=== PATIENT | female | born 1980 | race Caucasian/White ===

== ENCOUNTER → 2019-12-14 | Outpatient (CLI) | payer MEDICAID ==
--- NOTE | 2019-12-14 17:05 | Diagnostic Imaging Report ---
CLINICAL HISTORY: Pain in the posterior aspect of the head. Head injury 5 years ago. COMPARISON: None. TECHNIQUE: Three views of the skull. FINDINGS: There is no acute fracture of the skull. No focal osseous lesions are identified. The paranasal sinuses and mastoid air cells are well pneumatized. There is relative hypoplasia of the right frontal sinus. The nasal septum is slightly deviated to the left without evidence of acute fracture. No acute facial fractures are identified. The sella has an unremarkable appearance and is not expanded. IMPRESSION: No acute fracture in the skull. No evidence of acute facial fractures. Dictated by: Dictated on workstation # [id number]
== END ==
LOC: RAD FS 16:35
PROVIDERS: ATTEND Nurse Practitioner Family
DX: M95.2 Other acquired deformity of head (principal)
CPT/HCPCS: 70250

== ENCOUNTER → 2020-01-31 | Outpatient (CLI) | payer MEDICAID ==
--- NOTE | 2020-01-31 13:22 | Diagnostic Imaging Report ---
CLINICAL INDICATION: Patient with pain in the cervical spine. No known injury. EXAM: X-ray of the cervical spine, four views. COMPARISON: None. FINDINGS: Of note, part of the C7 vertebra is obscured on lateral view due to overlapping anatomical structures. Odontoid views are unremarkable. There is no acute cervical spine fracture or dislocation. There is mildly hypertrophic anterior spurs at C6-C7 level. There is no prevertebral soft tissue swelling. There is minimal anterior spurring at the C3-C4 and C4-C5 level. IMPRESSION: There is mild cervical spine degenerative disease with no acute fracture or dislocation. Dictated by: Dictated on workstation # [id number]
== END ==
LOC: RAD FS 12:43
PROVIDERS: ATTEND Nurse Practitioner Family
DX: M47.812 Spondylosis without myelopathy or radiculopathy, cervical region (principal)
CPT/HCPCS: 72040

== ENCOUNTER 2020-03-15 21:41 | Emergency (ER) | payer MEDICAID ==
[~2020-03-15] VITALS: Ht 165.1 cm; Wt 131.8 kg
[2020-03-15] MEDS ORDERED: ONDANSETRON 4 MG/2 ML (SDV) Z0FRAN ONE (22:42)
[2020-03-15] MEDS ORDERED: ONDANSETRON 4 MG/2 ML (SDV) Z0FRAN IVP ONE (22:45)
[2020-03-15] MEDS ORDERED: NS IV 1000 ML 1,000 ML IV SCH (22:57)
[2020-03-15] MEDS ORDERED: FAMOTIDINE 20MG/2ML IV (PEPCID) IV STA (22:57)
[2020-03-16] MEDS ORDERED: NS 100 ML (IVPB) BAG IV ONE
[2020-03-16] MEDS ORDERED: IOHEXOL 350 MG/ML 100 ML (OMNIPAQUE 350) VIAL IV ONE
[2020-03-16] MEDS ORDERED: CATHETER FLUSH 10 ML SYR IV PRN
[2020-03-16] MEDS ORDERED: HOLD METFORMIN - RECEIVED CONTRAST 20 ML VIAL IV SCH
[2020-03-16] MEDS ORDERED: METOCLOPRAMIDE INJ 10 MG/2 ML (REGLAN) IVP ONE (00:45)
[2020-03-16 01:13] LABS: BASOPHILS % (AUTO) 0 % (0-10); EOSINOPHILS % (AUTO) 0 % (0-10); HEMATOCRIT 43 % (35-52); HEMOGLOBIN 13.4 G/DL (11.5-16.0); LYMPHOCYTES % (AUTO) 6 % (12-44); MEAN CORPUSCULAR HEMOGLOBIN 29 PG (25-34); MEAN CORPUSCULAR HGB CONC 31 G/DL (32-36); MEAN CORPUSCULAR VOLUME 93 FL (80-99); MEAN PLATELET VOLUME 9.4 FL (7.4-10.4); MONOCYTES % (AUTO) 4 % (0-12); NEUTROPHILS # (AUTO) 11.2 X 10^3 (1.8-7.8); NEUTROPHILS % (AUTO) 90 % (42-75); PLATELET COUNT 184 10^3/uL (130-400); RED CELL DISTRIBUTION WIDTH 13.5 % (10.0-14.5); WHITE BLOOD COUNT 12.5 10^3/uL (4.3-11.0)
[2020-03-16 01:14] LABS: LYMPHOCYTES # (AUTO) 0.7 X 10^3 (1.0-4.0); MONOCYTES # (AUTO) 0.5 X 10^3 (0.0-1.0)
[2020-03-16 01:32] LABS: SODIUM 134 MMOL/L (135-145)
[2020-03-16 01:33] LABS: ALANINE AMINOTRANSFERASE 13 U/L (0-55); ALBUMIN 3.8 GM/DL (3.2-4.5); ALKALINE PHOSPHATASE 54 U/L (40-136); BILIRUBIN,TOTAL 0.5 MG/DL (0.1-1.0); BUN/CREATININE RATIO 14; CALCIUM 8.4 MG/DL (8.5-10.1); CARBON DIOXIDE 18 MMOL/L (21-32); CHLORIDE 101 MMOL/L (98-107); CREATININE SERUM 0.96 MG/DL (0.60-1.30); GFR ESTIMATED > 60; GLUCOSE 131 MG/DL (70-105); LIPASE 18 U/L (8-78); POTASSIUM 4.3 MMOL/L (3.6-5.0); TOTAL PROTEIN 6.6 GM/DL (6.4-8.2)
--- NOTE | 2020-03-16 01:33 | ED GI ---
General Chief Complaint: Abdominal/GI Problems Stated Complaint: VOMITING Nursing Triage Note: Pt arrived by private vehicle with chief complaint of vomiting this evening starting around 1800. Pt is also feeling dizzy, faint feeling and weakness. Pt is alert, oriented at arrival. Sepsis Screen: No Definite Risk History of Present Illness Date Seen by Provider: Mar 15, 2020 Time Seen by Provider: 21:45 Initial Comments The patient is a 39-year-old female with a medical history including hypertension, uih-ceoixdl-ihspppygm diabetes, history of factor V Leiden with DVT and PE history on anticoagulation with warfarin per 2019 notes (patient states "please just check my chart" when asked for details of her medical history), history of fibromyalgia. She has an abdominal surgical history of cholecystectomy. Deysi presents with concern for about 6 hours of copious nonbloody vomiting (about 10 episodes) and copious watery diarrhea (about 5 episodes). Associated mild epigastric discomfort only before she vomits and not otherwise. Associated malaise and lightheadedness. She denies associated fevers, hematemesis, hematochezia, melena, upper respiratory congestion/rhinorrhea, cough, shortness of breath or chest pain of any kind, specifically right-sided or lower abdominal pain, flank pain, midline back pain, dysuria or hematuria, changes in bowel habits. She denies recent unusual travel, unusual foods, sick contacts with similar symptoms, recent antibiotic use. Patient is alert and appropriately interactive and vital signs are generally appropriate here. Patient appears fatigued but is in no acute distress upon initial assessment in the emergency department. Allergies and Home Medications Allergies Coded Allergies: aspirin (Verified Allergy, Unknown, 03/15/20) Patient Home Medication List Home Medication List Reviewed: Yes Review of Systems Review of Systems Constitutional: see HPI All Other Systems Reviewed Negative Unless Noted: Yes (Negative excepted noted.) Past Qsssrzr-Jkdoat-Gtrioc Hx Past Med/Social Hx: Reviewed Nursing Past Med/Soc Hx Patient Social History Recent Foreign Travel: No Contact w/Someone Who Travel: No Recent Infectious Disease Expo: No Recent Hopitalizations: No Physical Abuse: No Sexual Abuse: No Mistreated: No Fear: No Seasonal Allergies Seasonal Allergies: No Past Medical History Surgeries: Yes (d&c, lap cholecystectomy, knee left, mult tooth extractions) Hysterectomy Respiratory: Yes Pulmonary Embolism Cardiac: No Neurological: No Genitourinary: No Gastroesophageal Reflux Musculoskeletal: Yes (sciatica associated with disorder of lumbar spine) Fibromyalgia Endocrine: Yes Diabetes, Non-Insulin dep HEENT: No Cancer: No Psychosocial: Yes Depression Integumentary: No Blood Disorders: Yes (Factor V deficiency) Family Medical History Reviewed Nursing Family Hx Physical Exam Vital Signs Vital Signs - First Documented 03/15/20 22:10 Temp 36.4 Pulse 92 Resp 14 B/P (MAP) 143/99 (114) Pulse Ox 97 O2 Delivery Room Air Capillary Refill : Less Than 3 Seconds Height/Weight/BMI Height: '" Weight: lbs. oz. kg; 48.00 BMI Method: General Appearance: no apparent distress Exam Comments This is a middle-aged female appearing nontoxic and in no acute distress, although fatigue. Head is normocephalic and atraumatic. Neck is supple and nontender. Oropharynx is mildly tacky. Lungs are clear to auscultation at all stations. There is a normal S1 and S2 without rubs or gallops and capillary refill is appropriate, less than 2 seconds globally. Abdomen is soft, nontender and nondistended. Skin is warm and dry without cyanosis, clubbing or edema. Psychiatrically, the patient demonstrates appropriate mood and affect and is al ert. Progress/Results/Core Measures Results/Orders Lab Results Laboratory Tests Test 03/15/20 01:06 03/16/20 01:06 Range/Units White Blood Count 12.5 H 4.3-11.0 10^3/uL Red Blood Count 4.66 4.35-5.85 10^6/uL Hemoglobin 13.4 11.5-16.0 G/DL Hematocrit 43 35-52 % Mean Corpuscular Volume 93 80-99 FL Mean Corpuscular Hemoglobin 29 25-34 PG Mean Corpuscular Hemoglobin Concent 31 L 32-36 G/DL Red Cell Distribution Width 13.5 10.0-14.5 % Platelet Count 184 130-400 10^3/uL Mean Platelet Volume 9.4 7.4-10.4 FL Neutrophils (%) (Auto) 90 H 42-75 % Lymphocytes (%) (Auto) 6 L 12-44 % Monocytes (%) (Auto) 4 0-12 % Eosinophils (%) (Auto) 0 0-10 % Basophils (%) (Auto) 0 0-10 % Neutrophils # (Auto) 11.2 H 1.8-7.8 X 10^3 Lymphocytes # (Auto) 0.7 L 1.0-4.0 X 10^3 Monocytes # (Auto) 0.5 0.0-1.0 X 10^3 Eosinophils # (Auto) 0.0 0.0-0.3 10^3/uL Basophils # (Auto) 0.0 0.0-0.1 10^3/uL Neutrophils % (Manual) 95 % Lymphocytes % (Manual) 3 % Monocytes % (Manual) 2 % Toxic Granulation 3+ Sodium Level 134 L 135-145 MMOL/L Potassium Level 4.3 3.6-5.0 MMOL/L Chloride Level 101 98-107 MMOL/L Carbon Dioxide Level 18 L 21-32 MMOL/L Anion Gap 15 H 5-14 MMOL/L Blood Urea Nitrogen 13 7-18 MG/DL Creatinine 0.96 0.60-1.30 MG/DL Estimat Glomerular Filtration Rate > 60 BUN/Creatinine Ratio 14 Glucose Level 131 H 70-105 MG/DL Calcium Level 8.4 L 8.5-10.1 MG/DL Corrected Calcium 8.6 8.5-10.1 MG/DL Total Bilirubin 0.5 0.1-1.0 MG/DL Aspartate Amino Transf (AST/SGOT) 15 5-34 U/L Alanine Aminotransferase (ALT/SGPT) 13 0-55 U/L Alkaline Phosphatase 54 40-136 U/L Troponin I < 0.30 <0.30 NG/ML Total Protein 6.6 6.4-8.2 GM/DL Albumin 3.8 3.2-4.5 GM/DL Lipase 18 8-78 U/L My Orders Orders - KRISTA LEARY MD Ondansetron Injection (Zofran Injectio (03/15/20 22:45) Ondansetron Injection (Zofran Injectio (03/15/20 22:42) Cbc With Automated Diff (03/15/20 22:57) Comprehensive Metabolic Panel (03/15/20 22:57) Lipase (03/15/20 22:57) Troponin I Fs (03/15/20 22:57) Ekg Tracing (03/15/20 22:57) Ua Culture If Indicated (03/15/20 22:57) Ed Iv/Invasive Line Start (03/15/20 22:57) Ns Iv 1000 Ml (Sodium Chloride 0.9%) (03/15/20 22:57) Famotidine Injection (Pepcid Injection) (03/15/20 22:57) Ct Abdomen/Pelvis W (03/15/20 22:57) Iohexol Injection (Omnipaque 350 Mg/Ml 1 (03/16/20 00:00) Received Contrast (Hold Metformin- Contr (03/16/20 00:00) Sodium Chloride Flush (Catheter Flush Sy (03/16/20 00:00) Ns (Ivpb) (Sodium Chloride 0.9% Ivpb Bag (03/16/20 00:00) Ct Abdomen/Pelvis Wo (03/16/20 00:07) Protime With Inr (03/16/20 00:11) Partial Thromboplastin Time (03/16/20 00:11) Metoclopramide Injection (Reglan Injecti (03/16/20 00:45) Manual Differential (03/15/20 01:06) Medications Given in ED Current Medications Medications Dose Ordered Sig/Ambar Route Start Time Stop Time Status Last Admin Dose Admin Metoclopramide HCl 10 mg ONCE ONCE IVP 03/16/20 00:45 03/16/20 00:46 DC 03/16/20 00:37 10 MG Ondansetron HCl 8 mg ONCE ONCE IVP 03/15/20 22:45 03/15/20 22:46 DC 03/15/20 22:51 8 MG Vital Signs/I&O 03/15/20 22:10 Temp 36.4 Pulse 92 Resp 14 B/P (MAP) 143/99 (114) Pulse Ox 97 O2 Delivery Room Air Blood Pressure Mean: 114 Progress Progress Note : Time: 01:33 Progress Note 39-year-old female with appropriate vital signs who presents for evaluation of copious nonbloody vomiting and diarrhea with onset several hours prior to presentation. Not tachycardic or febrile here. His well-appearing and does not appear toxic. Clinical examination reassuring without any focal abdominal tenderness on exam. We will place IV and give IV fluids and medication for nausea and discomfort and will check labs and EKG and urine and we'll then reevaluate. We'll obtain a CT scan of the abdomen and pelvis as well; patient discloses what sounds like a relatively severe iodinated contrast allergy with difficulty breathing and hives in the past. As such, feel the risk of contrasting her outweighs the benefits so we will obtain her abdominopelvic CT scan noncontrast. 0200: Patient is resting comfortably upon reassessment and states her symptoms are much, much improved after IV fluids and antiemetics here in the emergency department. Labs are largely unremarkable aside from a very mild leukocytosis. Patient has not been able to provide a urine sample but low suspicion for urinary tract primary process based on presenting symptoms of sudden-onset vomiting and diarrhea. Patient continues to report no focal abdominal pain. CT scan without clear evidence of acute process aside from fluid-filled loops of bowel which would certainly be consistent with enteritis. No clear red flags for bacterial diarrhea/colitis. No evidence of an emergency condition is identified. Given symptomatic improvement and reassuring labs and imaging here in the emergency department. Patient is felt safe for discharge home with antiemetics and instructions to follow-up very closely immediately after the holiday weekend in 2 days with her primary care physician. She understands that in the meantime if she feels worse is that of better or develops other new symptoms of concern that she will need to return to the emergency department right away for reevaluation. All questions are answered. Initial ECG Impression Date: Mar 15, 2020 Comment Sinus rhythm, rate 84, no acute ST elevation or depression, baseline artifact limits interpretation to a degree, NJ 135, QRS 123, QTC 458, EP interpretation. Diagnostic Imaging Comments CT abdomen and pelvis: Impression per [facility]: Overall findings are nonspecific. There are fluid-filled prominent loops of small bowel and proximal large bowel as well as prominent subcentimeter retroperitoneal lymph nodes. Correlate with gastroenteritis/diarrheal disease with possible reactive lymph nodes. The descending colon is mildly thickened, likely due to under distention although colitis is not excluded. Departure Impression Primary Impression: Nausea and vomiting Qualified Codes: R11.2 - Nausea with vomiting, unspecified Additional Impression: Diarrhea Qualified Codes: R19.7 - Diarrhea, unspecified Disposition: 01 HOME, SELF-CARE Condition: Improved Departure-Patient Inst. Referrals: [facility] (PCP) Primary Care Physician MAAME WHYTE APRN (Family) Primary Care Physician Patient Instructions: Nausea and Vomiting With Cancer Treatment, Diarrhea and Travelers' Diarrhea, Adult (DC) Add. Discharge Instructions: Follow-up very closely with your primary care physician in 2 days, immediately after the holiday weekend, for reevaluation of your symptoms any discussion of next steps in care. You may take a Zofran tablet as needed under the tongue every 8 hours for nausea. You may take a Phenergan pill every 6 hours as needed for vomiting which is not well controlled with Zofran alone. Drink plenty of fluids and get plenty of rest. Return to the emergency department right away with worsening symptoms of any kind or with any other new symptoms of concern. Scripts Promethazine HCl (Promethazine Tablet) 25 Mg Tablet 25 MG PO Q6H PRN for NAUSEA/VOMITING, #10 TAB Prov: KRISTA LEARY MD 03/16/20 Ondansetron (Ondansetron Odt) 4 Mg Tab.rapdis 4 MG PO Q8H for Nausea, #10 TAB Prov: KRISTA LEARY MD 03/16/20 KRISTA LEARY MD Mar 16, 2020 01:33
[2020-03-16 01:40] LABS: LYMPHOCYTES % (MANUAL) 3 %; MONOCYTES % (MANUAL) 2 %; NEUTROPHILS % (MANUAL) 95 %; TOXIC GRANULATION/VACUOLAZATIO 3+
[2020-03-16] MEDS ORDERED: PROM25TA14 PO (02:13)
[2020-03-16] MEDS ORDERED: ONDA4TAB11 PO (02:13)
[2020-03-16 02:23] VITALS: BP 115/62
--- NOTE | 2020-03-16 06:39 | Diagnostic Imaging Report ---
PROCEDURE: CT abdomen and pelvis without contrast. TECHNIQUE: Multiple contiguous axial images were obtained through the abdomen and pelvis without the use of intravenous contrast. Auto Exposure Controls were utilized during the CT exam to meet ALARA standards for radiation dose reduction. INDICATION: Emesis with weakness. Images through the lung bases reveal minimal, punctate nodules in the right posterior costophrenic sulcus. Unenhanced images of the liver and spleen reveal no focal abnormalities. Gallbladder is surgically absent. There is no evidence pancreatic, adrenal gland or renal abnormality. The appendix has a normal appearance. There is no free fluid within the abdomen or pelvis. Bladder is unopacified but otherwise unremarkable. There is mild fluid distention of distal small bowel loops. Occasional mildly prominent lymph nodes are seen throughout the central retroperitoneum, mesentery and iliac regions. IMPRESSION: Nonspecific fluid distention of distal small bowel without evidence of obstruction. Enteritis is not excluded. Prominence of lymph nodes throughout the retroperitoneum, mesentery and iliac region are nonspecific as well. This could represent a nonspecific adenitis and clinical correlation is recommended. Minimal punctate nodules in the right lung base are likely incidental. If there are risk factors for pulmonary pathology, consideration could be given to CT imaging of the chest. Dictated by: Dictated on workstation # [id number]
[2020-03-21] MEDS ORDERED: ONDA8TAB13 PO (11:11)
[2020-03-21] MEDS ORDERED: LACT1CAP7 PO (11:11)
[2020-03-21] MEDS ORDERED: LISI-552 PO (11:11)
[2020-03-21] MEDS ORDERED: Trimethoprim/Sulfamethoxazole PO (11:11)
== END 2020-03-16 02:22 | disposition home or self-care (01) ==
LOC: EDUNIT# 21:41 → ER FS 21:42
DX: R11.2 Nausea with vomiting, unspecified (principal); R19.7 Diarrhea, unspecified; I10 Essential (primary) hypertension; E11.9 Type 2 diabetes mellitus without complications; D68.51 Activated protein C resistance; Z86.718 Personal history of other venous thrombosis and embolism; Z86.711 Personal history of pulmonary embolism; K21.9 Gastro-esophageal reflux disease without esophagitis; M79.10 Myalgia, unspecified site; F32.9 Major depressive disorder, single episode, unspecified; M51.17 Intervertebral disc disorders with radiculopathy, lumbosacral region; Z88.6 Allergy status to analgesic agent
CPT/HCPCS: 36415; 74176; 80053; 83690; 84484; 85007; 85027; 93005; 96361; 96374; 96375

== ENCOUNTER 2020-03-17 17:03 | Emergency (ER) | payer MEDICAID ==
[~2020-03-17] VITALS: Ht 152 cm; Wt 127.0 kg
[~2020-03-17 17:03] MED LIST: ONDA4TAB11 PO; PROM25TA14 PO
--- NOTE | 2020-03-17 17:29 | ED GI ---
General Chief Complaint: Abdominal/GI Problems Stated Complaint: VOMITING/DIARRHEA Nursing Triage Note: PT TO ROOM 07 VIA W/C WITH C/O VOMITING/DIARRHEA X4 DAYS. Sepsis Screen: No Definite Risk Source of Information: Patient Exam Limitations: No Limitations History of Present Illness Date Seen by Provider: Mar 17, 2020 Time Seen by Provider: 17:27 Initial Comments To ER with nausea vomiting and abdominal cramping as well as diarrhea that is watery and without blood. This is been ongoing since of last week. One day into the illness she went to [place] emergency room which was on Wednesday, suspected viral illness, given Zofran. Zofran has not helped she states. She denies any fevers or chills. She has been unable to take her warfarin (for factor V Leiden) since due to the nausea and vomiting. Timing/Duration: 1-2 Days Severity/Quality: Moderate Location: Generalized Abdomen Radiation: No Radiation Associated Symptoms: Nausea/Vomiting Allergies and Home Medications Allergies Coded Allergies: aspirin (Verified Allergy, Unknown, 03/15/20) Home Medications Ondansetron 4 Mg Tab.rapdis, 4 MG PO Q8H Prescribed by: KRISTA LEARY on 03/16/20 021 Promethazine HCl 25 Mg Tablet, 25 MG PO Q6H PRN for NAUSEA/VOMITING Prescribed by: KRISTA LEARY on 03/16/20 0213 Patient Home Medication List Home Medication List Reviewed: Yes Review of Systems Review of Systems Constitutional: see HPI EENTM: No Symptoms Reported Respiratory: No Symptoms Reported Cardiovascular: No Symptoms Reported Gastrointestinal: See HPI, Abdominal Pain, Nausea Genitourinary: No Symptoms Reported Musculoskeletal: no symptoms reported Skin: no symptoms reported Psychiatric/Neurological: No Symptoms Reported Endocrine: No Symptoms Reported Past Emamtmu-Zgtuty-Rphjbs Hx Patient Social History Alcohol Use: Denies Use Recreational Drug Use: No Smoking Status: Never a Smoker 2nd Hand Smoke Exposure: Yes Recent Foreign Travel: No Contact w/Someone Who Travel: No Recent Infectious Disease Expo: No Recent Hopitalizations: No Physical Abuse: No Sexual Abuse: No Mistreated: No Fear: No Seasonal Allergies Seasonal Allergies: No Past Medical History Surgeries: Yes (d&c, lap cholecystectomy, knee left, mult tooth extractions) Hysterectomy Respiratory: Yes Pulmonary Embolism Cardiac: No Neurological: No Genitourinary: No Gastroesophageal Reflux Musculoskeletal: Yes (sciatica associated with disorder of lumbar spine) Fibromyalgia Endocrine: Yes Diabetes, Non-Insulin dep HEENT: No Cancer: No Psychosocial: Yes Depression Integumentary: No Blood Disorders: Yes (Factor V deficiency) Physical Exam Vital Signs Vital Signs - First Documented 03/17/20 17:08 Temp 37.0 Pulse 112 Resp 17 B/P (MAP) 133/82 (99) O2 Delivery Room Air Capillary Refill : Less Than 3 Seconds Height/Weight/BMI Height: '" Weight: lbs. oz. kg; 54.00 BMI Method: General Appearance: WD/WN, no apparent distress Respiratory: lungs clear, normal breath sounds, no respiratory distress, no accessory muscle use Cardiovascular: regular rate, rhythm, no murmur Gastrointestinal: normal bowel sounds, non tender, soft Extremities: normal range of motion, non-tender Neurologic/Psychiatric: alert, normal mood/affect, oriented x 3 Skin: normal color, warm/dry Progress/Results/Core Measures Results/Orders Lab Results Laboratory Tests Test 03/17/20 17:16 Range/Units White Blood Count 4.3 4.3-11.0 10^3/uL Red Blood Count 5.03 4.35-5.85 10^6/uL Hemoglobin 14.3 11.5-16.0 G/DL Hematocrit 42 35-52 % Mean Corpuscular Volume 84 80-99 FL Mean Corpuscular Hemoglobin 28 25-34 PG Mean Corpuscular Hemoglobin Concent 34 32-36 G/DL Red Cell Distribution Width 13.7 10.0-14.5 % Platelet Count 198 130-400 10^3/uL Mean Platelet Volume 9.7 7.4-10.4 FL Neutrophils (%) (Auto) 84 H 42-75 % Lymphocytes (%) (Auto) 9 L 12-44 % Monocytes (%) (Auto) 7 0-12 % Eosinophils (%) (Auto) 0 0-10 % Basophils (%) (Auto) 0 0-10 % Neutrophils # (Auto) 3.6 1.8-7.8 X 10^3 Lymphocytes # (Auto) 0.4 L 1.0-4.0 X 10^3 Monocytes # (Auto) 0.3 0.0-1.0 X 10^3 Eosinophils # (Auto) 0.0 0.0-0.3 10^3/uL Basophils # (Auto) 0.0 0.0-0.1 10^3/uL Prothrombin Time 22.3 H 12.2-14.7 SEC INR Comment 1.9 H 0.8-1.4 Sodium Level 133 L 135-145 MMOL/L Potassium Level 3.1 L 3.6-5.0 MMOL/L Chloride Level 98 98-107 MMOL/L Carbon Dioxide Level 20 L 21-32 MMOL/L Anion Gap 15 H 5-14 MMOL/L Blood Urea Nitrogen 11 7-18 MG/DL Creatinine 1.14 0.60-1.30 MG/DL Estimat Glomerular Filtration Rate 53 BUN/Creatinine Ratio 10 Glucose Level 125 H 70-105 MG/DL Calcium Level 9.1 8.5-10.1 MG/DL Corrected Calcium 8.9 8.5-10.1 MG/DL Total Bilirubin 1.9 H 0.1-1.0 MG/DL Aspartate Amino Transf (AST/SGOT) 18 5-34 U/L Alanine Aminotransferase (ALT/SGPT) 16 0-55 U/L Alkaline Phosphatase 61 40-136 U/L Total Protein 7.6 6.4-8.2 GM/DL Albumin 4.2 3.2-4.5 GM/DL Serum Test, Qualitative NEGATIVE NEGATIVE My Orders Orders - MELISA ANNE APRN Cbc With Automated Diff (03/17/20 17:24) Comprehensive Metabolic Panel (03/17/20 17:24) Ed Iv/Invasive Line Start (03/17/20 17:24) Hcg,Qualitative Serum (03/17/20 17:24) Ns Iv 1000 Ml (Sodium Chloride 0.9%) (03/17/20 17:30) Promethazine Injection (Phenergan Injec (03/17/20 17:30) Protime With Inr (03/17/20 17:24) Loperamide Tablet (Imodium Tablet) (03/17/20 17:30) Enoxaparin Injection (Lovenox Injection) (03/17/20 17:30) Potassium Chloride (Tablet) (Klor Con Ta (03/17/20 18:30) Medications Given in ED Current Medications Medications Dose Ordered Sig/Ambar Route Start Time Stop Time Status Last Admin Dose Admin Enoxaparin Sodium 120 mg ONCE ONCE SC 03/17/20 17:30 03/17/20 17:31 DC 03/17/20 17:46 120 MG Loperamide HCl 4 mg ONCE ONCE PO 03/17/20 17:30 03/17/20 17:31 DC 03/17/20 17:46 4 MG Potassium Chloride 40 meq ONCE ONCE PO 03/17/20 18:30 03/17/20 18:31 DC 03/17/20 18:23 40 MEQ Promethazine HCl 25 mg ONCE ONCE IVP 03/17/20 17:30 03/17/20 17:31 DC 03/17/20 17:30 25 MG Vital Signs/I&O 03/17/20 17:08 Temp 37.0 Pulse 112 Resp 17 B/P (MAP) 133/82 (99) O2 Delivery Room Air Blood Pressure Mean: 99 Departure Communication (Admissions) 1834-and was able to drink 2 glasses of water here, able to take for potassium pills and has had no vomiting. Impression Primary Impression: Diarrhea Qualified Codes: R19.7 - Diarrhea, unspecified Additional Impression: Nausea and vomiting Qualified Codes: R11.2 - Nausea with vomiting, unspecified Disposition: 01 HOME, SELF-CARE Condition: Stable Departure-Patient Inst. Decision time for Depature: 17:29 Referrals: [facility] (PCP) Primary Care Physician MAAME WHYTE APRN (Family) Primary Care Physician Patient Instructions: Nausea and Vomiting, Adult Add. Discharge Instructions: 1. Drink plenty of fluids. You can use [id number] Imodium. Nausea medication as directed. All discharge instructions reviewed with patient and/or family. Voiced understanding. Work/School Note: Work Release Form Date Seen in the Emergency Department: Mar 17, 2020 Return to Work: Mar 19, 2020 MELISA ANNE APRN Mar 17, 2020 17:29
[2020-03-17] MEDS ORDERED: NS IV 1000 ML 1,000 ML IV SCH (17:30)
[2020-03-17] MEDS ORDERED: PROMETHAZINE INJ 25 MG/ML (PHENERGAN) AMP IVP ONE (17:30)
[2020-03-17] MEDS ORDERED: ENOXAPARIN 60 MG/0.6 ML (LOVENOX) SYR SC ONE (17:30)
[2020-03-17] MEDS ORDERED: LOPERAMIDE 2 MG (IMODIUM) TABLET PO ONE (17:30)
[2020-03-17 17:40] LABS: BASOPHILS % (AUTO) 0 % (0-10); EOSINOPHILS % (AUTO) 0 % (0-10); HEMATOCRIT 42 % (35-52); HEMOGLOBIN 14.3 G/DL (11.5-16.0); LYMPHOCYTES # (AUTO) 0.4 X 10^3 (1.0-4.0); LYMPHOCYTES % (AUTO) 9 % (12-44); MEAN CORPUSCULAR HEMOGLOBIN 28 PG (25-34); MEAN CORPUSCULAR HGB CONC 34 G/DL (32-36); MEAN CORPUSCULAR VOLUME 84 FL (80-99); MEAN PLATELET VOLUME 9.7 FL (7.4-10.4); MONOCYTES # (AUTO) 0.3 X 10^3 (0.0-1.0); MONOCYTES % (AUTO) 7 % (0-12); NEUTROPHILS # (AUTO) 3.6 X 10^3 (1.8-7.8); NEUTROPHILS % (AUTO) 84 % (42-75); PLATELET COUNT 198 10^3/uL (130-400); RED CELL DISTRIBUTION WIDTH 13.7 % (10.0-14.5); WHITE BLOOD COUNT 4.3 10^3/uL (4.3-11.0)
[2020-03-17 17:55] LABS: INR 1.9 (0.8-1.4); PROTHROMBIN TIME PATIENT 22.3 SEC (12.2-14.7)
[2020-03-17 18:06] LABS: ALBUMIN 4.2 GM/DL (3.2-4.5); BILIRUBIN,TOTAL 1.9 MG/DL (0.1-1.0); CALCIUM 9.1 MG/DL (8.5-10.1); CREATININE SERUM 1.14 MG/DL (0.60-1.30); POTASSIUM 3.1 MMOL/L (3.6-5.0); TOTAL PROTEIN 7.6 GM/DL (6.4-8.2)
[2020-03-17] MEDS ORDERED: KCL 10 MEQ TAB (MICRO K) PO ONE (18:30)
[2020-03-17 18:59] VITALS: BP 127/77
[2020-03-21] MEDS ORDERED: LACT1CAP7 PO (11:11)
[2020-03-21] MEDS ORDERED: ONDA8TAB13 PO (11:11)
[2020-03-21] MEDS ORDERED: Trimethoprim/Sulfamethoxazole PO (11:11)
[2020-03-21] MEDS ORDERED: LISI-552 PO (11:11)
== END 2020-03-17 18:59 | disposition home or self-care (01) ==
LOC: EDUNIT# 17:03 → ER 17:03
DX: R11.2 Nausea with vomiting, unspecified (principal); R19.7 Diarrhea, unspecified; D68.51 Activated protein C resistance; Z79.01 Long term (current) use of anticoagulants; Z86.711 Personal history of pulmonary embolism; K21.9 Gastro-esophageal reflux disease without esophagitis; M51.17 Intervertebral disc disorders with radiculopathy, lumbosacral region; M79.10 Myalgia, unspecified site; E11.9 Type 2 diabetes mellitus without complications; F32.9 Major depressive disorder, single episode, unspecified
CPT/HCPCS: 36415; 80053; 84703; 85025; 85610

== ENCOUNTER 2020-03-18 11:35 | Observation (INO) | payer MEDICAID ==
[~2020-03-18] VITALS: Ht 152 cm; Wt 126.4 kg
[2020-03-18] MEDS ORDERED: ONDANSETRON 4 MG/2 ML (SDV) Z0FRAN IVP ONE (11:45)
[2020-03-18] MEDS ORDERED: NS IV 1000 ML 1,000 ML IV SCH ×2 (11:45→15:30)
--- NOTE | 2020-03-18 11:45 | NUR ---
Brought to ED 5 via WC, pt parked at registration window by [facility] staff after a call report to Jena CRESPO. Pt is wearing an N95 mask. Pt has been in ER twice with N/V/D not resolving. Feeling weak again, [facility] referral for larger workup. Reports every voiding is also a liquid stool. Reports current nausea. RN met and greeted patient after donning appropriate PPE for patient care ?PUI.
--- NOTE | 2020-03-18 11:50 | NUR ---
Unable to collect a UA, pt had scant liquid green stool. States a liquid stool with every void.
--- NOTE | 2020-03-18 11:50 | NUR ---
Reported liquid stool to Dr Cuenca. Scant specimen collected sent to lab.
--- NOTE | 2020-03-18 12:06 | ED GI ---
General Chief Complaint: Abdominal/GI Problems Stated Complaint: N/V; DIARRHEA; FEVER Source of Information: Patient Exam Limitations: No Limitations History of Present Illness Date Seen by Provider: Mar 18, 2020 Time Seen by Provider: 11:50 Initial Comments The patient is a pleasant 39-year-old obese female who presents for evaluation of nausea, vomiting, diarrhea, and fever. She states that on she felt faint and had some generalized weakness. On Wednesday she started to have some nausea and vomiting and came into the emergency department for dehydration and was given IV fluids and labs were performed. She had a CT scan performed of her abdomen which showed possible enteritis but no other problems. She came back in to the ER over the weekend for continuing nausea and vomiting and dehydration and again received an IV with fluids. Today she went to the walk-in clinic and they noted that she appeared dehydrated and had a fever. Today is the first day that she is aware of having a fever. She denies cough or shortness of breath, chest pain, back or flank pain, urinary complaints, rectal bleeding, hematemesis, loss of smell or taste, sick contacts, sore throat, runny nose, abdominal pain, or syncope. She is alert and oriented 4, calm, and appears to be in no distress at this time. Timing/Duration: 4-5 Days Severity/Quality: Moderate Location: Epigastric (mild epigastric discomfort only when vomiting otherwise no abdominal discomfort) Radiation: No Radiation Associated Symptoms: Fever/Chills, Nausea/Vomiting, Weakness (and generalized) Allergies and Home Medications Allergies Coded Allergies: aspirin (Verified Allergy, Unknown, 03/15/20) Home Medications Ondansetron 4 Mg Tab.rapdis, 4 MG PO Q8H Prescribed by: KRISTA LEARY on 03/16/20212 Promethazine HCl 25 Mg Tablet, 25 MG PO Q6H PRN for NAUSEA/VOMITING Prescribed by: KRISTA LEARY on 03/16/20212 Patient Home Medication List Home Medication List Reviewed: Yes Review of Systems Review of Systems Constitutional: no symptoms reported EENTM: No Symptoms Reported Respiratory: No Symptoms Reported Cardiovascular: No Symptoms Reported Gastrointestinal: Abdominal Pain (mild, only when vomiting), Nausea, Poor Appetite, Vomiting Genitourinary: No Symptoms Reported Musculoskeletal: no symptoms reported Skin: no symptoms reported Psychiatric/Neurological: No Symptoms Reported Endocrine: No Symptoms Reported Hematologic/Lymphatic: No Symptoms Reported All Other Systems Reviewed Negative Unless Noted: Yes Past Funovou-Cnnhlo-Vxofue Hx Past Med/Social Hx: Reviewed Nursing Past Med/Soc Hx Patient Social History 2nd Hand Smoke Exposure: Yes Recent Foreign Travel: No Contact w/Someone Who Travel: No Recent Hopitalizations: No Seasonal Allergies Seasonal Allergies: No Past Medical History Surgeries: Yes (d&c, lap cholecystectomy, knee left, mult tooth extractions) Hysterectomy Respiratory: Yes Pulmonary Embolism Cardiac: No Neurological: No Genitourinary: No Gastroesophageal Reflux Musculoskeletal: Yes (sciatica associated with disorder of lumbar spine) Fibromyalgia Endocrine: Yes Diabetes, Non-Insulin dep HEENT: No Cancer: No Psychosocial: Yes Depression Integumentary: No Blood Disorders: Yes (Factor V deficiency) Physical Exam Vital Signs Vital Signs - First Documented 03/18/20 11:45 Temp 37.8 Pulse 117 Resp 18 B/P (MAP) 126/65 (85) Pulse Ox 97 O2 Delivery Room Air Capillary Refill : Height/Weight/BMI Height: '" Weight: lbs. oz. kg; 54.00 BMI Method: General Appearance: WD/WN, no apparent distress, obese HEENT: PERRL/EOMI, pharynx normal Neck: full range of motion, normal inspection Respiratory: lungs clear, normal breath sounds, no respiratory distress, no accessory muscle use Cardiovascular: regular rate, rhythm, no edema, no JVD Gastrointestinal: normal bowel sounds, non tender, soft, no organomegaly, no pulsatile mass Extremities: non-tender, normal inspection Back: normal inspection, no CVA tenderness Neurologic/Psychiatric: front office coordinator II-XII nml as tested, no motor/sensory deficits, alert, normal mood/affect, oriented x 3 Skin: normal color, warm/dry Progress/Results/Core Measures Results/Orders Lab Results Laboratory Tests Test 03/18/20 12:00 03/18/20 12:35 Range/Units White Blood Count 3.9 L 4.3-11.0 10^3/uL Red Blood Count 4.67 4.35-5.85 10^6/uL Hemoglobin 13.3 11.5-16.0 G/DL Hematocrit 39 35-52 % Mean Corpuscular Volume 84 80-99 FL Mean Corpuscular Hemoglobin 28 25-34 PG Mean Corpuscular Hemoglobin Concent 34 32-36 G/DL Red Cell Distribution Width 13.2 10.0-14.5 % Platelet Count 159 130-400 10^3/uL Mean Platelet Volume 9.7 7.4-10.4 FL Neutrophils (%) (Auto) 78 H 42-75 % Lymphocytes (%) (Auto) 10 L 12-44 % Monocytes (%) (Auto) 11 0-12 % Eosinophils (%) (Auto) 0 0-10 % Basophils (%) (Auto) 0 0-10 % Neutrophils # (Auto) 3.0 1.8-7.8 X 10^3 Lymphocytes # (Auto) 0.4 L 1.0-4.0 X 10^3 Monocytes # (Auto) 0.4 0.0-1.0 X 10^3 Eosinophils # (Auto) 0.0 0.0-0.3 10^3/uL Basophils # (Auto) 0.0 0.0-0.1 10^3/uL Neutrophils % (Manual) 48 % Lymphocytes % (Manual) 5 % Monocytes % (Manual) 11 % Eosinophils % (Manual) 1 % Basophils % (Manual) 1 % Metamyelocytes % 1 % Myelocytes % 1 % Band Neutrophils 32 % Sodium Level 130 L 135-145 MMOL/L Potassium Level 3.4 L 3.6-5.0 MMOL/L Chloride Level 99 98-107 MMOL/L Carbon Dioxide Level 20 L 21-32 MMOL/L Anion Gap 11 5-14 MMOL/L Blood Urea Nitrogen 11 7-18 MG/DL Creatinine 0.99 0.60-1.30 MG/DL Estimat Glomerular Filtration Rate > 60 BUN/Creatinine Ratio 11 Glucose Level 126 H 70-105 MG/DL Calcium Level 8.4 L 8.5-10.1 MG/DL Corrected Calcium 8.6 8.5-10.1 MG/DL Total Bilirubin 1.2 H 0.1-1.0 MG/DL Aspartate Amino Transf (AST/SGOT) 24 5-34 U/L Alanine Aminotransferase (ALT/SGPT) 20 0-55 U/L Alkaline Phosphatase 58 40-136 U/L Total Protein 6.8 6.4-8.2 GM/DL Albumin 3.8 3.2-4.5 GM/DL Amylase Level 8 L 25-125 U/L Lipase 16 8-78 U/L My Orders Orders - JOSE MCGILL DO Amylase (03/18/20 11:40) Cbc With Automated Diff (03/18/20 11:40) Comprehensive Metabolic Panel (03/18/20 11:40) Lipase (03/18/20 11:40) Ua Culture If Indicated (03/18/20 11:40) Urine Bedside (03/18/20 11:40) Ed Iv/Invasive Line Start (03/18/20 11:40) Ns Iv 1000 Ml (Sodium Chloride 0.9%) (03/18/20 11:45) Ondansetron Injection (Zofran Injectio (03/18/20 11:45) Coronavirus Sars-Cov-2 So 2018 (03/18/20 11:57) Stool Culture (03/18/20 11:57) Fecal Wbc (03/18/20 11:57) Parasite Scrn Stool Giard Cryp (03/18/20 11:57) Manual Differential (03/18/20 12:00) Ct Abdomen/Pelvis W (03/18/20 15:22) Ns Iv 1000 Ml (Sodium Chloride 0.9%) (03/18/20 15:30) Potassium Chloride (Tablet) (K Dur Table (03/18/20 15:30) Medications Given in ED Current Medications Medications Dose Ordered Sig/Ambar Route Start Time Stop Time Status Last Admin Dose Admin Ondansetron HCl 4 mg ONCE ONCE IVP 03/18/20 11:45 03/18/20 11:46 DC 03/18/20 12:14 4 MG Vital Signs/I&O 03/18/20 11:45 Temp 37.8 Pulse 117 Resp 18 B/P (MAP) 126/65 (85) Pulse Ox 97 O2 Delivery Room Air Progress Progress Note : Progress Note @1645 - patient updated on lab and imaging results which show evidence of dehyd ration, hyponatremia, and some enteritis. She is agreeable to admission at [facility]. Dr. Townsend accepts the observation admission at [facility] at this time. Departure Communication (Admissions) Time/Spoke to Admitting Phy: 16:50 Dr. Townsend accepts the observation admission at [facility] to a Med/Surg bed. Impression Primary Impression: Enteritis Additional Impressions: Nausea and vomiting Dehydration Hyponatremia Disposition: ADMITTED INPATIENT Condition: Stable Admissions Decision to Admit Reason: Admit from ER (General) Decision to Admit/Date: Mar 18, 2020 Time/Decision to Admit Time: 16:53 Departure-Patient Inst. Referrals: [facility] (PCP) Primary Care Physician MAAME WHYTE APRN (Family) Primary Care Physician JOSE MCGILL DO Mar 18, 2020 12:06
[2020-03-18 12:27] LABS: HEMATOCRIT 39 % (35-52); HEMOGLOBIN 13.3 G/DL (11.5-16.0); MEAN CORPUSCULAR HEMOGLOBIN 28 PG (25-34); MEAN CORPUSCULAR VOLUME 84 FL (80-99); WHITE BLOOD COUNT 3.9 10^3/uL (4.3-11.0)
[2020-03-18 12:28] LABS: BASOPHILS % (AUTO) 0 % (0-10); EOSINOPHILS % (AUTO) 0 % (0-10); LYMPHOCYTES # (AUTO) 0.4 X 10^3 (1.0-4.0); LYMPHOCYTES % (AUTO) 10 % (12-44); MEAN CORPUSCULAR HGB CONC 34 G/DL (32-36); MEAN PLATELET VOLUME 9.7 FL (7.4-10.4); MONOCYTES # (AUTO) 0.4 X 10^3 (0.0-1.0); MONOCYTES % (AUTO) 11 % (0-12); NEUTROPHILS % (AUTO) 78 % (42-75); PLATELET COUNT 159 10^3/uL (130-400); RED CELL DISTRIBUTION WIDTH 13.2 % (10.0-14.5)
--- OUTSIDE RECORDS SUMMARY | 2020-03-18 12:30 | XMS REPORT | Encounter Summary ---
Author Author [facility] Organization [facility] Address Unknown Phone Unavailable Care Team Providers Care French Professor Name Role Phone Tram Aldrich MD Unavailable Romina Martini MD Unavailable Emely Hamm MD Unavailable Annamaria Herndon PROFESSIONAL BONDSMAN-LANDMAN Unavailable [phone] Tram Colon RN Unavailable Unavailable Alfonso Weeks MD Unavailable Lisa Leon MD Unavailable Tram Wilson RN 2 Unavailable Marvin Kruse MD Unavailable Unavailable Ida Butler NP PCP Encounter Details Care Team Description Date Type Department 02/15/2020 Travel Social History Date Tobacco Use Types Packs/Day Years Used Never Smoker 0 0 Smokeless Tobacco: Never Used Comments: allergic to it. has put me in hosp before Drinks/Week oz/Week Comments Alcohol Use 0 Standard drinks or equivalent 0.0 No Sex Assigned at Date Recorded Not on file Industry Job Start Date Occupation Not on file Not on file Not on file Travel End Travel History Travel Start No recent travel history available. Date Recorded COVID-19 Exposure Response 02/15/2020 11:38 AM CDT In the last month, have you been in contact with No / Unsure someone who was confirmed or suspected to have Coronavirus / COVID-19? documented as of this encounter Functional Status Date of Assessment Functional Status Response 12/28/2018 Does the patient have a hearing impairment: No 12/28/2018 Does the patient have a visual impairment: Yes 12/28/2018 Does the patient have impaired ambulation: No 12/28/2018 Does the patient have an activity of daily living No (ADL) impairment: 12/28/2018 Does the patient have an instrumental activity of No daily living (IADL) impairment: Date of Assessment Cognitive Status Response 12/28/2018 Does the patient have a cognitive impairment: No documented as of this encounter Plan of Treatment Not on filedocumented as of this encounter Visit Diagnoses Not on filedocumented in this encounter
--- OUTSIDE RECORDS SUMMARY | 2020-03-18 12:30 | XMS REPORT | Clinical Summary ---
Author Author [facility] Organization [facility] Address Unknown Phone Unavailable Care Team Providers Care Labor Specialist Name Role Phone Tram Aldrich MD Unavailable Romina Martini MD Unavailable Emely Hamm MD Unavailable Annamaria Herndon STRATEGIC MARKETING MANAGER-MFT Unavailable [phone] Tram Colon RN Unavailable Unavailable Alfonso Weeks MD Unavailable Lisa Leon MD Unavailable Tram Wilson RN 2 Unavailable Marvin Kruse MD Unavailable Unavailable Ida Butler NP PCP Source Comments Some departments are not documenting in the electronic medical record. If you d o not see the information that you expected, contact Release of Information in [facility] Information Management department at [phone] for further assistan ce in locating additional records.[facility] Allergies Comments Active Allergy Reactions Severity Noted Date Aspirin HIVES, Medium 10/29/2015 STOMACH UPSET Medications End Date Status Medication Sig Dispensed Refills Start Date Active blood-glucose meter kit Use 1 Strip 1 Kit 0 as directed 7 as Needed. Test fasting morning blood sugars, test before and 2 hours after meals and before bed. Active lancets MISC Use 1 Each as 300 Each 11 directed as 7 Needed. Diag: diabetes Active blood sugar diagnostic Pt is to test 300 Strip 3 0 test stripIndications: blood sugar 7 Pre-existing type 2 up to eight diabetes mellitus during times daily , antepartum Active HYDROcodone/acetaminophen Take one 30 tablet 0 (NORCO) 5/325 mg tablet tablet to two 8 tablets by mouth every 4 hours as needed for Pain Active enoxaparin (LOVENOX) 120 120 mg every 0 06/24 mg/ 0.8 mL syringe 12 hours. 8 Active hydroxychloroquine Take 2 0 (PLAQUENIL) 200 mg tablet tablets (400 8 mg total) by mouth daily. Active traMADol (ULTRAM) 50 mg 50 mg every 8 0 tablet hours as 8 needed. Active warfarin (COUMADIN) 5 mg 0 tablet 8 Active lisinopril (PRINIVIL; Take 10 mg by 0 ZESTRIL) 10 mg tablet mouth daily. Active gabapentin (NEURONTIN) TAKE 1 270 capsule 3 300 mg capsule CAPSULE BY 9 MOUTH EVERY 8 HOURS Active tiZANidine (ZANAFLEX) 4 TAKE 1 TABLET 60 tablet 3 mg tablet BY MOUTH 9 EVERY 6 HOURS NEEDED Active nortriptyline (PAMELOR) 0 25 mg capsule 0 Active prothrombin time/INR test Use 1 each as 1 each 0 metr misc directed 0 every 7 days. Active Problems Problem Noted Date Pre-eclampsia in third trimester 04/21/2017 04/17/2017 Patient is Judaism 04/06/2017 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 Abdominal pain affecting , antepartum 03/25 contractions 03/12/2017 Pre-existing type 2 diabetes mellitus during pregnanc y in third trimester 12/31/2016 Sjogren's syndrome with keratoconjunctivitis sicca 0 12/28/2016 Morbid obesity 03/26/2016 Factor 5 Leiden mutation, heterozygous 03/26/2016 History of DVT (deep vein thrombosis) 03/26/2016 Diabetes mellitus without complication 03/26/2016 Sacroiliac joint dysfunction of both sides 6 Muscle pain, lumbar 12/31/2015 Intertrigo 10/29/2015 Overview: Nystatin powder Abnormal uterine bleeding (AUB) 10/14/2015 Overview: Referred by Dr. Sherri Almonte Contacted by Morena Santos - pt has h/o FVL H/o DVTs and PEs in 2014 currently on l ifelong coumadin Pt is also a Jehova's Witness Sep 2015 failed endometrial ablation at [facility] - D&c done - attempt to get path results TVUS uterus [id number], ovaries nl 09/01 15 Discussed management options - pt clear ly understands risks of surgery. However has not tried Mirena IUD - woul d recommend and if not appropriate improvement within 3-6 months will proc eed with RATLH (due to obesity) Would need to notify blood bank, have f orm on what she would accept, need PAT 02/18/2016 Colleague attempted IUD placement in cl inic but too painful Based on inablity to get D&C results pl an hysteroscopy with D&C with IUD placement Will pretreat with cytotec. 03/09/2016 D&C - disordered benign 03/26/2016 IUD removed due to pain. Discussed limited options due to multip le comoridities Discussed observation, Depo-provera, en dometrial ablation (consider Essure at same time for prevention), GEA with IUD placement or observation Does not want IUD or provera, Does not want to do nothing. Desires essure with HTA - understands off label and FD A concerns. CBC Understands that her case is complicate d but very frustrated with bleeding Will attempt Essure with HTA - understa nds that not within FDA guidelines due to the fact that an HSG is difficul t after endometrial ablation. Will discuss possibility of vasectomy for pa rtner at preop appt. 02/09/2017 Bleeding stopped with - wants plan Will have pt see blood bank for consult Will plan Mirena - would con scarfer hyst but must wait at least 3 months postop. Reports that her friend Anusha has DPOA and can change her mind about the patient receiving blood if necessary. 03/22/2018 Lupus, h/o DVT, Jehova's witness, DM, m orbid obesity TVUS pending CBC , TSH nl A1C 6.6 Will return to clinic after imaging to plan EMB and consider depo-provera. IUD in past caused pain. Resolved Problems Problem Noted Date Resolved Date Elevated liver enzymes 04/06/2017 04/20/2017 Encounters Care Team Description Date Type Specialty Ida Butler NP 02/15/2020 Hospital Radiology Encounter 02/15/2020 Travel Annamaria Herndon, STRATEGIC MARKETING MANAGER-MFT Cervicogenic headache (Primary Dx); Bilateral occipital neuralgia 02/13/2020 Procedure visit Anesthesia Pain 02/13/2020 Travel 02/08/2020 Documentation Radiology Robyn Alatorre RN Care Coordination 12/28/2019 Telephone Obstetrics & Gyneco logy Robyn Alatorre RN 12/28/2019 Documentation Obstetrics & Gyneco logy from Last 3 Months Immunizations Name Administration Dates Next Due Tdap Vaccine 02/18/2017 Family History Medical History Relation Name Comments Diabetes Father ff Heart Disease Father ff Hypertension Father ff Hypertension Maternal r Grandmother Arthritis Mother f Diabetes Mother f Hypertension Mother f Arthritis Sister f Hypertension Sister f Anesthetic Complication Neg Hx Bleeding Disorders Neg Hx Cancer Neg Hx Cancer-Breast Neg Hx Cancer-Colon Neg Hx Cancer-Ovarian Neg Hx Cancer-Uterine Neg Hx Relation Name Status Comments Father ff Maternal Grandmother r Mother f Sister f Social History Date Tobacco Use Types Packs/Day [...] Travel Start No recent travel history available. Last Filed Vital Signs Reading Time Taken Comments Vital Sign 143/89 10/31/2019 1:17 PM TAX COLLECTION COORDINATOR Blood Pressure 92 10/31/2019 1:17 PM TAX COLLECTION COORDINATOR Pulse 36.8 C (98.2 F) 07/06/2018 2:02 PM CDT Temperature 18 03/01/2017 2:30 PM CDT Respiratory Rate 99% 10/31/2019 1:17 PM TAX COLLECTION COORDINATOR Oxygen Saturation - - Inhaled Oxygen Concentration 132.5 kg (292 lb) 02/13/2020 1:39 PM CDT Weight 152.4 cm (5') 02/13/2020 1:39 PM CDT Height 57.03 02/13/2020 1:39 PM CDT Body Mass Index Plan of Treatment Health Maintenance Due Date Last Done Comments DILATED EYE EXAM 1998 FOOT EXAM 1998 PHYSICAL (COMPREHENSIVE) 1998 EXAM PNEUMONIA VACCINE (DM) 1998 CERVICAL CANCER SCREENING 2001 HBA1C 01/25/2019 07/28/2018, 03/22/2018 INFLUENZA VACCINE 06/13/2020 09/03/2010 DTAP/TDAP VACCINES (2 - 02/18/2027 02/18/2017 Td) HIV SCREENING Completed 01/07/2017 HEPATITIS C SCREENING Completed 04/06/2017 Implants Device Identifier Shelf Expiration Date Model / Serial / L ot Explanted Type Area Manufactur er 12/12/2017 / [id number] / [id number] Mirena N/A: Vagina Implanted: Qty: 1 on 03/06/2016 by Tram Aldrich MD at [id number][NOTE 3] Explanted: Qty: 1 on 03/08/2016 Description:Removed after 2 days, Procedures Comments Procedure Name Priority Date/Time Associated Diag nosis MRI C-SPINE WO CONTRAST Routine 02/15/2020 Cervic al pain 12:11 PM CDT WI INJECTION AA&/STRD Routine 02/13/2020 Bilatera l occipital GREATER OCCIPITAL NERVE 1:30 PM CDT neuralgia from Last 3 Months Results * MRI C-SPINE WO CONTRAST (02/15/2020 12:11 PM CDT) Specimen Impressions Performed At 1. Mild cervical disc degeneration. No significant spinal or foraminal stenosis. [facility] 2. No abnormal cord signal. Finalized by Manjit Macias M.D. on 02/15/2020 12:38 PM. Dictated by Manjit Macias M.D. on 02/15/2020 12:33 PM. Narrative Performed At MRI cervical spine [facility] HISTORY: Cervical pain TECHNIQUE: Multiplanar, multisequence MRI images w ere obtained through the cervical spine without contrast. FINDINGS: Comparison is made with CT of the cervi adwoa spine from December 2003. There is mild smooth reversal of the ce rvical lordosis which may be positional. The vertebral body heights are normal. The marrow signal is normal. There is no aggressive or destructive osseous lesio n. There is no paraspinous mass. The visualized portions of the posterio r fossa are unremarkable. The foramen magnum is widely patent. The cervical and upper thoracic cord si gnal is normal. There is very mild cervical disc degene ration with mild loss of signal within multiple cervical discs. The disc heigh ts are preserved. There are several minimal posterior protrusions or disc o steophyte complexes. There is slight effacement of the ventral thecal sac at C4-5 and C6-C7 without significant spinal or foraminal stenosis. Procedure Note Interface, Radiant Results - 02/15/2020 12:41 PM CDT MRI cervical spine HISTORY: Cervical pain TECHNIQUE: Multiplanar, multisequence MRI images were obtained through the cervical spine without contrast. FINDINGS: Comparison is made with CT of the cervical spine from December 2003. There is mild smooth reversal of the cervical lordosis which may be positional. The vertebral body heights are normal. The marrow signal is normal. There is no aggressive or destructive osseous lesion. There is no paraspinous mass. The visualized portions of the posterior fossa are unremarkable. The foramen magnum is widely patent. The cervical and upper thoracic cord signal is normal. There is very mild cervical disc degeneration with mild loss of signal within multiple cervical discs. The disc heights are preserved. There are several minimal posterior protrusions or disc osteophyte complexes. There is slight effacement of the ventral thecal sac at C4-5 and C6-C7 without significant spinal or foraminal stenosis. IMPRESSION 1. Mild cervical disc degeneration. No s ignificant spinal or foraminal stenosis. 2. No abnormal cord signal. Finalized by Manjit Macias M.D. on 02/15/2020 12:38 PM. Dictated by Manjit Macias M.D. on 02/15/2020 12:33 PM. Performing Organization Address City/State/Zipcode Ph one Number [facility] * [facility] (02/13/2020 1:30 PM CDT) Narrative Performed At Annamaria Herndon APRN-NP 02/19/2020 9:47 AM OTHER OUTSIDE LAB [facility] Nerve: occipital Laterality: bilateral Consent: Consent obtained: written Consent given by: patient Alternatives discussed: alternative ronn atment Discussed with patient the purpose of t he treatment/procedure, other ways of treating my condition, including no treatment/ procedure and the risks and benefits of the alternatives. Patie nt has decided to proceed with treatment/procedure. [place] Protocol: Relevant documents: relevant documents present and verified Site marked: the operative site was jennifer stringer Patient identity confirmed: Patient shu ntify confirmed verbally with patient. Time out: Immediately prior to procedur e a "time out" was called to verify the correct patient, procedure, equipme nt, operations support professionals and site/side marked as required Procedures Details: Indications: Pain Relief (occipital diamante ralgia) Prep: alcohol Patient position: sitting Needle size: 27 G Guidance: anatomical Medications administered: 6 mL bupivaca ine PF 0.25 %; 80 mg triamcinolone acetonide 40 mg/mL Outcome: Pain improved Patient tolerance: tolerated well, no i mmediate complications Performing Organization Address City/State/Zipcode Ph one Number OTHER OUTSIDE LAB from Last 3 Months Insurance Type Payer Benefit Subscriber ID Effective Phone Address Plan / Dates Group Medicaid UHC MEDICAID [place] UHC xxxxxxxxxxx [id number] [employer] [place] [phone] [id number] (Home) [place] [address] Advance Directives Patient Patient Care Representative Explanation Type Date Recorded ImageNow Scan Advance 03/06/2016 11:32 AM Directive/DPOA Advance 11/25/2016 12:00 AM Directive/DPOA Advance 11/25/2016 12:00 AM Directive/DPOA Date Inactivated Comments Code Status Date Activated 04/18/2017 3:25 PM Full Code 04/17/2017 4:34 PM Provider has discussed Code Status Yes w/Patient or Family? 04/07/2017 6:23 PM Full Code 04/07/2017 2:24 AM Provider has discussed Code Status Yes w/Patient or Family? 03/26/2017 8:15 PM Full Code 03/25/2017 3:42 PM Provider has discussed Code Status No, discussion no t w/Patient or Family? necessary based on Dx 03/13/2017 8:30 PM Full Code 03/12/2017 3:55 PM Provider has discussed Code Status Yes w/Patient or Family? 01/02/2017 9:02 PM Full Code 12/31/2016 5:41 PM Provider has discussed Code Status Yes w/Patient or Family?
--- OUTSIDE RECORDS SUMMARY | 2020-03-18 12:30 | XMS REPORT | Encounter Summary ---
Author Author [facility] Organization [facility] Address Unknown Phone Unavailable Care Team Providers Care Science Faculty Member Name Role Phone Trma Aldrich MD Unavailable Romina Martini MD Unavailable Emely Hamm MD Unavailable Annamaria Herndon ASSISTED LIVING MANAGER-TERMITE CONTROL REPRESENTATIVE Unavailable [phone] Tram Colon RN Unavailable Unavailable Alfonso Weeks MD Unavailable Lisa Leon MD Unavailable Tram Wilson RN 2 Unavailable Marvin Kruse MD Unavailable Unavailable Ida Butler NP PCP Encounter Details Care Team Description Date Type Department 02/13/2020 Travel Social History Date Tobacco Use Types [...] history available. Date Recorded COVID-19 Exposure Response 02/13/2020 1:26 PM CDT In the last month, have you [...]
--- OUTSIDE RECORDS SUMMARY | 2020-03-18 12:30 | XMS REPORT | Encounter Summary ---
Author Author [facility] Address Unknown Phone Unavailable Care Team Providers Care Mechanic Recovery Name Role Phone Tram Aldrich MD Unavailable Romina Martini MD Unavailable Emely Hamm MD Unavailable Annamaria HerndonBUNDLE TIER Unavailable [phone] Tram Colon RN Unavailable Unavailable Alfonso Weeks MD Unavailable Lisa Leon MD Unavailable Tram Wilson RN 2 Unavailable Marvin Kruse MD Unavailable Unavailable Ida Butler NP PCP Reason for Referral * Pain Authorization (Routine) Referred By Contact Referred To Contact Status Reason Specialty Diagnoses / Procedures Annamaria Herndon APRN-BUNDLE TIER [address] [facility] [place] [address] New Request Diagnoses Bilateral occipital neuralgia P rocedures [facility] Reason for Visit * Reason Comments Procedure Bilat Occipital NB Pain Pain Pain Pain * Pain Authorization (Routine) Referred By Contact Referred To Contact Status Reason Specialty Diagnoses / Procedures Annamaria Herndon APRN-BUNDLE TIER [address] [facility] [place] [address] [place] [address] [place] [address] Closed Anesthesia Pain Diagnoses Bilateral occipital neuralgia P rocedures [facility] Encounter Details Care Team Description Date Type Department Annamaria Herndon, OIL SPRAYING MACHINE OPERATOR-BUNDLE TIER [address] [facility] [place] [address] [phone] Cervicogenic headache (Primary Dx); Bilateral occipital neuralgia 02/13/2020 Procedure visit [facility] [address] [place], [place] [id number] Social History Date Tobacco Use Types Packs/Day [...] / COVID-19? documented as of this encounter Last Filed Vital Signs Reading Time Taken Comments Vital Sign - - Blood Pressure - - Pulse - - Temperature - - Respiratory Rate - - Oxygen Saturation - - Inhaled Oxygen Concentration 132.5 kg (292 lb) 02/13/2020 1:39 PM CDT Weight 152.4 cm (5') 02/13/2020 1:39 PM CDT Height 57.03 02/13/2020 1:39 PM CDT Body Mass Index documented in this encounter Functional Status Date of Assessment [...] impairment: No documented as of this encounter Progress Notes * Annamaria Herndon, OIL SPRAYING MACHINE OPERATOR-BUNDLE TIER - 02/13/2020 1:30 PM CDT [facility] NOTE SUBJECTIVE: chronic back pain, headaches Occipital head pain moderate recently Had OCNB in past with greater than 50% relief She comes in today to repeat Pain is constant, throbbing, shooting Back pain milder than head Was eval for this at last visit Was trying to get SCS Trial but no authed per insurance. Review of Systems Constitutional: Negative. HENT: Negative. Eyes: Negative. Respiratory: Negative. Cardiovascular: Negative. Gastrointestinal: Negative. Endocrine: Negative. Genitourinary: Negative. Musculoskeletal: Positive for arthralgias, back pain, joint swelling, myalgias, neck pain and neck stiffness. Skin: Negative. Allergic/Immunologic: Negative. Neurological: Positive for headaches. Hematological: Negative. Psychiatric/Behavioral: Negative. Current Outpatient Medications: blood sugar diagnostic test strip, Pt is to test blood sugar up to eight ti mes daily, Disp: 300 Strip, Rfl: 3 blood-glucose meter kit, Use 1 Strip as directed as Needed. Test fasting mo rning blood sugars, test before and 2 hours after meals and before bed., Disp: 1 Kit, Rfl: 0 enoxaparin (LOVENOX) 120 mg/ 0.8 mL syringe, 120 mg every 12 hours., Disp: , Rfl: gabapentin (NEURONTIN) 300 mg capsule, TAKE 1 CAPSULE BY MOUTH EVERY 8 HOUR S, Disp: 270 capsule, Rfl: 3 HYDROcodone/acetaminophen (NORCO) 5/325 mg tablet, Take one tablet to two t ablets by mouth every 4 hours as needed for Pain, Disp: 30 tablet, Rfl: 0 hydroxychloroquine (PLAQUENIL) 200 mg tablet, Take 2 tablets (400 mg total) by mouth daily., Disp: , Rfl: lancets MISC, Use 1 Each as directed as Needed. Diag: diabetes, Disp: 300 E ach, Rfl: 11 lisinopril (PRINIVIL; ZESTRIL) 10 mg tablet, Take 10 mg by mouth daily., Di sp: , Rfl: nortriptyline (PAMELOR) 25 mg capsule, , Disp: , Rfl: tiZANidine (ZANAFLEX) 4 mg tablet, TAKE 1 TABLET BY MOUTH EVERY 6 HOURS NEEDED, Disp: 60 tablet, Rfl: 3 traMADol (ULTRAM) 50 mg tablet, 50 mg every 8 hours as needed., Disp: , Rfl : warfarin (COUMADIN) 5 mg tablet, , Disp: , Rfl: Allergies Allergen Reactions Aspirin HIVES and STOMACH UPSET Physical Exam Vitals: 02/13/20 1339 Weight: 132.5 kg (292 lb) Height: 152.4 cm (60") PainSc: Eight Oswestry Total Score:: 72 Pain Score: Eight Body mass index is 57.03 kg/m. General: Alert, oriented, mild distress; obese HEENT: normocephalic NECK: TTP along jj occipital ridge. Limited ROM Resp: Non labored breathing, no distress Cardio: Pedal pulses palpable bilaterally, mild lower extremity edema MS: TTP in lumbar region of spine and paraspinal muscles. NEURO: Cranial nerves II-XII intact. Motor strength 5+ throughout, sensory exams normal. Gait coordinated. Behavior: Calm, cooperative, behavior and speech normal. IMPRESSION: 1. Cervicogenic headache 2. Bilateral occipital neuralgia PLAN: Repeat inj today Plan to re-eval ain 3-4 mo Back pain mild at this time and wants to defer trx documented in this encounter Procedure Notes * Annamaria Herndon APRN-NP - 02/13/2020 1:30 PM CDT Associated Order(s): [facility] Pre-Procedure Diagnose(s): Bilateral occipital neuralgia Post-Procedure Diagnose(s): Bilateral occipital neuralgia Attending Surgeon: JOHN Baker Anesthesia: Local Pre-Procedure Diagnosis: 1. Cervicogenic headache 2. Bilateral occipital neuralgia Post-Procedure Diagnosis: 1. Cervicogenic headache 2. Bilateral occipital neuralgia [facility] Nerve: occipital Laterality: bilateral Consent: Consent obtained: written Consent given by: patient Alternatives discussed: alternative treatment Discussed with patient the purpose of the treatment/procedure, other ways of ronn ating my condition, including no treatment/ procedure and the risks and benefits of the alternatives. Patient has decided to proceed with treatment/procedure. Henderson Protocol: Relevant documents: relevant documents present and verified Site marked: the operative site was marked Patient identity confirmed: Patient identify confirmed verbally with patient. Time out: Immediately prior to procedure a "time out" was called to verify the c orrect patient, procedure, equipment, production support engineer and site/side marked as requ ired Procedures Details: Indications: Pain Relief (occipital neuralgia) Prep: alcohol Patient position: sitting Needle size: 27 G Guidance: anatomical Medications administered: 6 mL bupivacaine PF 0.25 %; 80 mg triamcinolone aceton shu 40 mg/mL Outcome: Pain improved Patient tolerance: tolerated well, no immediate complications Estimated blood loss: none or minimal Specimens: none Patient tolerated the procedure well with no immediate complications. Pressure w as applied, and hemostasis was accomplished. documented in this encounter Plan of Treatment Order Schedule Name Type Priority Associated Diag noses Expected: 02/13/2020, Expires: 1 [facility] Procedures Routine Bila teral occipital neuralgia documented as of this encounter Procedures Comments Procedure Name Priority Date/Time Associated Diag nosis WA INJECTION AA&/STRD Routine 02/13/2020 Bilatera l occipital GREATER OCCIPITAL NERVE 1:30 PM CDT neuralgia documented in this encounter Results * [facility] (02/13/2020 1:30 PM CDT) Narrative Performed At Annamaria Herndon APRN-NP 02/19/2020 9:47 AM OTHER OUTSIDE LAB [facility] Nerve: occipital Laterality: bilateral Consent: Consent obtained: written Consent given by: patient Alternatives discussed: alternative ronn atment Discussed with patient the purpose of t he treatment/procedure, other ways of treating my condition, including no treatment/ procedure and the risks and benefits of the alternatives. Patie nt has decided to proceed with treatment/procedure. [place] Protocol: Relevant documents: relevant documents present and verified Site marked: the operative site was debo stringer Patient identity confirmed: Patient shu ntify confirmed verbally with patient. Time out: Immediately prior to procedur e a "time out" was called to verify the correct patient, procedure, equipme nt, production support engineer and site/side marked as required Procedures Details: Indications: Pain Relief (occipital diamante ralgia) Prep: alcohol Patient position: sitting Needle size: 27 G Guidance: anatomical Medications administered: 6 mL bupivaca ine PF 0.25 %; 80 mg triamcinolone acetonide 40 mg/mL Outcome: Pain improved Patient tolerance: tolerated well, no i mmediate complications Performing Organization Address City/State/Zipcode Ph one Number OTHER OUTSIDE LAB documented in this encounter Visit Diagnoses Diagnosis Bilateral occipital neuralgia Other syndromes affecting cervical karl on Cervicogenic headache Headache documented in this encounter Administered Medications Action Date Dose Rate Site Medication Order DBEO Action 02/13/2020 1:00 PM CDT 6 mL bupivacaine PF (MARCAINE) 0.25 % Given injection 6 mL 6 mL, Injection, ONCE PRN, 1 dose, Starting Wed02/19/20 at 0946, Until Wed02/13/20 at 1300 02/13/2020 1:00 PM CDT 80 mg triamcinolone acetonide (KENALOG-40) Given injection 80 mg 80 mg, Injection, ONCE PRN, 1 dose, Starting 02/19/20 at 0946, Until Wed02/13/20 at 1300 documented in this encounter
--- OUTSIDE RECORDS SUMMARY | 2020-03-18 12:30 | XMS REPORT | Encounter Summary ---
Author Author [facility] Organization [facility] Address Unknown Phone Unavailable Care Team Providers Care At Risk Paraprofessional Name Role Phone Tram Aldrich MD Unavailable Romina Martini MD Unavailable Emely Hamm MD Unavailable Annamaria Herndon APRN-METALLOGRAPHIC TECHNICIAN Unavailable [phone] Tram Colon RN Unavailable Unavailable Alfonso Weeks MD Unavailable Lisa Leon MD Unavailable Tram Wilson RN 2 Unavailable Marvin Kruse MD Unavailable Unavailable Ida Butler NP PCP Reason for Referral * Radiology Services (Routine) Referred By Contact Referred To Contact Status Reason Specialty Diagnoses / Procedures Ida Butler NP [address] [place] [address] [address] [place] [address] No Auth Needed Radiology Diagnoses Cervical pain P rocedures MRI C-SPINE WO CONTRAST Reason for Visit * Radiology Services (Routine) Referred By Contact Referred To Contact Status Reason Specialty Diagnoses / Procedures Ida Butler NP [address] [place] [address] [address] [address] [place] [address] No Auth Needed Radiology Diagnoses Cervical pain P rocedures MRI C-SPINE WO CONTRAST Encounter Details Care Team Description Date Type Department Ida Butler NP [address] [place], [place] [address] 02/15/2020 [facility] [address] [place], [place] [address] Social History Date Tobacco Use Types Packs/Day [...] impairment: No documented as of this encounter Medications at Time of Discharge Start Date End Date Medication Sig Dispensed Refills 01/07/2017 blood sugar diagnostic Pt is to test 300 Strip 3 test stripIndications: blood sugar Pre-existing type 2 up to eight diabetes mellitus during times daily , antepartum 01/02/2017 blood-glucose meter kit Use 1 Strip 1 Kit 0 as directed as Needed. Test fasting morning blood sugars, test before and 2 hours after meals and before bed. 06/24/2018 enoxaparin (LOVENOX) 120 120 mg every 0 mg/ 0.8 mL syringe 12 hours. 04/05/2019 gabapentin (NEURONTIN) TAKE 1 270 capsule 3 300 mg capsule CAPSULE BY MOUTH EVERY 8 HOURS 06/07/2018 HYDROcodone/acetaminophen Take one 30 tablet 0 (NORCO) 5/325 mg tablet tablet to two tablets by mouth every 4 hours as needed for Pain 12/17/2017 hydroxychloroquine Take 2 0 (PLAQUENIL) 200 mg tablet tablets (400 mg total) by mouth daily. 01/02/2017 lancets MISC Use 1 Each as 300 Each 11 directed as Needed. Diag: diabetes lisinopril (PRINIVIL; Take 10 mg by 0 ZESTRIL) 10 mg tablet mouth daily. 01/21/2020 nortriptyline (PAMELOR) 0 25 mg capsule 05/10/2019 tiZANidine (ZANAFLEX) 4 TAKE 1 TABLET 60 tablet 3 mg tablet BY MOUTH EVERY 6 HOURS NEEDED 04/18/2018 traMADol (ULTRAM) 50 mg 50 mg every 8 0 tablet hours as needed. 05/24/2018 warfarin (COUMADIN) 5 mg 0 tablet documented as of this encounter Plan of Treatment Not on filedocumented as of this encounter Procedures Comments Procedure Name Priority Date/Time Associated Diag nosis MRI C-SPINE WO CONTRAST Routine 02/15/2020 Cervic al pain 12:11 PM CDT documented in this encounter Results * MRI C-SPINE WO CONTRAST (02/15/2020 [...] City/State/Zipcode Ph one Number [facility] RESULTS documented in this encounter Visit Diagnoses Diagnosis Cervical pain Cervicalgia documented in this encounter
--- OUTSIDE RECORDS SUMMARY | 2020-03-18 12:31 | XMS REPORT | Encounter Summary ---
Author Author [facility] Organization [facility] Address Unknown Phone Unavailable Care Team Providers Care Clamshell Engineer Name Role Phone Tram Aldrich MD Unavailable Romina Martini MD Unavailable Emely Hamm MD Unavailable Annamaria Herndon APRN-ENGINEER GAS PUMPING STATION Unavailable [phone] Tram Colon RN Unavailable Unavailable Alfonso Weeks MD Unavailable Lisa Leon MD Unavailable Tram Wilson RN 2 Unavailable Marvin Kruse MD Unavailable Unavailable Ida Butler NP PCP Reason for Visit * Reason Comments Care Coordination Encounter Details Care Team Description Date Type Department Annamaria Herndon, COMMUNITY SERVICE REPRESENTATIVE-ENGINEER GAS PUMPING STATION [address] [place] [address] Care Coordination 11/09/2019 Telephone [facility] [address] [address] Social History Date Tobacco Use Types Packs/Day [...] Travel Start No recent travel history available. documented as of this encounter Functional Status [...] impairment: No documented as of this encounter Miscellaneous Notes * Telephone Encounter - Joyce Art BSN - 11/09/2019 1:47 PM SALES ANALYST LM for patient to contact clinic back S ANALYST * Telephone Encounter - Joyce Art BSN - 11/09/2019 1:46 PM SALES ANALYST ----- Message from JOHN Baker sent at 11/09/2019 11:45 AM SALES ANALYST ---- - Medicaid wont cover SCS ----- Message ----- From: Annamaria Herndon APRN-NP Sent: 10/31/2019 4:59 PM SALES ANALYST To: Emely Hamm MD [facility] S ANALYST documented in this encounter Plan of Treatment Not on filedocumented as of this encounter Visit Diagnoses Not on filedocumented in this encounter
--- OUTSIDE RECORDS SUMMARY | 2020-03-18 12:31 | XMS REPORT | Clinical Summary ---
Author Organization Unknown Address Unknown Phone Unavailable Care Team Providers Care Spinner Frame Name Role Phone PP Unavailable Allergies Not on File Medications Not on file Active Problems Not on file Social History Date Tobacco Use Types Packs/Day Years Used Never Smoker Smokeless Tobacco: Never Used Drinks/Week oz/Week Comments Alcohol Use No Sex Assigned at Date Recorded Not on file Industry Job Start Date Occupation Not on file Not on file Not on file Travel End Travel History Travel Start No recent travel history available. Plan of Treatment Not on file Results Not on filefrom Last 3 Months
--- OUTSIDE RECORDS SUMMARY | 2020-03-18 12:31 | XMS REPORT | Encounter Summary ---
Author Author [facility] Organization [facility] Address Unknown Phone Unavailable Care Team Providers Care Senior Accounts Payable Clerk Name Role Phone Tram Aldrich MD Unavailable Romina Martini MD Unavailable Emely Hamm MD Unavailable Annamaria Herndon TAPE TRANSFERRER-SANDWICH ARTIST Unavailable [phone] Tram Colon RN Unavailable Unavailable Alfonso Weeks MD Unavailable Lisa Leon MD Unavailable Tram Wilson RN 2 Unavailable Marvin Kruse MD Unavailable Unavailable Ida Butler NP PCP Reason for Referral * Pain Authorization (Routine) Referred By Contact Referred To Contact Status Reason Specialty Diagnoses / Procedures Annamaria Herndon, TAPE TRANSFERRER-SANDWICH ARTIST [address] [place] [address] Bhg Spn Anes Pain Cl [address] [address] Closed Anesthesia Pain Diagnoses Lumbar radiculopathy P rocedures KU AMB SPINE ELECT ANAL PRGM NEUROSTIM Reason for Visit * Reason Comments Follow Up Fuv to discuss injections Pain Headache Encounter Details Care Team Description Date Type Department Annamaria Herndon APRN-NP [address] [facility] [place] [address] [phone] Lumbar radiculopathy (Primary Dx); Bilateral occipital neuralgia; Myalgia of auxiliary muscles, head and neck; Cervicogenic headache 10/31/2019 Office Visit [facility] [address] [facility] [address] [place] [address] Social History Date Tobacco Use Types Packs/Day [...] history available. documented as of this encounter Last Filed Vital Signs Reading Time Taken Comments Vital Sign 143/89 10/31/2019 1:17 PM MANAGER SPECIALTY Blood Pressure 92 10/31/2019 1:17 PM MANAGER SPECIALTY Pulse - - Temperature - - Respiratory Rate 99% 10/31/2019 1:17 PM MANAGER SPECIALTY Oxygen Saturation - - Inhaled Oxygen Concentration 132.5 kg (292 lb) 10/31/2019 1:17 PM MANAGER SPECIALTY Weight 152.4 cm (5') 10/31/2019 1:17 PM MANAGER SPECIALTY Height 57.03 10/31/2019 1:17 PM MANAGER SPECIALTY Body Mass Index documented in this encounter [...] impairment: No documented as of this encounter Patient Instructions * Patient Instructions* Annamaria Herndon APRN-NP - 10/31/2019 1:15 PM MANAGER SPECIALTY Spinal Cord Stimulator General Instructions for Trial & Implant Scheduling ? The Spinal Cord Stimulator (SCS) coordinators will contact you for your appoin tments. ? You will need to have a psychological exam prior to the procedure. (They will assist you with scheduling this.) ? You will need to fill out a pre-surgical questionnaire. (This will be mailed t o you.) Appointment One (SCS Trial in Procedures) ? You will first be scheduled for a trial to see how the SCS will work for you. ? The temporary implant will be placed in procedures, externally. You will wear a "fannypack-like" device around your waist for up to 7 days. ? It is REQUIRED you have a route driver coin machines after procedure due to anesthesia sedation. ? Do not eat or drink after midnight before the procedure. ? You will not be able to shower or submerge in any water during your trial phas e. Sponge baths only. ? If you are on any blood thinners, or take medications for chronic issues, umair se ask the clinical nurse coordinator for instructions on these specific medicat ions. ? Please contact Clinical Nurse Coordinator for questions/concerns. ? Avoid bending, twisting, lifting arms over the head or heavy lifting during yo ur trial phase. ? You may, or may not, be instructed to withhold from driving during your trial phase. Please clarify this with your provider, since this is based on the type o f device you have implanted. ? Your Spinal Cord Stimulator Supplier Specialist will be in contact with you daily d uring your trial to guide you through adjusting settings if necessary. ? It is REQUIRED you shower thoroughly with chlorhexidine gluconate (CHG), or mo re commonly known as Hibiclens the day before and the morning of the procedure . (Hibiclens is available at local drug stores. It typically costs $6-10.) If you are allergic to this cleanse please notify the clinical nurse coordinator. ? Patient instructions for CHG soap use: ? Purchase the soap described above. ? Wash your hair as normal with your normal shampoo and rinse. ? Wash your face and genital area with regular soap and rinse. ? DO NOT use CHG soap on your face, near your eyes, or on your genital area. ? Apply the CHG soap to the rest of your body and your entire back. Scrub gently for 5 minutes trying to avoid rinsing before this time. You may need to turn the water off during this time to avoid rinsing. ? Rinse and do not apply any other soaps, oils/lotions/creams, powder, deodorant s, or perfumes on the areas you cleaned with CHG soap. ? Repeat one last time on the morning of your surgery. ? If you have any other questions about this do not hesitate to call. Appointment Two - SCS Trial (Clinic Follow-up) ? A week after the temporary implant (SCS trial), you will have an appointment, in clinic, to remove the temporary implant and to assess how well it worked for you. ? If the trial is successful, you will be scheduled for the permanent implant in the operating room on a separate day. ? At this appointment we will also take a nasal swab to rule out any patients wh o may be carrying a certain germ that can live on your skin without knowin g or showing any symptoms. Specifically, we are looking for Meticillin Resistant Staphylococcus Aureus (MRSA). We are committed to reducing post-operative infec tions and giving our patients quality care. ? No news is good news after this swab. The clinical nurse coordinator will only contact you if this result is positive. ? Clinical Nurse Coordinator will review pre-operative guidelines. Appointment Three - Permanent Implant (The Permanent Implant will be placed in t Operating Room) ? It is REQUIRED you shower thoroughly with chlorhexidine gluconate (CHG), or mo re commonly known as Hibiclens the day before and the morning of the procedure . (Hibiclens is available at local drug stores. It typically costs $6-10.) If you are allergic to this cleanse please notify the clinical nurse coordinator. ? Patient instructions for CHG soap use: ? Purchase the soap described above. ? Wash your hair as normal with your normal shampoo and rinse. ? Wash your face and genital area with regular soap and rinse. ? DO NOT use CHG soap on your face, near your eyes, or on your genital area. ? Apply the CHG soap to the rest of your body and your entire back. Scrub gently for 5 minutes trying to avoid rinsing before this time. You may need to turn the water off during this time to avoid rinsing. ? Rinse and do not apply any other soaps, oils/lotions/creams, powder, deodorant s, or perfumes on the areas you cleaned with CHG soap. ? Repeat one last time on the morning of your surgery. ? If you have any other questions about this do not hesitate to call. ? Do not eat or drink anything after midnight prior to your scheduled procedure. ? If you are on any blood thinners, or take medications for chronic issues, umair oconnor ask the clinical nurse coordinator for instructions on these specific medicat ions. ? You will receive anesthesia sedation so it is REQUIRED you have a route driver coin machines. ? Please contact Clinical Nurse Coordinator for questions/concerns. Instructions the Week the Permanent Stimulator is Implanted ? There will be two incisions covered with gauze and tape after implant. If you notice or start to experience any of the following: ? Swelling ? Persistent redness ? Black and blue bruising ? New bleeding or drainage from the insertion sites ? Severe headache ? Fever > 101F ? New onset of sharp, severe neck or back pain ? Please notify the clinical nurse coordinator immediately. (If this is after ho urs please call [phone] and have the Anesthesia Pain extension agent provider paged .) ? Do not shower. You will have to sponge bathe until directed by your provider. ? Avoid bending, twisting, lifting arms over head or heavy lifting for 6 weeks a fter insertion. This will keep the lead in the correct spot while your body heal s it into place. ? The Spinal Cord Stimulator will not be turned on for the first week after impl ant. At your follow up visit when the vasyl have been removed, the device rep is present, and orders have been given from provider the device will be turned o n. Appointment Four (Clinic Follow-up) ? You will need to be scheduled 10 days after the procedure for removal of the s taples. ? It is okay for you to drive yourself that day. ? The device career representative will attend that appointment to initiate and educate in regards to the programming. Bring all of the stimulator pieces you were given with you to this appointment. (Anticipate this appointment may take as much as an hour.) ? Once the vasyl are removed they will be replaced with steri-strips. (It is a dvised you wear loose fitting clothing to prevent irritation to the surgical sit es.) ? You may shower 3 days after the steri-strips have been placed. Allow the steri -strips to fall off on their own. ? Do not apply any soap, lotions/creams or oils directly to the incision site un less directed to do so by your doctor or nurse practitioner. ? If you notice or start to experience any of the following: ? Swelling ? Persistent redness ? Black and blue bruising ? New bleeding or drainage from the insertion sites ? Develop a severe headache ? Fever < 101F ? New onset of sharp, severe neck or back pain ? Please notify the clinical nurse coordinator immediately. (If this is after ho urs please call [phone] and have the Anesthesia Pain extension agent provider paged .) ? You will follow up in 2-4 weeks to check on incision and pain control. ? If you have any questions in regards to insurance or scheduling feel free to c all the following Spinal Cord Stimulator (SCS) coordinators. ? Estefany Sosa (if last name begins with A-J) at [phone] or ? Anay Jin (if last name begins with K-Z) at [phone]. GER SPECIALTY documented in this encounter Progress Notes * Annamaria Herndon APRN-NP - 10/31/2019 1:15 PM MANAGER SPECIALTY SPINE CENTER CLINIC NOTE SUBJECTIVE: Chronic back and headache pain Has been ongoing for years Last seen by me in March for OCNB jj Reports 80% relief lasting 6-8 mo Pain starting to come back over last few mon Comes in today to repeat inj Cont to have moderate low back pain Hx of fibro inj ADEBAYO have not helped, made pain worse She was eval by surgeon, Dr Pathak and not recommended to have surgery She was referred back for SCS eval Comes in today to discuss this Sees a new PCP Ida Butler MD Is on blood thinners with this provider Cont gabapentin 300mg duloxetine Tizanidine Tramadol PRN PT in past for this back pain with mild to minimal change in pain Tries to stay active at home Pain limits activity Review of Systems Constitutional: Negative. HENT: Negative. Eyes: Negative. Respiratory: Negative. Cardiovascular: Negative. Gastrointestinal: Negative. Endocrine: Negative. Genitourinary: Negative. Musculoskeletal: Negative. Skin: Negative. Allergic/Immunologic: Negative. Neurological: Positive for [...] by mouth daily., Di sp: , Rfl: tiZANidine (ZANAFLEX) 4 mg tablet, TAKE 1 TABLET BY MOUTH EVERY 6 HOURS NEEDED, Disp: 60 tablet, Rfl: 3 traMADol (ULTRAM) 50 mg tablet, 50 mg every 8 hours as needed., Disp: , Rfl : warfarin (COUMADIN) 5 mg tablet, , Disp: , Rfl: Allergies Allergen Reactions Aspirin HIVES and STOMACH UPSET Physical Exam Vitals: 10/31/19 1317 BP: 143/89 Pulse: 92 SpO2: 99% Weight: 132.5 kg (292 lb) Height: 152.4 cm (60") PainSc: Nine Pain Score: Nine Body mass index is 57.03 kg/m. General: Alert, oriented, mild distress; obese HEENT: normocephalic NECK: TTP along c spine and jj occipital ridges. Resp: Non labored breathing, no distress Cardio: Pedal pulses palpable bilaterally, mild lower extremity edema MS: TTP in lumbar region of spine and paraspinal muscles. NEURO: Cranial nerves II-XII intact. Motor strength 5+ throughout, sensory exams normal. Gait antalgic. Behavior: Calm, cooperative, behavior and speech normal. IMPRESSION: 1. Lumbar radiculopathy 2. Bilateral occipital neuralgia 3. Myalgia of auxiliary muscles, head and neck 4. Cervicogenic headache PLAN: Repeat OCNB jj today Discussed SCS therapy, will set up trial of Nevro High Frequency (HF-10) Has failed conservative treatments including medication, PT, injections, surgica l evaluation Reviewed stimulator model, provided patient with literature and SCS education bennie glynn Pt instructed our office will call to coordinate psychiatric evaluation for insu sachi authorization. Answered questions and patient agreeable to the plan MRSA nasal swab obtained and Hibiclens sponges provided with instructions for us e GER SPECIALTY documented in this encounter Procedure Notes * Annamaria Herndon APRN-NP - 10/31/2019 1:15 PM MANAGER SPECIALTY Associated Order(s): Nerve Block Post-Procedure Diagnose(s): Bilateral occipital neuralgia; Myalgia of auxiliary muscles, head and neck; Cervicogenic headache Attending Surgeon: JOHN Baker Anesthesia: Local Pre-Procedure Diagnosis: 1. Lumbar radiculopathy Post-Procedure Diagnosis: 1. Lumbar radiculopathy Nerve Block Nerve: occipital Laterality: bilateral Consent: Consent obtained: written Consent given by: patient Alternatives discussed: alternative treatment Discussed with patient the purpose of the treatment/procedure, other ways of ronn ating my condition, including no treatment/ procedure and the risks and benefits of the alternatives. Patient has decided to proceed with treatment/procedure. [place] Protocol: Relevant documents: relevant documents present and verified Site marked: the operative site was marked Patient identity confirmed: Patient identify confirmed verbally with patient. Time out: Immediately prior to procedure a "time out" was called to verify the c orrect patient, procedure, equipment, clinical support associate and site/side marked as requ ired Procedures Details: Indications: Pain Relief (occipital neuralgia) Prep: alcohol Patient position: sitting Needle size: 27 G Guidance: anatomical Medications administered: 6 mL bupivacaine PF 0.25 %; 80 mg methylprednisolone a cetate 80 mg/mL Outcome: Pain improved Patient tolerance: tolerated well, no immediate complications Estimated blood loss: none or minimal Specimens: none Patient tolerated the procedure well with no immediate complications. Pressure w as applied, and hemostasis was accomplished. GER SPECIALTY documented in this encounter Plan of Treatment Order Schedule Name Type Priority Associated Diag noses Expected: 10/31/2019, Expires: 0 KU AMB SPINE ELECT ANAL Procedures Routine Lumbar radiculopathy PRGM NEUROSTIM documented as of this encounter Procedures Comments Procedure Name Priority Date/Time Associated Diag nosis HC MRSA SCREEN 10/31/2019 4:01 PM MANAGER SPECIALTY MS INJECTION AA&/STRD Routine 10/31/2019 Bilatera l occipital GREATER OCCIPITAL NERVE 1:15 PM MANAGER SPECIALTY neuralgia Myalgia of auxiliary muscles, head and neck Cervicogenic headache documented in this encounter Results * MRSA SCREEN (10/31/2019 4:01 PM MANAGER SPECIALTY) Battery Name MRSA SCREEN [facility] MAIN LAB Specimen NASAL MAIN LAB Description Special NONE MAIN LAB Requests Culture NO MRSA ISOLATED [facility] MAIN [facility] Report Status FINAL MAIN LAB 11/02/2019 Specimen Nasal Performing Organization Address City/State/Zipcode Ph one Number MAIN LAB [address] [place] [address] * Nerve Block (10/31/2019 1:15 PM MANAGER SPECIALTY) Narrative Performed At Annamaria Herndon APRN-NP 10/31/2019 5:00 PM OTHER OUTSIDE LAB Nerve Block Nerve: occipital Laterality: bilateral Consent: Consent obtained: written Consent given by: patient Alternatives discussed: alternative ronn atment Discussed with patient the purpose of t he treatment/procedure, other ways of treating my condition, including no treatment/ procedure and the risks and benefits of the alternatives. Patty nt has decided to proceed with treatment/procedure. [place] Protocol: Relevant documents: relevant documents present and verified Site marked: the operative site was jennifer stringer Patient identity confirmed: Patient shu ntify confirmed verbally with patient. Time out: Immediately prior to procedur e a "time out" was called to verify the correct patient, procedure, equipme nt, clinical support associate and site/side marked as required Procedures Details: Indications: Pain Relief (occipital diamante ralgia) Prep: alcohol Patient position: sitting Needle size: 27 G Guidance: anatomical Medications administered: 6 mL bupivaca ine PF 0.25 %; 80 mg methylprednisolone acetate 80 mg/mL Outcome: Pain improved Patient tolerance: tolerated well, no i mmediate complications Performing Organization Address City/State/Zipcode Ph one Number OTHER OUTSIDE LAB documented in this encounter Visit Diagnoses Diagnosis Lumbar radiculopathy Thoracic or lumbosacral neuritis or rad iculitis, unspecified Bilateral occipital neuralgia Other syndromes affecting cervical karl on Myalgia of auxiliary muscles, head and neck Cervicogenic headache Headache documented in this encounter Administered Medications Action Date Dose Rate Site Medication Order MAR Action 10/31/2019 2:16 PM MANAGER SPECIALTY 6 mL bupivacaine PF (MARCAINE) 0.25 % Given injection 6 mL 6 mL, Injection, ONCE PRN, 1 dose, Starting 10/31/19 at 1416, Until 10/31/19 at 1416 10/31/2019 2:16 PM MANAGER SPECIALTY 80 mg methylprednisolone acetate (DEPO-Medrol) Given injection 80 mg 80 mg, Injection, ONCE PRN, 1 dose, Starting 10/31/19 at 1416, Until 10/31/19 at 1416 documented in this encounter
--- OUTSIDE RECORDS SUMMARY | 2020-03-18 12:31 | XMS REPORT | Encounter Summary ---
Author Author [facility] Organization [facility] Address Unknown Phone Unavailable Care Team Providers Care After School Teacher Name Role Phone Tram Aldrich MD Unavailable Romina Martini MD Unavailable Emely Hamm MD Unavailable Annamaria Herndon APRN-TELEPHONE QUOTATION CLERK Unavailable [phone] Tram Colon RN Unavailable Unavailable Alfonso Weeks MD Unavailable Lisa Leon MD Unavailable Tram Wilson RN 2 Unavailable Marvin Kruse MD Unavailable Unavailable Ida Butler NP PCP Encounter Details Care Team Description Date Type Department 02/08/2020 Documentation [facility] [address] [place] [address] Social History Date Tobacco Use Types Packs/Day [...]
--- OUTSIDE RECORDS SUMMARY | 2020-03-18 12:31 | XMS REPORT | Encounter Summary ---
Author Author [facility] Organization [facility] Address Unknown Phone Unavailable Care Team Providers Care Stonecutter Assistant Name Role Phone PCP Unavailable Encounter Details Care Team Description Date Type Department Baljinder Soria MD [address] [address] [phone] Mastodynia; Other pulmonary embolism and infarction; Acute thromboembolism of deep veins of lower extremity (HCC); Urinary tract infection 12/18/2014 Emergency [facility] [address] [address] Social History Date Tobacco Use Types Packs/Day Years Used Never Assessed Sex Assigned at Date Recorded Not on file Industry Job Start Date Occupation Not on file Not on file Not on file Travel End Travel History Travel Start No recent travel history available. documented as of this encounter Plan of Treatment Not on filedocumented as of this encounter Procedures Comments Procedure Name Priority Date/Time Associated Diag nosis URINE CULTURE STAT 12/18/2014 5:36 PM CDT XR CHEST 2 VW STAT 12/18/2014 4:53 PM CDT ECG 12-LEAD Routine 12/18/2014 12:30 PM CDT documented in this encounter Results * Urine culture (12/18/2014 5:36 PM CDT) SOURCE CLEAN CATCH URINE [facility] EPIC REQUISITION NONE [facility] EPIC NOTE CULTURE RESULTS 70,000 CFU/ML MIXED UROGENITAL [facility] EP IC POLLY CULTURE RESULTS FIVE COLONY TYPES [facility] EPIC CULTURE RESULTS NO FURTHER WORKUP [facility] EPIC REPORT STATUS 12/20/2014 FINAL [facility] EPIC (MICRO) Specimen Urine (substance) - Urine, Clean Catch Performing Organization Address City/State/Zipcode Ph one Number STF EPIC * XR CHEST 2 VW (12/18/2014 4:53 PM CDT) Specimen Impressions Performed At Normal two-view chest. [facility] Narrative Performed At FINDINGS: [facility] There is no prior study available for c omparison.PA and lateral views of the chest show normal heart size and config uration. The pulmonary vascularity is normal. There is no mediastinal or radha r adenopathy. The lungs are clear and there is no pleural effusion. The osseo us structures are normal. Procedure Note Interface, Radiology Results Conversion [facility] - 12/03/2018 11:02 PM CDT FINDINGS: There is no prior study available for comparison.PA and lateral views of the chest show normal heart size and configuration. The pulmonary vascularity is normal. There is no mediastinal or hilar adenopathy. The lungs are clear and there is no pleural effusion. The osseous structures are normal. IMPRESSION: Normal two-view chest. Performing Organization Address [facility] Ph [facility] Number [facility] * ECG 12 lead (12/18/2014 12:30 PM CDT) Specimen Narrative [place] [address] Test Date: 2014-12-18 Pat Name: ZOLTAN CISSE Department: Room: Gender: F Lab Nurse: JOHNY : 1980 Requested By: Order Number: Reading MD: Ely Eden M.D. Measurements Intervals [place] Rate: 71 P: -7 [place]: 156 QRS: 20 QRSD: 80 T: 26 QT: 376 QTc: 409 Interpretive Statements SINUS RHYTHM BASELINE WANDER IN LEAD(S) V2 INITIAL TIME OF INTERPRETATION:1227 Sinus rhythm, normal intervals, no ST c hanges Electronically Signed On 12-18-14 14:06 :11 CDT by Ely Eden M.D. Procedure Note Interface, Cardiology Conversion Results [facility] - 12/08/2018 1:14 [place] [address] Test Date: 2014-12-18 Pat Name: ZOLTAN OCHOAK Department: Room: Gender: F Lab Nurse: JOHNY : 1980 Requested By: Order Number: Reading MD: Ely Eden M.D. Measurements Intervals [place] Rate: 71 P: -7 [place]: 156 QRS: 20 QRSD: 80 T: 26 QT: 376 QTc: 409 Interpretive Statements SINUS RHYTHM BASELINE WANDER IN LEAD(S) V2 INITIAL TIME OF INTERPRETATION:1227 Sinus rhythm, normal intervals, no ST changes Electronically Signed On 12-18-14 14:06:11 CDT by Ely Eden M.D. Performing Organization Address City/State/Zipcode Ph one Number [facility] documented in this encounter Visit Diagnoses Diagnosis Mastodynia Other pulmonary embolism and infarction Acute thromboembolism of deep veins of lower extremity (HCC) Urinary tract infection documented in this encounter
--- OUTSIDE RECORDS SUMMARY | 2020-03-18 12:31 | XMS REPORT | Encounter Summary ---
Author Author [facility] Organization [facility] Address Unknown Phone Unavailable Care Team Providers Care Pump Technician Name Role Phone Tram Aldrich MD Unavailable Romina Martini MD Unavailable Emely Hamm MD Unavailable Annamaria Herndon MEDICAL BILLING AND CODING INSTRUCTOR-POLY AREA SUPERVISOR Unavailable [phone] Tram Colon RN Unavailable Unavailable Alfonso Weeks MD Unavailable Lisa Leon MD Unavailable Tram Wilson RN 2 Unavailable Marvin Kruse MD Unavailable Unavailable Ida Butler NP PCP Reason for Visit * Reason Comments Prior Authorization stim denied by MEDICAID Encounter Details Care Team Description Date Type Department Annamaria Herndon, MEDICAL BILLING AND CODING INSTRUCTOR-POLY AREA SUPERVISOR [address] [place] [address] Prior Authorization (stim denied by [employer]) 11/16/[address] [facility] [address] [address] Social History Date Tobacco Use [...] encounter Miscellaneous Notes * Telephone Encounter - Annamaria Herndon APRN-NP - 11/16/2019 5:06 PM INDUSTRIAL ENGINEERING MANAGER Patient is upset and has had multiple phone conversations with our staff rachidi ng her SCS trial orders. Unfortunatley this service is not covered by MEDICAID e nicole though she has called and her insurance is telling her that it is covered. I called to talk to the patient and apologized for all the confusion She verbalized understanding, but she did not have much to say and call was ende d shortly after. STRIAL ENGINEERING MANAGER documented in this encounter Plan of Treatment Not on filedocumented as of this encounter Visit Diagnoses Not on filedocumented in this encounter
--- OUTSIDE RECORDS SUMMARY | 2020-03-18 12:31 | XMS REPORT | Encounter Summary ---
Author Author [facility] Organization [facility] Address Unknown Phone Unavailable Care Team Providers Care Scaffolder Name Role Phone Tram Aldrich MD Unavailable Romina Martini MD Unavailable Emely Hamm MD Unavailable Annamaria Herndon APRN-NURSERY WORKER Unavailable [phone] Tram Colon RN Unavailable Unavailable Alfonso Weeks MD Unavailable Lisa Leon MD Unavailable Tram Wilson RN 2 Unavailable Marvin Kruse MD Unavailable Unavailable Ida Butler NP PCP Encounter Details Care Team Description Date Type Department Robyn Alatorre, ZAK 12/28/2019 Documentation [facility] [address] [place] [address] Social History Date Tobacco Use Types Packs/Day [...] as of this encounter Progress Notes * Robyn Alatorre RN - 12/28/2019 1:09 PM CDT Referral type: External Referring provider & clinic:Dr. Mina James- [facility] (H[facility]) Date of referral: 12/26/19 Reason for referral: Surgical consult for hysterectomy Important considerations: Confucianist Pertinent history: Menorrhagia, Factor V Leiden mutation, hx of multiple DVTs an d PE Last pap smear: 07/28/18- NILM, HPV- Has patient been seen in the OBGYN clinic before? Yes- surgical consult with Dr. Escalera 02/2019 Available Records: Appt notes Labs US CT MRI Op Note Biopsy (endometrial bx 09/2015) Records can be found in: [employer] CC file Are additional records needed? No [employer] Screen Watcher plan: -REFERRAL CLOSED documented in this encounter Plan of Treatment Not on filedocumented as of this encounter Visit Diagnoses Not on filedocumented in this encounter
--- OUTSIDE RECORDS SUMMARY | 2020-03-18 12:31 | XMS REPORT | Encounter Summary ---
Author Author [facility] Organization [facility] Address Unknown Phone Unavailable Care Team Providers Care Statistical Methods Teacher Name Role Phone Tram Aldrich MD Unavailable Romina Martini MD Unavailable Emely Hamm MD Unavailable Annamaria Herndon APRN-CHERRY SORTER Unavailable [phone] Tram Colon RN Unavailable Unavailable Alfonso Weeks MD Unavailable Lisa Leon MD Unavailable Tram Wilson RN 2 Unavailable Marvin Kruse MD Unavailable Unavailable Ida Butler NP PCP Reason for Visit * Reason Comments Care Coordination Encounter Details Care Team Description Date Type Department Robyn Alatorre, ZAK Care Coordination 12/28/2019 Telephone [facility] [address] [place] [address] Social History Date Tobacco Use [...] encounter Miscellaneous Notes * Telephone Encounter - Robyn Alatorre RN - 12/28/2019 1:27 PM CDT Calling to triage referral. Patient reports that referral was supposed to go [facility] [facility] else and she does not want to come back to . Patient reports that she h as seen several of our providers and no one will perform the surgery she wants s o she will go somewhere else. Robyn Alatorre RN documented in this encounter Plan of Treatment Not on filedocumented as of this encounter Visit Diagnoses Not on filedocumented in this encounter
--- OUTSIDE RECORDS SUMMARY | 2020-03-18 12:32 | XMS REPORT ---
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 ROMINA LEE on 2019-12-22 [employer] As long as she (no code) 12-22-2019 [facility] Authentication doesn't have 06:30-0400 [facility] CAD, peripheral Multispecialty Message Text vascular ([id number]) disease, hx of stroke, or~ischemic bowel disease she can use triptans. PE and DVT aren't contraindication s not yet categorized Ordered By: RAMYA TAO on 2019-12-22 [employer] [facility] (no code) 12-22-2019 [facility] NEUROLOGY - [phone]:[id number] [facility] TELENEUROLOGY Multispecialty Message Text VISIT~Patient ([id number]) Name: Deysi Cisse~: 1980~ ~PCP: Katey Quiles MD~Date of service: 12/22/2019~~Patie nt consent obtained for video visit/telemedici ne platform? Yes.~~For date of service 12/22/2019, Ms. Cisse was located at their home while I was~located at home location due to COVID seeing her via epic video visit.~~Chief Complaint~No chief complaint on file.~~History of Present Illness~Deysi Cisse is a 39 y.o. female presenting today for initial evaluation~for her headaches.~~She tells me she has had migraines since she was 9 or 10 years old. She says she~went to a doctor for her headaches as a kid, but can not remember anything more~than that.~She tells me they have not changed as she has aged. She tells me she has a spot~in the mid-posterior head that is tender to the touch.~She tells me she will have headaches at least 3 days per week. She tells me 2/3~of them are moderate lasting 5-6 hours in duration (with 2 doses of~tylenol1,000m g, which will decrease the severity slightly) Headaches will become~severe about one day were week and last 9-48 hours in duration. For severe~headaches , she takes Tylenol 1,000 mg, which doesn't do much for her. She says~she just lays in bed int he complete dark and it will eventually subside.~~She describes headaches as starting in the bilateral frontal region and become~holo-cran ial. She describes pain as a sharp constant pain that becomes more~intense and nauseating with movement.~With headaches she reports photophobia, phonophobia, fatigue, floaters, nausea~and occasional vomiting.~She denies paresthesias, weakness, and autonomic symptoms with headaches.~She says stress can intensify headaches. She tells me she has had brain imaging~in 2014 and denies any changes in headache characteristic since then.~~She reports taking Tylenol daily for the last 2 weeks and at least 2 times per~week before that. She tells me she takes tramadol 50 mg daily for her bulging~disk in her back, her lupus and her fibromyalgia. She says she rarely takes~hydrocodon e and has not taken it in > 3 months.~~She tells me she is unable to take NSAIDs due to factor V liden.~~She tells me she has had 3 round of occipital nerve blocks for bilateral~occipi wei neuralgia done by Dr. Yin at [facility]. She believes the first~two sets of injections were helpful and left her predominantly headache free for~about 4 months. Her last set of injections were done in September of 2019 and did~not have any relief. She says the last round "felt different" and just never~kicked in. She says she was referred to the pain clinic at by her PCP in [place], [place].~~Of note, he has had 2 DVT's in the past as well as a Pulmonary embolism in the~past. She had the PE and one of her DVT's on Xarelto, and was subsequently~sta rted on the Coumadin.~~Previ ous medications for headache prevention: nortriptyline (for~lupus/fibro myalgia)~Previou s medications for acute headache therapy: Tylenol~Previous neuroimaging: MRI of brain wo contrast 06/04/2015: unremarkable~~Re view of Systems~~Constit utional: Positive for fatigue. Negative for activity change, appetite~change, weight gain, weight loss, fever, chills and sweating.~Eyes: Positive for eye itching and photophobia. Negative for eye discharge, eye~pain, eye redness, double vision and change in vision.~HENT: Positive for headaches, ear pain, congestion, sinus pain, sinus pressure~and drooling. Negative for ear discharge, hearing loss, tinnitus, voice change,~mouth sores, dental problems, tongue pain, sore throat and trouble swallowing.~Card iovascular: Positive for leg swelling. Negative for chest pain, palpitations~and syncope.~Respira tory: Positive for snoring. Negative for chest tightness, cough, dyspnea~at rest, dyspnea with exertion, orthopnea dyspnea and wheezing.~Gastro intestinal: Positive for abdominal pain. Negative for heartburn, nausea,~vomiting , abdominal swelling, constipation and diarrhea.~Genito urinary: Negative for difficult urination, change in urinary frequency,~urina ry incontinence, nocturia, flank pain, genital sore(s), hematuria and~erectile dysfunction.~Mus culoskeletal: Positive for neck stiffness, neck pain, back pain, arthralgias,~abrahan nt swelling, myalgias and muscle cramps. Negative for falls.~Skin: Positive for dry skin. Negative for color change, birthmark, rash, lumps,~wound, nail changes and hair loss.~Neurologic al: Positive for dizziness, light-headedness , numbness, seizures,~weakne ss, difficulty with concentration and poor memory.Negative for facial~weakness, speech difficulty, tremors, difficulty walking, smell disturbance and~taste disturbance~Psyc hiatric/Behavior al: Positive for agitation, depressed mood, nervous/anxious~ and difficulty sleeping. Negative for aggression, delusions, hallucinations,~ hyperactive, self-injury and suicidal ideas.~Endocrine : Positive for excessive thirst. Negative for cold intolerance, heat~intolerance and excessive hunger.~Hematolo gic/Lymphatic: Positive for bruises/bleeds easily. Negative for~adenopathy.~ Allergic/Immunol ogic: Positive for environmental allergies and food allergies.~Negat ashkan for frequent infections.~~Pat ient Active Problem List~Diagnosis~* Fibromyalgia~* Sjogren's syndrome with keratoconjunctiv itis sicca (HCC)~* Diabetes mellitus without complication ([facility])~* Factor V Leiden mutation, heterozygous ([facility])~* History of DVT (deep vein thrombosis)~* Morbid obesity with BMI of 50.0-59.9, adult ([facility])~* Patient is Anabaptism~* Sacroiliac joint dysfunction of both sides~* SS-A antibody positive~* long-term current use of anticoagulant~* Lupus ([facility])~* Arthritis~* Vitamin D deficiency~~Hist ories~I have reviewed the patient's medical history in detail; there are no changes to~the history as noted in the electronic medical record.~~Current Medications~* blood-glucose meter (GLUCOCARD 01 METER) kit Inject 1 each under the skin 3~(three) times a day.~* cyanocobalamin, vitamin B-12, 1,000 mcg Subl Dissolve 1,000 mcg under the~tongue daily.~* DULoxetine (CYMBALTA) 40 mg capsule Take 1 capsule (40 mg total) by mouth~daily.~* ergocalciferol (VITAMIN D2) 1,250 mcg (50,000 unit) capsule Take 1 capsule~(50,000 Units total) by mouth weekly for 12 doses.~* ferrous sulfate 325 (65 FE) MG EC tablet Take 1 tablet (325 mg total) by mouth~daily.~* fluocinolone acetonide oil 0.01 % Drop~* fluticasone propionate (FLONASE) 50 mcg/actuation nasal spray as needed.~* gabapentin (NEURONTIN) 100 MG capsule Take 1 capsule (100 mg total) by mouth 3~(three) times a day. As directed~* gabapentin (NEURONTIN) 300 MG capsule Take 2 capsules (600 mg total) by mouth~nightly.~* HYDROcodone-acet aminophen (NORCO) 5-325 mg per tablet Take 1-2 tablets by~mouth as needed.~* hydroxychloroqui ne (PLAQUENIL) 200 mg tablet Take 2 tablets (400 mg total) by~mouth daily.~* lisinopril (PRINIVIL,ZESTRI L) 20 MG tablet Take 20 mg by mouth daily.~* metformin (GLUCOPHAGE-XR) 24 hr tablet 500 mg Take 1 tablet (500 mg total) by~mouth 2 (two) times a day before breakfast and dinner.~* montelukast (SINGULAIR) 10 mg tablet Take 10 mg by mouth daily.~* nortriptyline (PAMELOR) 25 MG capsule Take 25 mg by mouth daily.~* nystatin (MYCOSTATIN) powder Apply topically as needed.~* semaglutide 0.25 mg or 0.5 mg(2 mg/1.5 mL) PnIj Inject 0.5 mg under the skin~every 7 (seven) days.~* tiZANidine (ZANAFLEX) 4 MG tablet Take 4 mg by mouth every 6 (six) hours as~needed.~* traMADol (ULTRAM) 50 mg tablet TAKE 1 TO 2 TABLETS(50 TO 100 MG) BY MOUTH~THREE TIMES DAILY NEEDED FOR PAIN. MAX DAILY DOSE: 300 MG~* warfarin (COUMADIN) 5 MG tablet Take 5 mg by mouth 3 (three) times a week.~Wednesday, Wednesday, Wednesday as directed by INR~~No current facility-adminis tered medications for this visit.~~~Allergi es~Allergies~All ergen Reactions~* Aspirin Hives~ Other reaction(s): hives~~Physical Examination~Vide o visits do not have the supported technology for physician to document~heart and lungs exams, and may not have ability to fully document vital signs.~~General: alert, appears stated age and cooperative.~I was unable to do a full examination as this was a video visit, but the patient~does have tenderness in the bilateral occipital nerve distrubution when I ask~her to touch that areas.~~Neurolog ical Exam~~Cranial Nerves~CN I: Sense of smell is normal olfaction.~~~Bella ges/Studies/Labs Reviewed:~MRI of brain w/o contrast 06/04/2015~INDIC ATIONS: Persistent dizziness for 4 weeks~~COMPARISO N: CT head from 05/22/2015~~FINDIN GS: The ventricles and sulci are within normal limits for the patient's~age. There is no~significant abnormal increased or decreased signal abnormality seen within the~brain. No acute hemorrhage~ is identified. No focal brainstem or cerebellar abnormalities are identified in~adequate flow voids are~seen. No significant mastoid fluid is identified. Minimal mucosal thickening~noted in the anterior right~maxillary sinus. No gross mass lesions are seen on this noncontrast study. The~internal auditory canal~regions appear symmetric. No abnormal diffusion changes are seen.~~IMPRESSIO N~IMPRESSION: Unremarkable MRI of the brain. No focal abnormalities, hemorrhage,~infa rction or other acute~process can be seen.~~Impressio n and Plan~Diagnoses and all orders for this visit:~~Chronic migraine~- Amb Referral To Neurology~~This is a 39-year-old female with a rather complicated medical history as well~as a headache history consistent with migraine headache without aura as well as~bilateral occipital neuralgia.~~I had a long discussion with her regarding migraine headaches reviewing their~natural history, clinical manifestations, biochemical mechanisms, triggering~facto rs and treatment options.~~We discussed that as she has had success in the past from bilateral occipital~nerve blocks for her occipital neuralgia, I think it would be helpful for her to~try to see if she can get another round of injections to help with her~headaches. We discussed that she may not be able to get them done right now due~to the pandemic of COVID-19, but she should call and see when she would be able~to get in to get these done.~~In the meantime, for headache prevention we will increase her nortriptyline to~50 mg nightly. We discussed side effects such as dry mouth, constipation, and~fatigue.~~Fo r acute headache therapy, we discussed that although she does not have~coronary artery disease or a stroke in the past that she does have a rather~complicat ed medical history to include several blood clots. We also discussed~that she does have several risk factors for stroke as well. With that in mind,~we discussed that it was likely not safe for her to be on triptan medications.~I told her I would further discuss this with my staff, Dr. Lee when she~returns.~In the meantime, for acute headache therapy I will send a prescription for~Ubrelvy 50 mg tablets to be taken at the onset of acute headache. We discussed~that she can take 1 tablet at onset and repeat the dose in 2 hours if the first~dose does not result in a portion of headache. We discussed that she should not~take more than 2 doses of this medication in a 24-hour period. We also~discussed she should not take this medication more than 3 days/week to prevent~medicati on overuse headache. We discussed that this medication is~contraindicat ed with antifungal medications. She is on a topical antifungal. I~discussed this with my collaborator, Dr. Lee and she and I both agreed that~the Ubrelvy should not interact with her topical anit-fungal medication.~~We also discussed that she might have medication overuse headache as she takes~tramadol daily for her back pain. We discussed that if that is possible, she~should try to titrate down on the tramadol to not take it daily as this could be~making her headache syndrome worse.~~She currently has been having the same headache for the last 2 weeks. We~discussed that sometimes we will try a steroid taper to help with this, but due~to COVID-19, steroids are not recommended at this time. She was instead given~instructio ns for a headache cocktail consisting of promethazine 25 mg +~tizanidine 4 mg + Tylenol 1000 mg + Benadryl 25-50 mg. She was instructed to~take this cocktail every 8 hours for 3 days to see if this could break up her~current headache cycle. She was educated that this combination of medications~coul d make her very sleepy, so she should not drive or operate heavy machinery~while taking these medications.~~>5 0% of this 60-minute visit was spent in counseling and coordination of care.~~Follow-up : She will follow-up in the headache center in 8 weeks. She will~contact us in the meantime if she has any questions or concerns.~~Maribeth Tao NP [employer] (no code) 12-22-2019 [facility] - [id number] [facility] TELENEUROLOGY Multispecialty Message Text VISIT~Patient ([id number]) Name: Deysi Cisse~: 1980~ ~PCP: Katey Quiles MD~Date of service: 12/22/2019~~Patie nt consent obtained for video visit/telemedici ne platform? Yes.~~For date of service 12/22/2019, Ms. Cisse was located at their home while I was~located at home location due to COVID seeing her via [employer] video visit.~~Chief Complaint~No chief complaint on file.~~History of Present Illness~Deysi Cisse is a 39 y.o. female presenting today for initial evaluation~for her headaches.~~She tells me she has had migraines since she was 9 or 10 years old. She says she~went to a doctor for her headaches as a kid, but can not remember anything more~than that.~She tells me they have not changed as she has aged. She tells me she has a spot~in the mid-posterior head that is tender to the touch.~She tells me she will have headaches at least 3 days per week. She tells me 2/3~of them are moderate lasting 5-6 hours in duration (with 2 doses of~tylenol1,000m g, which will decrease the severity slightly) Headaches will become~severe about one day were week and last 9-48 hours in duration. For severe~headaches , she takes Tylenol 1,000 mg, which doesn't do much for her. She says~she just lays in bed int he complete dark and it will eventually subside.~~She describes headaches as starting in the bilateral frontal region and become~holo-cran ial. She describes pain as a sharp constant pain that becomes more~intense and nauseating with movement.~With headaches she reports photophobia, phonophobia, fatigue, floaters, nausea~and occasional vomiting.~She denies paresthesias, weakness, and autonomic symptoms with headaches.~She says stress can intensify headaches. She tells me she has had brain imaging~in 2014 and denies any changes in headache characteristic since then.~~She reports taking Tylenol daily for the last 2 weeks and at least 2 times per~week before that. She tells me she takes tramadol 50 mg daily for her bulging~disk in her back, her lupus and her fibromyalgia. She says she rarely takes~hydrocodon e and has not taken it in > 3 months.~~She tells me she is unable to take NSAIDs due to factor V liden.~~She tells me she has had 3 round of occipital nerve blocks for bilateral~occipi wei neuralgia done by Dr. Yin at [facility]. She believes the first~two sets of injections were helpful and left her predominantly headache free for~about 4 months. Her last set of injections were done in September of 2019 and did~not have any relief. She says the last round "felt different" and just never~kicked in. She says she was referred to the pain clinic at by her PCP in [place], [place].~~Of note, he has had 2 DVT's in the past as well as a Pulmonary embolism in the~past. She had the PE and one of her DVT's on Xarelto, and was subsequently~sta rted on the Coumadin.~~Previ ous medications for headache prevention: nortriptyline (for~lupus/fibro myalgia)~Previou s medications for acute headache therapy: Tylenol~Previous neuroimaging: MRI of brain wo contrast 06/04/2015: unremarkable~~Re view of Systems~~Constit utional: Positive for fatigue. Negative for activity change, appetite~change, weight gain, weight loss, fever, chills and sweating.~Eyes: Positive for eye itching and photophobia. Negative for eye discharge, eye~pain, eye redness, double vision and change in vision.~HENT: Positive for headaches, ear pain, congestion, sinus pain, sinus pressure~and drooling. Negative for ear discharge, hearing loss, tinnitus, voice change,~mouth sores, dental problems, tongue pain, sore throat and trouble swallowing.~Card iovascular: Positive for leg swelling. Negative for chest pain, palpitations~and syncope.~Respira tory: Positive for snoring. Negative for chest tightness, cough, dyspnea~at rest, dyspnea with exertion, orthopnea dyspnea and wheezing.~Gastro intestinal: Positive for abdominal pain. Negative for heartburn, nausea,~vomiting , abdominal swelling, constipation and diarrhea.~Genito urinary: Negative for difficult urination, change in urinary frequency,~urina ry incontinence, nocturia, flank pain, genital sore(s), hematuria and~erectile dysfunction.~Mus culoskeletal: Positive for neck stiffness, neck pain, back pain, arthralgias,~abrahan nt swelling, myalgias and muscle cramps. Negative for falls.~Skin: Positive for dry skin. Negative for color change, birthmark, rash, lumps,~wound, nail changes and hair loss.~Neurologic al: Positive for dizziness, light-headedness , numbness, seizures,~weakne ss, difficulty with concentration and poor memory.Negative for facial~weakness, speech difficulty, tremors, difficulty walking, smell disturbance and~taste disturbance~Psyc hiatric/Behavior al: Positive for agitation, depressed mood, nervous/anxious~ and difficulty sleeping. Negative for aggression, delusions, hallucinations,~ hyperactive, self-injury and suicidal ideas.~Endocrine : Positive for excessive thirst. Negative for cold intolerance, heat~intolerance and excessive hunger.~Hematolo gic/Lymphatic: Positive for bruises/bleeds easily. Negative for~adenopathy.~ Allergic/Immunol ogic: Positive for environmental allergies and food allergies.~Negat ashkan for frequent infections.~~Pat ient Active Problem List~Diagnosis~* Fibromyalgia~* Sjogren's syndrome with keratoconjunctiv itis sicca (HCC)~* Diabetes mellitus without complication ([facility])~* Factor V Leiden mutation, heterozygous ([facility])~* History of DVT (deep vein thrombosis)~* Morbid obesity with BMI of 50.0-59.9, adult ([facility])~* Patient is Anabaptism~* Sacroiliac joint dysfunction of both sides~* SS-A antibody positive~* long-term current use of anticoagulant~* Lupus (HCC)~* Arthritis~* Vitamin D deficiency~~Hist ories~I have reviewed the patient's medical history in detail; there are no changes to~the history as noted in the electronic medical record.~~Current Medications~* blood-glucose meter (GLUCOCARD 01 METER) kit Inject 1 each under the skin 3~(three) times a day.~* cyanocobalamin, vitamin B-12, 1,000 mcg Subl Dissolve 1,000 mcg under the~tongue daily.~* DULoxetine (CYMBALTA) 40 mg capsule Take 1 capsule (40 mg total) by mouth~daily.~* ergocalciferol (VITAMIN D2) 1,250 mcg (50,000 unit) capsule Take 1 capsule~(50,000 Units total) by mouth weekly for 12 doses.~* ferrous sulfate 325 (65 FE) MG EC tablet Take 1 tablet (325 mg total) by mouth~daily.~* fluocinolone acetonide oil 0.01 % Drop~* fluticasone propionate (FLONASE) 50 mcg/actuation nasal spray as needed.~* gabapentin (NEURONTIN) 100 MG capsule Take 1 capsule (100 mg total) by mouth 3~(three) times a day. As directed~* gabapentin (NEURONTIN) 300 MG capsule Take 2 capsules (600 mg total) by mouth~nightly.~* HYDROcodone-acet aminophen (NORCO) 5-325 mg per tablet Take 1-2 tablets by~mouth as needed.~* hydroxychloroqui ne (PLAQUENIL) 200 mg tablet Take 2 tablets (400 mg total) by~mouth daily.~* lisinopril (PRINIVIL,ZESTRI L) 20 MG tablet Take 20 mg by mouth daily.~* metformin (GLUCOPHAGE-XR) 24 hr tablet 500 mg Take 1 tablet (500 mg total) by~mouth 2 (two) times a day before breakfast and dinner.~* montelukast (SINGULAIR) 10 mg tablet Take 10 mg by mouth daily.~* nortriptyline (PAMELOR) 25 MG capsule Take 25 mg by mouth daily.~* nystatin (MYCOSTATIN) powder Apply topically as needed.~* semaglutide 0.25 mg or 0.5 mg(2 mg/1.5 mL) PnIj Inject 0.5 mg under the skin~every 7 (seven) days.~* tiZANidine (ZANAFLEX) 4 MG tablet Take 4 mg by mouth every 6 (six) hours as~needed.~* traMADol (ULTRAM) 50 mg tablet TAKE 1 TO 2 TABLETS(50 TO 100 MG) BY MOUTH~THREE TIMES DAILY NEEDED FOR PAIN. MAX DAILY DOSE: 300 MG~* warfarin (COUMADIN) 5 MG tablet Take 5 mg by mouth 3 (three) times a week.~Wednesday, Wednesday, Wednesday as directed by INR~~No current facility-adminis tered medications for this visit.~~~Allergi es~Allergies~All ergen Reactions~* Aspirin Hives~ Other reaction(s): hives~~Physical Examination~Vide o visits do not have the supported technology for physician to document~heart and lungs exams, and may not have ability to fully document vital signs.~~General: alert, appears stated age and cooperative.~I was unable to do a full examination as this was a video visit, but the patient~does have tenderness in the bilateral occipital nerve distrubution when I ask~her to touch that areas.~~Neurolog ical Exam~~Cranial Nerves~CN I: Sense of smell is normal olfaction.~~~Bella ges/Studies/Labs Reviewed:~MRI of brain w/o contrast 06/04/2015~INDIC ATIONS: Persistent dizziness for 4 weeks~~COMPARISO N: CT head from 05/22/2015~~FINDIN GS: The ventricles and sulci are within normal limits for the patient's~age. There is no~significant abnormal increased or decreased signal abnormality seen within the~brain. No acute hemorrhage~ is identified. No focal brainstem or cerebellar abnormalities are identified in~adequate flow voids are~seen. No significant mastoid fluid is identified. Minimal mucosal thickening~noted in the anterior right~maxillary sinus. No gross mass lesions are seen on this noncontrast study. The~internal auditory canal~regions appear symmetric. No abnormal diffusion changes are seen.~~IMPRESSIO N~IMPRESSION: Unremarkable MRI of the brain. No focal abnormalities, hemorrhage,~infa rction or other acute~process can be seen.~~Impressio n and Plan~Diagnoses and all orders for this visit:~~Chronic migraine~- Amb Referral To Neurology~~This is a 39-year-old female with a rather complicated medical history as well~as a headache history consistent with migraine headache without aura as well as~bilateral occipital neuralgia.~~I had a long discussion with her regarding migraine headaches reviewing their~natural history, clinical manifestations, biochemical mechanisms, triggering~facto rs and treatment options.~~We discussed that as she has had success in the past from bilateral occipital~nerve blocks for her occipital neuralgia, I think it would be helpful for her to~try to see if she can get another round of injections to help with her~headaches. We discussed that she may not be able to get them done right now due~to the pandemic of COVID-19, but she should call and see when she would be able~to get in to get these done.~~In the meantime, for headache prevention we will increase her nortriptyline to~50 mg nightly. We discussed side effects such as dry mouth, constipation, and~fatigue.~~Fo r acute headache therapy, we discussed that although she does not have~coronary artery disease or a stroke in the past that she does have a rather~complicat ed medical history to include several blood clots. We also discussed~that she does have several risk factors for stroke as well. With that in mind,~we discussed that it was likely not safe for her to be on triptan medications.~I told her I would further discuss this with my staff, Dr. Lee when she~returns.~We also discussed the possibility of starting the new acute headache medication,~Ubre lvy 50 mg tablets. Unfortunately, this medication is contraindicated with~antifungal medications. She is not using any oral antifungal therapy, but is~using topical antifungal and I am unsure it is safe for her to use both~together. We discussed that once I get a fresher answer from the pharmacist as~well as the Ubrelvy drug rep, I will let her know.~We also discussed that she might have medication overuse headache as she takes~tramadol daily for her back pain. We discussed that if that is possible, she~should try to titrate down on the tramadol to not take it daily as this could be~making her headache syndrome worse.~~She currently has been having the same headache for the last 2 weeks. We~discussed that sometimes we will try a steroid taper to help with this, but due~to COVID-19, steroids are not recommended at this time. She was instead given~instructio ns for a headache cocktail consisting of promethazine 25 mg +~tizanidine 4 mg + Tylenol 1000 mg + Benadryl 25-50 mg. She was instructed to~take this cocktail every 8 hours for 3 days to see if this could break up her~current headache cycle. She was educated that this combination of medications~coul d make her very sleepy, so she should not drive or operate heavy machinery~while taking these medications.~~>5 0% of this 60-minute visit was spent in counseling and coordination of care.~~Follow-up : She will follow-up in the headache center in 8 weeks. She will~contact us in the meantime if she has any questions or concerns.~~Maribeth Tao NP Waiter/Waitress Cabin Class Addended by: (no code) 12-22-2019 [facility] DINH, : South Interface VIVEK Schwartz on: Multispecialty Message Text 12/22/2019 01:38 ([id number]) PM~~ Modules accepted: Orders Waiter/Waitress Cabin Class [facility] (no code) 12-22-2019 [facility] NEUROLOGY - :[id number] South Interface TELENEUROLOGY Multispecialty Message Text VISIT~Patient ([id number]) Name: Deysi Cisse~: 1980~ ~PCP: Katey Quiles MD~Date of service: 12/22/2019~~Patty villalobos consent obtained for video visit/telemedici ne platform? Yes.~~For date of service 12/22/2019, Ms. Cisse was located at their home while I was~located at home location due to COVID seeing her via epic video visit.~~Chief Complaint~Migrai ne~~History of Present Illness~Deysi Cisse is a 39 y.o. female presenting today for initial evaluation~for her headaches.~~She tells me she has had migraines since she was 9 or 10 years old. She says she~went to a doctor for her headaches as a kid, but can not remember anything more~than that.~She tells me they have not changed as she has aged. She tells me she has a spot~in the mid-posterior head that is tender to the touch.~She tells me she will have headaches at least 3 days per week. She tells me 2/3~of them are moderate lasting 5-6 hours in duration (with 2 doses of~tylenol1,000m g, which will decrease the severity slightly) Headaches will become~severe about one day were week and last 9-48 hours in duration. For severe~headaches , she takes Tylenol 1,000 mg, which doesn't do much for her. She says~she just lays in bed int he complete dark and it will eventually subside.~~She describes headaches as starting in the bilateral frontal region and become~holo-cran ial. She describes pain as a sharp constant pain that becomes more~intense and nauseating with movement.~With headaches she reports photophobia, phonophobia, fatigue, floaters, nausea~and occasional vomiting.~She denies paresthesias, weakness, and autonomic symptoms with headaches.~She says stress can intensify headaches. She tells me she has had brain imaging~in 2014 and denies any changes in headache characteristic since then.~~She reports taking Tylenol daily for the last 2 weeks and at least 2 times per~week before that. She tells me she takes tramadol 50 mg daily for her bulging~disk in her back, her lupus and her fibromyalgia. She says she rarely takes~hydrocodon e and has not taken it in > 3 months.~~She tells me she is unable to take NSAIDs due to factor V liden.~~She tells me she has had 3 round of occipital nerve blocks for bilateral~occipi wei neuralgia done by Dr. Yin at [facility]. She believes the first~two sets of injections were helpful and left her predominantly headache free for~about 4 months. Her last set of injections were done in September of 2019 and did~not have any relief. She says the last round "felt different" and just never~kicked in. She says she was referred to the pain clinic at by her PCP in [facility], [place].~~Of note, he has had 2 DVT's in the past as well as a Pulmonary embolism in the~past. She had the PE and one of her DVT's on Xarelto, and was subsequently~sta rted on the Coumadin.~~Previ ous medications for headache prevention: nortriptyline (for~lupus/fibro myalgia)~Previou s medications for acute headache therapy: Tylenol~Previous neuroimaging: MRI of brain wo contrast 06/04/2015: unremarkable~~Re view of Systems~~Constit utional: Positive for fatigue. Negative for activity change, appetite~change, weight gain, weight loss, fever, chills and sweating.~Eyes: Positive for eye itching and photophobia. Negative for eye discharge, eye~pain, eye redness, double vision and change in vision.~HENT: Positive for headaches, ear pain, congestion, sinus pain, sinus pressure~and drooling. Negative for ear discharge, hearing loss, tinnitus, voice change,~mouth sores, dental problems, tongue pain, sore throat and trouble swallowing.~Card iovascular: Positive for leg swelling. Negative for chest pain, palpitations~and syncope.~Respira tory: Positive for snoring. Negative for chest tightness, cough, dyspnea~at rest, dyspnea with exertion, orthopnea dyspnea and wheezing.~Gastro intestinal: Positive for abdominal pain. Negative for heartburn, nausea,~vomiting , abdominal swelling, constipation and diarrhea.~Genito urinary: Negative for difficult urination, change in urinary frequency,~urina ry incontinence, nocturia, flank pain, genital sore(s), hematuria and~erectile dysfunction.~Mus culoskeletal: Positive for neck stiffness, neck pain, back pain, arthralgias,~abrahan nt swelling, myalgias and muscle cramps. Negative for falls.~Skin: Positive for dry skin. Negative for color change, birthmark, rash, lumps,~wound, nail changes and hair loss.~Neurologic al: Positive for dizziness, light-headedness , numbness, seizures,~weakne ss, difficulty with concentration and poor memory.Negative for facial~weakness, speech difficulty, tremors, difficulty walking, smell disturbance and~taste disturbance~Psyc hiatric/Behavior al: Positive for agitation, depressed mood, nervous/anxious~ and difficulty sleeping. Negative for aggression, delusions, hallucinations,~ hyperactive, self-injury and suicidal ideas.~Endocrine : Positive for excessive thirst. Negative for cold intolerance, heat~intolerance and excessive hunger.~Hematolo gic/Lymphatic: Positive for bruises/bleeds easily. Negative for~adenopathy.~ Allergic/Immunol ogic: Positive for environmental allergies and food allergies.~Negat ashkan for frequent infections.~~Pat ient Active Problem List~Diagnosis~* Fibromyalgia~* Sjogren's syndrome with keratoconjunctiv itis sicca (HCC)~* Diabetes mellitus without complication ([facility])~* Factor V Leiden mutation, heterozygous ([facility])~* History of DVT (deep vein thrombosis)~* Morbid obesity with BMI of 50.0-59.9, adult ([facility])~* Patient is Anabaptism~* Sacroiliac joint dysfunction of both sides~* SS-A antibody positive~* long-term current use of anticoagulant~* Lupus (HCC)~* Arthritis~* Vitamin D deficiency~~Hist ories~I have reviewed the patient's medical history in detail; there are no changes to~the history as noted in the electronic medical record.~~Current Medications~* blood-glucose meter (GLUCOCARD 01 METER) kit Inject 1 each under the skin 3~(three) times a day.~* cyanocobalamin, vitamin B-12, 1,000 mcg Subl Dissolve 1,000 mcg under the~tongue daily.~* DULoxetine (CYMBALTA) 40 mg capsule Take 1 capsule (40 mg total) by mouth~daily.~* ergocalciferol (VITAMIN D2) 1,250 mcg (50,000 unit) capsule Take 1 capsule~(50,000 Units total) by mouth weekly for 12 doses.~* ferrous sulfate 325 (65 FE) MG EC tablet Take 1 tablet (325 mg total) by mouth~daily.~* fluocinolone acetonide oil 0.01 % Drop~* fluticasone propionate (FLONASE) 50 mcg/actuation nasal spray as needed.~* gabapentin (NEURONTIN) 100 MG capsule Take 1 capsule (100 mg total) by mouth 3~(three) times a day. As directed~* gabapentin (NEURONTIN) 300 MG capsule Take 2 capsules (600 mg total) by mouth~nightly.~* HYDROcodone-acet aminophen (NORCO) 5-325 mg per tablet Take 1-2 tablets by~mouth as needed.~* hydroxychloroqui ne (PLAQUENIL) 200 mg tablet Take 2 tablets (400 mg total) by~mouth daily.~* lisinopril (PRINIVIL,ZESTRI L) 20 MG tablet Take 20 mg by mouth daily.~* metformin (GLUCOPHAGE-XR) 24 hr tablet 500 mg Take 1 tablet (500 mg total) by~mouth 2 (two) times a day before breakfast and dinner.~* montelukast (SINGULAIR) 10 mg tablet Take 10 mg by mouth daily.~* nortriptyline (PAMELOR) 25 MG capsule Take 2 capsules (50 mg total) by mouth~nightly.~* nystatin (MYCOSTATIN) powder Apply topically as needed.~* promethazine (PHENERGAN) 25 MG tablet Take 1 tablet (25 mg total) by mouth~every 6 (six) hours as needed for nausea.~* semaglutide 0.25 mg or 0.5 mg(2 mg/1.5 mL) PnIj Inject 0.5 mg under the skin~every 7 (seven) days.~* tiZANidine (ZANAFLEX) 4 MG tablet Take 4 mg by mouth every 6 (six) hours as~needed.~* traMADol (ULTRAM) 50 mg tablet TAKE 1 TO 2 TABLETS(50 TO 100 MG) BY MOUTH~THREE TIMES DAILY NEEDED FOR PAIN. MAX DAILY DOSE: 300 MG~* warfarin (COUMADIN) 5 MG tablet Take 5 mg by mouth 3 (three) times a week.~Wednesday, Wednesday, Wednesday as directed by INR~~No current facility-adminis tered medications for this visit.~~~Allergi es~Allergies~All ergen Reactions~* Aspirin Hives~ Other reaction(s): hives~~Physical Examination~Vide o visits do not have the supported technology for physician to document~heart and lungs exams, and may not have ability to fully document vital signs.~~General: alert, appears stated age and cooperative.~I was unable to do a full examination as this was a video visit, but the patient~does have tenderness in the bilateral occipital nerve distrubution when I ask~her to touch that areas.~~Neurolog ical Exam~~Cranial Nerves~CN I: Sense of smell is normal olfaction.~~~Bella ges/Studies/Labs Reviewed:~MRI of brain w/o contrast 06/04/2015~INDIC ATIONS: Persistent dizziness for 4 weeks~~COMPARISO N: CT head from 05/22/2015~~FINDIN GS: The ventricles and sulci are within normal limits for the patient's~a ge. There is no~significant abnormal increased or decreased signal abnormality seen within the~brain. No acute hemorrhage~ is identified. No focal brainstem or cerebellar abnormalities are identified in~adequate flow voids are~seen. No significant mastoid fluid is identified. Minimal mucosal thickening~noted in the anterior right~maxillary sinus. No gross mass lesions are seen on this noncontrast study. The~internal auditory canal~regions appear symmetric. No abnormal diffusion changes are seen.~~IMPRESSIO N~IMPRESSION: Unremarkable MRI of the brain. No focal abnormalities, hemorrhage,~infa rction or other acute~process can be seen.~~Impressio n and Plan~Deysi was seen today for migraine.~~Diagn oses and all orders for this visit:~~Intracta ble migraine without aura and without status migrainosus~- promethazine (PHENERGAN) 25 MG tablet; Take 1 tablet (25 mg total) by~mouth every 6 (six) hours as needed for nausea.~- Discontinue: ubrogepant (UBRELVY) 50 mg tablet; Take 1 tablet (50 mg~total) by mouth as needed for migraine.~~Chron ic migraine~- Amb Referral To Neurology~- nortriptyline (PAMELOR) 25 MG capsule; Take 2 capsules (50 mg total) by~mouth nightly.~~Reboun d headache~~Nausea ~~This is a 39-year-old female with a rather complicated medical history as well~as a headache history consistent with migraine headache without aura as well as~bilateral occipital neuralgia.~~I had a long discussion with her regarding migraine headaches reviewing their~natural history, clinical manifestations, biochemical mechanisms, triggering~facto rs and treatment options.~~We discussed that as she has had success in the past from bilateral occipital~nerve blocks for her occipital neuralgia, I think it would be helpful for her to~try to see if she can get another round of injections to help with her~headaches. We discussed that she may not be able to get them done right now due~to the pandemic of COVID-19, but she should call and see when she would be able~to get in to get these done.~~In the meantime, for headache prevention we will increase her nortriptyline to~50 mg nightly. We discussed side effects such as dry mouth, constipation, and~fatigue.~~Fo r acute headache therapy, we discussed that although she does not have~coronary artery disease or a stroke in the past that she does have a rather~complicat ed medical history to include several blood clots. We also discussed~that she does have several risk factors for stroke as well. With that in mind,~we discussed that it was likely not safe for her to be on triptan medications.~I told her I would further discuss this with my staff, Dr. Lee when she~returns.~We also discussed the possibility of starting the new acute headache medication,~Ubre lvy 50 mg tablets. Unfortunately, this medication is contraindicated with~antifungal medications. She is not using any oral antifungal therapy, but is~using topical antifungal and I am unsure it is safe for her to use both~together. We discussed that once I get a fresher answer from the pharmacist as~well as the Ubrelvy drug rep, I will let her know.~We also discussed that she might have medication overuse headache as she takes~tramadol daily for her back pain. We discussed that if that is possible, she~should try to titrate down on the tramadol to not take it daily as this could be~making her headache syndrome worse.~~She currently has been having the same headache for the last 2 weeks. We~discussed that sometimes we will try a steroid taper to help with this, but due~to COVID-19, steroids are not recommended at this time. She was instead given~instructio ns for a headache cocktail consisting of promethazine 25 mg +~tizanidine 4 mg + Tylenol 1000 mg + Benadryl 25-50 mg. She was instructed to~take this cocktail every 8 hours for 3 days to see if this could break up her~current headache cycle. She was educated that this combination of medications~coul d make her very sleepy, so she should not drive or operate heavy machinery~while taking these medications.~~>5 0% of this 60-minute visit was spent in counseling and coordination of care.~~Follow-up : She will follow-up in the headache center in 8 weeks. She will~contact us in the meantime if she has any questions or concerns.~~Maribeth Tao, JEANETTE Waiter/Waitress Cabin Class Addended by: (no code) 12-22-2019 [facility] Authentication DINH, 06:30-0400 South Interface VIVEK Schwartz on: Multispecialty Message Text 12/22/2019 03:59 ([id number]) PM~~ Modules accepted: Orders laboratory on 2019-12-14 Appearance (U) CLOU[facility] (A) [facility] ([id number]) Bacteria SEE NOTE (no code) [facility] Nom (U) [facility] ([id number]) Bacteria LM.HPF FEW (A) [facility] th (Urine sed) [facility] [#/Area] [facility] ([id number]) Bilirubin Ql (U) Negative (N) [facility] ([id number]) Color (U) YELLOW (N) [facility] ([id number]) Epithelial 6-10 (A) [facility] cells.squamous [facility] LM.HPF (Urine [facility] sed) [#/Area] ([id number]) Glucose Ql (U) Negative (N) [facility] ([id number]) Hemoglobin Ql Negative (N) [facility] (U) [facility] ([id number]) Hyaline casts 1-3 (A) [facility] (Urine sed) [facility] [#/Area] [facility] ([id number]) Ketones Ql (U) Negative (N) [facility] ([id number]) Leukocyte 2+ (A) [facility] esterase [facility] strip Ql (U) [facility] ([id number]) Nitrite Ql (U) Negative (N) [facility] ([id number]) pH (U) 6.0 [pH] (N) 4.6 - 8 [pH] [facility] ([id number]) Protein Ql (U) Negative (N) [facility] ([id number]) RBC LM.HPF 0-2 (N) [facility] (Urine sed) [facility] [#/Area] [facility] ([id number]) Service comment MODERATE MUCOUS (no code) [facility] ([facility] THREADS [facility] [Interp] [facility] ([id number]) Specific gravity 1.022 (N) [facility] (U) [Rel [facility] density] [facility] ([id number]) WBC LM.HPF 10-20 (A) [facility] (Urine sed) [facility] [#/Area] [facility] ([id number]) not yet categorized Ordered By: YOKASTA SAM on 2019-12-12 Waiter/Waitress Cabin Class 1. Continue (no code) 12-12-2019 [facility] regular exercise 09:30-0400 Endocrinolo gy - Interface - walk at least BlazeMeter Message Text once a day for ([id number]) 10-15 minutes, 2 x~per day~~2. Stay well hydrated with water~~3. Keep carbohydrates between 30-45 grams per meal, or less than < 100 grams~~4. We are going to treat insulin resistance and your diabetes:~ 1. Start Metformin 500 mg, twice daily with food. Start with~ One tablet one time per day x one week, then increase to~ Twice daily~~ 2. Start Ozempic 0.25 once a week x 2 weeks, then~ Increase to the 0.5 mg once a week, and continue.~~~Call me in 4 weeks to let me know how it's going. We will need to determine if~we are going to stay at the 0.5 mg weekly dose, or increase up to the 1 mg~weekly dose. At the 4-week rik, call me and we will decide on the dose. You can~then call and activate the coupon. Waiter/Waitress Cabin Class 1. Continue (no code) 12-12-2019 [facility] 09: Endocrinolo gy - Interface - walk at least BlazeMeter Message Text once a day for ([id number]) 10-15 minutes, 2 x~per day~~2. Stay well hydrated with water~~3. Keep carbohydrates between 30-45 grams per meal, or less than < 100 grams~~4. We are going to treat insulin resistance and your diabetes:~ 1. Start Metformin 500 mg, twice daily with food. Start with~ One tablet one time per day x one week, then increase to~ Twice daily~~ 2. Start Ozempic 0.25 once a week x 2 weeks, then~ Increase to the 0.5 mg once a week, and continue.~~~Call me in 4 weeks to let me know how it's going. We will need to determine if~we are going to stay at the 0.5 mg weekly dose, or increase up to the 1 mg~weekly dose. At the 4-week rik, call me and we will decide on the dose. You can~then call and activate the coupon.~~ ~~ Cut portion sizes in half~Work on mindfunless, portion control and hunger management Waiter/Waitress Cabin Class DIABETES (no code) 12-12-2019 [facility] FOLLOW-UP : Endocrinology - Interface NOTE~~Deysi Gilliam BlazeMeter Message Text Tanna is a 39 ([id number]) y.o. female presenting today for follow up of~Chief Complaint~Patien t presents with~* Initial Visit~~~~HPI~Thi s is a very pleasant 39-year-old female patient who comes to the clinic today~to establish care for type 2 diabetes. [place] of[place], near [place], [place]. Both her mother and father are .~She has a family history of diabetes and hypothyroidism in her mother, diabetes~and hypothyroidism in her maternal grandmother, and diabetes in her father. She~is and has 2 children. She had gestational diabetes with both~pregnancies . She is not currently prescribed any diabetes medication. Her~hemoglobin A1c is 6.5% today. She is also diagnosed with Sjogren's syndrome,~lupus, factor V Leiden mutation, fibromyalgia, and she has ahistory of DVTs with~long-term use of anticoagulation. She reports having a high level of fatigue,~and is very concerned about this. Likely part of the issue is deconditioning and~morbid obesity with a BMI of 57.3. It has been suspected that she may have sleep~apnea. I have talked to her about the option of a sleep study, and she is~interested in a referral. She is also complaining of dark facial hair growth on~her chin. She denies any issues of acne. She does have heavy and frequent~periods , every 2 weeks for 5-7 days. She states that she has been to "15~different [employer] providers". She has felt frustrated that she has not been given~a diagnosis, and there has been no recommended treatment. She would like to have~a hysterectomy, but is higher risk with the Factor V. She has concerns that this~may be related to a thyroid problem. Recent thyroid function studies from~10/30/2019 from an outside lab show TSH 3.09, and Free T4 1.3. I have reviewed~with her that these numbers are within a normal range. She does not think her~antibodies have been tested. She has a strong family history of hypothyroidism,~ and with other autoimmune issues, plan to assess thyroid antibodies. She may~likely have some insulin resistance. We have reviewed options of medications. I~have suggested she start with Metformin 500 mg twice daily. She would also~likely be a good candidate for a GLP-1 medication. I have reviewed her medical~record as well as updated laboratories together with the patient today. She~denies any chest pain or shortness of breath. Blood pressure is well controlled.~~ASS ESSMENT/PLAN:~~1 . Diabetes mellitus Type II, under good control.. Most recent HgbA1C reading~is:~Lab Results~Daryn t Value Date~ HGBA1C 6.5 12/12/2019~Plan to start Metformin 500 mg twice daily with food. I have also discussed~medica tion options together with patient at length during today's 60-minute~initia l office visit. We have agreed that she can start Ozempic. I have talked~with her about how to slowly titrate this medication up, and have provided her~with a sample today.We have reviewed the small risk of Medullary thyroid cancer,~and there is no suggestive family history. I have discussed the risk of~pancreatitis as well as expected side effects of temporary nausea and reflux.~Please call the office for severe abdominal pain, nausea or vomiting. Diet and~exercise guidelines discussed at length. Weight loss will be very helpful to~decrease her insulin resistance.~~2. Hypertension - goals of less than 140/90 were discussed ; their BP is~controlled. Continue Lisinopril 20 mg.~BP Readings from Last 1 Encounters:~11/13 10/02 110/70~.~3. Hyperlipidemia - risk of CADz related to diabetes discussed - the most recent~lipid readings are below under the labs heading.~~4. Sleep apnea suspected - the patient is interested in a sleep study. I have~agreed she is high risk due to morbid obesity, as well as symptoms of snoring at~night and daytime sleepiness. Plan to send referral to sleep~specialist s/pulmonology.~~ 5. Morbid Obesity -the weight is a very serious health concern for this patient.~She has been working to change her diet over the last several months. The~patient is very concerned about an unexplained weight gain of 30 pounds since~August. She states her sleep is not good. She snores at night, and has daytime~sleepine ss - plan to refer her for sleep apnea testing. We have reviewed diet~and exercise guidelines. I have encouraged her to keep her carbohydrates~be tween 30 to 45 g per meal. Overall goal of a higher protein, low carb, low~sugar diet. Encouraged her to stay well hydrated with water. We are working to~keep her diabetes medication regimen as weight friendly as possible, and to~treat her insulin resistance. Plan to have her start metformin 500 mg twice~daily with food, and Ozempic. I have discussed the basic weight loss concepts~ofmindf ulness, portion control, and hunger management. Encouraged her not to~overeat, and not to eat meals that are too high in carbohydrates, otherwise,~side effects of nausea and acid reflux may be more significant. We will plan to~revisit this important topic at subsequent appointments.~~6 . Multiple autoimmune disorders and Factor V - the patient has Sjogren's~syndro me, lupus, factor V, and fibromyalgia. She is followed by a~collection systems foreman as well as a precast concrete ironworker.~~7 . Screening for thyroid disorder - the patient has a family history of~hypothyroidis m in her mother and maternal grandmother. Plan to check thyroid~function tests and thyroid antibodies, because her multiple autoimmune issues.~~Health Maintenance - the last ocular exam is noted below in the Health[facility] Summary.~~Kaia aolnzo is testing the BS 1 time daily - reminded her to bring her meter to~every appointment.~~ Counseling - the patient was counseled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 code) 32 - 36 g/dL 02-02-2019 [facility] [Mass/Vol] 11: [facility] ([id number]) Platelet mean 8.8 fL (LL) 7.2 - 11.7 fL 02-02-2019 [facility] volume (Bld) 11: [facility] [Entitic vol] [place] ([id number]) TOTAL 328 (no code) 02-02-2019 [facility] IRON-BINDING 11: [facility] ([id number]) Transferrin 273 mg/dL (no code) 200 - 360 mg/dL 02-02-2019 [facility] [Mass/Vol] 11: [facility] ([id number]) metabolic panel on 2019-02-02 Iron [Mass/Vol] 107 ug/dL (no code) 60 - 170 ug/dL 02-02-2019 [facility] 11: [facility] ([id number]) hematology on 2019-02-02 Hematocrit (Bld) 43 % (no code) 36.1 - 50.3 % 02-02-2019 [facility] [Volume 11: [facility]] [place] ([id number]) Hemoglobin (Bld) 14.4 g/dL (no code) 12.1 - 17.2 g/dL 02-02-2019 [facility] [Mass/Vol] 11: [facility] ([id number]) Lymphocytes 1.5 10*3/uL (no code) 0.9 - 2.9 02-02-2019 [facility] (Bld) [#/Vol] 10*3/uL 11: [facility] ([id number]) Lymphocytes/100 26 % (no code) 20 - 40 % 02-02-2019 [facility] WBC (Bld) 11: [facility] ([id number]) MCH (RBC) 29 pg (no code) 27 - 31 pg 02-02-2019 [facility] [Entitic mass] 11: [facility] ([id number]) MCV (RBC) 86 fL (no code) 80 - 100 fL 02-02-2019 [facility] [Entitic vol] 11: [facility] ([id number]) Monocytes (Bld) 0.3 10*3/uL (no code) 0.3 - 0.9 02-02-2019 [facility] [#/Vol] 10*3/uL 11: [facility] ([id number]) Monocytes/100 6 % (no code) 2 - 8 % 02-02-2019 [facility] WBC (Bld) 11: [facility] ([id number]) Neutrophils/100 68 % (no code) 40 - 60 % 02-02-2019 [facility] WBC (Bld) 11: [facility] ([id number]) Platelets (Bld) 235 10*3/uL (no code) 150 - 450 02-02-2019 [facility] [#/Vol] 10*3/uL 11: [facility] ([id number]) RBC (Bld) 4.99 10*6/uL (no code) 4.2 - 6.1 02-02-2019 [facility] [#/Vol] 10*6/uL 11: [facility] ([id number]) WBC (Bld) 5.9 10*3/uL (no code) 3.5 - 10.5 02-02-2019 [facility] [#/Vol] 10*3/uL 11: [facility] ([id number]) other Ordered By: MITCH VERGARA on 2018-12-16 Waiter/Waitress Cabin Class Patient ID: (no code) 12-16-2018 [facility] Authentication Deysi Gilliam Tanna 14: [facility] is a 38 y.o[employer] Message Text female.~~Subject ([facility] Patient [facility]) presents with ([id number]) Fibromyalgia and Sjorgen~~38-year -old female with chronic fibro-myalgia and Sjogren's syndrome. She~continues to have daily pain. It is helped with tizanidine and tramadol. She~cannot tolerate higher doses of gabapentin or duloxetine. She gets a lot of~fatigue with both knees. Patient has been walking and has lost 18 pounds~~Review of Systems~Constitu tional: Positive for malaise/fatigue. ~HENT: Negative.~Eyes: Negative.~Respir atory: Negative.~Cardio vascular: Negative.~Gastro intestinal: Negative.~Genito urinary: Negative.~Muscul oskeletal: Positive for back pain and myalgias.~Skin: Negative. Negative for rash.~Neurologic al: Negative.~Endo/H claribel/Allergies: Negative.~Psychi atric/Behavioral : Positive for depression. The patient is nervous/anxious. ~All other systems reviewed and are negative.~~~Saturnino rgies:~Allergies ~Allergen Reactions~* Aspirin Hives~~~Medicati ons:~Outpatient Prescriptions Marked as Taking for the 12/16/18 encounter (Office~Visit) with Mitch Vergara MD~Medication Sig Dispense Refill~* cyanocobalamin, vitamin B-12, 1,000 mcg Subl Dissolve 1,000 mcg under the~tongue daily. 30 each 6~* DULoxetine (CYMBALTA) 40 mg capsule Take 1 capsule (40 mg total) by mouth~daily. 30 capsule 11~* ferrous sulfate 325 (65 FE) MG EC tablet Take 1 tablet (325 mg total) by mouth~daily. 30 tablet 6~* fluocinolone acetonide oil 0.01 % Drop~* gabapentin (NEURONTIN) 100 MG capsule Take 100 mg by mouth 3 (three) times a~day. As directed~* hydroxychloroqui ne (PLAQUENIL) 200 mg tablet Take 2 tablets (400 mg total) by~mouth daily. 60 tablet 12~* lisinopril (PRINIVIL,ZESTRI L) 20 MG tablet Take 20 mg by mouth daily.~* nortriptyline (PAMELOR) 25 MG capsule Take 25 mg by mouth daily.~* tiZANidine (ZANAFLEX) 4 MG tablet Take 4 mg by mouth every 6 (six) hours as~needed.~* traMADol (ULTRAM) 50 mg tablet Take 1-2 tablets (50-100 mg total) by mouth 3~(three) times a day as needed for pain. Max Daily Dose: 300 mg 120 tablet 5~* warfarin (COUMADIN) 2.5 MG tablet Take 2.5 mg by mouth 4 (four) times a week.~Wednesday, , Wednesday, Wednesday as directed by INR~* warfarin (COUMADIN) 5 MG tablet Take 5 mg by mouth 3 (three) times a week.~Wednesday, Wednesday, Wednesday as directed by INR~* [DISCONTINUED] DULoxetine (CYMBALTA) 30 mg capsule Take 30 mg by mouth daily.~* [DISCONTINUED] traMADol (ULTRAM) 50 mg tablet Take 1-2 tablets (50-100 mg~total) by mouth 3 (three) times a day as needed for pain. 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~* Lupus~* Morbid obesity with BMI of 50.0-59.9, adult (HCC)~* Patient is Anabaptism 04/06/2017~* Pre-eclampsia in third trimester 04/21/2017~* Sacroiliac joint dysfunction of both sides 12/31/2015~* Sjogren's disease (HCC)~* Sjogren's syndrome with keratoconjunctiv itis sicca (HCC) 12/28/2016~* 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~~Past Surgical History:~Procedu re Laterality Date~* ANTERIOR CRUCIATE LIGAMENT REPAIR Left~* CHOLECYSTECTOMY 09/2017~* KNEE SURGERY Left~* TONSILLECTOMY~~F amily History~Problem Relation Age of Onset~* Diabetes Mother~* Hypertension Mother~* Diabetes Father~* COPD Father~* Diabetes Sister~* Hypertension Sister~~~Vitals: ~BP 132/62 | Pulse 91 | Temp 36.8 C (98.2 F) (Oral) | Resp 18 | Ht 1.524 m~(5') | Wt 129.3 kg (285 lb) | SpO2 95% | BMI 55.66 kg/m ~~Objective:~Phy sical Exam:~Physical Exam~Constitutio nal: She appears well-developed and well-nourished.~ HENT:~Head: Normocephalic and atraumatic.~Nose : Nose normal.~Mouth/Th roat: Oropharynx is clear and moist.~Eyes: Pupils are equal, round, and reactive to light. Conjunctivae and EOM are~normal.~Neck : Normal range of motion. Neck supple.~Cardiova scular: Normal rate, regular rhythm and normal heart sounds.~Pulmonar y/Chest: Effort normal and breath sounds normal.~Abdomina l: Soft.~Musculoske letal:~No synovitis in hands or feet~Neurologica l: She is alert.~Skin: Skin is warm and dry.~Psychiatric : She has a normal mood and affect. Her behavior is normal.~Nursing note and vitals reviewed.~~~Data :~No results found.~Hospital Outpatient Visit on 12/07/2018~[place] [facility] Date Value Ref Range Status~* Ejection Fraction 12/08/2018 86 % Final~* Calcium Score 12/08/2018 1.6 Final~Initial consult on 11/15/2018~[place] [facility] Date Value Ref Range Status~* QRSd 11/15/2018 80 Final~* QT 11/15/2018 380 Final~* QTC 11/15/2018 452 Final~* ECGHR 11/15/2018 85 Final~* ECGPR 11/15/2018 152 Final~~~~Assessm ent and Plan:~Encounter Diagnoses~Name Primary?~* Sjogren's syndrome with keratoconjunctiv itis sicca (HCC) Yes~* Fibromyalgia~~1. Sjogren's syndrome~2. Chronic fibromyalgia syndrome~~My recommendation is to increase gabapentin to 100 mg twice daily and 300~nightly and increase duloxetine to 40 mg daily. Maintain tramadol and Zanaflex.~I will see her back in 6 months. Continue the good work of walking and weight~loss~~~Or ders Placed This Encounter~* DULoxetine (CYMBALTA) 40 mg capsule~ Sig: Take 1 capsule (40 mg total) by mouth daily.~ Dispense: 30 capsule~ Refill: 11~* traMADol (ULTRAM) 50 mg tablet~ Sig: Take 1-2 tablets (50-100 mg total) by mouth 3 (three) times a day as~needed for pain. Max Daily Dose: 300 mg~ Dispense: 120 tablet~ Refill: 5~~~Parts of this note were comprised using [employer] voice recognition software and~may account for transcriptional errors. other Ordered By: MARKELL MOORE on 2018-11-15 Waiter/Waitress Cabin Class [facility] (no code) 11-15-2018 [facility] Authentication Cardiovascular 11:40-0500 Cardiovascula r Interface Consultants-Over Consultants-Over Message Text [facility]~~~Appointme ([id number]) nt Date: 11/15/2018~~~Janent Quiles MD~[address] [facility] [address]~~RE: Deysi Cisse~: 1980~Visit provider: Markell Moore MD~~Dear Katey Quiles MD:~~I had the pleasure of seeing Deysi Cisse in the office today. She is a(n) 38~y.o. female and presents with the following chief complaint(s): Pre-op cardiac~risk assessment~~HPI: ~Thank you for this consultation. The patient is accompanied by her [id number]~pretty kate. She is planning an operation of hysterectomy. She has menorrhagia,~rec eiving warfarin therapy. Warfarin is administered for prevention of DVT and~PE. 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 She is on lifelong warfarin therapy. There is underlying~facto r V Leiden mutation, thrombophilia.~~ The patient has no personal history of syncope or chest pain. Yet, she is~exceedingly sedentary. Her BMI is 56, she is not able to exercise. She has low~back pain and knee pain. She cannot walk more than one flight of stairs without~stopping .~~She has been diagnosed with diabetes. Although there is no history of~hypertension her blood pressure is elevated today. Her lipid profile is not~known to me. There is a family history of premature, possibly sudden cardiac~ in her sister. Mother of the patient at age 43 from an accident.~~Patie nt Active Problem List~Diagnosis SNOMED CT(R)~* Fibromyalgia FIBROMYALGIA~* Sjogren's syndrome with keratoconjunctiv itis sicca (HCC) KERATOCONJUNCTIV ITIS~SICCA, IN [facility] GREN'S SYNDROME~* Diabetes mellitus without complication (HCC) DIABETES MELLITUS WITHOUT~COMPLICA TION~* Factor 5 Leiden mutation, heterozygous ([facility]) HETEROZYGOUS FACTOR V LEIDEN~MUTATION~ * History of DVT (deep vein thrombosis) H/O: DEEP VEIN THROMBOSIS~* Morbid obesity with BMI of 50.0-59.9, adult ([facility]) BODY MASS INDEX 40+ -~SEVERELY OBESE~* 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~* Sacroiliac joint dysfunction of both sides SACROILIAC DISORDER~* SS-A antibody positive ANTIBODY STUDIES ABNORMAL~* 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 LONG-TERM CURRENT USE OF ANTICOAGULANT~~P ast Medical History:~Diagnos is Date~* Abnormal uterine bleeding (AUB) 10/14/2015~* Arthritis~* Constipation~* Depression~* Diabetes ([facility])~* Diabetes mellitus without complication ([facility])~* Factor 5 Leiden mutation, heterozygous ([facility])~* Fibromyalgia~* HELLP (hemolytic anemia/elev liver enzymes/low platelets in ) 06/2017~* History of DVT (deep vein thrombosis) 03/26/2016~* Intertrigo 10/29/2015~ Overview: Nystatin powder~* Irregular menses~* 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~* Lupus~* Morbid obesity with BMI of 50.0-59.9, adult ([facility])~* Patient is Anabaptism 04/06/2017~* Pre-eclampsia in third trimester 04/21/2017~* Sacroiliac joint dysfunction of both sides 12/31/2015~* Sjogren's disease (HCC)~* Sjogren's syndrome with keratoconjunctiv itis sicca (HCC) 12/28/2016~* 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~~Past Surgical History:~Procedu re Laterality Date~* ANTERIOR CRUCIATE LIGAMENT REPAIR Left~* CHOLECYSTECTOMY 09/2017~* KNEE SURGERY Left~* TONSILLECTOMY~~F inal Medications:~Cur rent Outpatient Prescriptions~Me dication Sig Dispense Refill~* cyanocobalamin, vitamin B-12, 1,000 mcg Subl Dissolve 1,000 mcg under the~tongue daily. 30 each 6~* DULoxetine (CYMBALTA) 30 mg capsule Take 30 mg by mouth daily.~* ferrous sulfate 325 (65 FE) MG EC tablet Take 1 tablet (325 mg total) by mouth~daily. 30 tablet 6~* gabapentin (NEURONTIN) 100 MG capsule Take 100 mg by mouth 3 (three) times a~day. As directed~* hydroxychloroqui ne (PLAQUENIL) 200 mg tablet Take 2 tablets (400 mg total) by~mouth daily. 60 tablet 12~* tiZANidine (ZANAFLEX) 4 MG tablet Take 4 mg by mouth every 6 (six) hours as~needed.~* traMADol (ULTRAM) 50 mg tablet Take 1-2 tablets (50-100 mg total) by mouth 3~(three) times a day as needed for pain. Max Daily Dose: 300 mg 120 tablet 5~* warfarin (COUMADIN) 2.5 MG tablet Take 2.5 mg by mouth 4 (four) times a week.~Wednesday, , Wednesday, Wednesday as directed by INR~* warfarin (COUMADIN) 5 MG tablet Take 5 mg by mouth 3 (three) times a week.~Wednesday, Wednesday, Wednesday as directed by INR~~No current facility-adminis tered medications for this visit.~~Allergie s~Allergen Reactions~* Aspirin Hives~~Family History~Problem Relation Age of Onset~* Diabetes Mother~* Hypertension Mother~* Diabetes Father~* COPD Father~* Diabetes Sister~* Hypertension Sister~~Social History:~Social History~Substanc e Use Topics~* Smoking status: Never Smoker~* Smokeless tobacco: Never Used~* Alcohol use No~~Review of Systems~Constitu tion: Positive for malaise/fatigue and night sweats. Negative for fever.~HENT: Negative for nosebleeds.~Card iovascular: Positive for claudication, dyspnea on exertion and leg swelling.~Negati ve for chest pain, cyanosis, irregular heartbeat, near-syncope, orthopnea~and palpitations.~Re spiratory: Positive for snoring. Negative for cough, hemoptysis, shortness of~breath, sleep disturbances due to breathing and wheezing.~Endocr ine: Negative for cold intolerance and polydipsia.~Jaron tologic/Lymphati c: Bruises/bleeds easily.~Skin: Negative for rash.~Musculoske letal: Positive for joint pain and myalgias.~Gastro intestinal: Negative for dysphagia, hematochezia, nausea and vomiting.~Genito urinary: Negative for hematuria.~Neuro logical: Positive for excessive daytime sleepiness. Negative for brief~paralysis, disturbances in coordination, dizziness, focal weakness,~light- headedness, loss of balance, numbness and paresthesias.~Al l other systems reviewed and are negative.~~Vital Signs~ 11/15/18 1050~BP: (!) 132/101~Pulse: 87~Weight: 130.2 kg (287 lb)~Height: 1.524 m (5')~BMI: Body mass index is 56.05 kg/m .~~Physical Exam~Constitutio nal: She is oriented to person, place, and time. She appears~well-dev eloped and well-nourished. She is cooperative.~HEN T:~Head: Normocephalic and atraumatic.~Nose : Nose normal.~Eyes: Pupils are equal, round, and reactive to light. Conjunctivae and EOM are~normal.~Neck : Normal range of motion. No JVD present. No thyromegaly present.~Cardiov ascular: Normal rate, regular rhythm, S1 normal, S2 normal, normal heart~sounds, intact distal pulses and normal pulses. PMI is not displaced. Exam~reveals no S3, no S4 and no friction rub.~No murmur heard.~Pulmonary /Chest: Effort normal. No respiratory distress. She has no wheezes. She~has no rales. She exhibits no tenderness.~Abdo shannan: Normal appearance. She exhibits no mass.~Musculoske letal: Normal range of motion. She exhibits no edema.~Lymphaden opathy:~ She has no cervical adenopathy.~ She has no axillary adenopathy.~Neur ological: She is alert and oriented to person, place, and time. She exhibits~normal muscle tone. Coordination normal.~Skin: Skin is warm and dry. No rash noted. No erythema.~Psychi atric: She has a normal mood and affect. Judgment normal.~~EKG: Normal Sinus Rhythm~~Encounte r Diagnoses~Name Primary?~* Preoperative clearance~* Morbid obesity with BMI of 50.0-59.9, adult (HCC) Yes~* DYKES (dyspnea on exertion)~~Impre ssion and Plan:~This is a 38-year-old woman with thrombophilia on chronic anticoagulation with~warfarin who is planning an operation of hysterectomy. At this time her~preoperative cardiovascular risk is intermediate. Her functional status is~poor, lipid profile is not known, she has diabetes and exertional~breat hlessness.~~1. Morbid obesity, exertional breathlessness, preoperative risk. I recommend~nuclea r myocardial perfusion imaging study using 2-day protocol to rule out~significant myocardial dysfunction and ischemia.~2. Morbid obesity. She is potentially a candidate for bariatric surgery. We~discussed it. She knows how to seek consultation if she desires.~3. Diabetes, risk of atherosclerosis. She prefers to have lipid profile~checked with her primary care physician during an upcoming appointment.~4. Also, her blood pressure today is elevated. There is no formal diagnosis of~hypertension. I do recommend blood pressure diary. If her blood pressure is~consistently above 130/80 mmHg, she might benefit from additional evaluation and~medication.~ ~Treatment goals, progress and next steps, as above, were discussed and mutually~agreed upon with the patient/family.~ ~Thank you for allowing me to participate in Deysi Cisse's care. If I can be~of any further assistance, please do not hesitate to contact me.~~Sincerely,~ ~Markell Moore MD~~/narciso other Ordered By: NOY CAREY on 2018-10-24 Waiter/Waitress Cabin Class (no code) 10-24-2018 [facility] Authentication [id number] [facility] Message Text ([id number]) ~Attestation signed by Marvin Ruiz MD at 01/09/2019 2:21 PM~Attending Note:~I have personally interviewed and examined the patient. complicated by her~anticoagulat ion chronic. Recommendations on her chart put her at unreasonable~ris k for post operative bleeding. These recommendations will have to be~modified if we are to operate.~~------ ~~NAME : Deysi Cisse~ ~AGE: 38 y.o. : 1980~ ~CHIEF COMPLAINT~ ~~Chief Complaint~Patien t presents with~* Preoperative Evaluation~ ~HISTORY OF PRESENT ILLNESS~ ~History of Present Illness~ ~38 yo female who presents today for preoperative evaluation for AUB.~Patient has a several year h/o AUB. Reports menses last 5-7 days every 1-2~weeks. Has limited treatment options given her h/o DVT/PE on lifelong~anticoa gulation, did not tolerate Mirena previously, and continues to desire~definitiv e surgical management. She was seen in Gynecology clinic who discussed~a hysterectomy but given the patient's risk factors, body habitus, and~anticipated benefit from Robotic-assisted surgery she was referred to~Urogynecology . She continues to desire definitive surgical management. She~denies any h/o cardiac or pulmonary disease.~ ~PROBLEM LIST~ ~~Patient Active Problem List~Diagnosis SNOMED CT(R)~* Fibromyalgia FIBROMYALGIA~* Sjogren's syndrome with keratoconjunctiv itis sicca (HCC) KERATOCONJUNCTIV ITIS~SICCA, IN SJ GREN'S SYNDROME~ ~ ~PAST MEDICAL HISTORY~ ~~Past Medical History:~Diagnos is Date~* Depression ~* Diabetes (HCC) ~* Factor 5 Leiden mutation, heterozygous (HCC) ~* Fibromyalgia ~* Preeclampsia ~* Sjogren's disease (HCC) ~ ~ ~PAST SURGICAL HISTORY~ ~~Past Surgical History:~Procedu re Laterality Date~* ANTERIOR CRUCIATE LIGAMENT REPAIR Left ~* CHOLECYSTECTOMY 09/2017~* CHOLECYSTECTOMY 2017~* KNEE SURGERY Left ~* TONSILLECTOMY ~ ~ ~MEDICATIONS~ ~Encounter Medications~~Out patient Encounter Prescriptions as of 08/18/2018~Medica tion Sig Dispense Refill~* cyanocobalamin, vitamin B-12, 1,000 mcg Subl Dissolve 1,000 mcg under the~tongue daily. 30 each 6~* DULoxetine (CYMBALTA) 60 mg capsule Take 1 capsule (60 mg total) by mouth~daily. 30 capsule 11~* ferrous sulfate 325 (65 FE) MG EC tablet Take 1 tablet (325 mg total) by mouth~daily. 30 tablet 6~* gabapentin (NEURONTIN) 100 MG capsule Take 1 capsule (100 mg total) by mouth 5~(five) times a day. 1 CAP BID AND 3 AT HS 150 capsule 5~* hydroxychloroqui ne (PLAQUENIL) 200 mg tablet Take 2 tablets (400 mg total) by~mouth daily. 60 tablet 12~* tiZANidine (ZANAFLEX) 4 MG tablet Take 4 mg by mouth every 6 (six) hours as~needed. ~* traMADol (ULTRAM) 50 mg tablet Take 1-2 tablets (50-100 mg total) by mouth 3~(three) times a day as needed for pain. Max Daily Dose: 300 mg 120 tablet 5~* warfarin (COUMADIN) 2.5 MG tablet Take 2.5 mg by mouth 4 (four) times a week.~Wednesday, , Wednesday, Wednesday ~* warfarin (COUMADIN) 5 MG tablet Take 5 mg by mouth 3 (three) times a week.~Wednesday, Wednesday, Wednesday ~ ~No facility-adminis tered encounter medications on file as of 08/18/2018.~~ ~ ~ALLERGIES~ ~Aspirin~ ~PAST GYNECOLOGIC HISTORY~ ~~GYNECOLOGICAL HISTORY~ Gynecological History 07/28/2018 07/28/2018~ Date of Last Pap if Known (No Data) 09/13/2014~ History of Abnormal Paps Yes Yes~ Menarche Age [age]~ Period Duration (Days) 5 5~ Period Pattern Irregular Irregular~ Menstrual Flow Heavy Heavy~ Menstrual Control - Maxi pad~ Dysmenorrhea None Severe~ Dysmenorrhea Symptoms - Cramping;Nausea~ STI's No No~ ~ ~PAST OBSTETRIC HISTORY~ ~ Unknown~~OB History~ Para Term AB Living~2 2 1 1 0 2~SAB TAB Ectopic Multiple Live Births~0 0 0 0 2~ ~# Outcome Date GA Lbr Irineo/2nd Weight Sex Delivery Anes PTL Lv~2 04/18/17 36w0d F Vag-Spont Y PARVEEN~1 Term 03/03/11 37w0d M Vag-Spont N PARVEEN~ ~ ~ ~FAMILY HISTORY~ ~~Family History~Problem Relation Age of Onset~* Diabetes Mother ~* Hypertension Mother ~* Diabetes Father ~* COPD Father ~* Diabetes Sister ~* Hypertension Sister ~ ~ ~SOCIAL HISTORY~ ~Social History~Social History~ ~~Social History~* Marital status: ~ Spouse name: N/A~* Number of children: N/A~* Years of education: N/A~ ~~Occupational History~* Not on file.~ ~~Social History Main Topics~* Smoking status: Never Smoker~* Smokeless tobacco: Never Used~* Alcohol use No~* Drug use: No~* Sexual activity: Yes~ Partners: Male~ ~~Other Topics Concern~* Not on file~ ~~Social History Narrative~* No narrative on file~~ ~ ~REVIEW OF SYSTEMS~ ~Review of Systems~Constitu tional: Positive for fever. Negative for activity change and appetite~change. ~Respiratory: Negative for cough and shortness of breath.~Cardiova scular: Negative for chest pain and palpitations.~Ga strointestinal: Negative for abdominal pain, constipation, diarrhea, nausea~and vomiting.~Genito urinary: Positive for vaginal bleeding. Negative for dysuria, flank pain,~vaginal discharge and vaginal pain.~Neurologic al: Negative for dizziness and light-headedness .~ ~ ~VITALS~ ~~Vitals:~ 12/06/18 1509~BP: 128/82~Pulse: 88~Weight: 294 lb 12.8 oz~Height: 5'~ ~ ~EXAM~ ~Physical Exam~BP (!) 132/90 | Pulse 93 | Ht 5' | Wt 283 lb | LMP 10/22/2018 (Exact Date)~| BMI 55.27 kg/m ~Constitutional: She is oriented to person, place, and time. She appears~well-dev eloped and well-nourished. No distress.~HENT: Head: Normocephalic and atraumatic.~Eyes : Pupils are equal, round, and reactive to light. EOM are normal.~Cardiova scular: Normal rate.~Pulmonary/ Chest: Effort normal. No respiratory distress.~Abdomi nal: Soft. She exhibits no distension. There is no tenderness. There is no~guarding.~obe se~Musculoskelet al: She exhibits no edema or deformity.~Neuro logical: She is alert and oriented to person, place, and time.~Skin: Skin is warm and dry. She is not diaphoretic.~Psy chiatric: She has a normal mood and affect. Her behavior is normal.~~Pelvic Exam performed by Dr. Ruiz:~External Genitalia: normal appearing vulva with no masses, tenderness or lesions~Vagina: no abnormal discharge or lesions~Cervix: no lesions or cervical motion tenderness~Poor candidate for vaginal hysterectomy.~ ~ASSESSMENT AND PLAN~ ~38yo :~ ~Assessment:~1. Abnormal uterine bleeding~2. Morbid obesity (BMI 55)~3. History of DVT/PE, heterozygous Factor V Leiden mutation, on lifelong~anticoa gulation~4. Anabaptism--patient brought in forms detailing blood product~preferen roberta (scanned into chart), summarized below~ - will accept: albumin, immunoglobulins, blood-derived clotting~factors , hemin, blood derived interferons,~ - won't accept: hemodilution, plasmapheresis, labeling or tagging,~blood~ - will possibly accept: hemoglobin, cell-salvage, heart-lung~machi ne, dialysis, epidural blood patch, autologous platelet gel~ ~Plan:~- Patient has received care at , with reported multiple attempts at ablation~- Patient cannot take systemic medications due to history of VTEs, previously~tried Mirena IUD however seems was improperly placed as caused severe pain.~- Patient strongly desires definitive surgical management. Discussed that she is~at high risk for complications during surgery and recovery period due to her~morbid obesity and limited acceptance of blood products. Discussed increased~risks for DVT/PE due to hypercoagulabili ty. Discussed increased risk for~operative and postoperative bleeding due to her chronic anticoagulation. Patient~reports understanding and acceptance of these risks. Patient verbalized in~clinic today that she understands and is accepting that she runs the risk of~ in the event of heavy bleeding due to her limited acceptance of blood~products.~ - Labs 07/28/18: Hgb 13.9, A1c 7.1, T4 1.2, EPO wnl, iron studies WNL~- Pelvic US 08/08/18: Uterus measuring 11 x 4 x 5cm, EM 11mm with possible~focal thickening near uterine fundus~- Pap NIL/-HRHPV, GC/CT neg (08/01/2018)~- s/p Hematology consultation on 07/25/18. Perioperative management of~anticoagulati on recommendations made: d/c warfarin 5 days prior to surgery and~switch to lovenox (rx provided by heme/onc physician). Target INR prior to~surgery 1.3 or less. Hold lovenox on day prior to surgery. Once hemostasis~achie chirag post op, restart anticoagulation with therapeutic Lovenox 1.5 mg/kg~once daily or IV heparin and bridge with warfarin. Discussed that our preference~would be for Lovenox 40 mg subcutaneously qDaily in the immediately and short~term post-operative course because of her increased risk with bleeding given the~limited blood products available and the extent of the anticipated surgery.~Discuss ed increased risk of DVT/PE/CVA during that timeframe but feel that the~risk reduction of hemorrhage outweighs the risks of DVT/PE/CVA. Recommended that~the patient discuss these recommendations with her Heme/Onc doctor prior to~scheduling surgery.~- Given h/o preeclampsia, class III obesity, and T2DM we recommend cardiology~clear ance prior to surgery. Order placed.~- Discussed methods of hysterectomy with patient today. Discussed that the~anticipated approach would be a RA-TLH.~- Patinet to f/u in clinic for preoperative evaluation following Cardiology~clear ance.~ ~Staff: Dr. Ruiz~Noy Carey MD, OBGYN, PGY4 other Ordered By: ROMINA CORONA on 2018-08-29 Waiter/Waitress Cabin Class Called Mrs Cisse (no code) 08-29-2018 [facility] Authentication and recommended 17:35-0500 Surgical Interface evaluation for Specialists Message Text surgery with Dr Cynthia ivy [facility] in~Urogynecology ([id number]) given his ability to perform robotic and more difficult vaginal~hysterec tomies. Pt is appreciative and will see him. She does request a female~be present for exams. other Ordered By: ROMINA CJ on 2018-08-24 Waiter/Waitress Cabin Class I attempted (no code) 08-24-2018 [facility] calling home 14:48-0500 Medical Interface phone again x 2 Education OBGYN Message Text and received a Clinic ([id number]) busy signal. Will try~again later today. other Ordered By: ROMINA CORONA on 2018-08-23 Waiter/Waitress Cabin Class Attempted (no code) 08-23-2018 [facility] Authentication calling patient 15:33-0500 Medical Interface on both her Education OBGYN Message Text listed numbers. Clinic ([id number]) No answer on her mobile~and it did not have a voicemail set up. Her home phone gave a busy signal. I~will attempt to call her again tomorrow. other Ordered By: EDUARD MAYA on 2018-08-18 Waiter/Waitress Cabin Class NAME: Deysi Gilliam (no code) 08-18-2018 [facility] Authentication Tanna~MRN: [id number] Surgical Interface [id number]~AGE: 38 Specialists Message Text y.o. : [place] for 1980~~~CHIEF Breast Care COMPLAINT~~Chief ([id number]) Complaint~Patien t presents with~* Follow-up~~~HIST ORY OF PRESENT ILLNESS~~History of Present Illness~~38 y.o. female who presents today to follow up on AUB. Patient reports~she has continued to bleed since her last visit. She continues to report the~bleeding as heavy. Is still desiring hysterectomy for definitive management.~Brou ght in forms outlining blood products she will/won't accept.~~PROBLEM LIST~~Patient Active Problem List~Diagnosis SNOMED CT(R)~* Fibromyalgia FIBROMYALGIA~* Sjogren's syndrome with keratoconjunctiv itis sicca (HCC) KERATOCONJUNCTIV ITIS~SICCA, IN SJ GREN'S SYNDROME~~~PAST MEDICAL HISTORY~~Past Medical History:~Diagnos is Date~* Depression~* Diabetes (HCC)~* Factor 5 Leiden mutation, heterozygous (HCC)~* Fibromyalgia~* Preeclampsia~* Sjogren's disease (HCC)~~~PAST SURGICAL HISTORY~~Past Surgical History:~Procedu re Laterality Date~* ANTERIOR CRUCIATE LIGAMENT REPAIR Left~* CHOLECYSTECTOMY 09/2017~* CHOLECYSTECTOMY 2017~* KNEE SURGERY Left~* TONSILLECTOMY~~~ MEDICATIONS~~Out patient Encounter Prescriptions as of 08/18/2018~Medica tion Sig Dispense Refill~* cyanocobalamin, vitamin B-12, 1,000 mcg Subl Dissolve 1,000 mcg under the~tongue daily. 30 each 6~* DULoxetine (CYMBALTA) 60 mg capsule Take 1 capsule (60 mg total) by mouth~daily. 30 capsule 11~* ferrous sulfate 325 (65 FE) MG EC tablet Take 1 tablet (325 mg total) by mouth~daily. 30 tablet 6~* gabapentin (NEURONTIN) 100 MG capsule Take 1 capsule (100 mg total) by mouth 5~(five) times a day. 1 CAP BID AND 3 AT HS 150 capsule 5~* hydroxychloroqui ne (PLAQUENIL) 200 mg tablet Take 2 tablets (400 mg total) by~mouth daily. 60 tablet 12~* tiZANidine (ZANAFLEX) 4 MG tablet Take 4 mg by mouth every 6 (six) hours as~needed.~* traMADol (ULTRAM) 50 mg tablet Take 1-2 tablets (50-100 mg total) by mouth 3~(three) times a day as needed for pain. Max Daily Dose: 300 mg 120 tablet 5~* warfarin (COUMADIN) 2.5 MG tablet Take 2.5 mg by mouth 4 (four) times a week.~Wednesday, , Wednesday, Wednesday~* warfarin (COUMADIN) 5 MG tablet Take 5 mg by mouth 3 (three) times a week.~Wednesday, Wednesday, Wednesday~~No facility-adminis tered encounter medications on file as of 08/18/2018.~~~ALL ERGIES~~Aspirin~ ~PAST GYNECOLOGIC HISTORY~~GYNECOL OGICAL HISTORY~ Gynecological History 07/28/2018 07/28/2018~ Date of Last Pap if Known (No Data) 09/13/2014~ History of Abnormal Paps Yes Yes~ Menarche Age 14 14~ Period Duration (Days) 5 5~ Period Pattern Irregular Irregular~ Menstrual Flow Heavy Heavy~ Menstrual Control - Maxi pad~ Dysmenorrhea None Severe~ Dysmenorrhea Symptoms - Cramping;Nausea~ STI's No No~~~~PAST OBSTETRIC HISTORY~~ Unknown~OB History~ Para Term AB Living~2 2 1 1 0 2~SAB TAB Ectopic Multiple Live Births~0 0 0 0 2~~# Outcome Date GA Lbr Irineo/2nd Weight Sex Delivery Anes PTL Lv~2 04/18/17 36w0d F Vag-Spont Y PARVEEN~1 Term 03/03/11 37w0d M Vag-Spont N PARVEEN~~~~FAMILY HISTORY~~Family History~Problem Relation Age of Onset~* Diabetes Mother~* Hypertension Mother~* Diabetes Father~* COPD Father~* Diabetes Sister~* Hypertension Sister~~~SOCIAL HISTORY~~Social History~~Social History~* Marital status: ~ Spouse name: N/A~* Number of children: N/A~* Years of education: N/A~~Occupationa l History~* Not on file.~~Social History Main Topics~* Smoking status: Never Smoker~* Smokeless tobacco: Never Used~* Alcohol use No~* Drug use: No~* Sexual activity: Yes~ Partners: Male~~Other Topics Concern~* Not on file~~Social History Narrative~* No narrative on file~~~REVIEW OF SYSTEMS~~Review of Systems~Constitu tional: Positive for fever. Negative for activity change and appetite~change. ~Respiratory: Negative for cough and shortness of breath.~Cardiova scular: Negative for chest pain and palpitations.~Ga strointestinal: Negative for abdominal pain, constipation, diarrhea, nausea~and vomiting.~Genito urinary: Positive for vaginal bleeding. Negative for dysuria, flank pain,~vaginal discharge and vaginal pain.~Neurologic al: Negative for dizziness and light-headedness .~~~VITALS~~Kathy ls:~ 12/06/18 1509~BP: 128/82~Pulse: 88~Weight: 294 lb 12.8 oz~Height: 5'~~~EXAM~~Physi adwoa Exam~Constitutio nal: She is oriented to person, place, and time. She appears~well-dev eloped and well-nourished. No distress.~HENT:~ Head: Normocephalic and atraumatic.~Eyes : Pupils are equal, round, and reactive to light. EOM are normal.~Cardiova scular: Normal rate.~Pulmonary/ Chest: Effort normal. No respiratory distress.~Abdomi nal: Soft. She exhibits no distension. There is no tenderness. There is no~guarding.~obe se~Musculoskelet al: She exhibits no edema or deformity.~Neuro logical: She is alert and oriented to person, place, and time.~Skin: Skin is warm and dry. She is not diaphoretic.~Psy chiatric: She has a normal mood and affect. Her behavior is normal.~~~Pelvic Exam:~External Genitalia: normal appearing vulva with no masses, tenderness or lesions~Vagina: no abnormal discharge or lesions~Cervix: no lesions or cervical motion tenderness~~Proc edure:~~[facility] Cervix was visualized using~speculum and cleaned with betadine swabs. Cervix was then grasped anteriorly~with a single tooth tenaculum. Pipelle was insterted through cervix and uterus~measured to 10cm. Adequate sample was collected and pipelle was removed.~Tenacul um was removed and tenaculum sites were made hemostatic using silver~nitrate swabs. Speculum was then removed. Patient tolerated procedure well~with some cramping during the procedure which improved at completion.~~ASS ESSMENT AND PLAN~~38yo :~ ~Assessment:~1. Abnormal uterine bleeding~2. Morbid obesity (BMI 58)~3. History of DVT/PE, heterozygous Factor V Leiden mutation, on lifelong~anticoa gulation~4. Anabaptism--patient brought in forms detailing blood product~preferen roberta (placed in scan bin), summarized below~ - will accept: albumin, immunoglobulins, blood-derived clotting factors, hemin,~blood derived interferons,~ - won't accept: hemodilution, plasmapheresis, labeling or tagging, blood~ - will possibly accept: hemoglobin, cell-salvage, heart-lung machine, dialysis,~epidur al blood patch, autologous platelet gel~ ~Plan:~- patient has received care at , with reported multiple attempts at ablation~- Patient cannot take systemic medications due to history of VTEs, previously~tried Mirena IUD however seems was improperly placed as caused severe pain,~however patient was educated that this would be a safe option; patient strongly~desires definitive surgical management. Discussed with patient today that she~is at high risk for complications during surgery and recovery period due to her~morbid obesity and limited acceptance of blood products. Discussed increased~risks for DVT/PE due to hypercoagulabili ty. Discussed increased risk for~operative and postoperative bleeding due to her chronic anticoagulation. ~Patient reports understanding and acceptance of these risks. Patient~verbaliz leida clinic today that she understands and is accepting that she runs~the risk of in the event of heavy bleeding due to her limited acceptance~of blood products.~- Labs 07/28/18: Hgb 13.9, A1c 7.1, T4 1.2, EPO wnl, iron studies wnl~- Pelvic US 08/08/18: Uterus measuring 11 x 4 x 5cm, EM 11mm with possible~focal thickening near uterine fundus~- Pap NIL/-HRHPV, GC/CT neg (08/01/2018)~- s/p Hematology consultation on 07/25/18. Perioperative management of~anticoagulati on recommendations made: d/c warfarin 5 days prior to surgery and~switch to lovenox (rx provided by heme/onc physician). Target INR prior to~surgery 1.3 or less. Hold lovenox on day prior to surgery. Once hemostasis~achie chirag post op, restart anticoagulation with therapeutic Lovenox 1.5 mg/kg~once daily or IV heparin and bridge with warfarin.~- Discussed methods of hysterectomy with patient today. Discussed that optimal~method would be TVH, however minimal descent of uterus on exam today. Will plan~LAVH. Discussed possible conversion to laparotomy if difficulty is encountered.~Pat ient reports understanding~- surgical alert to be completed and given to bank representative~~Staff : Dr. Corona~~Eduard Maya MD~~~STAFF:~~I saw this patient with Dr Maya. She strongly desires hysterectomy. She has~daily bleeding and conservative measures have failed to resolve her bleeding.~She was originally scheduled for a robotic hyst with Dr Aldrich but then conceived~and completed a at . My concern for her having a standard TLH is~that it would be very difficult to manage without robot assist in light of her~obesity (BMI 57). I located her records from after her visit and was able to~review her care there. I even spoke to Dr Aldrich on the phone regarding her~thoughts on her care. Dr Aldrich was happy to see the patient back again to further~discuss hysterectomy though could not promise a hysterectomy without seeing her.~I called patient and explained she was in great hands with Dr Aldrich, who had the~expertise to perform hysterectomy with robotic assist. Despite my recommendation~t o return to Dr Aldrich, Mrs. Cisse is adamant about not going back to . She~reports she was not happy with her care in light of herblood product~refusal. She wants her care at [facility]. I have spoken with Dr Ruiz,~urogynecoravinder britt, who is able to perform TLH with robotic assist as well as has~more experience with more difficult vaginal cases. He is able to see her for~surgical evaluation. I have called Mrs Cisse again today and she is amenable to~seeing Dr Ruiz. She would like a female in the room as well for examination.~~Sa keyshawn Corona MD other on 2018-08-18 no information [facility] Pathology (no code) 08-18-2018 [facility]~SURGICAL 17:30-0500 Medical PATHOLOGY Education OBGYN REPORT~PATIENT: Clinic ([id number]) DEYSI CISSE ~/AGE/SEX: 1980 (Age: 38) /F ~ ~ID #: [id number]~MCKENNATIN Lila PHYSICIAN: Carina Rashid D.O.~CLIENT: [facility] [address]~COLLECTED: 08/18/2018~REPORT ED: 08/23/2018~SPECI MEN #: [id number]~###### ############MICR OSCOPIC INTERPRETATION## ################ ~Endometrial biopsy: ~ - Proliferative endometrium.~ - There is no evidence of endometritis, polyps, hyperplasia or malignancy.~ Dickson Godoy M.D., Ph.D.~ Report Electronically Signed Out ~OWT:08/23/18~ OWT([facility]) ~CLINICAL HISTORY/IMPRESSI ON:~Well woman exam.~SPECIMEN LABELLED:~ Endometrial biopsy ~ ~GROSS DESCRIPTION:~The specimen is received in formalin, labeled with the patient name and further designated "endometrial biopsy." The specimen consists of a 2.0 x 2.0 x 0.6 cm aggregate of estrada soft tissue and mucoid material. The specimen is cultured and entirely ~submitted in cassette (A1). (LH)~ ~DDN:lh~Professi onal Component performed by SARA, a KEVIN Pathologist located at [facility], [address] [place] [id number]~Technical Component performed at [address] [place] [address] , [facility] [id number]###END OF REPORT### other Ordered By: CODIE ELLSWORTH on 2018-08-03 Waiter/Waitress Cabin Class Called patient (no code) 08-03-2018 [facility] Authentication in regards to 15:02-0500 Medical Interface below messages. 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 Discussed that no date limitation was noted and will call Radiology~myself .~~Spoke with Radiology scheduling and accomodations able to be made. Pelvic US~rescheduled to Wednesday 08/08 @ 1300. Called patient back and relayed new~date/time.~~ Will follow up at clinic visit with results and plan of care.~~Codie Ellsworth DO, PGY-4 thyroid on 2018-07-28 T4 free mass 1.2 ng/dL (no code) 0.9 - 2.2 ng/dL 07-28-2018 [facility] 17:50-0500 [facility] [place] ([id number]) Thyrotropin Qn 3.75 m[IU]/L (no code) 0.4 - 4 m[IU]/L 07-28-2018 [facility] 17:50-0500 [facility] [facility] ([id number]) other Ordered By: CODIE ELLSWORTH on 2018-07-28 Waiter/Waitress Cabin Class NAME: Deysi Gilliam (no code) 07-28-2018 [facility] Authentication Tanna~MRN: [id number] Medical Interface [id number]~AGE: 38 Education OBGYN Message Text y.o. : Clinic ([id number]) 1980~~~CHIEF COMPLAINT~~Chief Complaint~Patien t presents with~* Gynecologic Exam~~~HISTORY OF PRESENT ILLNESS~~History of Present Illness~~Chantel Cisse is a 38 y.o. who presents for new Gynecology visit.~She is here for hysterectomy consultation visit.~~She mentions in 2013 she was having menstrual cycle q2wks. Had Paragard IUD~placed in 2010 for contraception, which was subsequently removed in 2014.~Talked to an inhalation therapy aide in [place] who said she needed a hysterectomy as she was~not safe for . She mentions previously when she was 19yo that she was~told she could not have children because of fibroids.~She was initially referred to due to initial physician not doing surgery due~to Factor V deficiency. At initial therapy attempted was endometrial~abla tion, which was attempted twice however unsuccessful due to "could not get~instrument into cervix".~After this, a D&C was completed and Mirena IUD was placed however 2 days later~removed due to severe pelvic pain (could not sit, walk, etc). After this,~another attempt at ablation made (3rd time) which was unsuccessful. She was then~planned for a hysterectomy (~end of 2015) however became . That~ ended in vaginal delivery at 36 weeks at on 04/18/17.~She was told to return 6 months following delivery for hysterectomy planning~again, however states could not agree on the "no blood" therefore gave up there~and presented here to [facility] for further options.~~LMP 07/17, lasting 5-6 days. Prior to that had intermittent days of spotting. See~Bureau Director history below. She has a list of products she is willing to accept (Epo is~the only one she can currently remember), she will bring at next visit. Has been~through various therapy attempts for AUB management therefore really desiring~hystere ctomy at this time.~~PROBLEM LIST~~Patient Active Problem List~Diagnosis SNOMED CT(R)~* Fibromyalgia FIBROMYALGIA~* Sjogren's syndrome with keratoconjunctiv itis sicca (HCC) KERATOCONJUNCTIV ITIS~SICCA, IN SJ GREN'S SYNDROME~~~PAST MEDICAL HISTORY~~Past Medical History:~Diagnos is Date~* Depression~* Diabetes (HCC)~* Factor 5 Leiden mutation, heterozygous (HCC)~* Fibromyalgia~* Preeclampsia~* Sjogren's disease (HCC)~~~PAST SURGICAL HISTORY~~Past Surgical History:~Procedu re Laterality Date~* ANTERIOR CRUCIATE LIGAMENT REPAIR Left~* CHOLECYSTECTOMY 09/2017~* CHOLECYSTECTOMY 2017~* KNEE SURGERY Left~* TONSILLECTOMY~~~ MEDICATIONS~~Out patient Encounter Prescriptions as of 07/28/2018~Medic ation Sig Dispense Refill~* DULoxetine (CYMBALTA) 60 mg capsule Take 1 capsule (60 mg total) by mouth~daily. 30 capsule 11~* gabapentin (NEURONTIN) 100 MG capsule Take 1 capsule (100 mg total) by mouth 5~(five) times a day. 1 CAP BID AND 3 AT HS 150 capsule 5~* hydroxychloroqui ne (PLAQUENIL) 200 mg tablet Take 2 tablets (400 mg total) by~mouth daily. 60 tablet 12~* tiZANidine (ZANAFLEX) 4 MG tablet Take 4 mg by mouth every 6 (six) hours as~needed.~* traMADol (ULTRAM) 50 mg tablet Take 1-2 tablets (50-100 mg total) by mouth 3~(three) times a day as needed for pain. Max Daily Dose: 300 mg 120 tablet 5~* warfarin (COUMADIN) 2.5 MG tablet Take 2.5 mg by mouth 4 (four) times a week.~Wednesday, , Wednesday, Wednesday~* warfarin (COUMADIN) 5 MG tablet Take 5 mg by mouth 3 (three) times a week.~Wednesday, Wednesday, Wednesday~~No facility-adminis tered encounter medications on file as of 07/28/2018.~~~AL LERGIES~~Aspirin ~~PAST GYNECOLOGIC HISTORY~~GYNECOL OGICAL HISTORY~ Gynecological History 07/28/2018 07/28/2018~ Date of Last Pap if Known (No Data) 09/13/2014~ History of Abnormal Paps Yes Yes~ Menarche Age [age]~ Period Duration (Days) 5 5~ Period Pattern Irregular Irregular~ Menstrual Flow Heavy Heavy~ Menstrual Control - Maxi pad~ Dysmenorrhea None Severe~ Dysmenorrhea Symptoms - Cramping;Nausea~ STI's No No~~~~PAST OBSTETRIC HISTORY~~No obstetric history on file. Unknown~OB History~ Para Term AB Living~2 2 1 1 0 2~SAB TAB Ectopic Multiple Live Births~0 0 0 0 2~~# Outcome Date GA Lbr Irineo/2nd Weight Sex Delivery Anes PTL Lv~2 04/18/17 36w0d F Vag-Spont Y PARVEEN~1 Term 03/03/11 37w0d M Vag-Spont N PARVEEN~~~~FAMILY HISTORY~~Family History~Problem Relation Age of Onset~* Diabetes Mother~* Hypertension Mother~* Diabetes Father~* COPD Father~* Diabetes Sister~* Hypertension Sister~~~SOCIAL HISTORY~~Social History~~Social History~* Marital status: ~ Spouse name: N/A~* Number of children: N/A~* Years of education: N/A~~Occupationa l History~* Not on file.~~Social History Main Topics~* Smoking status: Never Smoker~* Smokeless tobacco: Never Used~* Alcohol use No~* Drug use: No~* Sexual activity: Yes~ Partners: Male~~Other Topics Concern~* Not on file~~Social History Narrative~* No narrative on file~~~REVIEW OF SYSTEMS~~Review of Systems~As per HPI~~VITALS~~Vit als:~ 07/28/18 1523~BP: (!) 146/89~Pulse: 83~Weight: 299 lb~Height: 5'~~~EXAM~~Physi adwoa Exam~~General: NAD, sitting on exam table~Heart: RRR~Lungs: CTAB, no wheezing~Abdomen : Soft, obese, non-TTP~Extremit ies: No edema or TTP, right leg in support casting~~Pelvic Exam:~Perineum and external genitalia without apparent herpetic lesions or masses,~introitu s normal, no foul odor or abnormal discharge, vaginal glez pink and~moist, ruggae visualized, without lesions, erythema, or trauma, cervix visually~closed and without polyps or cystic lesions, not friable, no cervical motion~tendernes s, uterus non-TTP, difficult to discern size given body habitus however~some mobility of uterus noted, some hypertonicity of bilateral pelvic~musculatu re~~~ASSESSMENT AND PLAN~~38yo :~~Assess ment:~1. Abnormal uterine bleeding~2. Morbid obesity (BMI 58)~3. History of DVT/PE, on lifelong anticoagulation~ ~Plan:~- See HPI for history of patient therapy; Care Everywhere with some history of~KU workup as well~[x] PAP with co-testing and Gc/Chl collected today~[x] Pelvic US ordered~[x] CBC, CMP, TSH, fT4, and Hgb A1c ordered~- Discussed with patient this is likely secondary to body habitus however~irregula r bleeding does need to be worked up~- Patient cannot take systemic medications due to history of VTEs, previously~tried Mirena IUD however seems was improperly placed as caused severe pain,~however patient was educated that this would be a safe option~[ ] Plan for EMB at next visit, unable to get pre-certificatio n today; will need~to question contraception and LMP at that time to know if safe~- Briefly discussed with patient that repeat Mirena IUD attempt could be~attempted as well as endometrial ablation after deciphering if uterine/cervical ~abnormality; also discussed various methods of hysterectomy: TVH vs LAVH vs TLH~vs RA-TLH vs PAMELA, of which the prior 3 options would be the most beneficial to~patient~- Attempted to review types of blood products that patient would be amenable to~accepting, patient will bring list with her at next visit so copy can be made~- s/p Hematology consultation on 07/25/18 at which time plan of care if surgery~is considered was directed, see note~[ ] Will need to re-elementary school counselor patient that even if all safety measures and~precautions are taken, she is still at very high risk for repeat DVT/PE and~, as well as for unexpected bleeding with risk of if still refusing~blood transfusion, patient verbalized understanding~~R TC in 3 weeks~~Staff: Dr. Corona~Codie Ellsworth DO, PGY-4~~STAFF:~~P atient seen and discussed with Dr Ellsworth. Chart reviewed.~I agree with the outlined plan of care.~~Romina Corona MD other on 2018-07-28 # BASOPHILS 0.03 (no code) 07-28-2018 [facility] 17:50-0500 [facility] ([id number]) # EOSINOPHILS 0.10 (no code) 07-28-2018 [facility] 17:50-[facility]00 [facility] ([id number]) # GRANULOCYTES 4.74 (no code) 07-28-2018 [facility] 17:50-0500 [facility] ([id number]) # LYMPHOCYTES 1.79 (no code) 07-28-2018 [facility] 17:50-0500 [facility] ([id number]) # MONOCYTES 0.38 (no code) 07-28-2018 [facility] 17:50-0500 [facility] ([id number]) % IMM GRANS 0 (no code) 07-28-2018 [facility] 17:50-0500 [facility] ([id number]) % NEUTROPHILS 67 (no code) 07-28-2018 [facility] 17:50-0500 [facility] ([id number]) %BASOPHILS 0 (no code) 07-28-2018 [facility] 17:50-[facility]00 [facility] ([id number]) %EOSINOPHILS 1 (no code) 07-28-2018 [facility] 17:50-0500 [facility] ([id number]) %LYMPHOCYTES 25 (no code) 07-28-2018 [facility] 17:50-0500 [facility] ([id number]) %MONOCYTES 5 (no code) 07-28-2018 [facility] 17:50-0500 [facility] ([id number]) CHLAMYDIA Not Detected (no code) 07-28-2018 [facility] TRACHOMATIS PCR 17:30-0500 [facility] ([id number]) Cobalamin 229 pg/mL (LL) 200 - 900 pg/mL 07-28-2018 [facility] (Vitamin B12) 17:50-0500 [facility] mass conc [facility] ([id number]) ERYTHROPOIETIN 14.2 (no code) 07-28-2018 [facility] (EPO) 17:50-0500 [facility] ([id number]) Ferritin 21 (no code) 07-28-2018 [facility] [Mass/volume] in 17:50-0500 [facility] Serum or Plasma [facility] ([id number]) FOLATE >20.0 (HH) 07-28-2018 [facility] 17:50-[facility]00 [facility] ([id number]) GFR FEMALE AA 84 (no code) 07-28-2018 [facility] 17:50-0500 [facility]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
--- OUTSIDE RECORDS SUMMARY | 2020-03-18 12:33 | XMS REPORT | Clinical Summary ---
Author Author [facility] Organization [facility] Address Unknown Phone Unavailable Care Team Providers Care Scouring Train Operator Name Role Phone Flaquita Quiles PCP Allergies Comments Active Allergy Reactions Severity Noted Date Other reaction(s): hives Aspirin Hives Medium 10/29/2015 Medications End Date Status Medication Sig Dispensed Refills Start Date Active tiZANidine (ZANAFLEX) 4 Take 4 mg by 0 MG tablet mouth every 6 (six) hours as needed. Active warfarin (COUMADIN) 5 MG Take 5 mg by 0 tablet mouth 3 (three) times a week. Wednesday, Wednesday, Wednesday as directed by INR Active ferrous sulfate 325 (65 Take 1 tablet 30 tablet 6 FE) MG EC tablet (325 mg 8 total) by mouth daily. Active cyanocobalamin, vitamin Dissolve 30 each 6 B-12, 1,000 mcg Subl 1,000 mcg 8 under the tongue daily. Active lisinopril Take 20 mg by 0 (PRINIVIL,ZESTRIL) 20 MG mouth daily. 9 tablet Active fluocinolone acetonide 0 oil 0.01 % Drop 9 Active nystatin (MYCOSTATIN) Apply 0 08/03/20 1 powder topically as 8 needed. 11/30/2020 Active hydroxychloroquine Take 2 180 tablet 3 02 (PLAQUENIL) 200 mg tablets (400 0 tabletIndications: mg total) by Sjogren's syndrome with mouth daily. keratoconjunctivitis sicca (HCC), Lupus (HCC) Active montelukast (SINGULAIR) Take 10 mg by 0 10 mg tablet mouth daily. 0 Active fluticasone propionate as needed. 0 02 (FLONASE) 50 0 mcg/actuation nasal spray Active blood-glucose meter Inject 1 each 0 (GLUCOCARD 01 METER) kit under the 9 skin 3 (three) times a day. Active metformin (GLUCOPHAGE-XR) Take 1 tablet 180 tablet 1 24 hr tablet 500 (500 mg 0 mgIndications: type 2 total) by diabetes mellitus mouth 2 (two) times a day before breakfast and dinner. Active ergocalciferol (VITAMIN Take 1 12 capsule 0 D2) 1,250 mcg (50,000 capsule 0 unit) capsuleIndications: (50,000 Units Vitamin D deficiency total) by mouth weekly for 12 doses. 12/22/2020 Active gabapentin (NEURONTIN) Take 2 360 capsule 1 300 MG capsules (600 0 capsuleIndications: mg total) by postherpetic neuralgia mouth 2 (two) times a day. 12/22/2020 Active gabapentin (NEURONTIN) Take 1 90 capsule 1 100 MG capsule (100 0 capsuleIndications: mg total) by Sjogren's syndrome with mouth daily. keratoconjunctivitis As directed sicca (HCC), Fibromyalgia Active traMADoL (ULTRAM) 50 mg TAKE ONE (1) 120 tablet 5 0 tablet TO TWO (2) 0 TABLETS BY MOUTH THREE TIMES DAILY NEEDED FOR PAIN. MAX 6/DAY. Active DULoxetine (CYMBALTA) 40 Take 1 90 capsule 3 0 mg capsuleIndications: capsule (40 0 Fibromyalgia, Lupus mg total) by (HCC), Arthritis mouth daily. Active promethazine (PHENERGAN) Take 1 tablet 30 tablet 5 25 MG tabletIndications: (25 mg total) 0 Intractable migraine by mouth without aura and without every 6 (six) status migrainosus hours as needed for nausea. Active ubrogepant (UBRELVY) 50 Take 1 tablet 10 tablet 2 mg tabletIndications: (50 mg total) 0 Intractable migraine by mouth as without aura and without needed for status migrainosus migraine. Active folic acid (FOLVITE) 1 MG Take 1 tablet 90 tablet 3 tablet (1 mg total) 0 by mouth daily. 04/07/2020 Active semaglutide (OZEMPIC) 1 Inject 0.75 6 each 0 mg/dose (2 mg/1.5 mL) mL (1 mg 0 syringe total) under the skin every 7 (seven) days. Active nortriptyline (PAMELOR) Take 3 90 capsule 2 25 MG capsuleIndications: capsules (75 0 Chronic migraine mg total) by mouth nightly. 02/29/2020 Discontinued (Reorder) nortriptyline (PAMELOR) Take 2 60 capsule 2 25 MG capsuleIndications: capsules (50 0 Chronic migraine mg total) by mouth nightly. Active Problems Problem Noted Date Essential hypertension 02/13/2020 Vitamin D deficiency 12/13/2019 Lupus 06/16/2019 Arthritis 06/16/2019 skilled nursing current use of anticoagulant 11/09/2018 Fibromyalgia 06/18/2017 Patient is Christian 04/06/2017 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 Sjogren's syndrome with keratoconjunctivitis sicca 0 12/28/2016 Diabetes mellitus without complication 03/26/2016 Factor 5 Leiden mutation, heterozygous 03/26/2016 History of DVT (deep vein thrombosis) 03/26/2016 Morbid obesity with BMI of 50.0-59.9, adult 03/26/20 16 Sacroiliac joint dysfunction of both sides 6 Resolved Problems Problem Noted Date Resolved Date Pre-eclampsia in third trimester 04/21/201711/09 Intertrigo 10/29/2015 11/09/2018 Overview: Overview: Nystatin powder Abnormal uterine bleeding (AUB) 10/14/20152018 Overview: Overview: Referred by Dr. Sherri Almonte Contacted by Morena Santos - pt has h/o FVL H/o DVTs and PEs in 2014 currently on l ifelong coumadin Pt is also a Jehova's Witness Sep 2015 failed endometrial ablation at [facility] - D&c done - attempt to get path results TVUS uterus [id number], ovaries nl 09/01 15 Discussed management options [...] consult Will plan Mirena - would con clinical trial manager hyst but must wait at least 3 months postop. Reports that her friend Anusha has DPOA and can change her mind about the patient receiving blood if necessary. 03/22/2018 Lupus, h/o DVT, Jehova's witness, DM, m orbid obesity TVUS pending CBC 1340, TSH nl A1C 6.6 Will return to clinic after imaging to plan EMB and consider depo-provera. IUD in past caused pain. Encounters Care Team Description Date Type Specialty Anna Zavala, DIESEL MAINTENANCE ELECTRICIAN Intractable migraine without aura and wi thout status migrainosus (Primary Dx); Chronic migraine 02/29/2020 Office Visit Neurology Arlene Aguayo APRN Diabetes mellitus without complication ( HCC) (Primary Dx); Sjogren's syndrome with keratoconjunctivitis sicca (HCC); Lupus (HCC); Factor 5 Leiden mutation, heterozygous (HCC); Fibromyalgia; Essential hypertension; Vitamin D deficiency; Morbid obesity with BMI of 50.0-59.9, adult (HCC) 02/13/2020 Office Visit Endocrinology Arlene Aguayo APRN 02/07/[address] RN 02/06/[address] RN 02/02/2020 Documentation Endocrinology Sandra Churchill NP 02/01/2020 Telephone Sleep Medicine Abelino Laura MD Sleep apnea, unspecified type 01/18/2020 Sleep Study Sleep Medicine Abelino Laura MD Suspected sleep apnea; Witnessed episode of apnea; Snoring; Excessive daytime sleepiness; Restless sleeper; Morbid obesity with body mass index (BMI) of 40.0 or higher (HCC); Sleep apnea, unspecified type 01/17/2020 Sleep Study Sleep Medicine Marina Lane RN 01/08/2020 Documentation Endocrinology Mina James MD skilled nursing current use of anticoagulant ( Primary Dx); Menorrhagia with regular cycle; Factor V Leiden mutation, heterozygous (HCC) 12/26/2019 Video Visit Medical Oncology Mitch Vergara MD 12/23/2019 Telephone Rheumatology Mitch Vergara MD 12/23/2019 Orders Only Rheumatology Anna Zavala NP Intractable migraine without aura and wi thout status migrainosus (Primary Dx); Chronic migraine; Rebound headache; Nausea 12/22/2019 Video Visit Neurology Sandra Churchill NP Witnessed episode of apnea (Primary Dx); Suspected sleep apnea; Snoring; Excessive daytime sleepiness; Restless sleeper; Morbid obesity with body mass index (BMI) of 40.0 or higher (HCC) 12/22/2019 Video Visit Pulmonology Mitch Vergara MD Medication Refill 12/22/2019 Telephone Rheumatology Mitch Vergara MD Other 12/20/2019 Refill Rheumatology Mitch Vergara MD Medication Refill 12/19/2019 Refill Rheumatology from Last 3 Months Family History Medical History Relation Name Comments COPD Father Diabetes Father Breast cancer Maternal Aunt Thyroid disease Maternal Grandmother Breast cancer Maternal Great-Grandmo ther Diabetes Mother Hypertension Mother Thyroid disease Mother Diabetes Sister Hypertension Sister Relation Name Status Comments Father Maternal Aunt Maternal Grandmother Maternal Great-Grandmother Mother Sister Social History Date Tobacco Use Types Packs/Day Years Used Never Smoker Smokeless Tobacco: Never Used Tobacco Cessation: Counseling Given: Yes Drinks/Week oz/Week Comments Alcohol Use No Sex Assigned at Date Recorded Female 04/02/2019 7:45 AM CDT Industry Job Start Date Occupation Not on file Not on file Not on file Travel End Travel History Travel Start No recent travel history available. Last Filed Vital Signs Reading Time Taken Comments Vital Sign 127/91 02/29/2020 3:22 PM CDT Blood Pressure 111 02/29/2020 3:22 PM CDT Pulse 36.8 C (98.2 F) 06/16/2019 1:36 PM CDT Temperature 18 06/16/2019 1:36 PM CDT Respiratory Rate 98% 06/16/2019 1:36 PM CDT Oxygen Saturation - - Inhaled Oxygen Concentration 131.5 kg (290 lb) 02/29/2020 3:22 PM CDT Weight 152.4 cm (5') 02/29/2020 3:22 PM CDT Height 56.64 02/29/2020 3:22 PM CDT Body Mass Index Plan of Treatment Care Team Description Date [place] [id number] [facility] [address] [place] [address] [phone] 05/01/2020 Video Visit Neurology Arlene Aguayo, ARTICULATION OFFICER [address] [place], [place] [id number] 05/15/2020 Office Visit Endocrinology Mina James MD [address] [facility] [address] [place] [address] [phone] 12/24/2020 Office Visit Medical Oncology Health Maintenance Due Date Last Done Comments Diabetes Mellitus 1980 Ophthalmology Exam Lipid Screening 1980 Td # 1980 Pneumococcal Vaccine: 1986 Pediatrics (0 to 5 Years) and At-Risk Patients (6 to 64 Years) (1 of 1 - PPSV23) Diabetes Mellitus Foot 1990 Exam Influenza Vaccine (#1) 2020 06/18/2017 (Declined), 09/03/2010 Diabetes Mellitus 08/14/2020 02/13/2020, Hemoglobin A1C 12/12/2019, 07/28/2018, Additional history exists Cervical Cancer Screening 07/28/2021 07/28/2018 via Pap Smear Procedures Comments Procedure Name Priority Date/Time Associated Diag nosis POCT GLYCOSYLATED Routine 02/13/2020 Diabetes dannielle litus without HEMOGLOBIN (HGB A1C) 12:11 PM CDT complication (HC C) LAB SUMMARY 02/01/2020 9:31 AM CDT LAB OUTSIDE RECORD Routine 01/31/2020 HOME SLEEP APNEA TEST Routine 01/17/2020 Suspecte d sleep apnea 3:07 PM CDT Witnessed episode of apnea Snoring Excessive daytime sleepiness Restless sleeper Morbid obesity with body mass index (BMI) of 40.0 or higher (HCC) from Last 3 Months Results * POCT glycosylated hemoglobin (Hb A1C) (02/13/2020 12:11 PM CDT) Hemoglobin A1C 6.0 % Specimen Blood * LAB SUMMARY (02/01/2020 9:31 AM CDT) Narrative Performed At This result has an attachment that is n ot available. Ordered by an unspecified provider. * Lab Outside Record (01/31/2020) Vitamin D 26 25-Hydroxy Specimen Blood * Home Sleep Apnea Test (01/17/2020 3:07 PM CDT) Narrative Performed At This result has an attachment that is n ot available. from Last 3 Months Insurance Type Payer Benefit Subscriber ID Effective Phone Address Plan / Dates Group MEDICAID MANAGED CARE [place] [facility] xxxxxxxxxxx [place] Deysi Cisse Personal/F Self [id number] (Home) [place] [address] Deysi Cisse Personal/F Self [id number] (Home) [place] [address] Deysi Cisse Personal/F Self 1980 [id number] [facility] (Home) [place] [address] Advance Directives For more information, please contact: [phone] Patient System Support Technician Explanation Type Date Recorded Advance Directives and Living Will Power of Green Feed Attendant DPOA 11/25/16 Power of Green Feed Attendant 08/18/2018 1:00 PM Health Care Directive
--- OUTSIDE RECORDS SUMMARY | 2020-03-18 12:33 | XMS REPORT | Encounter Summary ---
Author Author [facility] Address Unknown Phone Unavailable Care Team Providers Care Inspector Boiler Name Role Phone Flaquita Quiles PCP Reason for Visit * Reason Comments Migraine Follow-up Encounter Details Care Team Description [place] [address] [address] [phone] Intractable migraine without aura and wi thout status migrainosus (Primary Dx); Chronic migraine 02/29/2020 Office Visit [facility] [address] [address] Social History Date Tobacco Use Types Packs/Day [...] Pressure 111 02/29/2020 3:22 PM CDT Pulse - - Temperature - - Respiratory Rate - - Oxygen Saturation - - Inhaled Oxygen Concentration 131.5 kg (290 lb) 02/29/2020 3:22 PM CDT Weight 152.4 cm (5') 02/29/2020 3:22 PM CDT Height 56.64 02/29/2020 3:22 PM CDT Body Mass Index documented in this encounter Progress Notes * Anna Zavala NP - 02/29/2020 3:00 PM CDT [facility] Date: 02/29/20 Patient Name: Deysi Cisse Date of : 1980 Deysi Cisse is a 39 year old female who presents today in headache center fo r follow-up on her migraine headaches. I initially saw her on 12/22/2019 where she reported headaches occurring around 3 days/week with severe headaches occurr ing about once per week lasting 9-48 hours in duration. She says Tylenol is not helpful for headaches for her. She reported daily use of tramadol 50 mg for bulging disc in her back, lupus, an d fibromyalgia. She additionally reports that she has had 3 rounds of occipital nerve blocks for her occipital neuralgia done at [facility]. She found the first 2 sets of i njections helpful in leaving her headache free for 4 months, but she says the la st round was not helpful for her. At the completion of her appointment her nortriptyline was increased to 50 mg ni ghtly for headache prevention and she was recommended to try to get in for occip ital nerve blocks to see if these could be helpful for preventing headaches. For acute headache therapy, she was given a prescription for ubrogepant 50 mg ac minto headache therapy, which we ultimately had to discuss with pharmacy to renettav lisa due to her use of topical antifungal therapy. For rescue therapy, she was given instructions for headache cocktail consisting of promethazine 25 mg + tizanidine 4 mg + Tylenol 1000 mg + Benadryl 25-50 mg. She was instructed she could use this cocktail up to every 8 hours as needed for up to 3 days to break up her current headache cycle. She was advised not to dr ashkan or operate heavy machinery while taking these medications. Today, she tells me she has noticed some improvement in headache severity since getting the occipital nerve block about 2 weeks ago. She reports headaches as feeling like a headband around her head. She reports headaches as occurring almost daily, which are typically mild and la st all day. She says when she becomes stressed they become more severe. She has not yet tried the ubrogepant 50 mg because she said she was only told to use it if she couldn't function. She remains on nortriptyline 50 mg nightly, which she is unsure if it has been h elpful or if it was the nerve block that was helpful. She admits to some dry shefali th, but otherwise denies side effects. She reports tenderness and alodinia with and without headaches. She tells me the headache cocktail made her sleepy and took headache away. She tells me she is in physical therapy right now for neck and back pain. Of note, he has had 2 DVT's in the past as well as a Pulmonary embolism in the p ast. She had the PE and one of her DVT's on Xarelto, and was subsequently starte d on the Coumadin. Previous medications for headache prevention: nortriptyline (for lupus/fibromyal nii), gabapentin, lisinopril Previous medications for acute headache therapy: Tylenol Previous neuroimaging: MRI of brain wo contrast 06/04/2015: unremarkable Chief Complaint: Encounter Diagnoses Name Primary? Chronic migraine Intractable migraine without aura and without status migrainosus Yes Review of Systems Constitutional: Positive for diaphoresis and malaise/fatigue. Eyes: Positive for photophobia. Musculoskeletal: Positive for back pain, myalgias and neck pain. Neurological: Positive for dizziness and headaches. Endo/Heme/Allergies: Positive for polydipsia. Psychiatric/Behavioral: Positive for memory loss. Examination: On examination she was alert and oriented to person, place and time . Pupils were equal, round and reacted directly and consensually to light. Ext raocular eye movements full with no nystagmus. Face symmetrical at rest and with activation. Motor exam revealed normal strength 5/5 in all extremities. Sensory exam was normal to light touch. Gait and coordination normal. There was no wilfredo dence of limb ataxia. Rapid alternating movements were symmetric. 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 11/09/2018 Lupus ([facility]) Morbid obesity with BMI of 50.0-59.9, adult ([facility]) Patient is Hinduism 04/06/2017 Pre-eclampsia in third trimester 04/21/2017 Pulmonary embolism ([facility]) 01/2015 again in 2014 Sacroiliac joint dysfunction of both sides 12/31/2015 Sjogren's disease ([facility]) Sjogren's syndrome with keratoconjunctivitis sicca ([facility]) 12/28/2016 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 Family History Problem Relation Age of Onset Diabetes Mother Hypertension Mother Thyroid disease Mother Diabetes Father COPD Father Diabetes Sister Hypertension Sister Breast cancer Maternal Aunt 55 Breast cancer Maternal Great-Grandmother Thyroid disease Maternal Grandmother Social History Socioeconomic History Marital status: Spouse name: Not on file Number of children: Not on file Years of education: Not on file Highest education level: Not on file Occupational History Not on file Social Needs Financial resource strain: Not on file Food insecurity Worry: Not on file Inability: Not on file Transportation needs Medical: Not on file Non-medical: Not on file Tobacco Use Smoking status: Never Smoker Smokeless tobacco: Never Used Substance and Sexual Activity Alcohol use: No Drug use: No Sexual activity: Yes Partners: Male Lifestyle Physical activity Days per week: Not on file Minutes per session: Not on file Stress: Not on file Relationships Social connections Talks on phone: Not on file Gets together: Not on file Attends temple service: Not on file Active member of club or organization: Not on file Attends meetings of clubs or organizations: Not on file Relationship status: Not on file Intimate partner violence Fear of current or ex partner: Not on file Emotionally abused: Not on file Physically abused: Not on file Forced sexual activity: Not on file Other Topics Concern Not on file Social History Narrative Not on file Assessment & Plan: SNOMED CT(R) 1. Intractable migraine without aura and without status migrainosus REFRACTORY MIGRAINE WITHOUT AURA 2. Chronic migraine TRANSFORMED MIGRAINE nortriptyline (PAMELOR) 25 MG capsule This is a 39-year-old female with a headache history consistent with migraine he adache without aura as well as bilateral occipital neuralgia. She has had significant benefit from occipital nerve blocks, so she will continu e to get these from pain management. For headache prevention, we will further increase her nortriptyline to 75 mg nig htly. We again discussed side effects such as dry mouth, dry eyes, constipation , weight gain, and fatigue. If this medication causes side effects or she begin s to receive benefit, would consider topiramate in the future. For acute headache therapy, I have encouraged her to try ubrelvy 50 mg at the on set of more severe headache. We discussed that it does not need to be completel y debilitating headache for her to try this medication. We again discussed side effects that she does fatigue and nausea. She will follow-up in the headache center in 2 months. She will contact us in t he meantime with any questions or concerns. Anna Zavala APRN [facility] [address] [facility] [address] [place] [address] (phone) (fax) documented in this encounter Plan of Treatment Care Team Description [place] [address] [facility] [address] [place] [address] [phone] 05/01/2020 Video Visit Neurology Arlene Aguayo APRN [address] [facility] [address] [place] [address] [phone] 05/15/2020 Office Visit Endocrinology Mina James MD [address] [facility] [address] [place] [address] [phone] 12/24/2020 Office Visit Medical Oncology documented as of this encounter Visit Diagnoses Diagnosis Chronic migraine Intractable migraine without aura and w ithout status migrainosus documented in this encounter
--- OUTSIDE RECORDS SUMMARY | 2020-03-18 12:34 | XMS REPORT | Encounter Summary ---
Author Author [facility] Organization [facility] Address Unknown Phone Unavailable Care Team Providers Care Gas Meter Installer Name Role Phone Flaquita Quiles PCP Reason for Referral * Sleep Study (Routine) Referred By Contact Referred To Contact Status Reason Specialty Diagnoses / Procedures Sandra Churchill NP [address] [place] [address] [facility] [address] [place] [address] Closed Sleep Medicine Diagnoses Suspected sleep apnea Witnessed episode of apnea Snoring Excessive daytime sleepiness Restless sleeper Morbid obesity with body mass index (BMI) of 40.0 or higher ([facility]) P rocedures Home Sleep Apnea Test Reason for Visit * Reason Comments New patient consult Sleeping Problem * Consultation (Routine) Referred By Contact Referred To Contact Status Reason Specialty Diagnoses / Procedures Arlene Aguayo, CERTIFIED HOME HEALTH AIDE [address] [facility] [address] [place] [address] Luba Spaulding, DO [address] [address] Closed Specialty Services Pulmonary Diagnoses Required Disease / Suspected sleep Pulmonology apnea Encounter Details Care Team Description Date Type Department Sandra Churchill NP [address] [place] [address] Witnessed episode of apnea (Primary Dx); Suspected sleep apnea; Snoring; Excessive daytime sleepiness; Restless sleeper; Morbid obesity with body mass index (BMI) of 40.0 or higher ([facility]) 12/22/2019 Video Visit [facility] rebecca [address] [place] [address] Social History Date Tobacco Use Types Packs/Day Years Used Never Smoker Smokeless Tobacco: Never Used Drinks/Week oz/Week Comments Alcohol Use No Sex Assigned at Date Recorded Female 04/02/2019 7:45 AM CDT Industry Job Start Date Occupation Not on file Not on file Not on file Travel End Travel History Travel Start No recent travel history available. documented as of this encounter Progress Notes * Sandra Churchill NP - 12/22/2019 11:30 AM CDT Progress Note Deysi Cisse 39 y.o. : 1980 [address] [place] [id number] Ins: Medicaid Managed Care (ok) Sandra Churchill NP 12/22/2019 Chief Complaint Chief Complaint Patient presents with New patient consult Sleeping Problem History of Present Illness Deysi Cisse is a 39 y.o. female whom is a Never Smoker , here today for sle ep evaluation referred by PCP, Dr. Adams and her Endocrinology at [facility] with sx's of snoring, excessive daytime sleepiness, restless fragmented sleep, night time pain due to fibromyalgia and bulging discs. [place] score today is 9. Deysi has a past medical history of Abnormal uterine bleeding (AUB) ( 016), Arthritis, Constipation, Depression, Diabetes ([facility]), Diabetes mellitus wit hout complication ([facility]), Factor V Leiden mutation, heterozygous ([facility]), Fibromyal nii, HELLP (hemolytic anemia/elev liver enzymes/low platelets in ) (2016), History of DVT (deep vein thrombosis) (03/26/2016), Intertrigo (10/29/2015) , Irregular menses, detention current use of anticoagulant (11/09/2018), Lupus ([facility]), Morbid obesity with BMI of 50.0-59.9, adult ([facility]), Patient is Jecarlitovaelaine's Wit ness (04/06/2017), Pre-eclampsia in third trimester (04/21/2017), Pulmonary embolis m (HCC) (01/2015), Sacroiliac joint dysfunction of both sides (12/31/2015), Sjogr en's disease (HCC), Sjogren's syndrome with keratoconjunctivitis sicca (HCC) (), and 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 She also has no past medical h istory of Abnormal Pap smear of cervix, Anesthesia complication, Arrhythmia, Ast hma, Breast cancer (HCC), Colon cancer (HCC), COPD (chronic obstructive pulmonar y disease) (HCC), Disease of thyroid gland, Diverticulitis of colon, Diverticulo sis, Endometrial cancer (HCC), Endometriosis, Fibromyalgia, primary, GERD (gastr oesophageal reflux disease), Glaucoma, HPV (human papilloma virus) infection, Hy perlipidemia, Irritable bowel syndrome, Liver disease, Menopause ovarian failure , Seizures (HCC), or Stroke (HCC). She has a current medication list which includes the following prescription(s): blood-glucose meter, cyanocobalamin (vitamin b-12), duloxetine, ergocalciferol, ferrous sulfate, fluocinolone acetonide oil, fluticasone propionate, gabapentin, gabapentin, hydrocodone-acetaminophen, hydroxychloroquine, lisinopril, metform in, montelukast, nortriptyline, nystatin, promethazine, semaglutide, tizanidine, tramadol, warfarin, duloxetine, and nortriptyline. She has a past surgical his tory that includes Knee surgery (Left); Anterior cruciate ligament repair (Left) ; Tonsillectomy; and Cholecystectomy (09/2017). She has family history includes Breast cancer in her maternal great-grandmother; Breast cancer (age of onset: 55) in her maternal aunt; COPD in her father; Diab etes in her father, mother, and sister; Hypertension in her mother and sister; T hyroid disease in her maternal grandmother and mother. Her mother, father, grand ma and maternal aunts all have LONA. No prior sleep studies to review today. Deysi goes to bed during the week around 8-9PM and falls asleep w/in 3-4 hour s. Sometimes she will take a muscle relaxer which helps her fall asleep, then sh e wakes up in 2-3 hours unable to fall back to sleep. Sleep is fragmented, wakes 2-3 times during sleep and reports troubles falling back to sleep. She wakes ar ound 7AM, feeling un-refreshed. Medical History Aspirin No outpatient medications have been marked as taking for the 12/22/19 encounter ( Video Visit) with Sandra Churchill NP. Patient Active Problem List Diagnosis SNOMED CT(R) Date Noted Vitamin D deficiency VITAMIN D DEFICIENCY 12/13/2019 Lupus (HCC) LUPUS ERYTHEMATOSUS 06/16/2019 Arthritis ARTHRITIS 06/16/2019 detention current use of anticoagulant LONG-TERM CURRENT USE OF ANTICOAGULAN T 11/09/2018 Fibromyalgia FIBROMYALGIA 06/18/2017 Patient is Yarsani HAS SABIANIST BELIEF 04/06/2017 SS-A antibody positive ANTIBODY STUDIES ABNORMAL 04/06/2017 Sjogren's syndrome with keratoconjunctivitis sicca (HCC) KERATOCONJUNCTIVITI S SICCA, IN SJGREN'S SYNDROME 12/28/2016 Diabetes mellitus without complication (HCC) DIABETES MELLITUS WITHOUT COMPL ICATION 03/26/2016 Factor V Leiden mutation, heterozygous (HCC) HETEROZYGOUS FACTOR V LEIDEN MU TATION 03/26/2016 History of DVT (deep vein thrombosis) H/O: DEEP VEIN THROMBOSIS 03/26/2016 Morbid obesity with BMI of 50.0-59.9, adult ([facility]) BODY MASS INDEX 40+ - TAINA RELY OBESE 03/26/2016 Sacroiliac joint dysfunction of both sides BILATERAL ARTHROPATHY OF SACROILI AC JOINTS 12/31/2015 Past Medical History: Diagnosis Date Abnormal uterine bleeding (AUB) 10/14/2015 Arthritis Constipation Depression Diabetes (HCC) Diabetes mellitus without complication (HCC) Factor V Leiden mutation, heterozygous (HCC) Fibromyalgia HELLP (hemolytic anemia/elev liver enzymes/low platelets in ) 07/02 17 History of DVT (deep vein thrombosis) 03/26/2016 Intertrigo 10/29/2015 Overview: Nystatin powder 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 11/09/2018 Lupus (HCC) Morbid obesity with BMI of 50.0-59.9, adult ([facility]) Patient is Yarsani 04/06/2017 Pre-eclampsia in third trimester 04/21/2017 Pulmonary embolism (HCC) 01/2015 again in 2014 Sacroiliac joint dysfunction of both sides 12/31/2015 Sjogren's disease (HCC) Sjogren's syndrome with keratoconjunctivitis sicca (HCC) 12/28/2016 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 Past Surgical History: Procedure Laterality Date ANTERIOR CRUCIATE LIGAMENT REPAIR Left CHOLECYSTECTOMY 09/2017 KNEE SURGERY Left TONSILLECTOMY Family History Problem Relation Age of Onset Diabetes Mother Hypertension Mother Thyroid disease Mother Diabetes Father COPD Father Diabetes Sister Hypertension Sister Breast cancer Maternal Aunt 55 Breast cancer Maternal Great-Grandmother Thyroid disease Maternal Grandmother Social History Tobacco Use Smoking status: Never Smoker Smokeless tobacco: Never Used Substance Use Topics Alcohol use: No Review of Systems 10 point ROS completed and negative unless otherwise stated in the HPI. Vital Signs NO vitals available via video visit Physical Exam Constitutional: Well developed, well nourished, BMI severely elevated. In no acu te distress. Vital signs stable. Head and Face: Normocephalic, atraumatic. Neck: Supple, symmetric. Enlarged Neck circumferencre Respiratory: Respirations even and unlabored. No increased work of breathing. No cough or sputum observed. Speaks in full sentences. Neurologic/Psychiatric: Pleasant. Alert and oriented x 3. Affect, mood, and beha vior normal and appropriate for situation. Video visits do not have the supported technology for physician to document hear t and lungs exams, and may not have ability to fully document vital signs. Data Review Assessment 1. Witnessed episode of apnea Home Sleep Apnea Test 2. Suspected sleep apnea Amb Referral To Pulmonology Home Sleep Apnea Test 3. Snoring Home Sleep Apnea Test 4. Excessive daytime sleepiness Home Sleep Apnea Test 5. Restless sleeper Home Sleep Apnea Test 6. Morbid obesity with body mass index (BMI) of 40.0 or higher ([facility]) Home Sleep Apnea Test Plan Deysi has risk factors for sleep apnea, as well as symptoms and/or comorbidit ies suggestive of possible sleep apnea, with an [place] Sleepiness score of 9 to day. Further evaluation with a sleep study is warranted. I would typically recom mend inlab testing for Deysi due to her severely elevated BMI over 50 and PMH of PE and DVT however due to Covid-19 crisis our sleep lab is currently shut do wn. Because she is at higher risk for complications if left untreated I have rec ommended we attempt to diagnose with a 2 night home sleep test; she is agreeable and will be scheduled accordingly. I reviewed the pathophysiology of sleep apnea and potential health implications if untreated and discussed treatment options, namely PAP therapy, oral appliance s, and surgical procedures. Good sleep hygiene and overall healthy lifestyle mod ification encouraged. Additional recommendations will be forthcoming pending study results. If CPAP th erapy is indicated, she is agreeable to trying this and will be set up with home therapy, pending results of home sleep test and need for attended CPAP titration versus consideration for auto titrating CPAP. Once home therapy initiated, she will follow up between 31 and 90 days for reevaluation and assessment of adhere nce. If she is not a candidate for PAP therapy, she may follow up after the study to review results and discuss treatment recommendations; she is to call sooner with questions or concerns. Return in about 3 months (around 03/22/2020) for Follow up once testing is comple mariana. Orders Placed This Encounter Procedures Home Sleep Apnea Test 2 Night HST on RA Standing Status: Future Standing Expiration Date: 12/21/2020 Order Specific Question: Type of Study: Answer: Room Air Portions of this note were generated with voice recognition software. Please ex cuse any typographical or grammatical errors. documented in this encounter Plan of Treatment Care Team Description [place] [address] [facility] [address] [place] [address] [phone] 05/01/2020 Video Visit Neurology Arlene Aguayo APRN [address] [place], [place] [id number] 05/15/2020 Office Visit Endocrinology Mina James MD [address] [facility] [address] [place] [address] [phone] 12/24/2020 Office Visit Medical Oncology documented as of this encounter Results * Home Sleep Apnea Test (01/17/2020 3:07 PM CDT) Narrative Performed At This result has an attachment that is n ot available. documented in this encounter Visit Diagnoses Diagnosis Suspected sleep apnea Witnessed episode of apnea Snoring Other dyspnea and respiratory abnormali ty Excessive daytime sleepiness Restless sleeper Morbid obesity with body mass index (BM I) of 40.0 or higher (HCC) documented in this encounter
--- OUTSIDE RECORDS SUMMARY | 2020-03-18 12:34 | XMS REPORT | Encounter Summary ---
Author Author [facility] Organization [facility] Address Unknown Phone Unavailable Care Team Providers Care Firearms Model Maker Name Role Phone Flaquita Quiles PCP Reason for Visit * Reason Comments Medication Refill Encounter Details Care Team Description Date Type Department Marina Lane RN Medication Refill 12/13/2019 Refill [facility] - [facility] [address] [facility] [address] [place] [address] Social History Date Tobacco Use Types Packs/Day [...] as of this encounter Plan of Treatment Care Team Description [place] [address] [facility] [address] [place], [place] [address] 05/01/2020 Video Visit Neurology Arlene Aguayo APRN [address] [place], [place] [id number] 05/15/2020 Office Visit Endocrinology Mina James MD [address] [facility] [address] [place] [address] [phone] 12/24/2020 Office Visit Medical Oncology documented as of this encounter Visit Diagnoses Diagnosis Vitamin D deficiency documented in this encounter
--- OUTSIDE RECORDS SUMMARY | 2020-03-18 12:34 | XMS REPORT | Encounter Summary ---
Author Author [facility] Organization [facility] Address Unknown Phone Unavailable Care Team Providers Care Employer Relations Representative Name Role Phone Flaquita Quiles PCP Encounter Details Care Team Description Date Type Department Marina Lane RN 02/02/2020 Documentation [facility] Endocrinology Specialists - [facility] [address] [facility] [address] [place] [address] Social History Date Tobacco Use [...] Team Description Date Type Specialty Anna Zavala, WELDING MACHINE OPERATOR ELECTRON BEAM [address] [facility] [address] [place], [place] [id number] 05/01/2020 Video Visit Neurology Arlene Aguayo APRN [address] [facility] [address] [place] [address] 05/15/2020 Office Visit Endocrinology Mina James MD [address] [facility] [address] [place] [address] [phone] 12/24/2020 Office Visit Medical Oncology documented as of this encounter Procedures Comments Procedure Name Priority Date/Time Associated Diag nosis LAB SUMMARY 02/01/2020 9:31 AM CDT LAB OUTSIDE RECORD Routine 01/31/2020 documented in this encounter Results * LAB SUMMARY (02/01/2020 9:31 AM CDT) Narrative Performed At This result has an attachment that is n ot available. Ordered by an unspecified provider. * Lab Outside Record (01/31/2020) Vitamin D 26 25-Hydroxy Specimen Blood documented in this encounter Visit Diagnoses Not on filedocumented in this encounter
--- OUTSIDE RECORDS SUMMARY | 2020-03-18 12:34 | XMS REPORT | Encounter Summary ---
Author Author [facility] Organization [facility] Address Unknown Phone Unavailable Care Team Providers Care Straw Hat Brim Cutter Operator Name Role Phone Flaquita Quiles PCP Reason for Visit * Reason Comments Other Encounter Details Care Team Description Date Type Department Mitch Vergara MD NO FORWARDING INFORMATION Other 12/20/2019 [facility] [address] [place], [place] [id number] Social History Date Tobacco Use Types Packs/Day [...] Team Description Date Type Specialty Anna Zavala, TRANSMISSION CALIBRATION ENGINEER [address] [facility] [address] [place] [address] [phone] 05/01/2020 Video Visit Neurology Arlene Aguayo, IMPROVEMENT ANALYST [address] [place] [address] [phone] 05/15/2020 Office Visit Endocrinology Mina James MD [address] [facility] [address] [place] [address] [phone] 12/24/2020 Office Visit Medical Oncology documented as of this encounter Visit Diagnoses Not on filedocumented in this encounter
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
--- OUTSIDE RECORDS SUMMARY | 2020-03-18 12:34 | XMS REPORT | Encounter Summary ---
Author Author [facility] Organization [facility] Address Unknown Phone Unavailable Care Team Providers Care Manager Pharmacy Name Role Phone Flaquita Quiles PCP Encounter Details Care Team Description Date Type Department Marina Lane RN 01/08/2020 Documentation [facility] Endocrinology Specialists - [facility] [address] [facility] [address] [place] [address] Social History Date Tobacco Use [...] Team Description Date Type Specialty Anna Zavala, ANIMAL TRAINER SUPERVISOR [address] [facility] [address] [place], [place] [address] 05/01/2020 Video Visit Neurology Arlene Aguayo, TEXTILE CLOTHING AND FOOTWEAR MECHANIC [address] [facility] [address] [place], [place] [id number] 05/15/2020 Office Visit Endocrinology Mina James MD [address] [facility] [address] [place] [address] [phone] 12/24/2020 Office Visit Medical Oncology documented as of this encounter Visit Diagnoses Not on filedocumented in this encounter
--- OUTSIDE RECORDS SUMMARY | 2020-03-18 12:34 | XMS REPORT | Encounter Summary ---
Author Author [facility] Organization [facility] Address Unknown Phone Unavailable Care Team Providers Care Geology Faculty Member Name Role Phone Flaquita Quiles PCP Reason for Visit * Sleep Study (Routine) Referred By Contact Referred To Contact Status Reason Specialty Diagnoses / Procedures Sandra Churchill NP [address] [place] [address] [facility] [address] [place] [address] Closed Sleep Medicine Diagnoses Suspected sleep apnea Witnessed episode of apnea Snoring Excessive daytime sleepiness Restless sleeper Morbid obesity with body mass index (BMI) of 40.0 or higher (HCC) P rocedures Home Sleep Apnea Test Encounter Details Care Team Description Date Type Department Abelino Laura MD [address] [place] [address] Suspected sleep apnea; Witnessed episode of apnea; Snoring; Excessive daytime sleepiness; Restless sleeper; Morbid obesity with body mass index (BMI) of 40.0 or higher (HCC); Sleep apnea, unspecified type 01/17/2020 Sleep Study [facility] [address] [facility] [address] [place] [address] Social History Date Tobacco Use Types Packs/Day [...] as of this encounter Progress Notes * Abelino Laura MD - 01/17/2020 2:00 PM CDT Home Sleep Apnea Test Night One Indication: Snoring Procedure: An unattended Level III Home Sleep Apnea Test was performed using a [employer] NightOne device. This evaluation consisted of continuous measureme nt of respiratory effort (RIP), oral/nasal airflow, oxygen saturation and heart rate (pulse oximetry), snoring, and body position. Respiratory analysis is perf ormed using the current [place] [employer] rule 1B.c (4% desatur ation) for scoring of hypopneas. The results were reviewed by a Board Certified Sleep Specialist Interpretation: The study began at 2240. The total recording time was 7.6 hours. The monitorin g time was 5.3 hours. There were 1 central apneas, 5 obstructive apneas, 0 mixe d apneas and 9 hypopneas. The respiratory event index is 2.8. The average oxygen saturation was 95% and the lowest saturation was 89%. The av erage heart rate was 77.5 bpm. Snoring was recorded 13% of the time. Assessment: This home sleep apnea test is unremarkable for evidence of clinically significan t sleep disordered breathing. Recommendations can be found on the Night Two report documented in this encounter Plan of Treatment Care Team Description [place] [address] [facility] [address] [place] [address] [phone] 05/01/2020 Video Visit Neurology Arlene Aguayo, REGIONAL BRANCH MANAGER [address] [place], [place] [id number] 05/15/2020 Office Visit Endocrinology Mina James MD [address] [facility] [address] [place] [address] [phone] 12/24/2020 Office Visit Medical Oncology documented as of this encounter Procedures Comments Procedure Name Priority Date/Time Associated Diag nosis HOME SLEEP APNEA TEST Routine 01/17/2020 Suspecte d sleep apnea 3:07 PM CDT Witnessed episode of apnea Snoring Excessive daytime sleepiness Restless sleeper Morbid obesity with body mass index (BMI) of 40.0 or higher (HCC) documented in this encounter Results * Home Sleep Apnea [...] (BM I) of 40.0 or higher (HCC) Sleep apnea, unspecified type documented in this encounter
--- OUTSIDE RECORDS SUMMARY | 2020-03-18 12:34 | XMS REPORT | Encounter Summary ---
Author Author [facility] Organization [facility] Address Unknown Phone Unavailable Care Team Providers Care Pacu Nurse Name Role Phone Flaquita Quiles PCP Encounter Details Care Team Description Date Type Department Marina Lane RN 02/06/2020 Telephone [facility] Endocrinology Specialists - [facility] [address] [facility] [address] [place] [address] Social History Date Tobacco Use Types Packs/Day Years Used Never Smoker Smokeless Tobacco: Never Used Drinks/Week oz/Week Comments Alcohol Use No Sex Assigned at Date Recorded Female 04/02/2019 7:45 AM CDT Industry Job Start Date Occupation Not on file Not on file Not on file Travel End Travel History Travel Start No recent travel history available. documented as of this encounter Miscellaneous Notes * Telephone Encounter - Marina Lane RN - 02/06/2020 8:35 AM CDT Handled via phone, made appt for February 13 with Arlene Aguayo APRN documented in this encounter Plan of Treatment Care Team Description Date Type Specialty Anna Zavala, FOOD PREPARATION WORKER [address] [facility] [address] [place] [address] [phone] 05/01/2020 Video Visit Neurology Arlene Aguayo APRN [address] [facility] [address] [place] [address] 05/15/2020 Office Visit Endocrinology Mina James MD [address] [facility] [address] [place] [address] [phone] 12/24/2020 Office Visit Medical Oncology documented as of this encounter Visit Diagnoses Not on filedocumented in this encounter
--- OUTSIDE RECORDS SUMMARY | 2020-03-18 12:34 | XMS REPORT | Encounter Summary ---
Author Author [facility] Organization [facility] Address Unknown Phone Unavailable Care Team Providers Care Resistor Testing Machine Operator Name Role Phone Flaquita Quiles PCP Encounter Details Care Team Description Date Type Department Arlene Aguayo APRN [address] [facility] [address] [place], [place] [id number] Screening for thyroid disorder; Long-term use of high-risk medication; Diabetes mellitus without complication (HCC) 12/12/2019 [facility] [email or web address] [address] [place] [id number] Social History Date Tobacco Use Types Packs/Day [...] Team Description Date Type Specialty Anna Zavala, EXTRAS CASTING DIRECTOR [address] [facility] [address] [place] [address] [phone] 05/01/2020 Video Visit Neurology Arlene Aguayo APRN [address] [facility] [address] [place], [place] [id number] 05/15/2020 Office Visit Endocrinology Mina James MD 4[address] [facility] [address] [place] [address] [phone] 12/24/2020 Office Visit Medical Oncology documented as of this encounter Procedures Comments Procedure Name Priority Date/Time Associated Diag nosis MICROALBUMIN RANDOM Routine 12/12/2019 Diabetes m ellitus without 2:48 PM CDT complication (HCC) VITAMIN D, 25-HYDROXY Routine 12/12/2019 Long-ter m use of 2:48 PM CDT high-risk medication THYROID STIMULATING Routine 12/12/2019 Screening for thyroid HORMONE 2:48 PM CDT disorder THYROID PEROXIDASE Routine 12/12/2019 Screening f or thyroid ANTIBODY 2:48 PM CDT disorder T4 FREE Routine 12/12/2019 Screening for t hyroid 2:48 PM CDT disorder T3 FREE Routine 12/12/2019 Screening for t hyroid 2:48 PM CDT disorder documented in this encounter Results * Microalbumin Random (12/12/2019 2:48 PM CDT) Creatinine 180.7 mg/dL [facility] Urine Random [facility] Lab Microalbumin 0.70Comment: Urine contains mg/dL [facility] mg/dl large amount of blood. [facility] L ab presence of blood will cause spurious elevation of microalbumin results. Microalbumin/Cr 3.87 0.00 - 30.00 ug/mg [facility] eatinine [facility] Lab Specimen Urine Performing Organization Address City/[facility] Ph one Number [address] [address] LABORATORIES [facility] [address] [place] [address] * Vitamin D, 25-Hydroxy (12/12/2019 2:48 PM CDT) Vitamin D 18 (L) 25 - 80 ng/mL [facility] 25-Hydroxy Comment: Hospital Lab Vitamin D 25-Hydroxy: Severe deficiency < 13 ng/mL Mild to moderate deficiency 13 - 24 ng/mL Optimum level 25 - 80 ng/mL Toxicity possible >80 ng/mL Specimen Blood Performing Organization Address [facility] Ph one Number [address] [place] [address] LABORATORIES [facility] [address] [place] [address] * Thyroid Peroxidase Antibody (12/12/2019 2:48 PM CDT) Thyroid 3.8 0.0 - 5.5 IU/mL [facility] Lab Antibody Specimen Blood Performing Organization Address City/[facility] Ph one Number [facility] [address] [place] [address] LABORATORIES [facility] [address] [place] [address] * T3 Free (12/12/2019 2:48 PM CDT) T3 Free 3.3 1.7 - 3.7 pg/mL [facility] Specimen Blood Performing Organization Address City/[facility] Ph one Number [facility] [address] [place] [address] LABORATORIES [facility] [address] [place] [address] * T4 Free (12/12/2019 2:48 PM CDT) T4 Free 1.1 0.8 - 2.2 ng/dL [facility] Specimen Blood Performing Organization Address City/[facility] Ph one Number [facility] [address] [place] [address] LABORATORIES [facility] [address] [place] [address] * Thyroid Stimulating Hormone (12/12/2019 2:48 PM CDT) Thyroid 1.50 0.47 - 4.68 uIU/mL [facility] Hormone Specimen Blood Performing Organization Address City/[facility] Ph one Number [facility] [address] [place] [address] LABORATORIES [facility] [address] [place] [address] documented in this encounter Visit Diagnoses Diagnosis Screening for thyroid disorder Long-term use of high-risk medication Diabetes mellitus without complication (HCC) Type II or unspecified type diabetes me llitus without mention of complication, not stated as uncontrolled documented in this encounter
--- OUTSIDE RECORDS SUMMARY | 2020-03-18 12:34 | XMS REPORT | Encounter Summary ---
Author Author [facility] Organization [facility] Address Unknown Phone Unavailable Care Team Providers Care Phlebotomist Lab Assistant Name Role Phone Flaquita Quiles PCP Encounter Details Care Team Description Date Type Department Abelino Laura MD [address] [place] [address] Sleep apnea, unspecified type 01/18/2020 Sleep Study [facility] [address] [facility] [address] [place] [address] Social History Date Tobacco Use [...] Progress Notes * Abelino Laura MD - 01/18/2020 2:00 PM CDT Home Sleep Apnea Test Night Two Indication: Snoring Procedure: An unattended Level III Home Sleep Apnea Test was performed using a [employer] NightOne device. This evaluation consisted of continuous measureme nt of respiratory effort (RIP), oral/nasal airflow, oxygen saturation and heart rate (pulse oximetry), snoring, and body position. Respiratory analysis is perf ormed using the current [place] [employer] rule 1B.c (4% desatur ation) for scoring of hypopneas. The results were reviewed by a Board Certified Sleep Specialist Interpretation: The study began at 2158. The total recording time was 8.8 hours. The monitorin g time was 6.9 hours. There were 0 central apneas, 13 obstructive apneas, 0 mix ed apneas and 15 hypopneas. The respiratory event index is 4.1. The average oxygen saturation was 95% and the lowest saturation was 85%. Over 3 minutes of cumulative study time were spent with saturations 88% or less. The average heart rate was 71 bpm. Snoring was recorded 19% of the time. Assessment: This home sleep apnea test is unremarkable for evidence of clinically significan t sleep disordered breathing. Recommendations: There is no indication for PAP therapy. documented in this encounter Plan of Treatment Care Team Description [place] [address] [facility] [address] [place] [address] [phone] 05/01/2020 Video Visit Neurology Arlene Aguayo APRN [address] [facility] [address] [place], [place] [id number] 05/15/2020 Office Visit Endocrinology Mina James MD [address] [facility] [address] [place] [address] [phone] 12/24/2020 Office Visit Medical Oncology documented as of this encounter Visit Diagnoses Diagnosis Sleep apnea, unspecified type documented in this encounter
--- OUTSIDE RECORDS SUMMARY | 2020-03-18 12:34 | XMS REPORT | Encounter Summary ---
Author Author [facility] Organization [facility] Address Unknown Phone Unavailable Care Team Providers Care Solar Sales Ambassador Name Role Phone Flaquita Quiles PCP Encounter Details Care Team Description Date Type Department Mitch Vergara MD NO FORWARDING INFORMATION 12/23/2019 Telephone [facility] Specialty [facility] [address] [place] [address] Social History Date Tobacco Use Types Packs/Day [...] encounter Miscellaneous Notes * Telephone Encounter - Francie Bailey RN - 12/29/2019 2:12 PM CDT Contacted patient and she reports that the last time her PCP, CARRIE Btuler called i n her Gabapentin was 3 or 4 months ago and she now knows, because she was called by their office and now us, that she needs to stay with only Dr. Vergara [facility]. She thinks the confusion started when she changed pharmacies. * Telephone Encounter - Heriberto Panda RN - 12/25/2019 10:37 AM CDT No answer and unable to leave a msg on either listed phone number. * Telephone Encounter - Mitch Vergara MD - 12/23/2019 9:24 AM CDT Note about gabapentin documented in this encounter Plan of Treatment Care Team Description [place] [address] [facility] [address] [place] [address] [phone] 05/01/2020 Video Visit Neurology Arlene Aguayo APRN [address] [place] [address] [phone] 05/15/2020 Office Visit Endocrinology Mina James MD [address] [facility] [address] [place] [address] [phone] 12/24/2020 Office Visit Medical Oncology documented as of this encounter Visit Diagnoses Not on filedocumented in this encounter
--- OUTSIDE RECORDS SUMMARY | 2020-03-18 12:34 | XMS REPORT | Encounter Summary ---
Author Author [facility] Organization [facility] Address Unknown Phone Unavailable Care Team Providers Care Public Address System Installer Name Role Phone Flaquita Quiles PCP Encounter Details Care Team Description Date Type Department Mitch Vergara MD NO FORWARDING INFORMATION 12/23/2019 Orders Only [facility] [address] [place], [place] [id number] Social History Date Tobacco Use Types Packs/Day [...] Team Description Date Type Specialty Anna Zavala, SOLAR PROCESS ENGINEER [address] [facility] [address] [place] [address] [phone] 05/01/2020 Video Visit Neurology Arlene Aguayo, CONTACT CENTER REP [address] [facility] [address] [place], [place] [id number] 05/15/2020 Office Visit Endocrinology Mina James MD [address] [facility] [address] [place] [address] [phone] 12/24/2020 Office Visit Medical Oncology documented as of this encounter Visit Diagnoses Not on filedocumented in this encounter
--- OUTSIDE RECORDS SUMMARY | 2020-03-18 12:34 | XMS REPORT | Encounter Summary ---
Author Author [facility] Organization [facility] Address Unknown Phone Unavailable Care Team Providers Care Seismic Interpreter Name Role Phone Flaquita Quiles PCP Reason for Visit * Reason Comments Migraine * Consultation (Routine) Referred By Contact Referred To Contact Status Reason Specialty Diagnoses / Procedures Ida Butler APRN [address] [place] [address] [facility] [place] [address] [place] [address] Closed Specialty Services Neurology Diagnoses Required Chronic migraine Encounter Details Care Team Description [place] [address] [place] [address] [phone] Intractable migraine without aura and wi thout status migrainosus (Primary Dx); Chronic migraine; Rebound headache; Nausea 12/22/2019 Video Visit [facility] Neurol ogy [address] [place] [address] Social History Date Tobacco Use Types Packs/Day [...] as of this encounter Progress Notes * Romina Lee, DO - 12/22/2019 10:30 AM CDT As long as she doesn't have CAD, peripheral vascular disease, hx of stroke, or i schemic bowel disease she can use triptans. PE and DVT aren't contraindications * Anna Tao PUBLISHING AGENT - 12/22/2019 10:30 AM CDT [facility] NEUROLOGY - TELENEUROLOGY VISIT Patient Name: Deysi Cisse : 1980 PCP: Flaquita Quiles MD Date of service: 12/22/2019 Patient consent obtained for video visit/telemedicine platform? Yes. For date of service 12/22/2019, Ms. Cisse was located at their home while I was lo cated at home location due to COVID seeing her via epic video visit. Chief Complaint Migraine History of Present Illness Deysi Cisse is a 39 y.o. female presenting today for initial evaluation fo r her headaches. She tells me she has had migraines since she was 9 or 10 years old. She says she went to a doctor for her headaches as a kid, but can not remember anything more than that. She tells me they have not changed as she has aged. She tells me she has a spot in the mid-posterior head that is tender to the touch. She tells me she will have headaches at least 3 days per week. She tells me 2/3 of them are moderate lasting 5-6 hours in duration (with 2 doses of tylenol1,000 mg, which will decrease the severity slightly) Headaches will become severe abou t one day were week and last 9-48 hours in duration. For severe headaches, she t akes Tylenol 1,000 mg, which doesn't do much for her. She says she just lays in bed int he complete dark and it will eventually subside. She describes headaches as starting in the bilateral frontal region and become h olo-cranial. She describes pain as a sharp constant pain that becomes more inten se and nauseating with movement. With headaches she reports photophobia, phonophobia, fatigue, floaters, nausea a nd occasional vomiting. She denies paresthesias, weakness, and autonomic symptoms with headaches. She says stress can intensify headaches. She tells me she has had brain imaging in 2014 and denies any changes in headache characteristic since then. She reports taking Tylenol daily for the last 2 weeks and at least 2 times per w burns paiute before that. She tells me she takes tramadol 50 mg daily for her bulging dis k in her back, her lupus and her fibromyalgia. She says she rarely takes hydroco done and has not taken it in > 3 months. She tells me she is unable to take NSAIDs due to factor V liden. She tells me she has had 3 round of occipital nerve blocks for bilateral occipit al neuralgia done by Dr. Yin at [facility]. She believes the first two sets of injections were helpful and left her predominantly headache free for about 4 months. Her last set of injections were done in September of 2019 and did not have any relief. She says the last round "felt different" and just never kicked in. She says she was referred to the pain clinic at by her PCP in [place], [place]. Of note, he has had 2 DVT's in the past as well as a Pulmonary embolism in the p ast. She had the PE and one of her DVT's on Xarelto, and was subsequently starte d on the Coumadin. Previous medications for headache prevention: nortriptyline (for lupus/fibromyal nii) Previous medications for acute headache therapy: Tylenol Previous neuroimaging: MRI of brain wo contrast 06/04/2015: unremarkable Review of Systems Constitutional: Positive for fatigue. Negative for activity change, appetite andreina nge, weight gain, weight loss, fever, chills and sweating. Eyes: Positive for eye itching and photophobia. Negative for eye discharge, eye pain, eye redness, double vision and change in vision. HENT: Positive for headaches, ear pain, congestion, sinus pain, sinus pressure a nd drooling. Negative for ear discharge, hearing loss, tinnitus, voice change, m outh sores, dental problems, tongue pain, sore throat and trouble swallowing. Cardiovascular: Positive for leg swelling. Negative for chest pain, palpitations and syncope. Respiratory: Positive for snoring. Negative for chest tightness, cough, dyspnea at rest, dyspnea with exertion, orthopnea dyspnea and wheezing. Gastrointestinal: Positive for abdominal pain. Negative for heartburn, nausea, v omiting, abdominal swelling, constipation and diarrhea. Genitourinary: Negative for difficult urination, change in urinary frequency, ur inary incontinence, nocturia, flank pain, genital sore(s), hematuria and erectil e dysfunction. Musculoskeletal: Positive for neck stiffness, neck pain, back pain, arthralgias, joint swelling, myalgias and muscle cramps. Negative for falls. Skin: Positive for dry skin. Negative for color change, birthmark, rash, lumps, wound, nail changes and hair loss. Neurological: Positive for dizziness, light-headedness, numbness, seizures, weak ness, difficulty with concentration and poor memory.Negative for facial weakness , speech difficulty, tremors, difficulty walking, smell disturbance and taste di sturbance Psychiatric/Behavioral: Positive for agitation, depressed mood, nervous/anxious and difficulty sleeping. Negative for aggression, delusions, hallucinations, hyp eractive, self-injury and suicidal ideas. Endocrine: Positive for excessive thirst. Negative for cold intolerance, heat in tolerance and excessive hunger. Hematologic/Lymphatic: Positive for bruises/bleeds easily. Negative for adenopat hy. Allergic/Immunologic: Positive for environmental allergies and food allergies. N egative for frequent infections. Patient Active Problem List Diagnosis Fibromyalgia Sjogren's syndrome with keratoconjunctivitis sicca ([facility]) Diabetes mellitus without complication ([facility]) Factor V Leiden mutation, heterozygous ([facility]) History of DVT (deep vein thrombosis) Morbid obesity with BMI of 50.0-59.9, adult ([facility]) Patient is Sikhism Sacroiliac joint dysfunction of both sides SS-A antibody positive retirement current use of anticoagulant Lupus ([facility]) Arthritis Vitamin D deficiency Histories I have reviewed the patient's medical history in detail; there are no changes to the history as noted in the electronic medical record. Current Medications blood-glucose meter (GLUCOCARD 01 METER) kit Inject 1 each under the skin 3 (three) times a day. cyanocobalamin, vitamin B-12, 1,000 mcg Subl Dissolve 1,000 mcg under the to ngue daily. DULoxetine (CYMBALTA) 40 mg capsule Take 1 capsule (40 mg total) by mouth dotty crain. ergocalciferol (VITAMIN D2) 1,250 mcg (50,000 unit) capsule Take 1 capsule ( 50,000 Units total) by mouth weekly for 12 doses. ferrous sulfate 325 (65 FE) MG EC tablet Take 1 tablet (325 mg total) by shefali th daily. fluocinolone acetonide oil 0.01 % Drop fluticasone propionate (FLONASE) 50 mcg/actuation nasal spray as needed. gabapentin (NEURONTIN) 100 MG capsule Take 1 capsule (100 mg total) by mouth 3 (three) times a day. As directed gabapentin (NEURONTIN) 300 MG capsule Take 2 capsules (600 mg total) by mout h nightly. HYDROcodone-acetaminophen (NORCO) 5-325 mg per tablet Take 1-2 tablets by mo uth as needed. hydroxychloroquine (PLAQUENIL) 200 mg tablet Take 2 tablets (400 mg total) b y mouth daily. lisinopril (PRINIVIL,ZESTRIL) 20 MG tablet Take 20 mg by mouth daily. metformin (GLUCOPHAGE-XR) 24 hr tablet 500 mg Take 1 tablet (500 mg total) b y mouth 2 (two) times a day before breakfast and dinner. montelukast (SINGULAIR) 10 mg tablet Take 10 mg by mouth daily. nortriptyline (PAMELOR) 25 MG capsule Take 2 capsules (50 mg total) by mouth nightly. nystatin (MYCOSTATIN) powder Apply topically as needed. promethazine (PHENERGAN) 25 MG tablet Take 1 tablet (25 mg total) by mouth e very 6 (six) hours as needed for nausea. semaglutide 0.25 mg or 0.5 mg(2 mg/1.5 mL) PnIj Inject 0.5 mg under the skin every 7 (seven) days. tiZANidine (ZANAFLEX) 4 MG tablet Take 4 mg by mouth every 6 (six) hours as needed. traMADol (ULTRAM) 50 mg tablet TAKE 1 TO 2 TABLETS(50 TO 100 MG) BY MOUTH TH REE TIMES DAILY NEEDED FOR PAIN. MAX DAILY DOSE: 300 MG warfarin (COUMADIN) 5 MG tablet Take 5 mg by mouth 3 (three) times a week. M on, Wednesday, Wednesday as directed by INR No current facility-administered medications for this visit. Allergies Allergies Allergen Reactions Aspirin Hives Other reaction(s): hives Physical Examination Video visits do not have the supported technology for physician to document hear t and lungs exams, and may not have ability to fully document vital signs. General: alert, appears stated age and cooperative. I was unable to do a full examination as this was a video visit, but the patient does have tenderness in the bilateral occipital nerve distrubution when I ask h er to touch that areas. Neurological Exam Cranial Nerves CN I: Sense of smell is normal olfaction. Images/Studies/Labs Reviewed: MRI of brain w/o contrast 06/04/2015 INDICATIONS: Persistent dizziness for 4 weeks COMPARISON: CT head from 05/22/2015 FINDINGS: The ventricles and sulci are within normal limits for the patient's ag e. There is no significant abnormal increased or decreased signal abnormality seen within the b rain. No acute hemorrhage is identified. No focal brainstem or cerebellar abnormalities are identified in adequate flow voids are seen. No significant mastoid fluid is identified. Minimal mucosal thickening not ed in the anterior right maxillary sinus. No gross mass lesions are seen on this noncontrast study. The i nternal auditory canal regions appear symmetric. No abnormal diffusion changes are seen. IMPRESSION IMPRESSION: Unremarkable MRI of the brain. No focal abnormalities, hemorrhage, i nfarction or other acute process can be seen. Impression and Plan Deysi was seen today for migraine. Diagnoses and all orders for this visit: Intractable migraine without aura and without status migrainosus - promethazine (PHENERGAN) 25 MG tablet; Take 1 tablet (25 mg total) by mout h every 6 (six) hours as needed for nausea. - Discontinue: ubrogepant (UBRELVY) 50 mg tablet; Take 1 tablet (50 mg total ) by mouth as needed for migraine. Chronic migraine - Amb Referral To Neurology - nortriptyline (PAMELOR) 25 MG capsule; Take 2 capsules (50 mg total) by mo uth nightly. Rebound headache Nausea This is a 39-year-old female with a rather complicated medical history as well a s a headache history consistent with migraine headache without aura as well as b ilateral occipital neuralgia. I had a long discussion with her regarding migraine headaches reviewing their na tural history, clinical manifestations, biochemical mechanisms, triggering facto rs and treatment options. We discussed that as she has had success in the past from bilateral occipital ne rve blocks for her occipital neuralgia, I think it would be helpful for her to t ry to see if she can get another round of injections to help with her headaches. We discussed that she may not be able to get them done right now due to the pa ndemic of COVID-19, but she should call and see when she would be able to get in to get these done. In the meantime, for headache prevention we will increase her nortriptyline to 5 0 mg nightly. We discussed side effects such as dry mouth, constipation, and fa tigue. For acute headache therapy, we discussed that although she does not have coronar y artery disease or a stroke in the past that she does have a rather complicated medical history to include several blood clots. We also discussed that she does have several risk factors for stroke as well. With that in mind, we discussed that it was likely not safe for her to be on triptan medications. I told her I would further discuss this with my staff, Dr. Lee when she returns. We also discussed the possibility of starting the new acute headache medication, Ubrelvy 50 mg tablets. Unfortunately, this medication is contraindicated with antifungal medications. She is not using any oral antifungal therapy, but is us ing topical antifungal and I am unsure it is safe for her to use both together. We discussed that once I get a fresher answer from the pharmacist as well as the Ubrelvy drug rep, I will let her know. We also discussed that she might have medication overuse headache as she takes t ramadol daily for her back pain. We discussed that if that is possible, she jonnie uld try to titrate down on the tramadol to not take it daily as this could be ma ludmila her headache syndrome worse. She currently has been having the same headache for the last 2 weeks. We discus sed that sometimes we will try a steroid taper to help with this, but due to COV ID-19, steroids are not recommended at this time. She was instead given instruc tions for a headache cocktail consisting of promethazine 25 mg + tizanidine 4 mg + Tylenol 1000 mg + Benadryl 25-50 mg. She was instructed to take this cocktail every 8 hours for 3 days to see if this could break up her current headache cy raymond. She was educated that this combination of medications could make her very sleepy, so she should not drive or operate heavy machinery while taking these me dications. >50% of this 60-minute visit was spent in counseling and coordination of care. Follow-up: She will follow-up in the headache center in 8 weeks. She will conta ct us in the meantime if she has any questions or concerns. Anna Tao NP documented in this encounter Miscellaneous Notes * Addendum Note - Anna Tao NP - 12/22/2019 10:30 AM CDT Addended by: ANNA TAO on: 12/22/2019 03:59 PM Modules accepted: Orders * Addendum Note - Anna Tao NP - 12/22/2019 10:30 AM CDT Addended by: ANNA TAO on: 12/22/2019 01:38 PM Modules accepted: Orders documented in this encounter Plan of Treatment Care Team Description [place] [address] [facility] [address] [place] [address] [phone] 05/01/2020 Video Visit Neurology Arlene Aguayo, CARLO [address] [facility] [address] [place] [address] [phone] 05/15/2020 Office Visit Endocrinology Mina James MD [address] [facility] [address] [place] [address] [phone] 12/24/2020 Office Visit Medical Oncology documented as of this encounter Visit Diagnoses Diagnosis Chronic migraine Intractable migraine without aura and w ithout status migrainosus Rebound headache Drug induced headache, not elsewhere cl assified Nausea Nausea alone documented in this encounter
--- OUTSIDE RECORDS SUMMARY | 2020-03-18 12:34 | XMS REPORT | Encounter Summary ---
Author Author [facility] Organization [facility] Address Unknown Phone Unavailable Care Team Providers Care Forepart Laster Name Role Phone Flaquita Quiles PCP Reason for Visit * Reason Comments Medication Refill Encounter Details Care Team Description Date Type Department Mitch Vergara MD NO FORWARDING INFORMATION Medication Refill 12/22/2019 Telephone [facility] [address] [place] [address] Social History Date Tobacco Use [...] Telephone Encounter - Francie Bailey RN - 12/22/2019 9:38 AM CDT Patient requesting refill of Duloxetine but only 40 mg instead of the 60 mg juve use she repots that she just can't take the 60 mg, "It makes me feel weird, like spacey or something." Refill for 40 mg sent to [facility] in [place]. documented in this encounter Plan of Treatment Care Team Description Date Type Specialty Anna Zavala, TV HOST [address] [place], [place] [id number] 05/01/2020 Video Visit Neurology Arlene Aguayo, MICROFILM CLERK [address] [place] [address] 05/15/2020 Office Visit Endocrinology Mina James MD [address] [address] [phone] 12/24/2020 Office Visit Medical Oncology documented as of this encounter Visit Diagnoses Diagnosis Fibromyalgia Unspecified myalgia and myositis Lupus (HCC) Systemic lupus erythematosus Arthritis Unspecified arthropathy, site unspecifi ed documented in this encounter
--- OUTSIDE RECORDS SUMMARY | 2020-03-18 12:34 | XMS REPORT | Encounter Summary ---
Author Author [facility] Organization [facility] Address Unknown Phone Unavailable Care Team Providers Care Catcher Helper Name Role Phone Flaquita Quiles PCP Reason for Visit * Reason Comments Medication Refill Encounter Details Care Team Description Date Type Department Mitch Vergara MD NO FORWARDING INFORMATION Medication Refill 12/19/2019 Refill [facility] [address] [place] [address] Social History Date Tobacco Use [...] encounter Miscellaneous Notes * Telephone Encounter - Heriberto Panda RN - 12/19/2019 3:30 PM CDT Pt called the clinic with medication concerns d/t rescheduled appt from 12/22/19 to 04/05/20. She is asking for a refill of Gabapentin. Pt reports that the medi cation is working well but that she likely needs an increase in the dose as disc ussed at her last appt. Pt is currently taking 600 mg in the am 400 mg at noon a nd 600 mg in the evening (Total daily dose of 1600mg). She has asked for 90 day scripts and for refills to go to [facility]. documented in this encounter Plan of Treatment Care Team Description Date Type Specialty Anna Zavala, PURIFICATION DIRECTOR [address] [facility] [address] [place] [address] [phone] 05/01/2020 Video Visit Neurology Arlene Aguayo, CARLO [address] [facility] [address] [place] [address] [phone] 05/15/2020 Office Visit Endocrinology Mina James MD [address] [facility] [address] [place] [address] [phone] 12/24/2020 Office Visit Medical Oncology documented as of this encounter Visit Diagnoses Diagnosis Sjogren's syndrome with keratoconjuncti vitis sicca (HCC) Fibromyalgia Unspecified myalgia and myositis documented in this encounter
--- OUTSIDE RECORDS SUMMARY | 2020-03-18 12:34 | XMS REPORT | Encounter Summary ---
Author Author [facility] Organization [facility] Address Unknown Phone Unavailable Care Team Providers Care Development Eng Name Role Phone Flaquita Quiles PCP Reason for Visit * Reason Comments Encounter Details Care Team Description Date Type Department Arlene Aguayo, SOLID WASTE MANAGER [address] [facility] [address] [place] [address] Diabetes mellitus without complication ( HCC) (Primary Dx); Sjogren's syndrome with keratoconjunctivitis sicca (HCC); Lupus (HCC); Factor 5 Leiden mutation, heterozygous (HCC); Fibromyalgia; Essential hypertension; Vitamin D deficiency; Morbid obesity with BMI of 50.0-59.9, adult (HCC) 02/13/2020 Office Visit [facility] - [facility] [address] [facility] [address] [place] [address] Social History Date Tobacco Use [...] Signs Reading Time Taken Comments Vital Sign 116/70 02/13/2020 10:27 AM CDT Blood Pressure 72 02/13/2020 10:27 AM CDT Pulse - - Temperature - - Respiratory Rate - - Oxygen Saturation - - Inhaled Oxygen Concentration 131.5 kg (290 lb) 02/13/2020 10:27 AM CDT Weight 152.4 cm (5') 02/13/2020 10:27 AM CDT Height 56.64 02/13/2020 10:27 AM CDT Body Mass Index documented in this encounter Patient Instructions * Patient Instructions* Arlene Aguayo APRN - 02/13/2020 10:20 AM CDT 1. Recommend increase exercise - try to find some You-tube chair exercise to fol low - work up to 30 minutes most days of the week. 2. Continue Ozempic 1 mg, once a week 3. Try to find ways to remember to take your Metformin 500 mg, twice daily with food After you complete the high dose vitamin D 50,000 IU once a week. Please continue with 1000 IU once a day, over the counter Vitamin D documented in this encounter Progress Notes * Arlene Aguayo APRN - 02/13/2020 10:20 AM CDT DIABETES FOLLOW-UP NOTE Deysi MONTGOMERY This is a very pleasant 39-year-old female patient who comes to the clinic today to follow up for type 2 diabetes and morbid obesity. [place] of [place], near [place], [place]. Both her mother and father are . She has a family history of diabetes and hypothyroidism in her mother, diabetes and hypothyroidism in her maternal grandmother, and diabetes in her father. She is and has 2 children. She had gestational diabetes with bot h pregnancies. She is not currently prescribed any diabetes medication. Initial ly her hemoglobin A1c was 6.5%. We agreed to start Metformin and Ozempic. She arias s successfully increased the Ozempic up to 1 mg once a week. She has been doing quite well with this combination. Her hemoglobin A1c today is nicely improved at 6.0%. 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 One of her most concerning complaints is her level of fatigue. We refe rred her for a sleep study, which was negative. She has trouble falling asleep, and admits pain is frequently waking her up in the night. She follows up with ltiple specialists. She is also morbidly obese with a BMI of 56.6, and she is de conditioned. She is trying to get more exercise, but currently only tolerates wa lking for 15 minutes twice a day. Thyroid levels were normal. She does have heav y and frequent periods, every 2 weeks for 5-7 days. She states that she has been to "15 different [facility] providers". She has felt frustrated that she has not be en given a diagnosis, and there has been no recommended treatment. She would lik e to have a hysterectomy, but is higher risk with the Factor V. Overall, she is feeling okay. She is pleased the the Ozempic is offering some appetite suppressi on. We have reviewed a brief diet history, which is for breakfast she will have turkey sausage and egg. For lunch she will typically have a vegetable such as g reen beans, and a protein such as chicken or hamburger. She does not eat bread. For dinner she has about the same, vegetable and/or salad, and protein. She d oes not snack during the day. She is trying to do a better job of staying well- hydrated with water. We have reviewed recent laboratories together. She is up to date on health maintenance. She denies any chest pain or shortness of breath. Blood pressure is well controlled. ASSESSMENT/PLAN: 1. Diabetes mellitus Type II, under good control.. Most recent HgbA1C reading is : Lab Results Component Value Date HGBA1C 6.0 02/13/2020 Improved to day with a hemoglobin A1c of 6.0%. Continue Metformin 500 mg twice d aily with food, and Ozempic 1 mg once a week. She has been tolerating this medic ation well over the last 2 months. She denies any issues of severe nausea, vomit ing or abdominal pain. We have reviewed the small risk of Medullary thyroid canc er, and there is no suggestive family history. I have discussed the risk of rendon creatitis as well as expected side effects of temporary nausea and reflux. Jonnathan gonzalez call the office for severe abdominal pain, nausea or vomiting. Diet and exerc ise guidelines were again reviewed with the patient today. We note her weight is down 3.5 pounds. Weight loss will be very helpful to decrease her insulin resis tance. 2. Hypertension - goals of less than 140/90 were discussed ;the BP is controlled . Continue Lisinopril 20 mg. BP Readings from Last 1 Encounters: 02/13/20 116/70 . 3. Hyperlipidemia screening - risk of CADz related to diabetes discussed - the m ost recent lipid readings are below under the labs heading. Her cholesterol is typically very good. We would hesitate to prescribe a statin medication in this patient with fibromyalgia and joint pain. 4. Morbid Obesity - BMI 56.6 - the weight is a very serious health concern for t his patient. She has been working to change her diet over the last several jose hs. The patient is very concerned about an unexplained weight gain of 30 pounds since August. She states her sleep is not good. Fortunately, testing for sleep apnea was negative. She sometimes has difficulty falling asleep and reports pain is frequently waking her up at night. We have reviewed diet and exercise guid pearl. I have encouraged her to keep her carbohydrates between 30 to 45 g per m eal. Overall goal of a higher protein, low carb, low sugar diet. Encouraged her to stay well hydrated with water. We are working to keep her diabetes medication regimen as weight friendly as possible, and to treat her insulin resistance. S he has struggled to remember to take metformin 500 mg twice daily with food - I have asked her to set an alarm, or to set the pill bottle out where she eats, to help her remember. She reports getting good appetite suppression with the Ozemp ic. She will continue Ozempic 1 mg, once a week. Her weight is down 3.5 pounds t darío. She seems to be doing well with food management. I would like to see her ramp up the exercise, as tolerated. Fibromyalgia pain, bulging disc in her neck, and other musculoskeletal pain has been a barrier to exercise. I have suggested that she consider chair exercises. She reports her best success with swimming - this would be a great idea, if there is a pool nearby. Ongoing counseling and e ncouragement offered. 5. Multiple autoimmune disorders and Factor V - the patient has Sjogren's syndro me, lupus, factor V, and fibromyalgia. 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 6. Screening for thyroid disorder - the patient has a family history of hypothyr oidism in her mother and maternal grandmother. Thyroid antibodies were negative. Thyroid function tests were normal - reviewed with the patient today. Health Maintenance - the last ocular exam is noted below in the [facility] ce Summary. Patient is testing the BS 1 time daily - reminded her to bring her meter to ever y appointment. Counseling - the patient was counseled regarding the risk of medications, impor tance of compliance with medical recommendations, and ongoing education was offe red regarding strategies for managing their condition. The importance of keeping yearly follow-up with primary care was discussed. As the Endocrine specialist - we do not perform routine maintenance, yearly physical exams; prostate, breast, or genital exams nor routine screening labs outside the scope of the specific e ndocrine issue. Total time 30 minutes. More than 50% of time was spent counseli ng/coordinating care. Return in about 3 months (around 05/15/2020), or if symptoms worsen or fail to improve. 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 LONG-TERM CURRENT USE OF ANTICOAGULAN T 11/09/2018 Fibromyalgia FIBROMYALGIA 06/18/2017 Patient is Catholic HAS JEHOVAH'S WITNESS BELIEF 04/06/2017 SS-A antibody positive ANTIBODY STUDIES ABNORMAL 04/06/2017 Sjogren's syndrome with keratoconjunctivitis sicca (HCC) KERATOCONJUNCTIVITI S SICCA, IN SJGREN'S SYNDROME 12/28/2016 Diabetes mellitus without complication (HCC) DIABETES MELLITUS WITHOUT COMPL ICATION 03/26/2016 Factor 5 Leiden mutation, heterozygous (HCC) HETEROZYGOUS FACTOR V LEIDEN MU TATION 03/26/2016 History of DVT (deep vein thrombosis) H/O: DEEP VEIN THROMBOSIS 03/26/2016 Morbid obesity with BMI of 50.0-59.9, adult ([facility]) BODY MASS INDEX 40+ - TAINA RELY OBESE 03/26/2016 Sacroiliac joint dysfunction of both sides BILATERAL ARTHROPATHY OF SACROILI AC JOINTS 12/31/2015 Past Surgical History: Procedure Laterality Date ANTERIOR CRUCIATE LIGAMENT REPAIR Left CHOLECYSTECTOMY 09/2017 KNEE SURGERY Left TONSILLECTOMY Family History Problem Relation Age of Onset Diabetes Mother Hypertension Mother Thyroid disease Mother Diabetes Father COPD Father Diabetes Sister Hypertension Sister Breast cancer Maternal Aunt 55 Breast cancer Maternal Great-Grandmother Thyroid disease Maternal Grandmother Current Outpatient Medications Medication Sig Dispense Refill blood-glucose meter (GLUCOCARD 01 METER) kit Inject 1 each under the skin 3 (three) times a day. cyanocobalamin, vitamin B-12, 1,000 mcg Subl Dissolve 1,000 mcg under the to ngue daily. 30 each 6 DULoxetine (CYMBALTA) 40 mg capsule Take 1 capsule (40 mg total) by mouth da breann. 90 capsule 3 ferrous sulfate 325 (65 FE) MG EC tablet Take 1 tablet (325 mg total) by shefali th daily. 30 tablet 6 fluocinolone acetonide oil 0.01 % Drop fluticasone propionate (FLONASE) 50 mcg/actuation nasal spray as needed. folic acid (FOLVITE) 1 MG tablet Take 1 tablet (1 mg total) by mouth daily. 90 tablet 3 gabapentin (NEURONTIN) 100 MG capsule Take 1 capsule (100 mg total) by mouth daily. As directed 90 capsule 1 gabapentin (NEURONTIN) 300 MG capsule Take 2 capsules (600 mg total) by mout h 2 (two) times a day. 360 capsule 1 hydroxychloroquine (PLAQUENIL) 200 mg tablet Take 2 tablets (400 mg total) b y mouth daily. 180 tablet 3 lisinopril (PRINIVIL,ZESTRIL) 20 MG tablet Take 20 mg by mouth daily. montelukast (SINGULAIR) 10 mg tablet Take 10 mg by mouth daily. nortriptyline (PAMELOR) 25 MG capsule Take 2 capsules (50 mg total) by mouth nightly. 60 capsule 2 nystatin (MYCOSTATIN) powder Apply topically as needed. semaglutide (OZEMPIC) 1 mg/dose (2 mg/1.5 mL) syringe Inject 0.75 mL (1 mg t otal) under the skin every 7 (seven) days. 6 each 0 tiZANidine (ZANAFLEX) 4 MG tablet Take 4 mg by mouth every 6 (six) hours as needed. traMADoL (ULTRAM) 50 mg tablet TAKE ONE (1) TO TWO (2) TABLETS BY MOUTH THRE E TIMES DAILY NEEDED FOR PAIN. MAX 6/DAY. 120 tablet 5 ubrogepant (UBRELVY) 50 mg tablet Take 1 tablet (50 mg total) by mouth as ne eded for migraine. 10 tablet 2 warfarin (COUMADIN) 5 MG tablet Take 5 mg by mouth 3 (three) times a week. M on, Wednesday, Wednesday as directed by INR ergocalciferol (VITAMIN D2) 1,250 mcg (50,000 unit) capsule Take 1 capsule ( 50,000 Units total) by mouth weekly for 12 doses. 12 capsule 0 metformin (GLUCOPHAGE-XR) 24 hr tablet 500 mg Take 1 tablet (500 mg total) b y mouth 2 (two) times a day before breakfast and dinner. 180 tablet 1 promethazine (PHENERGAN) 25 MG tablet Take 1 tablet (25 mg total) by mouth e very 6 (six) hours as needed for nausea. 30 tablet 5 No current facility-administered medications for this visit. Objective: Hemoglobin A1c: Lab Results Component Value Date HGBA1C 6.0 02/13/2020 Health Maintenance Topic Date Due Td # 1980 Lipid Screening 1980 Diabetes Mellitus Ophthalmology Exam 1980 Pneumococcal Vaccine: Pediatrics (0 to 5 Years) and At-Risk Patients (6 to 6 4 Years) (1 of 1 - PPSV23) 1986 Diabetes Mellitus Foot Exam 1990 Diabetes Mellitus Hemoglobin A1C 06/12/2020 Influenza Vaccine (Season Ended) 2020 Cervical Cancer Screening via Pap Smear 07/28/2021 Physical Exam: Vitals: 02/13/20 1027 BP: 116/70 Pulse: 72 Weight: 131.5 kg (290 lb) Height: 1.524 m (5') GEN: appears well - Body mass index is 56.64 kg/m., Vitals: 02/13/20 1027 Weight: 131.5 kg (290 lb) HEENT: normal - PERRLA,/no proptosis/infection/; dentition adequate NECK: no thyroid enlargement or nodules/no adenopathy/carotids without bruits CV: RRR without Murmur; non-tachycardic RESP: clear - no increased WOB ABD: benign without organomegaly nor striae EXT: no edema; no evidence of venous insufficiency Neuro: non-focal; gait and balance appear normal/ cognitive function normal Psychiatric: mood DM Foot Exam Plan to complete at her next appointment Laboratories reviewed today as below: No results found for: CHOL, HDL, LDLCHOL, TRIG, CHOLHDL Office Visit on 02/13/2020 Component Date Value Hemoglobin A1C 02/13/2020 6.0 Documentation on 02/02/2020 Component Date Value Vitamin D 25-Hydroxy 01/31/2020 26 Lab on 12/12/2019 Component Date Value Thyroid Stimulating Horm* 12/12/2019 1.50 T4 Free 12/12/2019 1.1 T3 Free 12/12/2019 3.3 Thyroid Peroxidase Antib* 12/12/2019 3.8 Vitamin D 25-Hydroxy 12/12/2019 18* Creatinine Urine Random 12/12/2019 180.7 Microalbumin mg/dl 12/12/2019 0.70 Microalbumin/Creatinine * 12/12/2019 3.87 Initial consult on 12/12/2019 Component Date Value Hemoglobin A1C 12/12/2019 6.5 Please note: The content of this HPI, assessment, plan and patient instructions were generated using a [employer]) voice to text dictation system. In spite of my best efforts to edit this document to eliminate [employer]) related missta tements, some errors may persist. The patience and understanding of the reader is requested. documented in this encounter Plan of Treatment Care Team Description [place] [address] [address] [place] [address] [phone] 05/01/2020 Video Visit Neurology Arlene Aguayo APRN [address] [place] [address] 05/15/2020 Office Visit Endocrinology Mina James MD [address] [facility] [address] [place] [address] [phone] 12/24/2020 Office Visit Medical Oncology documented as of this encounter Procedures Comments Procedure Name Priority Date/Time Associated Diag nosis POCT GLYCOSYLATED Routine 02/13/2020 Diabetes dannielle litus without HEMOGLOBIN (HGB A1C) 12:11 PM CDT complication (HC C) documented in this encounter Results * POCT glycosylated hemoglobin (Hb A1C) (02/13/2020 12:11 PM CDT) Hemoglobin A1C 6.0 % Specimen Blood documented in this encounter Visit Diagnoses Diagnosis Diabetes mellitus without complication (HCC) Type II or unspecified type diabetes me llitus without mention of complication, not stated as uncontrolled Sjogren's syndrome with keratoconjuncti vitis sicca (HCC) Lupus (HCC) Systemic lupus erythematosus Factor 5 Leiden mutation, heterozygous (HCC) Fibromyalgia Unspecified myalgia and myositis Essential hypertension Unspecified essential hypertension Vitamin D deficiency Morbid obesity with BMI of 50.0-59.9, a dult (HCC) documented in this encounter
--- OUTSIDE RECORDS SUMMARY | 2020-03-18 12:34 | XMS REPORT | Encounter Summary ---
Author Author [facility] Organization [facility] Address Unknown Phone Unavailable Care Team Providers Care Scientific Illustrator Name Role Phone Flaquita Quiles PCP Reason for Referral * Consultation (Routine) Referred By Contact Referred To Contact Status Reason Specialty Diagnoses / Procedures Ida Butler, SERVICE VEHICLE OPERATOR [address] [place] [address] [facility] [place] [address] [place] [address] Closed Specialty Services Neurology Diagnoses Required Chronic migraine Encounter Details Care Team Description Date Type Department Ida Butler, SERVICE VEHICLE OPERATOR [address] [place] [address] [phone] Chronic migraine (Primary Dx) 12/15/2019 Orders Only [facility] Neurol ogy [address] [facility] [place] [address] Social History Date Tobacco Use Types Packs/Day [...] Team Description Date Type Specialty Anna Zavala DRILLING RIG OPERATOR [address] [place], [place] [address] 05/01/2020 Video Visit Neurology Arlene Aguayo, SERVICE VEHICLE OPERATOR [address] [place] [address] [phone] 05/15/2020 Office Visit Endocrinology Mina James MD [address] [facility] [address] [place] [address] [phone] 12/24/2020 Office Visit Medical Oncology Order Schedule Name Type Priority Associated Diag noses 1 Occurrences starting 12/15/2019 until 06/15/2020 Amb Referral To Neurology Outpatient Routine Robot Programmer pepe migraine Referral documented as of this encounter Visit Diagnoses Diagnosis Chronic migraine documented in this encounter
--- OUTSIDE RECORDS SUMMARY | 2020-03-18 12:34 | XMS REPORT | Encounter Summary ---
Author Author [facility] Organization [facility] Address Unknown Phone Unavailable Care Team Providers Care Flatwork Feeder Name Role Phone Flaquita Quiles PCP Encounter Details Care Team Description Date Type Department Arlene Aguayo APRN [address] [facility] [address] [place], [place] [id number] 02/07/2020 Documentation [facility] Endocrinology Specialists - [facility] [address] [facility] [address] [place] [address] Social History Date Tobacco Use [...] Description [place] [address] [facility] [address] [place] [address] [phone] 05/01/2020 Video Visit Neurology Arlene Aguayo APRN [address] [facility] [address] [place] [address] 05/15/2020 Office Visit Endocrinology Mina James MD [address] [facility] [address] [place] [address] [phone] 12/24/2020 Office Visit Medical Oncology documented as of this encounter Visit Diagnoses Not on filedocumented in this encounter
--- OUTSIDE RECORDS SUMMARY | 2020-03-18 12:34 | XMS REPORT | Encounter Summary ---
Author Author [facility] Organization [facility] Address Unknown Phone Unavailable Care Team Providers Care [place] Tribunal Member Name Role Phone Flaquita Quiles PCP Encounter Details Care Team Description Date Type Department Sandra Churchill NP [address] [place] [address] 02/01/2020 Telephone [facility] SH[facility] [address] [place] [address] Social History Date Tobacco Use Types [...] encounter Miscellaneous Notes * Telephone Encounter - Prerna Lara RRT - 02/01/2020 10:25 AM CDT Reviewed sleep study results with Deysi Cisse. She is going to follow up at a later time documented in this encounter Plan of Treatment Care Team Description [place] [address] [address] [place], [place] [id number] 05/01/2020 Video Visit Neurology Arlene Aguayo APRN [address] [place] [address] 05/15/2020 Office Visit Endocrinology Mina James MD [address] [address] [phone] 12/24/2020 Office Visit Medical Oncology documented as of this encounter Visit Diagnoses Not on filedocumented in this encounter
--- OUTSIDE RECORDS SUMMARY | 2020-03-18 12:34 | XMS REPORT | Encounter Summary ---
Author Author [facility] Organization [facility] Address Unknown Phone Unavailable Care Team Providers Care Filer Repairer Name Role Phone Flaquita Quiles PCP Reason for Referral * Consultation (Routine) Referred By Contact Referred To Contact Status Reason Specialty Diagnoses / Procedures Arlene Aguayo APRN [address] [facility] [address] [place] [address] Luba Spaulding, DO [address] [place] [address] Closed Specialty Services Pulmonary Diagnoses Required Disease / Suspected sleep Pulmonology apnea Reason for Visit * Reason Comments Initial Visit * Consultation (Routine) Referred By Contact Referred To Contact Status Reason Specialty Diagnoses / Procedures Ida Butler APRN [address] [place] [address] [facility] [address] [facility] [address] [place] [address] Closed Specialty Services Endocrinology Diagnoses Required Fatigue Encounter Details Care Team Description Date Type Department Floridalma Lane MD [address] [facility] [address] [place] [address] [phone] Arlene Aguayo APRN [address] [facility] [address] [place] [address] [phone] Diabetes mellitus without complication ( HCC) (Primary Dx); Sjogren's syndrome with keratoconjunctivitis sicca (HCC); Lupus (HCC); Fibromyalgia; Factor V Leiden mutation, heterozygous (HCC); Suspected sleep apnea; Long-term use of high-risk medication; Screening for thyroid disorder; Morbid obesity with BMI of 50.0-59.9, adult (HCC) 12/12/2019 Initial consult [facility] - [employer] [address] [facility] [address] [place] [address] Social History Date Tobacco Use [...] Signs Reading Time Taken Comments Vital Sign 110/70 12/12/2019 1:23 PM CDT Blood Pressure 81 12/12/2019 1:23 PM CDT Pulse - - Temperature - - Respiratory Rate - - Oxygen Saturation - - Inhaled Oxygen Concentration 133.1 kg (293 lb 8 oz) 12/12/2019 1:23 PM CDT Weight 152.4 cm (5') 12/12/2019 1:23 PM CDT Height 57.32 12/12/2019 1:23 PM CDT Body Mass Index documented in this encounter Patient Instructions * Patient Instructions* Arlene Aguayo APRN - 12/12/2019 1:30 PM CDT 1. Continue regular exercise - walk at least once a day for 10-15 minutes, 2 x p er day 2. Stay well hydrated with water 3. Keep carbohydrates between 30-45 grams per meal, or less than < 100 grams 4. We are going to treat insulin resistance and your diabetes: 1. Start Metformin 500 mg, twice daily with food. Start with One tablet one time per day x one week, then increase to Twice daily 2. Start Ozempic 0.25 once a week x 2 weeks, then Increase to the 0.5 mg once a week, and continue. Call me in 4 weeks to let me know how it's going. We will need to determine if w e are going to stay at the 0.5 mg weekly dose, or increase up to the 1 mg weekly dose. At the 4-week rik, call me and we will decide on the dose. You can then call and activate the coupon. Cut portion sizes in half Work on mindfunless, portion control and hunger management documented in this encounter Progress Notes * Floridalma Lane MD - 12/12/2019 1:30 PM CDT I have reviewed and agree with the notes of this encounter. Floridalma Lane 12/13/2019 10:39 AM * Arlene Aguayo APRN - 12/12/2019 1:30 PM CDT DIABETES FOLLOW-UP NOTE Deysi Cisse is a 39 y.o. female presenting today for follow up of Chief Complaint Patient presents with Initial Visit HPI This is a very pleasant 39-year-old female patient who comes to the clinic today to establish care for type 2 diabetes. She [place]2 [place] of [facility], near [place], [place]. Both her mother and father are . Raffy gonzalez has a family history of diabetes and hypothyroidism in her mother, diabetes an d hypothyroidism in her maternal grandmother, and diabetes in her father. She is and has 2 children. She had gestational diabetes with both pregnancies. She is not currently prescribed any diabetes medication. Her hemoglobin A1c is 6.5% today. 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 She reports having a high level of fatigue, and is very concerne d about this. Likely part of the issue is deconditioning and morbid obesity with a BMI of 57.3. It has been suspected that she may have sleep apnea. I have talk ed to her about the option of a sleep study, and she is interested in a referral . She is also complaining of dark facial hair growth on her chin. She denies any issues of acne. She does have heavy and frequent periods, every 2 weeks for 5-7 days. She states that she has been to "15 different OCCUPATIONAL THERAPY DIRECTOR providers". She has felt frustrated that she has not been given a diagnosis, and there has been no r ecommended treatment. She would like to have a hysterectomy, but is higher risk with the Factor V. She has concerns that this may be related to a thyroid proble m. Recent thyroid function studies from 10/30/2019 from an outside lab show TSH 3 .09, and Free T4 1.3. I have reviewed with her that these numbers are within a n ormal range. She does not think her antibodies have been tested. She has a stro ng family history of hypothyroidism, and with other autoimmune issues, plan to a [facility] thyroid antibodies. She may likely have some insulin resistance. We have r eviewed options of medications. I have suggested she start with Metformin 500 mg twice daily. She would also likely be a good candidate for a GLP-1 medication. I have reviewed her medical record as well as updated laboratories together with the patient today. She denies any chest pain or shortness of breath. Blood pres sure is well controlled. ASSESSMENT/PLAN: 1. Diabetes mellitus Type II, under good control.. Most recent HgbA1C reading is : Lab Results Component Value Date HGBA1C 6.5 12/12/2019 Plan to start Metformin 500 mg twice daily with food. I have also discussed med ication options together with patient at length during today's 60-minute initial office visit. We have agreed that she can start Ozempic. I have talked with h er about how to slowly titrate this medication up, and have provided her with a sample today.We have reviewed the small risk of Medullary thyroid cancer, and th ere is no suggestive family history. I have discussed the risk of pancreatitis as well as expected side effects of temporary nausea and reflux. Please call the office for severe abdominal pain, nausea or vomiting. Diet and exercise steve gucci discussed at length. Weight loss will be very helpful to decrease her insu harriet resistance. 2. Hypertension - goals of less than 140/90 were discussed ; their BP is control led. Continue Lisinopril 20 mg. BP Readings from Last 1 Encounters: 12/12/19 110/70 . 3. Hyperlipidemia - risk of CADz related to diabetes discussed - the most recent lipid readings are below under the labs heading. 4. Sleep apnea suspected - the patient is interested in a sleep study. I have ag martine she is high risk due to morbid obesity, as well as symptoms of snoring at n ight and daytime sleepiness. Plan to send referral to sleep specialists/pulmonol balwinder. 5. Morbid Obesity -the weight is a very serious health concern for this patient. She has been working to change her diet over the last several months. The pat beatris is very concerned about an unexplained weight gain of 30 pounds since Decem grady. She states her sleep is not good. She snores at night, and has daytime slee piness - plan to refer her for sleep apnea testing. We have reviewed diet and ex ercise guidelines. I have encouraged her to keep her carbohydrates between 30 t o 45 g per meal. Overall goal of a higher protein, low carb, low sugar diet. Enc ouraged her to stay well hydrated with water. We are working to keep her diabete s medication regimen as weight friendly as possible, and to treat her insulin re sistance. Plan to have her start metformin 500 mg twice daily with food, and Oz empic. I have discussed the basic weight loss concepts of mindfulness, portion c ontrol, and hunger management. Encouraged her not to overeat, and not to eat aracely ls that are too high in carbohydrates, otherwise, side effects of nausea and aci d reflux may be more significant. We will plan to revisit this important topic a t subsequent appointments. 6. Multiple autoimmune disorders and Factor V - the patient has Sjogren's syndro me, lupus, factor V, and fibromyalgia. 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 7. Screening for thyroid disorder - the patient has a family history of hypothyr oidism in her mother and maternal grandmother. Plan to check thyroid function te sts and thyroid antibodies, because her multiple autoimmune issues. Health Maintenance - the last ocular exam is noted below in the [facility] ce Summary. Patient is testing the BS [...] the specific e ndocrine issue. Total time 60 minutes. More than 50% of time was spent counseli ng/coordinating care. Return in about 3 months (around 03/12/2020), or if symptom s worsen or fail to improve. Orders Placed This Encounter Thyroid Stimulating Hormone Standing Status: Future Number of Occurrences: 1 Standing Expiration Date: 12/12/2020 T4 Free Standing Status: Future Number of Occurrences: 1 Standing Expiration Date: 12/12/2020 T3 Free Standing Status: Future Number of Occurrences: 1 Standing Expiration Date: 12/12/2020 Thyroid Peroxidase Antibody Standing Status: Future Number of Occurrences: 1 Standing Expiration Date: 12/12/2020 Vitamin D, 25-Hydroxy Standing Status: Future Number of Occurrences: 1 Standing Expiration Date: 12/12/2020 Microalbumin Random Please perform a random urine microalbumin to creatinine ratio Standing Status: Future Number of Occurrences: 1 Standing Expiration Date: 06/12/2020 Amb Referral To Pulmonology Standing Status: Future Standing Expiration Date: 06/12/2020 Referral Priority: Routine Referral Type: Consultation Referral Reason: Specialty Services Required Referred to Provider: Luba Spaulding DO Requested Specialty: Pulmonary Disease Number of Visits Requested: 1 Expiration Date: 06/12/2020 POCT glycosylated hemoglobin (Hb A1C) DULoxetine (CYMBALTA) 40 mg capsule Sig: Take 40 mg by mouth daily. montelukast (SINGULAIR) 10 mg tablet Sig: Take 10 mg by mouth daily. fluticasone propionate (FLONASE) 50 mcg/actuation nasal spray Sig: as needed. blood-glucose meter (GLUCOCARD 01 METER) kit Sig: Inject 1 each under the skin 3 (three) times a day. semaglutide 0.25 mg or 0.5 mg(2 mg/1.5 mL) PnIj Sig: Inject 0.5 mg under the skin every 7 (seven) days. DISCONTD: metformin (GLUCOPHAGE-XR) 24 hr tablet 500 mg Sig: Take 1 tablet (500 mg total) by mouth 2 (two) times a day before breakfas t and dinner. Dispense: 180 tablet Refill: 1 metformin (GLUCOPHAGE-XR) 24 hr tablet 500 mg Sig: Take 1 tablet (500 mg total) by mouth 2 (two) times a day before breakfas t and dinner. 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 LONG-TERM CURRENT USE OF ANTICOAGULAN T 11/09/2018 Fibromyalgia FIBROMYALGIA 06/18/2017 Patient is Mormon HAS PENTECOSTAL BELIEF 04/06/2017 SS-A antibody positive ANTIBODY STUDIES ABNORMAL 04/06/2017 Sjogren's syndrome with keratoconjunctivitis sicca (HCC) KERATOCONJUNCTIVITI S SICCA, IN SJGREN'S SYNDROME 12/28/2016 Diabetes mellitus without complication ([facility]) DIABETES MELLITUS WITHOUT COMPL ICATION 03/26/2016 Factor V Leiden mutation, heterozygous ([facility]) HETEROZYGOUS FACTOR V LEIDEN MU TATION 03/26/2016 History of DVT (deep vein thrombosis) H/O: DEEP VEIN THROMBOSIS 03/26/2016 Morbid obesity with BMI of 50.0-59.9, adult ([facility]) BODY MASS INDEX 40+ - TAINA RELY [...] 6 DULoxetine (CYMBALTA) 40 mg capsule Take 40 mg by mouth daily. ferrous sulfate 325 (65 FE) MG EC tablet Take 1 tablet (325 mg total) by shefali th daily. 30 tablet 6 fluocinolone acetonide oil 0.01 % Drop fluticasone propionate (FLONASE) 50 mcg/actuation nasal spray as needed. gabapentin (NEURONTIN) 100 MG capsule Take 1 capsule (100 mg total) by mouth 3 (three) times a day. As directed 270 capsule 3 gabapentin (NEURONTIN) 300 MG capsule Take 2 capsules (600 mg total) by mout h nightly. 180 capsule 3 HYDROcodone-acetaminophen (NORCO) 5-325 mg per tablet Take 1-2 tablets by mo uth as needed. hydroxychloroquine (PLAQUENIL) 200 mg tablet Take 2 tablets (400 mg total) b y mouth daily. 180 tablet 3 lisinopril (PRINIVIL,ZESTRIL) 20 MG tablet Take 20 mg by mouth daily. montelukast (SINGULAIR) 10 mg tablet Take 10 mg by mouth daily. nortriptyline (PAMELOR) 25 MG capsule Take 25 mg by mouth daily. nystatin (MYCOSTATIN) powder Apply topically as needed. semaglutide 0.25 mg or 0.5 mg(2 mg/1.5 [...] MAX DAILY DOSE: 300 MG 120 tablet 5 warfarin (COUMADIN) 5 MG tablet Take 5 mg by mouth 3 (three) times a week. M on, Wednesday, Wednesday as directed by INR metformin (GLUCOPHAGE-XR) 24 hr tablet 500 mg Take 1 tablet (500 mg total) b y mouth 2 (two) times a day before breakfast and dinner. 180 tablet 1 No current facility-administered medications for this visit. Objective: Hemoglobin A1c: Lab Results Component Value Date HGBA1C 6.5 12/12/2019 Health Maintenance Topic Date Due Td # 1980 Lipid Screening 1980 Diabetes Mellitus Ophthalmology Exam 1980 Pneumococcal Vaccine: Pediatrics (0 to 5 Years) and At-Risk Patients (6 to 6 4 Years) (1 of 1 - PPSV23) 1986 Diabetes Mellitus Foot Exam 1990 Diabetes Mellitus Hemoglobin A1C 01/25/2019 Influenza Vaccine (Season Ended) 2020 Cervical Cancer Screening via Pap Smear 07/28/2021 Physical Exam: Vitals: 12/12/19 1323 BP: 110/70 Pulse: 81 Weight: 133.1 kg (293 lb 8 oz) Height: 1.524 m (5') GEN: appears well - Body mass index is 57.32 kg/m., Vitals: 12/12/19 1323 Weight: 133.1 kg (293 lb 8 oz) HEENT: normal - PERRLA,/no proptosis/infection/; dentition adequate NECK: no thyroid enlargement or nodules/no adenopathy/carotids without bruits CV: RRR without Murmur; non-tachycardic RESP: clear - no increased WOB ABD: benign without organomegaly nor striae EXT: no edema' no evidence of venous insufficiency Neuro: non-focal; gait and balance appear normal/ cognitive function normal Psychiatric: mood DM Foot Exam Plan to complete at her next appointment Laboratories reviewed today as below: No results found for: CHOL, HDL, LDLCHOL, TRIG, CHOLHDL Initial consult on 12/12/2019 Component Date Value Hemoglobin A1C 12/12/2019 6.5 Please note: The content of this HPI, assessment, plan and patient instructions were generated using a [employer]) voice to text dictation system. In spite of my best efforts to edit this document to eliminate Zapproved ([employer]) related missta tements, some errors may persist. The patience and understanding of the reader is requested. documented in this encounter Plan of Treatment Care Team Description Date Type Specialty Anna Zavala IRONING MACHINE OPERATOR [address] [facility] [address] [place] [address] [phone] 05/01/2020 Video Visit Neurology Arlene Aguayo APRN [address] [place], [place] [id number] 05/15/2020 Office Visit Endocrinology Mina James MD [address] [facility] [address] [place] [address] [phone] 12/24/2020 Office Visit Medical Oncology Order Schedule Name Type Priority Associated Diag noses 1 Occurrences starting 12/12/2019 until 06/12/2020 Amb Referral To Outpatient Routine Suspected slee p apnea Pulmonology Referral documented as of this encounter Procedures Comments Procedure Name Priority Date/Time Associated Diag nosis POCT GLYCOSYLATED Routine 12/12/2019 Diabetes dannielle litus without HEMOGLOBIN (HGB A1C) 1:27 PM CDT complication (HC C) documented in this encounter Results * Microalbumin Random (12/12/2019 2:48 PM CDT) Creatinine 180.7 mg/dL [facility] Urine Random [facility] Lab Microalbumin 0.70Comment: Urine contains mg/dL [facility] int [facility] mg/dl large amount of blood. [facility] L ab presence of blood will cause spurious elevation of microalbumin results. Microalbumin/Cr 3.87 0.00 - 30.00 ug/mg [facility] Lab Specimen Urine Performing Organization Address City/[facility] Ph one Number [address] [address] LABORATORIES [facility] [address] [place] [phone] * Vitamin D, 25-Hydroxy (12/12/2019 2:48 PM CDT) Vitamin D 18 (L) 25 - 80 ng/mL [facility] 25-Hydroxy Comment: Hospital Lab Vitamin D 25-Hydroxy: Severe deficiency < 13 ng/mL Mild to moderate deficiency 13 - 24 ng/mL Optimum level 25 - 80 ng/mL Toxicity possible >80 ng/mL Specimen Blood Performing Organization Address City/[facility] Ph one Number [facility] [address] [place] [address] LABORATORIES [facility] [address] [place] [address] * Thyroid Peroxidase Antibody (12/12/2019 2:48 PM CDT) Thyroid 3.8 0.0 - 5.5 IU/mL [facility] Peroxidase [facility] Antibody Specimen Blood Performing Organization Address City/[facility] Ph one Number [facility] [address] [place] [address] LABORATORIES [facility] [address] [place] [address] * T3 Free (12/12/2019 2:48 PM CDT) T3 Free 3.3 1.7 - 3.7 pg/mL [facility] Specimen Blood Performing Organization Address [facility] Ph one Number [facility] [address] [place] [address] LABORATORIES [facility] [address] [place] [address] * T4 Free (12/12/2019 2:48 PM CDT) T4 Free 1.1 0.8 - 2.2 ng/dL [facility] Specimen Blood Performing Organization Address City/[facility] Ph one Number [facility] [address] [place] [phone] LABORATORIES [facility] [address] [place] [address] * Thyroid Stimulating Hormone (12/12/2019 2:48 PM CDT) Thyroid 1.50 0.47 - 4.68 uIU/mL [facility] Hormone Specimen Blood Performing Organization Address City/[facility] Ph one Number [facility] [address] [place] [phone] LABORATORIES [facility] [address] [place] [address] * POCT glycosylated hemoglobin (Hb A1C) (12/12/2019 1:27 PM CDT) Hemoglobin A1C 6.5Comment: % Specimen Blood documented in this encounter Visit Diagnoses Diagnosis Diabetes mellitus without complication (HCC) Type II or unspecified type diabetes me llitus without mention of complication, not stated as uncontrolled Sjogren's syndrome with keratoconjuncti vitis sicca (HCC) Lupus (HCC) Systemic lupus erythematosus Fibromyalgia Unspecified myalgia and myositis Factor 5 Leiden mutation, heterozygous (HCC) Suspected sleep apnea Long-term use of high-risk medication Screening for thyroid disorder Morbid obesity with BMI of 50.0-59.9, a dult (HCC) documented in this encounter
--- NOTE | 2020-03-18 12:35 | NUR ---
Pt was swabbed for COVID-19 testing bilateral nares (EXTRACTOR PLANT OPERATOR).
--- OUTSIDE RECORDS SUMMARY | 2020-03-18 12:35 | XMS REPORT | Encounter Summary ---
Author Author [facility] Organization [facility] Address Unknown Phone Unavailable Care Team Providers Care Service Rig Operator Name Role Phone Flaquita Quiles PCP Encounter Details Care Team Description Date Type Department Kvng Bauer RN 06/12/2019 Telephone [facility] [address] [facility] [address] [place], [place] [id number] Social History Date Tobacco Use Types Packs/Day [...] encounter Miscellaneous Notes * Telephone Encounter - Kvng Bauer RN - 06/12/2019 9:14 AM CDT Called patient to let her know patient would like her to increase her daily Iron pill to BID. Asked patient to call clinic if she finds she is having trouble to lerating the increase. Patient verbalized understanding. * Telephone Encounter - Kvng Bauer RN - 06/12/2019 9:14 AM CDT ----- Message from Mina James MD sent at 06/11/2019 9:02 PM CDT ----- Regarding: Patient Please let pt know to increase oral iron sulfate to 325mg BID documented in this encounter Plan of Treatment Care Team Description Date Type Specialty Anna Zavala, SPRING COILER [address] [address] [phone] 05/01/2020 Video Visit Neurology Arlene Aguayo, MENDING CARRIER [address] [facility] [address] [place] [address] [phone] 05/15/2020 Office Visit Endocrinology Mina James MD [address] [facility] [address] [place] [address] [phone] 12/24/2020 Office Visit Medical Oncology documented as of this encounter Visit Diagnoses Not on filedocumented in this encounter
--- OUTSIDE RECORDS SUMMARY | 2020-03-18 12:35 | XMS REPORT | Encounter Summary ---
Author Author [facility] Organization [facility] Address Unknown Phone Unavailable Care Team Providers Care Research Worker Encyclopedia Name Role Phone Flaquita Quiles PCP Reason for Visit * Reason Comments Other Encounter Details Care Team Description Date Type Department Mitch Vergara MD NO FORWARDING INFORMATION Other 03/31/2019 [facility] [address] [place] [address] Social History Date Tobacco Use Types Packs/Day Years Used Never Smoker Smokeless Tobacco: Never Used Drinks/Week oz/Week Comments Alcohol Use No Sex Assigned at Date Recorded Female Industry Job Start Date Occupation Not on file Not on file Not on file Travel End Travel History Travel Start No recent travel history available. documented as of this encounter Plan of Treatment Care Team Description Date Type Specialty Anna Zavala, INSTRUMENTATION TECH [address] [facility] [address] [place] [address] [phone] 05/01/2020 Video Visit Neurology Arlene Aguayo, CARLO [address] [facility] [address] [place] [address] [phone] 05/15/2020 Office Visit Endocrinology Mina James MD [address] [facility] [address] [place] [address] [phone] 12/24/2020 Office Visit Medical Oncology documented as of this encounter Visit Diagnoses Not on filedocumented in this encounter
--- OUTSIDE RECORDS SUMMARY | 2020-03-18 12:35 | XMS REPORT | Encounter Summary ---
Author Author [facility] Organization [facility] Address Unknown Phone Unavailable Care Team Providers Care Practice Representative Name Role Phone Flaquita Quiles PCP Reason for Visit * Reason Comments Other Encounter Details Care Team Description Date Type Department Mitch Vergara MD NO FORWARDING INFORMATION Other 05/10/2019 [facility] [address] [place], [place] [id number] Social History Date Tobacco Use Types Packs/Day [...] Team Description Date Type Specialty Anna Zavala, ELECTRICAL INSTRUMENT MAKER [address] [facility] [address] [place] [address] [phone] 05/01/2020 Video Visit Neurology Arlene Aguayo, CLOTH LAYER [address] [place] [address] [phone] 05/15/2020 Office Visit Endocrinology Mina James MD [address] [facility] [address] [place] [address] [phone] 12/24/2020 Office Visit Medical Oncology documented as of this encounter Visit Diagnoses Not on filedocumented in this encounter
--- OUTSIDE RECORDS SUMMARY | 2020-03-18 12:35 | XMS REPORT | Encounter Summary ---
Author Author [facility] Organization [facility] Address Unknown Phone Unavailable Care Team Providers Care Manager Agency Name Role Phone Flaquita Quiles PCP Reason for Visit * Reason Comments Medication Refill Encounter Details Care Team Description Date Type Department Mitch Vergara MD NO FORWARDING INFORMATION Medication Refill 04/05/2019 Refill [facility] [address] [place] [address] Social History Date Tobacco Use Types Packs/Day [...] Team Description Date Type Specialty Anna Zavala, VP COMPLIANCE [address] [facility] [address] [place] [address] [phone] 05/01/2020 Video Visit Neurology Arlene Aguayo, CARLO [address] [place] [address] [phone] 05/15/2020 Office Visit Endocrinology Mina James MD 4321 [facility] [address] [place] [address] [phone] 12/24/2020 Office Visit Medical Oncology documented as of this encounter Visit Diagnoses Diagnosis Sjogren's syndrome with keratoconjuncti vitis sicca (HCC) Fibromyalgia Unspecified myalgia and myositis documented in this encounter
--- OUTSIDE RECORDS SUMMARY | 2020-03-18 12:35 | XMS REPORT | Encounter Summary ---
Author Author [facility] Organization [facility] Address Unknown Phone Unavailable Care Team Providers Care Gate Watch Name Role Phone Flaquita Quiles PCP Encounter Details Care Team Description Date Type Department Mina James MD [address] [id number] 06/06/2019 Documentation [facility] [address] [place] [id number] Social History Date Tobacco Use Types Packs/Day [...] Description [place] [address] [facility] [facility] [address] [place] [address] [phone] 05/01/2020 Video Visit Neurology Arlene Aguayo, CARLO [address] [place] [address] [phone] 05/15/2020 Office Visit Endocrinology Mina James MD [address] [id number] 12/24/2020 Office Visit Medical Oncology documented as of this encounter Procedures Comments Procedure Name Priority Date/Time Associated Diag nosis LAB OUTSIDE RECORD Routine 06/06/2019 documented in this encounter Results * Lab Outside Record (06/06/2019) Specimen Blood Narrative Performed At This result has an attachment that is n ot available. documented in this encounter Visit Diagnoses Not on filedocumented in this encounter
--- OUTSIDE RECORDS SUMMARY | 2020-03-18 12:35 | XMS REPORT | Encounter Summary ---
Author Author [facility] Organization [facility] Address Unknown Phone Unavailable Care Team Providers Care Channel Process Plant Operator Name Role Phone Flaquita Quiles PCP Encounter Details Care Team Description Date Type Department Mina Jmaes MD [address] [id number] 10/30/2019 Documentation [facility] [address] [place] [address] [id number] Social History Date Tobacco Use Types Packs/Day [...] Description [place] [address] [address] [facility] [address] [place] [address] [phone] 05/01/2020 Video Visit Neurology Arlene Aguayo, CARLO [address] [place], [place] [phone] 05/15/2020 Office Visit Endocrinology Mina James MD [address] [id number] 12/24/2020 Office Visit Medical Oncology documented as of this encounter Procedures Comments Procedure Name Priority Date/Time Associated Diag nosis LAB OUTSIDE RECORD Routine 10/30/2019 documented in this encounter Results * Lab Outside Record (10/30/2019) Specimen Blood Narrative Performed At This result has an attachment that is n ot available. documented in this encounter Visit Diagnoses Not on filedocumented in this encounter
--- OUTSIDE RECORDS SUMMARY | 2020-03-18 12:35 | XMS REPORT | Encounter Summary ---
Author Author [facility] Organization [facility] Address Unknown Phone Unavailable Care Team Providers Care Unhairer Name Role Phone Flaquita Quiles PCP Reason for Referral * Consultation (Routine) Referred By Contact Referred To Contact Status Reason Specialty Diagnoses / Procedures Ida Butler APRN [address] [place] [address] [place] [address] Closed Specialty Services Endocrinology Diagnoses Required Fatigue Encounter Details Care Team Description Date Type Department Ida Butler SUPPLY COORDINATOR [address] [place] [address] [phone] Fatigue (Primary Dx) 11/14/2019 Transcribe [facility] - [address] [place] [address] Social History Date Tobacco Use [...] Team Description Date Type Specialty Anna Zavala, BOILER HOUSE OPERATOR [address] [facility] [address] [place], [place] [address] 05/01/2020 Video Visit Neurology Arlene Aguayo, SUPPLY COORDINATOR 4061 [facility] [address] [place] [address] [phone] 05/15/2020 Office Visit Endocrinology Mina James MD 4321 [facility] [address] [place] [address] [phone] 12/24/2020 Office Visit Medical Oncology Order Schedule Name Type Priority Associated Diag noses Ordered: 11/14/2019 Amb Referral To Outpatient Routine Fatigue Endocrinology Referral documented as of this encounter Visit Diagnoses Diagnosis Fatigue Other malaise and fatigue documented in this encounter
--- OUTSIDE RECORDS SUMMARY | 2020-03-18 12:35 | XMS REPORT | Encounter Summary ---
Author Author [facility] Organization [facility] Address Unknown Phone Unavailable Care Team Providers Care Break And Load Operator Name Role Phone Flaquita Quiles PCP Reason for Visit * Reason Comments Lab orders Encounter Details Care Team Description Date Type Department Mitch Vergara MD NO FORWARDING INFORMATION Lab orders 05/29/2019 Telephone [facility] [address] [place] [address] Social History Date Tobacco Use [...] Telephone Encounter - Francie Bailey RN - 05/31/2019 12:44 PM CDT Patient notified and verbalized understanding. * Telephone Encounter - Haydee Leon RN - 05/30/2019 2:33 PM CDT Left message to call clinic * Telephone Encounter - Mitch Vergara MD - 05/30/2019 11:02 AM CDT Nothing needed on my end * Telephone Encounter - Francie Bailey RN - 05/29/2019 12:02 PM CDT Patient called requesting if Dr. Vergara wants any labs done before her appointm ent she wants the orders faxed to the [facility]. Their phone number is [phone] so we can call and get fax number. Patient has an appointment on 06/16/19, are there any l abs that need to be done? documented in this encounter Plan of Treatment Care Team Description [place] [address] [facility] [address] [place], [place] [address] 05/01/2020 Video Visit Neurology Arlene Aguayo APRN 4061 [facility] [address] [place] [address] 05/15/2020 Office Visit Endocrinology Mina James MD 4321 [facility] [address] [place] [address] [phone] 12/24/2020 Office Visit Medical Oncology documented as of this encounter Visit Diagnoses Not on filedocumented in this encounter
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
--- OUTSIDE RECORDS SUMMARY | 2020-03-18 12:35 | XMS REPORT | Encounter Summary ---
Author Author [facility] Organization [facility] Address Unknown Phone Unavailable Care Team Providers Care Game Technician Name Role Phone Flaquita Quiles PCP Reason for Visit * Reason Comments Other Encounter Details Care Team Description Date Type Department Mitch Vergara MD NO FORWARDING INFORMATION Other 02/07/2019 [facility] [address] [place] [address] Social History Date Tobacco Use [...] Team Description Date Type Specialty Anna Zavala, PAYMASTER OF PURSES [address] [facility] [address] [place] [address] [phone] 05/01/2020 Video Visit Neurology Arlene Aguayo, CARLO 4061 [facility] [address] [place] [address] [phone] 05/15/2020 Office Visit Endocrinology Mina James MD 4321 [facility] [address] [place] [address] [phone] 12/24/2020 Office Visit Medical Oncology documented as of this encounter Visit Diagnoses Not on filedocumented in this encounter
--- OUTSIDE RECORDS SUMMARY | 2020-03-18 12:35 | XMS REPORT | Encounter Summary ---
Author Author [facility] Organization [facility] Address Unknown Phone Unavailable Care Team Providers Care Drum Dyeing Machine Operator Name Role Phone Flaquita Quiles PCP Encounter Details Care Team Description Date Type Department Cami Frederick RN 11/03/2019 Telephone [facility] 4321 [facility] [address] [place], [place] [id number] Social History Date Tobacco Use Types Packs/Day [...] encounter Miscellaneous Notes * Telephone Encounter - Cami Frederick RN - 11/03/2019 10:41 AM RANGE EXAMINER RN called and spoke with patient. RN let patient know that per Dr. James her hemo globin looks good and we will continue to monitor. RN asked patient if she had b een seen for her menorrhagia. Patient stated she had not. RN encouraged the heidy ent to call with any other questions or concerns. E EXAMINER documented in this encounter Plan of Treatment Care Team Description Date Type Specialty Anna Zavala, PINION STAKER [address] [address] [place] [address] 05/01/2020 Video Visit Neurology Arlene Aguayo, DRAWING MACHINE OPERATOR [address] [place] [address] 05/15/2020 Office Visit Endocrinology Mina James MD [facility] [address] [address] [phone] 12/24/2020 Office Visit Medical Oncology documented as of this encounter Visit Diagnoses Not on filedocumented in this encounter
--- OUTSIDE RECORDS SUMMARY | 2020-03-18 12:35 | XMS REPORT | Encounter Summary ---
Author Author [facility] Organization [facility] Address Unknown Phone Unavailable Care Team Providers Care Educational Therapy Teacher Name Role Phone Flaquita Quiles PCP Encounter Details Care Team Description Date Type Department Cami Frederick RN 11/02/2019 Telephone [facility] 4321 [facility] [address] [place], [place] [phone] Social History Date Tobacco Use Types Packs/Day [...] Telephone Encounter - Cami Frederick RN - 11/02/2019 3:33 PM WOOD MILLER RN called and LVM for patient. RN left call back number and encouraged the patie nt to call. RN needing to let the patient know that per Dr. James the patient's hemoglobin is stable. RN also wanting to discuss if patient was seen at for menorrhagia MILLER documented in this encounter Plan of Treatment Care Team Description [place] [address] [address] [address] [place] [address] 05/01/2020 Video Visit Neurology Arlene Aguayo APRN [address] [place] [address] 05/15/2020 Office Visit Endocrinology Mina James MD [address] [address] [phone] 12/24/2020 Office Visit Medical Oncology documented as of this encounter Visit Diagnoses Not on filedocumented in this encounter
--- OUTSIDE RECORDS SUMMARY | 2020-03-18 12:35 | XMS REPORT | Encounter Summary ---
Author Author [facility] Organization [facility] Address Unknown Phone Unavailable Care Team Providers Care Mule Developer Name Role Phone Flaquita Quiles PCP Encounter Details Care Team Description Date Type Department Wilda Olmstead NP [address] [phone] Factor V Leiden mutation (HCC); Recurrent deep vein thrombosis (DVT) (HCC) 02/02/2019 Lab [facility] [address] [address] Social History Date Tobacco Use Types Packs/Day [...] Description Date [place] [address] [place] [address] [place] [address] [phone] 05/01/2020 Video Visit Neurology Arlene Aguayo APRN [address] [place] [address] 05/15/2020 Office Visit Endocrinology Mina James MD [address] [id number] 12/24/2020 Office Visit Medical Oncology documented as of this encounter Procedures Comments Procedure Name Priority Date/Time Associated Diag nosis VITAMIN B12 Routine 02/02/2019 Factor V Leiden mutation 10:15 AM CDT (HCC) Recurrent deep vein thrombosis (DVT) (HCC) IRON/TRANSFERRIN Routine 02/02/2019 Factor V Leid en mutation 10:15 AM CDT (HCC) Recurrent deep vein thrombosis (DVT) (HCC) FOLATE Routine 02/02/2019 Factor V Leiden mutation 10:15 AM CDT (HCC) Recurrent deep vein thrombosis (DVT) (HCC) FERRITIN Routine 02/02/2019 Factor V Leiden mutation 10:15 AM CDT (HCC) Recurrent deep vein thrombosis (DVT) (HCC) CBC AND DIFF (MANUAL DIFF Routine 02/02/2019 Fact or V Leiden mutation IF NECESSARY) 10:15 AM CDT (HCC) Recurrent deep vein thrombosis (DVT) (HCC) documented in this encounter Results * Folate (02/02/2019 10:15 AM CDT) Folate >20.0 (H) 3.4 - 20.0 ng/mL [facility] Specimen Blood Performing Organization Address [facility] one Number [address] [address] LABORATORIES * Vitamin B12 (02/02/2019 10:15 AM CDT) VITAMIN B12 853 239 - 931 pg/mL [facility] Specimen Blood Performing Organization Address City/[facility] Ph one Number [address] [address] LABORATORIES * Ferritin (02/02/2019 10:15 AM CDT) Ferritin 54 20 - 200 ng/mL [facility] Specimen Blood Performing Organization Address [facility] Ph one Number [address] [address] LABORATORIES * Iron/Transferrin (02/02/2019 10:15 AM CDT) Iron 107 50 - 180 ug/dL [facility] Transferrin 273 206 - 381 mg/dL [facility] Total 328 204 - 408 ug/dL [facility] Iron-Binding [facility] Capacity LABORATORIES Iron/Transferri 33 15 - 50 % [facility] % Saturation [facility] Specimen Blood Performing Organization Address [facility] one Number [facility] [address] [place] [address] LABORATORIES * CBC and Diff (manual diff if necessary) (02/02/2019 10:15 AM CDT) WBC 5.9 4.0 - 11.0 TH/uL [facility] RBC 4.99 4.00 - 5.00 MIL/uL [facility] Hemoglobin 14.4 12.0 - 15.0 g/dL [facility] Hematocrit 43 36 - 45 % [facility] MCV 86 80 - 99 fL [facility] MCH 29 27 - 34 pg [facility] MCHC 33 32 - 36 % [facility] RDW 12.9 11.5 - 14.5 % [facility] Platelet Count 235 140 - 400 TH/uL [facility] MPV 8.8 (L) 9.4 - 12.3 fL [facility] % Neutrophils 68 45 - 78 % [facility] %Lymphocytes 26 15 - 47 % [facility] %Monocytes 6Comment: The %Monos may 0 - 12 % [facility] include Monocytes, REGIONAL Eosinophils, Basophils, Blasts LABORATORIES and other immature white cells. # Granulocytes 4.1 1.7 - 6.8 TH/uL [facility] # Lymphocytes 1.5 1.0 - 3.3 TH/uL [facility] # Monocytes 0.3 0.2 - 0.9 TH/uL [facility] Specimen Blood Performing Organization Address City/[facility] one Number [facility] [address] [place] [address] LABORATORIES documented in this encounter Visit Diagnoses Diagnosis Factor V Leiden mutation (HCC) Primary hypercoagulable state Recurrent deep vein thrombosis (DVT) (H CC) documented in this encounter
--- OUTSIDE RECORDS SUMMARY | 2020-03-18 12:35 | XMS REPORT | Encounter Summary ---
Author Author [facility] Organization [facility] Address Unknown Phone Unavailable Care Team Providers Care Sales Professional Bilingual Name Role Phone Flaquita Quiles PCP Reason for Visit * Reason Comments Other Encounter Details Care Team Description Date Type Department Mitch Vergara MD NO FORWARDING INFORMATION Other 02/20/2019 [facility] [address] [place] [address] Social History Date Tobacco Use [...] Team Description Date Type Specialty Anna Zavala, BOILERHOUSE MECHANIC [address] [facility] [address] [place] [address] [phone] 05/01/2020 Video Visit Neurology Arlene Aguayo, CARLO 4061 [facility] [address] [place] [address] [phone] 05/15/2020 Office Visit Endocrinology Mina James MD 4321 [facility] [address] [place] [address] [phone] 12/24/2020 Office Visit Medical Oncology documented as of this encounter Visit Diagnoses Not on filedocumented in this encounter
--- OUTSIDE RECORDS SUMMARY | 2020-03-18 12:35 | XMS REPORT | Encounter Summary ---
Author Author [facility] Organization [facility] Address Unknown Phone Unavailable Care Team Providers Care Hot Metal Charger Name Role Phone Flaquita Quiles PCP Encounter Details Care Team Description Date Type Department Mina James MD [address] [phone] 10/30/2019 Documentation [facility] [address] [place] [phone] Social History Date Tobacco Use Types Packs/Day [...] Description [place] [address] [place] [address] [place] [address] [phone] 05/01/2020 Video Visit Neurology Arlene Aguayo, CARLO [address] [place], [place] [phone] 05/15/2020 Office Visit Endocrinology Mina James MD [address] [phone] 12/24/2020 Office Visit Medical Oncology documented as [...]
--- OUTSIDE RECORDS SUMMARY | 2020-03-18 12:35 | XMS REPORT | Encounter Summary ---
Author Author [facility] Organization [facility] Address Unknown Phone Unavailable Care Team Providers Care Machine Cloth Trimmer Name Role Phone Flaquita Quiles PCP Encounter Details Care Team Description Date Type Department Mina James MD [address] [phone] 06/06/2019 Documentation [facility] [address] [place] [phone] Social History Date Tobacco Use Types Packs/Day [...] Description [place] [address] [place] [address] [place] [address] [phone] 05/01/2020 Video Visit Neurology Arlene Aguayo, CARLO [address] [place] [address] [phone] 05/15/2020 Office Visit Endocrinology Mina James MD [address] [phone] 12/24/2020 Office Visit Medical Oncology documented as [...]
--- OUTSIDE RECORDS SUMMARY | 2020-03-18 12:35 | XMS REPORT | Encounter Summary ---
Author Author [facility] Organization [facility] Address Unknown Phone Unavailable Care Team Providers Care Director Of Philanthropy Name Role Phone Flaquita Quiles PCP Encounter Details Care Team Description Date Type Department Mina James MD 4321 [facility] [address] [place] [address] 06/05/2019 Telephone [facility] [address] [facility] [address] [place] [address] Social History Date Tobacco Use Types Packs/Day [...] encounter Miscellaneous Notes * Telephone Encounter - Yue Fritz MA - 06/05/2019 10:07 AM CDT MAYRA lvm letting pt know she needs to have labs prior to upcoming appt. Encouraged pt to call if she is unable to do labs. documented in this encounter Plan of Treatment Care Team Description Date Type Specialty Anna Zavala, PHARMACY SCHEDULER [address] [address] [place] [address] 05/01/2020 Video Visit Neurology Arlene Aguayo, CARLO [address] [place] [address] 05/15/2020 Office Visit Endocrinology Mina James MD [facility] [address] [address] [phone] 12/24/2020 Office Visit Medical Oncology documented as of this encounter Visit Diagnoses Not on filedocumented in this encounter
--- OUTSIDE RECORDS SUMMARY | 2020-03-18 12:35 | XMS REPORT | Encounter Summary ---
Author Author [facility] Organization [facility] Address Unknown Phone Unavailable Care Team Providers Care Presto Log Operator Name Role Phone Flaquita Quiles PCP Reason for Visit * Reason Comments Other Encounter Details Care Team Description Date Type Department Mitch Vergara MD NO FORWARDING INFORMATION Other 10/28/2019 [facility] [address] [place], [place] [phone] Social History Date Tobacco Use Types Packs/Day [...] Team Description Date Type Specialty Anna Zavala, PLASTIC CNC MACHINE OPERATOR [address] [facility] [address] [place] [address] [phone] 05/01/2020 Video Visit Neurology Arlene Aguayo, WORM FARMER [address] [place] [address] [phone] 05/15/2020 Office Visit Endocrinology Mina James MD 4321 [facility] [address] [place] [address] [phone] 12/24/2020 Office Visit Medical Oncology documented as of this encounter Visit Diagnoses Not on filedocumented in this encounter
--- OUTSIDE RECORDS SUMMARY | 2020-03-18 12:35 | XMS REPORT | Encounter Summary ---
Author Author [facility] Organization [facility] Address Unknown Phone Unavailable Care Team Providers Care Production Inspector Name Role Phone Flaquita Quiles PCP Encounter Details Care Team Description Date Type Department Mina James MD [address] [phone] 06/06/2019 Documentation [facility] [address] [place] [phone] Social History Date Tobacco Use Types Packs/Day [...] Description [place] [address] [place] [address] [place] [address] [phone] 05/01/2020 Video Visit Neurology Arlene Aguayo, CARLO [address] [place] [address] [phone] 05/15/2020 Office Visit Endocrinology Mina James MD [address] [phone] 12/24/2020 Office Visit Medical Oncology documented as [...]
--- OUTSIDE RECORDS SUMMARY | 2020-03-18 12:35 | XMS REPORT | Encounter Summary ---
Author Author [facility] Organization [facility] Address Unknown Phone Unavailable Care Team Providers Care Lithographic Stripper Name Role Phone Flaquita Quiles PCP Reason for Visit * Reason Comments Medication Refill Encounter Details Care Team Description Date Type Department Mitch Vergraa MD NO FORWARDING INFORMATION Medication Refill 12/01/2019 Telephone [facility] [address] [place] [address] Social History Date Tobacco Use [...] encounter Miscellaneous Notes * Telephone Encounter - Mitch Vergara MD - 12/11/2019 9:06 AM CDT Please do this for me * Telephone Encounter - Francie Bailey RN - 12/01/2019 9:27 AM CDT Patient called asking to have her hydroxychloroquine prescription transferred to [facility] in [place] because her "normal" pharmacy dies not have the medicine and will not be getting any soon, prescription sent. documented in this encounter Plan of Treatment Care Team Description Date Type Specialty Anna Zavala, RETAIL AREA MANAGER [address] [address] [phone] 05/01/2020 Video Visit Neurology Arlene Aguayo, CLINICAL VETERINARIAN 4061 [facility] [address] [place] [address] [phone] 05/15/2020 Office Visit Endocrinology Mina James MD 4321 [facility] [address] [place] [address] [phone] 12/24/2020 Office Visit Medical Oncology documented as of this encounter Visit Diagnoses Diagnosis Sjogren's syndrome with keratoconjuncti vitis sicca (HCC) Lupus (HCC) Systemic lupus erythematosus documented in this encounter
--- OUTSIDE RECORDS SUMMARY | 2020-03-18 12:35 | XMS REPORT | Encounter Summary ---
Author Author [facility] Organization [facility] Address Unknown Phone Unavailable Care Team Providers Care Clinical Trials Data Coordinator Name Role Phone Flaquita Quiles PCP Encounter Details Care Team Description Date Type Department Mina James MD [address] [phone] 06/06/2019 Documentation [facility] [address] [place] [phone] Social History Date Tobacco Use Types Packs/Day [...] Description [place] [address] [place] [address] [place] [address] [phone] 05/01/2020 Video Visit Neurology Arlene Aguayo, CARLO [address] [place] [address] [phone] 05/15/2020 Office Visit Endocrinology Mina James MD [address] [phone] 12/24/2020 Office Visit Medical Oncology documented as [...]
--- OUTSIDE RECORDS SUMMARY | 2020-03-18 12:35 | XMS REPORT | Encounter Summary ---
Author Author [facility] Organization [facility] Address Unknown Phone Unavailable Care Team Providers Care Shadow Graph Weight Operator Name Role Phone Flaquita Quiles PCP Reason for Visit * Reason Comments Medication Refill Encounter Details Care Team Description Date Type Department Mitch Vergara MD NO FORWARDING INFORMATION Medication Refill 05/25/2019 Refill [facility] [address] [place] [address] Social History Date Tobacco Use Types Packs/Day [...] Team Description Date Type Specialty Anna Zavala, WIRE COMMUNICATIONS ENGINEER [address] [facility] [address] [place] [address] [phone] 05/01/2020 Video Visit Neurology Arlene Aguayo, CARLO [address] [place] [address] [phone] 05/15/2020 Office Visit Endocrinology Mina James MD 4321 [facility] [address] [place] [address] [phone] 12/24/2020 Office Visit Medical Oncology documented as of this encounter Visit Diagnoses Diagnosis Sjogren's syndrome with keratoconjuncti vitis sicca (HCC) documented in this encounter
--- OUTSIDE RECORDS SUMMARY | 2020-03-18 12:35 | XMS REPORT | Encounter Summary ---
Author Author [facility] Organization [facility] Address Unknown Phone Unavailable Care Team Providers Care Systems Development Consultant Name Role Phone Flaquita Quiles PCP Reason for Visit * Reason Comments Eloy's 6 month follow up visit Lupus Encounter Details Care Team Description Date Type Department Mitch Vergara MD NO FORWARDING INFORMATION Sjogren's syndrome with keratoconjunctiv itis sicca (HCC) (Primary Dx); Sacroiliac joint dysfunction of both sides; Lupus (HCC); Arthritis 06/16/2019 Office Visit [facility] [address] [place], [place] [id number] Social History Date Tobacco Use Types Packs/Day [...] Signs Reading Time Taken Comments Vital Sign 124/81 06/16/2019 1:36 PM CDT Blood Pressure 81 06/16/2019 1:36 PM CDT Pulse 36.8 C (98.2 F) 06/16/2019 1:36 PM CDT Temperature 18 06/16/2019 1:36 PM CDT Respiratory Rate 98% 06/16/2019 1:36 PM CDT Oxygen Saturation - - Inhaled Oxygen Concentration 124.2 kg (273 lb 12.8 oz) 06/16/2019 1:36 PM CDT Weight 152.4 cm (5') 06/16/2019 1:36 PM CDT Height 53.47 06/16/2019 1:36 PM CDT Body Mass Index documented in this encounter Progress Notes * Mitch Vergara MD - 06/16/2019 1:30 PM CDT Patient ID: Deysi Cisse is a 39 y.o. female. Subjective: Patient presents with Sjorgen's (6 month follow up visit) and Lupus 39-year-old female with chronic Sjogren's and fibromyalgia. She is had increasi ng dry mouth and dry eyes. She has not tried sialagogues previously. Maintain gabapentin and duloxetine. She is been tolerating the 40 mg dose and is willing to try raising to 60. She continue to work on routine exercise Review of Systems Constitutional: Positive for malaise/fatigue. HENT: Negative. Dry mouth Eyes: Negative. Dry eyes Respiratory: Negative. Negative for shortness of breath. Cardiovascular: Negative. Negative for chest pain. Gastrointestinal: Negative. Genitourinary: Negative. Musculoskeletal: Positive for back pain, joint pain, myalgias and neck pain. Skin: Negative. Neurological: Negative. Negative for headaches. Endo/Heme/Allergies: Negative. Psychiatric/Behavioral: Negative. All other systems reviewed and are negative. Allergies: Allergies Allergen Reactions Aspirin Hives Medications: Outpatient Medications Marked as Taking for the 06/16/19 encounter (Office Visit) with Mitch Vergara MD Medication Sig Dispense Refill cyanocobalamin, vitamin B-12, 1,000 mcg Subl Dissolve 1,000 mcg under the to ngue daily. 30 each 6 DULoxetine (CYMBALTA) 60 mg capsule Take 1 capsule (60 mg total) by mouth da breann. 30 [...] nystatin (MYCOSTATIN) powder Apply topically as needed. phentermine (ADIPEX-P) 37.5 mg tablet Take 37.5 mg by mouth daily. tiZANidine (ZANAFLEX) 4 MG tablet Take 4 [...] , Wednesday, Wednesday as directed by INR [DISCONTINUED] DULoxetine (CYMBALTA) 40 mg capsule Take 1 capsule (40 mg tot al) by mouth daily. 30 capsule 11 [DISCONTINUED] traMADol (ULTRAM) 50 mg tablet Take 1-2 tablets (50-100 mg to wei) by mouth 3 (three) times a day as needed for pain. Max Daily Dose: 300 mg 1 20 tablet 5 History: Past Medical History: Diagnosis Date Abnormal uterine bleeding (AUB) 10/14/2015 Arthritis Constipation Depression Diabetes (HCC) Diabetes mellitus without complication (HCC) Factor 5 Leiden mutation, heterozygous (HCC) Fibromyalgia HELLP (hemolytic anemia/elev liver enzymes/low platelets in ) 07/02 17 History of DVT (deep vein thrombosis) 03/26/2016 Intertrigo 10/29/2015 Overview: Nystatin powder Irregular menses [facility] current use of anticoagulant 11/09/2018 Lupus (HCC) Morbid obesity with BMI of 50.0-59.9, adult (HCC) Patient is Jewish 04/06/2017 Pre-eclampsia in third trimester 04/21/2017 Pulmonary [...] Maternal Aunt 55 Breast cancer Maternal Great-Grandmother Vitals: BP 124/81 | Pulse 81 | Temp 36.8 C (98.2 F) (Oral) | Resp 18 | Ht 1.524 m (5') | Wt 124.2 kg (273 lb 12.8 oz) | SpO2 98% | BMI 53.47 kg/m Objective: Physical Exam: Physical Exam Constitutional: She appears well-developed and well-nourished. Chronically overweight HENT: Head: Normocephalic and atraumatic. Nose: Nose normal. Dry mouth no oral ulcers Eyes: Pupils are equal, round, and reactive to light. Conjunctivae and EOM are n ormal. Neck: Normal range of motion. Neck supple. Cardiovascular: Normal rate, regular rhythm and normal heart sounds. Pulmonary/Chest: Effort normal and breath sounds normal. Abdominal: Soft. Musculoskeletal: No joint swelling. Multiple fibromyalgia tender points Neurological: She is alert. Skin: Skin is warm and dry. Psychiatric: She has a normal mood and affect. Her behavior is normal. Nursing note and vitals reviewed. Data: No results found. No visits with results within 120 Day(s) from this visit. Latest known visit with results is: Lab on 02/02/2019 Component Date Value Ref Range Status WBC 02/02/2019 5.9 4.0 - 11.0 TH/uL Final RBC 02/02/2019 4.99 4.00 - 5.00 MIL/uL Final Hemoglobin 02/02/2019 14.4 12.0 - 15.0 g/dL Final Hematocrit 02/02/2019 43 36 - 45 % Final MCV 02/02/2019 86 80 - 99 fL Final MCH 02/02/2019 29 27 - 34 pg Final MCHC 02/02/2019 33 32 - 36 % Final RDW 02/02/2019 12.9 11.5 - 14.5 % Final Platelet Count 02/02/2019 235 140 - 400 TH/uL Final MPV 02/02/2019 8.8* 9.4 - 12.3 fL Final % Neutrophils 02/02/2019 68 45 - 78 % Final %Lymphocytes 02/02/2019 26 15 - 47 % Final %Monocytes 02/02/2019 6 0 - 12 % Final # Granulocytes 02/02/2019 4.1 1.7 - 6.8 TH/uL Final # Lymphocytes 02/02/2019 1.5 1.0 - 3.3 TH/uL Final # Monocytes 02/02/2019 0.3 0.2 - 0.9 TH/uL Final Iron 02/02/2019 107 50 - 180 ug/dL Final Transferrin 02/02/2019 273 206 - 381 mg/dL Final Total Iron-Binding Capacity 02/02/2019 328 204 - 408 ug/dL Final Iron/Transferrin % Saturation 02/02/2019 33 15 - 50 % Final Ferritin 02/02/2019 54 20 - 200 ng/mL Final VITAMIN B12 02/02/2019 853 239 - 931 pg/mL Final Folate 02/02/2019 >20.0* 3.4 - 20.0 ng/mL Final Assessment and Plan: Encounter Diagnoses Name Primary? Sjogren's syndrome with keratoconjunctivitis sicca (HCC) Yes Sacroiliac joint dysfunction of both sides Lupus (HCC) Arthritis 1. Sjogren's syndrome, increased activity 2. Chronic fibromyalgia syndrome Plan is to increase duloxetine to 60 mg daily, refill tramadol. She takes appro priately no signs of misuse or diversion. Add Salagen on an as-needed basis. F ollow-up 6 months. I recommended flu shot and the patient deferred Orders Placed This Encounter DULoxetine (CYMBALTA) 60 mg capsule Sig: Take 1 capsule (60 mg total) by mouth daily. Dispense: 30 capsule Refill: 11 traMADol (ULTRAM) 50 mg tablet Sig: Take 1-2 tablets (50-100 mg total) by mouth 3 (three) times a day as need ed for pain. Max Daily Dose: 300 mg Dispense: 120 tablet Refill: 5 pilocarpine (SALAGEN) 5 MG tablet Sig: Take 1 tablet (5 mg total) by mouth 3 (three) times a day. Dispense: 90 tablet Refill: 5 Parts of this note were comprised using [employer] voice recognition software and bennie reynolds account for transcriptional errors. documented in this encounter Plan of Treatment Care Team Description Date Type Specialty Anna Zavala, WARDROBE SUPERVISOR [address] [facility] [address] [place] [address] [phone] 05/01/2020 Video Visit Neurology Arlene Aguayo, PORT CAPTAIN 4061 [facility] [address] [place] [address] [phone] 05/15/2020 Office Visit Endocrinology Mina James MD 4321 [facility] [address] [place] [address] [phone] 12/24/2020 Office Visit Medical Oncology documented as of this encounter Visit Diagnoses Diagnosis Sjogren's syndrome with keratoconjuncti vitis sicca (HCC) Sacroiliac joint dysfunction of both [place] Lupus (HCC) Systemic lupus erythematosus Arthritis Unspecified arthropathy, site unspecifi ed documented in this encounter"
--- OUTSIDE RECORDS SUMMARY | 2020-03-18 12:36 | XMS REPORT | Encounter Summary ---
Author Author [facility] Organization [facility] Address Unknown Phone Unavailable Care Team Providers Care Virtual Office Assistant Name Role Phone Flaquita Quiles PCP Encounter Details Care Team Description Date Type Department Yodit Fox RN 11/09/2018 Abstract [facility] [address] [facility] [place] [address] Social History Date Tobacco Use Types Packs/Day [...] Team Description Date Type Specialty Anna Zavala, UTILIZATION MANAGER [address] [facility] [address] [place] [address] [phone] 05/01/2020 Video Visit Neurology Arleen Aguayo APRN [address] [place] [address] [phone] 05/15/2020 Office Visit Endocrinology Mina James MD [address] [facility] [address] [place] [address] [phone] 12/24/2020 Office Visit Medical Oncology documented as of this encounter Visit Diagnoses Diagnosis MCC current use of anticoagulant documented in this encounter
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
--- OUTSIDE RECORDS SUMMARY | 2020-03-18 12:36 | XMS REPORT | Encounter Summary ---
Author Author [facility] Organization [facility] Address Unknown Phone Unavailable Care Team Providers Care Reproduction Specialist Name Role Phone Flaquita Quiles PCP Encounter Details Care Team Description Date Type Department Romina Gordon MD [address] [facility], [address] [place] [address] [phone] 08/23/2018 Telephone [facility] [address] [place] [address], [address] [place] [address] Social History Date Tobacco Use Types Packs/Day Years Used Never Smoker Smokeless Tobacco: Never Used Drinks/Week oz/Week Comments Alcohol Use No Sex Assigned at Date Recorded Female Industry Job Start Date Occupation Not on file Not on file Not on file Travel End Travel History Travel Start No recent travel history available. documented as of this encounter Miscellaneous Notes * Telephone Encounter - Romina Gordon MD - 08/23/2018 2:33 PM SHUTTLE FITTING SUPERVISOR Attempted calling patient on both her listed numbers. No answer on her mobile an d it did not have a voicemail set up. Her home phone gave a busy signal. I will attempt to call her again tomorrow. TLE FITTING SUPERVISOR documented in this encounter Plan of Treatment Care Team Description Date Type Specialty Anna Zavala, JEANETTE [address] [place], [place] [address] 05/01/2020 Video Visit Neurology Arlene Aguayo, HAND SHAKER [address] [place] [address] [phone] 05/15/2020 Office Visit Endocrinology Mina James MD [address] [place] [address] [phone] 12/24/2020 Office Visit Medical Oncology documented as of this encounter Visit Diagnoses Not on filedocumented in this encounter
--- OUTSIDE RECORDS SUMMARY | 2020-03-18 12:36 | XMS REPORT | Encounter Summary ---
Author Author [facility] Organization [facility] Address Unknown Phone Unavailable Care Team Providers Care Trial Attorney Name Role Phone Flaquita Quiles PCP Reason for Visit * Reason Comments Fibromyalgia Sjorgen Encounter Details Care Team Description Date Type Department Mitch Vergara MD NO FORWARDING INFORMATION Sjogren's syndrome with keratoconjunctiv itis sicca (HCC) (Primary Dx); Fibromyalgia 12/16/2018 Office Visit [facility] [address], [place] [id number] Social History Date Tobacco Use Types Packs/Day [...] Signs Reading Time Taken Comments Vital Sign 132/62 12/16/2018 1:18 PM CDT Blood Pressure 91 12/16/2018 1:18 PM CDT Pulse 36.8 C (98.2 F) 12/16/2018 1:18 PM CDT Temperature 18 12/16/2018 1:18 PM CDT Respiratory Rate 95% 12/16/2018 1:18 PM CDT Oxygen Saturation - - Inhaled Oxygen Concentration 129.3 kg (285 lb) 12/16/2018 1:18 PM CDT Weight 152.4 cm (5') 12/16/2018 1:18 PM CDT Height 55.66 12/16/2018 1:18 PM CDT Body Mass Index documented in this encounter Progress Notes * Mitch Vergara MD - 12/16/2018 1:15 PM CDT Patient ID: Desyi Cisse is a 38 y.o. female. Subjective: Patient presents with Fibromyalgia and Sjorgen 38-year-old female with chronic fibro-myalgia and Sjogren's syndrome. She nasrin nues to have daily pain. It is helped with tizanidine and tramadol. She cannot tolerate higher doses of gabapentin or duloxetine. She gets a lot of fatigue w ith both knees. Patient has been walking and has lost 18 pounds Review of Systems Constitutional: Positive for malaise/fatigue. HENT: Negative. Eyes: Negative. Respiratory: Negative. Cardiovascular: Negative. Gastrointestinal: Negative. Genitourinary: Negative. Musculoskeletal: Positive for back pain and myalgias. Skin: Negative. Negative for rash. Neurological: Negative. Endo/Heme/Allergies: Negative. Psychiatric/Behavioral: Positive for depression. The patient is nervous/anxious. All other systems reviewed and are negative. Allergies: Allergies Allergen Reactions Aspirin Hives Medications: Outpatient Prescriptions Marked as Taking for the 12/16/18 encounter (Office Visit ) with Mitch Vergara MD Medication Sig Dispense [...] capsule Take 25 mg by mouth daily. tiZANidine (ZANAFLEX) 4 [...] as directed by INR [DISCONTINUED] DULoxetine (CYMBALTA) 30 mg capsule Take 30 mg by mouth daily . [DISCONTINUED] traMADol (ULTRAM) 50 mg tablet Take [...] 10/29/2015 Overview: Nystatin powder Irregular menses senior care current use of anticoagulant 11/09/2018 Lupus Morbid obesity with BMI of 50.0-59.9, adult (HCC) Patient is [employer] 04/06/2017 Pre-eclampsia in third trimester 04/21/2017 Sacroiliac joint dysfunction of both sides 12/31/2015 Sjogren's disease (HCC) Sjogren's syndrome with keratoconjunctivitis sicca (HCC) 12/28/2016 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 Past Surgical History: Procedure Laterality Date ANTERIOR CRUCIATE LIGAMENT REPAIR Left CHOLECYSTECTOMY 09/2017 KNEE SURGERY Left TONSILLECTOMY Family History Problem Relation Age of Onset Diabetes Mother Hypertension Mother Diabetes Father COPD Father Diabetes Sister Hypertension Sister Vitals: BP 132/62 | Pulse 91 | Temp 36.8 C (98.2 F) (Oral) | Resp 18 | Ht 1.524 m (5') | Wt 129.3 kg (285 lb) | SpO2 95% | BMI 55.66 kg/m Objective: Physical Exam: Physical Exam Constitutional: She appears well-developed and well-nourished. HENT: Head: Normocephalic and atraumatic. Nose: Nose normal. Mouth/Throat: Oropharynx is clear and moist. Eyes: Pupils are equal, round, and reactive to light. Conjunctivae and EOM are n ormal. Neck: Normal range of motion. Neck supple. Cardiovascular: Normal rate, regular rhythm and normal heart sounds. Pulmonary/Chest: Effort normal and breath sounds normal. Abdominal: Soft. Musculoskeletal: No synovitis in hands or feet Neurological: She is alert. Skin: Skin is warm and dry. Psychiatric: She has a normal mood and affect. Her behavior is normal. Nursing note and vitals reviewed. Data: No results found. Hospital Outpatient Visit on 12/07/2018 Component Date Value Ref Range Status Ejection Fraction 12/08/2018 86 % Final Calcium Score 12/08/2018 1.6 Final Initial consult on 11/15/2018 Component Date Value Ref Range Status QRSd 11/15/2018 80 Final QT 11/15/2018 380 Final QTC 11/15/2018 452 Final ECGHR 11/15/2018 85 Final ECGPR 11/15/2018 152 Final Assessment and Plan: Encounter Diagnoses Name Primary? Sjogren's syndrome with keratoconjunctivitis sicca (HCC) Yes Fibromyalgia 1. Sjogren's syndrome 2. Chronic fibromyalgia syndrome My recommendation is to increase gabapentin to 100 mg twice daily and 300 nightl y and increase duloxetine to 40 mg daily. Maintain tramadol and Zanaflex. I wi ll see her back in 6 months. Continue the good work of walking and weight loss Orders Placed This Encounter DULoxetine (CYMBALTA) 40 mg capsule Sig: Take 1 capsule (40 mg total) by mouth daily. Dispense: 30 capsule Refill: 11 traMADol (ULTRAM) 50 mg tablet Sig: Take 1-2 tablets (50-100 mg total) by mouth 3 (three) times a day as need ed for pain. Max Daily Dose: 300 mg Dispense: 120 tablet Refill: 5 Parts of this note were comprised using [employer] voice recognition software and bennie reynolds account for transcriptional errors. documented in this encounter Plan of Treatment Care Team Description [place] [address] [facility] [address] [place] [address] [phone] 05/01/2020 Video Visit Neurology Arlene Aguayo, INFECTION CONTROL SPECIALIST [address] [place] [address] [phone] 05/15/2020 Office Visit Endocrinology Mina James MD [address] [facility] [address] [place] [address] [phone] 12/24/2020 Office Visit Medical Oncology documented as of this encounter Visit Diagnoses Diagnosis Sjogren's syndrome with keratoconjuncti vitis sicca (HCC) Fibromyalgia Unspecified myalgia and myositis documented in this encounter"
--- OUTSIDE RECORDS SUMMARY | 2020-03-18 12:36 | XMS REPORT | Encounter Summary ---
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 Name Role Phone Flaquita Quiles PCP Reason for Referral * Diagnostic Imaging (Routine) Referred By Contact Referred To Contact Status Reason Specialty Diagnoses / [place] [address] [address] [place] [address] [facility] [address] [place] [address] Closed Cardiology Diagnoses Preoperative clearance P rocedures CV MPI 2 Day SPECT Study Reason for Visit * Diagnostic Imaging (Routine) Referred By Contact Referred To Contact Status Reason Specialty Diagnoses / [place] [address] [address] [place] [address] [facility] [address] [place] [address] Closed Cardiology Diagnoses Preoperative clearance P rocedures CV MPI 2 Day SPECT Study Encounter Details Care Team Description Date [place] [address] [place] [address] [phone] [facility] [address] [place] [address] Social History Date Tobacco Use Types Packs/Day Years Used Never Smoker Smokeless Tobacco: Never Used Drinks/Week oz/Week Comments Alcohol Use No Sex Assigned at Date Recorded Female Industry Job Start Date Occupation Not on file Not on file Not on file Travel End Travel History Travel Start No recent travel history available. documented as of this encounter Medications at Time of Discharge Start Date End Date Medication Sig Dispensed Refills 07/29/2018 cyanocobalamin, vitamin Dissolve 30 each 6 B-12, 1,000 mcg Subl 1,000 mcg under the tongue daily. 07/29/2018 ferrous sulfate 325 (65 Take 1 tablet 30 tablet 6 FE) MG EC tablet (325 mg total) by mouth daily. 11/28/2018 fluocinolone acetonide 0 oil 0.01 % Drop 11/18/2018 lisinopril Take 20 mg by 0 (PRINIVIL,ZESTRIL) 20 MG mouth daily. tablet 08/03/2018 nystatin (MYCOSTATIN) Apply 0 powder topically as needed. tiZANidine (ZANAFLEX) 4 Take 4 mg by 0 MG tablet mouth every 6 (six) hours as needed. warfarin (COUMADIN) 5 MG Take 5 mg by 0 tablet mouth 3 (three) times a week. Wednesday, Wednesday, Wednesday as directed by INR 12/16/2018 DULoxetine (CYMBALTA) 30 Take 30 mg by 0 mg capsule mouth daily. 04/05/2019 gabapentin (NEURONTIN) Take 100 mg 0 100 MG capsule by mouth 3 (three) times a day. As directed 06/07/2018 02/13/2020 HYDROcodone-acetaminophen Take 1-2 0 (NORCO) 5-325 mg per tablets by tablet mouth as needed. 02/25/2018 03/31/2019 hydroxychloroquine Take 2 60 tablet 12 (PLAQUENIL) 200 mg tablets (400 tabletIndications: mg total) by systemic lupus mouth daily. erythematosus 11/21/2018 12/22/2019 nortriptyline (PAMELOR) Take 25 mg by 0 25 MG capsule mouth daily. 09/23/2018 12/12/2019 phentermine (ADIPEX-P) Take 37.5 mg 0 37.5 mg tablet by mouth daily. 06/17/2018 12/16/2018 traMADol (ULTRAM) 50 mg Take 1-2 120 tablet 5 tablet tablets (50-100 mg total) by mouth 3 (three) times a day as needed for pain. Max Daily Dose: 300 mg 06/16/2019 warfarin (COUMADIN) 2.5 Take 2.5 mg 0 MG tablet by mouth 4 (four) times a week. Wednesday, , Wednesday, Wednesday as directed by INR documented as of this encounter Consult Notes * Sherri Mckinney RN - 12/07/2018 11:12 AM CDT Associated Order(s): CONSULT - VASCULAR ACCESS TEAM USG-PIV to left forearm. Veins small, deep. documented in this encounter Plan of Treatment Care Team Description [place] [address] [place], [place] [address] 05/01/2020 Video Visit Neurology Arlene Aguayo APRN [address] [place], [place] [id number] 05/15/2020 Office Visit Endocrinology Mina James MD [address] [facility] [address] [place] [address] [phone] 12/24/2020 Office Visit Medical Oncology documented as of this encounter Procedures Comments Procedure Name Priority Date/Time Associated Diag nosis CV MPI 2 DAY SPECT Routine 12/08/2018 Preoperativ e clearance PHARMOCOLOGIC REST THEN 1:45 PM CDT STRESS WITH CALCIUM SCORE documented in this encounter Results * CV MPI 2 Day SPECT Study (12/08/2018 1:45 PM CDT) Ejection 86 % [facility] Fraction Calcium Score 1.6 [facility] Specimen Narrative Performed At [facility] NAME: ZOLTAN CISSE : [id number] AGE: 38 GENDER: F ACCOUNT NUM: [id number] TEST: 2-DAY REST/STRESS REGADENOSON S ESTAMIBI SPECT SCINTIGRAPHIC REPORT WITH CALCIUM SCORING TEST DATE: TEST LOCATION: L REFERRING PHYSICIAN: Markell Garcia MD SUPERVISING PHYSICIAN: William conrad MD MEDICATIONS MEDS LAST 24 HOURS: Plaquenil, Gabapent in, Ferrous sulfate, Cymbalta, Ultram, Cyanocabalamin, Coumadin, Zanaflex MEDS HELD LAST 24 HOURS: N/A ALLERGIES: ASA HOURS SINCE LAST CAFFEINE: 24 INDICATIONS FOR TEST: Diabetes, Positiv e Family History REASON FOR PHARMACOLOGIC STRESS: Poor C ondition or Motivation PROCEDURAL NOTE: After a four-hour fast , an intravenous line was inserted and an infusion of normal saline was started. The patient was injected intravenously with 31.6 mCi of [id number]. Ap proximately 1 hour later, 180 degree arc gated tomographic imaging was performed in the supine position. Approximately 24 hours later, a t otal of 0.4mg regadenoson was injected intravenously over 10 seconds at a dosa ge of 0.08mg/ml immediately followed by a 5ml normal saline flush. Within 20 seconds, 32.1 mCi of [id number] was injected intravenously. One hour later, 180 de [address] arc gated tomographic imaging was begun in the supine position. Calcium Score Protocol: High-resoluti on, ECG-synchronized Computed Tomography (CT) of the heart and coronary arteries was performed using a Multi-Detector Computed Tomography (MDCT) scanner. E ach slice acquired was 3 mm thick using a 3 mm slice to slice step. The patients average hear t rate was 97 bpm and varied over a range of 9 bpm. There were image artifacts probably due to pt habitus CLINICAL RESPONSE: The heart rate at rest was 80 beats per minute. After the regadenoson injection the heart rate wa s 117 beats per minute. The blood pressure at baseline was 126/81 mmHg . At the end of the regadenoson injection it was 113/73 mmHg. The patient experienced the fol lowing symptoms during the test: dizzy/lightheaded, shortness of breath, flushing, headache. NASH TREADMILL SCORE: ECG Findings: The resting EKG showed normal sinus rhythm with right axis deviation and slow progression of R wav es across the precordium. With stress, significant changes did not occur. No arrhythmias were seen. SCINTIGRAPHIC Findings: The tomograph ic images demonstrate normal myocardial perfusion both at rest and following st ress. The left ventricle did not dilate significantly in response to stress. On the gated tomograms, all segments thickened and contracted well. The left ventricular ejection fraction was greater than 75%. CT Findings: A total Agatston score i s 1.6. Review of the limited field of view CT chest showed trace coronary adwoa cifications. The Agatston score was 1.6. The CT also demonstrates signifi cant epicardial fat. This is a limited CT scan of the chest for evaluation of the coronary artery calcification only and is not intended for any other purpose. IN SUMMARY, the clinical, electrocardio graphic, and scintigraphic findings in this 38-year-old female being evaluated for possible CAD using regadenoson are as follows: 1. Clinical response: Non-Diagnostic (Regadenoson) 2. Electrocardiographic response: Non-I schemic 3. Scintigraphic response: Non-Ischemic COMBINED TEST RESULTS: Normal myocardial perfusion without isc hemia or areas of myocardial injury. Normal left ventricular systolic functi on, LVEF greater than 75%. Coronary calcium score = 1.6. No prior studies available for comparis on. Yuval Smith MD [address] [facility], [address] [place] [address] DICTATED DATE: 2018-12-09 08:01:00.0 MANAGER PACU DATETIME: 2018-12-09 12:0 9:30.0 ACTUAL TEST TIME: PROVIDER APPROVAL DATETIME: 2018-12-09 13:22:12.0 Procedure Note Interface, External Ris In - 12/09/2018 2:18 PM CDT NAME: ZOLTAN CISSE : [id number] AGE: 38 GENDER: F ACCOUNT NUM: [id number] TEST: 2-DAY REST/STRESS REGADENOSON SESTAMIBI SPECT SCINTIGRAPHIC REPORT WITH CALCIUM SCORING TEST DATE: TEST LOCATION: L REFERRING PHYSICIAN: Markell Garcia MD SUPERVISING PHYSICIAN: William Schultz MD MEDICATIONS MEDS LAST 24 HOURS: Plaquenil, Gabapentin, Ferrous sulfate, Cymbalta, Ultram, Cyanocabalamin, Coumadin, Zanaflex MEDS HELD LAST 24 HOURS: N/A ALLERGIES: ASA HOURS SINCE LAST CAFFEINE: 24 INDICATIONS FOR TEST: Diabetes, Positive Family History REASON FOR PHARMACOLOGIC STRESS: Poor Condition or Motivation PROCEDURAL NOTE: After a four-hour fast, an intravenous line was inserted and an infusion of normal saline was started. The patient was injected intravenously with 31.6 mCi of [id number]. Approximately 1 hour later, 180 degree arc gated tomographic imaging was performed in the supine position. Approximately 24 hours later, a total of 0.4mg regadenoson was injected intravenously over 10 seconds at a dosage of 0.08mg/ml immediately followed by a 5ml normal saline flush. Within 20 seconds, 32.1 mCi of [id number] was injected intravenously. One hour later, 180 degree arc gated tomographic imaging was begun in the supine position. Calcium Score Protocol: High-resolution, ECG-synchronized Computed Tomography (CT) of the heart and coronary arteries was performed using a Multi-Detector Computed Tomography (MDCT) scanner. Each slice acquired was 3 mm thick using a 3 mm slice to slice step. The patients average heart rate was 97 bpm and varied over a range of 9 bpm. There were image artifacts probably due to pt habitus CLINICAL RESPONSE: The heart rate at rest was 80 beats per minute. After the regadenoson injection the heart rate was 117 beats per minute. The blood pressure at baseline was 126/81 mmHg. At the end of the regadenoson injection it was 113/73 mmHg. The patient experienced the following symptoms during the test: dizzy/lightheaded, shortness of breath, flushing, headache. NASH TREADMILL SCORE: ECG Findings: The resting EKG showed normal sinus rhythm with right axis deviation and slow progression of R waves across the precordium. With stress, significant changes did not occur. No arrhythmias were seen. SCINTIGRAPHIC Findings: The tomographic images demonstrate normal myocardial perfusion both at rest and following stress. The left ventricle did not dilate significantly in response to stress. On the gated tomograms, all segments thickened and contracted well. The left ventricular ejection fraction was greater than 75%. CT Findings: A total Agatston score is 1.6. Review of the limited field of view CT chest showed trace coronary calcifications. The Agatston score was 1.6. The CT also demonstrates significant epicardial fat. This is a limited CT scan of the chest for evaluation of the coronary artery calcification only and is not intended for any other purpose. IN SUMMARY, the clinical, electrocardiographic, and scintigraphic findings in this 38-year-old female being evaluated for possible CAD using regadenoson are as follows: 1. Clinical response: Non-Diagnostic (R egadenoson) 2. Electrocardiographic response: Non-Is chemic 3. Scintigraphic response: Non-Ischemic COMBINED TEST RESULTS: Normal myocardial perfusion without ischemia or areas of myocardial injury. Normal left ventricular systolic function, LVEF greater than 75%. Coronary calcium score = 1.6. No prior studies available for comparison. Yuval Smith MD [address], [address] [place] [address] DICTATED DATE: 2018-12-09 08:01:00.0 MANAGER PACU DATETIME: 2018-12-09 12:09:30.0 ACTUAL TEST TIME: PROVIDER APPROVAL DATETIME: 2018-12-09 13:22:12.0 Performing Organization Address City/State/Zipcode Ph one Number [facility] documented in this encounter Visit Diagnoses Diagnosis Preoperative clearance Unspecified pre-operative examination documented in this encounter
--- OUTSIDE RECORDS SUMMARY | 2020-03-18 12:36 | XMS REPORT | Encounter Summary ---
Author Author [facility] Organization [facility] Address Unknown Phone Unavailable Care Team Providers Care Entry Level Project Coordinator Name Role Phone Flaquita Quiles PCP Reason for Visit * Reason Comments Follow-up Encounter Details Care Team Description Date Type Department Provider, Not In System Eduard Maya MD NO FORWARDING ADDRESS Abnormal uterine bleeding (Primary Dx); Well woman exam 08/18/2018 Office Visit [facility] [address], [address] [place] [address] Social History Date Tobacco Use Types Packs/Day [...] Signs Reading Time Taken Comments Vital Sign 128/82 08/18/2018 3:09 PM WEBFED OFFSET PRESS OPERATOR Blood Pressure 88 08/18/2018 3:09 PM WEBFED OFFSET PRESS OPERATOR Pulse - - Temperature - - Respiratory Rate - - Oxygen Saturation - - Inhaled Oxygen Concentration 133.7 kg (294 lb 12.8 oz) 08/18/2018 3:09 PM WEBFED OFFSET PRESS OPERATOR Weight 152.4 cm (5') 08/18/2018 3:09 PM WEBFED OFFSET PRESS OPERATOR Height 57.57 08/18/2018 3:09 PM WEBFED OFFSET PRESS OPERATOR Body Mass Index documented in this encounter Progress Notes * Eduard Maya MD - 08/18/2018 3:00 PM WEBFED OFFSET PRESS OPERATOR NAME: Deysi Cisse AGE: 38 y.o. : 1980 CHIEF COMPLAINT Chief Complaint Patient presents with Follow-up HISTORY OF PRESENT ILLNESS History of Present Illness 38 y.o. female who presents today to follow up on AUB. Patient reports she has continued to bleed since her last visit. She continues to report the bl eeding as heavy. Is still desiring hysterectomy for definitive management. Bro ught in forms outlining blood products she will/won't accept. PROBLEM LIST Patient Active Problem List Diagnosis SNOMED CT(R) Fibromyalgia FIBROMYALGIA Sjogren's syndrome with keratoconjunctivitis sicca (HCC) KERATOCONJUNCTIVITI S SICCA, IN SJGREN'S SYNDROME PAST MEDICAL HISTORY Past Medical History: Diagnosis Date Depression Diabetes (HCC) Factor 5 Leiden mutation, heterozygous (HCC) Fibromyalgia Preeclampsia Sjogren's disease (HCC) PAST SURGICAL HISTORY Past Surgical History: Procedure Laterality Date ANTERIOR CRUCIATE LIGAMENT REPAIR Left CHOLECYSTECTOMY 09/2017 CHOLECYSTECTOMY 2018 KNEE SURGERY Left TONSILLECTOMY MEDICATIONS Outpatient Encounter Prescriptions as of 08/18/2018 Medication Sig Dispense Refill cyanocobalamin, vitamin B-12, 1,000 mcg Subl Dissolve 1,000 mcg under the to ngue daily. 30 each 6 DULoxetine (CYMBALTA) 60 mg capsule Take 1 capsule (60 mg total) by mouth da breann. 30 capsule 11 ferrous sulfate 325 (65 FE) MG EC tablet Take 1 tablet (325 mg total) by shefali th daily. 30 tablet 6 gabapentin (NEURONTIN) 100 MG capsule Take 1 capsule (100 mg total) by mouth 5 (five) times a day. 1 CAP BID AND 3 AT HS 150 capsule 5 hydroxychloroquine (PLAQUENIL) 200 mg tablet Take 2 tablets (400 mg total) b y mouth daily. 60 tablet 12 tiZANidine (ZANAFLEX) 4 MG tablet Take 4 [...] a week . Wednesday, , Wednesday, Wednesday warfarin (COUMADIN) 5 MG tablet Take 5 mg by mouth 3 (three) times a week. M , Wednesday, Wednesday No facility-administered encounter medications on file as of 08/18/2018. ALLERGIES Aspirin PAST GYNECOLOGIC HISTORY GYNECOLOGICAL HISTORY Gynecological History 07/28/2018 07/28/2018 Date of Last Pap if Known (No Data) 09/13/2014 History of Abnormal Paps Yes Yes Menarche Age [age] Period Duration (Days) 5 5 Period Pattern Irregular Irregular Menstrual Flow Heavy Heavy Menstrual Control - Maxi pad Dysmenorrhea None Severe Dysmenorrhea Symptoms - Cramping;Nausea STI's No No PAST OBSTETRIC HISTORY Unknown OB History Para Term AB Living 2 2 1 1 0 2 SAB TAB Ectopic Multiple Live Births 0 0 0 0 2 # Outcome Date GA Lbr Irineo/2nd Weight Sex Delivery Anes PTL Lv 2 04/18/17 36w0d F Vag-Spont Y PARVEEN 1 Term 03/03/11 37w0d M Vag-Spont N PARVEEN FAMILY HISTORY Family History Problem Relation Age of Onset Diabetes Mother Hypertension Mother Diabetes Father COPD Father Diabetes Sister Hypertension Sister SOCIAL HISTORY Social History Social History Marital status: Spouse name: N/A Number of children: N/A Years of education: N/A Occupational History Not on file. Social History Main Topics Smoking status: Never Smoker Smokeless tobacco: Never Used Alcohol use No Drug use: No Sexual activity: Yes Partners: Male Other Topics Concern Not on file Social History Narrative No narrative on file REVIEW OF SYSTEMS Review of Systems Constitutional: Positive for fever. Negative for activity change and appetite ch barb. Respiratory: Negative for cough and shortness of breath. Cardiovascular: Negative for chest pain and palpitations. Gastrointestinal: Negative for abdominal pain, constipation, diarrhea, nausea an d vomiting. Genitourinary: Positive for vaginal bleeding. Negative for dysuria, flank pain, vaginal discharge and vaginal pain. Neurological: Negative for dizziness and light-headedness. VITALS Vitals: 08/18/18 1509 BP: 128/82 Pulse: 88 Weight: 294 lb 12.8 oz Height: 5' EXAM Physical Exam Constitutional: She is oriented to person, place, and time. She appears well-dev eloped and well-nourished. No distress. HENT: Head: Normocephalic and atraumatic. Eyes: Pupils are equal, round, and reactive to light. EOM are normal. Cardiovascular: Normal rate. Pulmonary/Chest: Effort normal. No respiratory distress. Abdominal: Soft. She exhibits no distension. There is no tenderness. There is no guarding. obese Musculoskeletal: She exhibits no edema or deformity. Neurological: She is alert and oriented to person, place, and time. Skin: Skin is warm and dry. She is not diaphoretic. Psychiatric: She has a normal mood and affect. Her behavior is normal. Pelvic Exam: External Genitalia: normal appearing vulva with no masses, tenderness or lesions Vagina: no abnormal discharge or lesions Cervix: no lesions or cervical motion tenderness Procedure: Patient was consented and positioned in stirrups. Cervix was visualized using s peculum and cleaned with betadine swabs. Cervix was then grasped anteriorly wit h a single tooth tenaculum. Pipelle was insterted through cervix and uterus aracely sured to 10cm. Adequate sample was collected and pipelle was removed. Tenaculu m was removed and tenaculum sites were made hemostatic using silver nitrate swab s. Speculum was then removed. Patient tolerated procedure well with some cramp ing during the procedure which improved at completion. ASSESSMENT AND PLAN 38yo : Assessment: 1. Abnormal uterine bleeding 2. Morbid obesity (BMI 58) 3. 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 detailing blood product preferenc es (placed in scan bin), summarized below - will accept: albumin, immunoglobulins, blood-derived clotting factors, hemin, blood derived interferons, - won't accept: hemodilution, plasmapheresis, labeling or tagging, blood - will possibly accept: hemoglobin, cell-salvage, heart-lung machine, dialysis, epidural blood patch, autologous platelet gel Plan: - patient has received care at , with reported multiple attempts at ablation - Patient cannot take systemic medications due to history of VTEs, previously tr ied Mirena IUD however seems was improperly placed as caused severe pain, howeve r patient was educated that this would be a safe option; patient strongly desire s definitive surgical management. Discussed with patient today that she is at h igh risk for complications during surgery and recovery period due to her morbid obesity and limited acceptance of blood products. Discussed increased risks for DVT/PE due to hypercoagulability. Discussed increased risk for operative and p ostoperative bleeding due to her chronic anticoagulation. Patient reports under standing and acceptance of these risks. Patient verbalized in clinic today that she understands and is accepting that she runs the risk of in the event of heavy bleeding due to her limited acceptance of blood products. - Labs 07/28/18: Hgb 13.9, A1c 7.1, T4 1.2, EPO wnl, iron studies wnl - Pelvic US 08/08/18: Uterus measuring 11 x 4 x 5cm, EM 11mm with possible foc al thickening near uterine fundus - Pap NIL/-HRHPV, GC/CT neg (08/01/2018) - s/p Hematology consultation on 07/25/18. Perioperative management of anticoag ulation recommendations made: d/c warfarin 5 days prior to surgery and switch to lovenox (rx provided by heme/onc physician). Target INR prior to surgery 1.3 or less. Hold lovenox on day prior to surgery. Once hemostasis achieved post op, restart anticoagulation with therapeutic Lovenox 1.5 mg/kg once daily or IV hep josy and bridge with warfarin. - Discussed methods of hysterectomy with patient today. Discussed that optimal method would be TVH, however minimal descent of uterus on exam today. Will plan LAVH. Discussed possible conversion to laparotomy if difficulty is encountered. Patient reports understanding - surgical alert to be completed and given to corporate safety director Staff: Dr. Evan Maya MD STAFF: I saw this patient with Dr Maya. She strongly desires hysterectomy. She has da breann bleeding and conservative measures have failed to resolve her bleeding. She was originally scheduled for a robotic hyst with Dr Aldrich but then conceived and completed a at . My concern for her having a standard TLH is that it would be very difficult to manage without robot assist in light of her obesity (BMI 57). I located her records from after her visit and was able to review h er care there. I even spoke to Dr Aldrich on the phone regarding her thoughts on he r care. Dr Aldrich was happy to see the patient back again to further discuss hyste rectomy though could not promise a hysterectomy without seeing her. I called ramona spear and explained she was in great hands with Dr Aldrich, who had the expertise to perform hysterectomy with robotic assist. Despite my recommendation to return to Dr Aldrich, Mrs. Cisse is adamant about not going back to . She reports she was not happy with her care in light of herblood product refusal. She wan ts her care at [facility]. I have spoken with Dr Ruiz, urogynecology, who is able to perform TLH with robotic assist as well as has more experience with more diff icult vaginal cases. He is able to see her for surgical evaluation. I have fuentes d Mrs Cisse again today and she is amenable to seeing Dr Ruiz. She would like a f emale in the room as well for examination. Romina Gordon MD ED OFFSET PRESS OPERATOR * Leslie Finn CMA - 08/18/2018 3:00 PM WEBFED OFFSET PRESS OPERATOR Pt. Is here for her follow up appt. Pt. Stated she has been having back pain. Pa in scale of a 10. ED OFFSET PRESS OPERATOR documented in this encounter Plan of Treatment Care Team Description [place] [address] [facility] [address] [place] [address] [phone] 05/01/2020 Video Visit Neurology Arlene Aguayo, AUTOMATIC BUFFING WHEEL FORMER [address] [place] [address] 05/15/2020 Office Visit Endocrinology Mina James MD [address] [facility] [address] [place] [address] [phone] 12/24/2020 Office Visit Medical Oncology documented as of this encounter Procedures Comments Procedure Name Priority Date/Time Associated Diag nosis TISSUE PATHOLOGY OR Routine 08/18/2018 Well woman exam BIOPSY 4:30 PM WEBFED OFFSET PRESS OPERATOR documented in this encounter Results * Tissue Pathology or Biopsy (08/18/2018 4:30 PM WEBFED OFFSET PRESS OPERATOR) Specimen Tissue - Endometrium Narrative Performed At [facility] RE[facility] PATIENT: DEYSI CISSE /AGE/SEX: 1980 (Age: 38) / F ID #: [id number] SUBMITTING PHYSICIAN: Carina varghese D.O. CLIENT: [facility] [address] COLLECTED: 08/18/2018 REPORTED: 08/23/2018 SPECIMEN #: [id number] ##################MICROSCOPIC INTERPRET ATION################## Endometrial biopsy: - Proliferative endometrium. - There is no evidence of endomet ritis, polyps, hyperplasia or malignancy. Dickson Godoy M.D., Ph.D. Report Electronically Signed Out OWT:08/23/18 OWT(AGENCY OWNER) CLINICAL HISTORY/IMPRESSION: Well woman exam. SPECIMEN LABELLED: Endometrial biopsy GROSS DESCRIPTION: The specimen is received in formalin, l abeled with the patient name and further designated "endometrial biopsy." The sp ecimen consists of a 2.0 x 2.0 x 0.6 cm aggregate of estrada soft tissue and mucoid material. The specimen is cultured and entirely submitted in cassette (A1). () DDN: Professional Component performed by SARA , kailey BROWN Pathologist located at [facility], [address] [place] [address] Technical Component performed at [facility] [place] [address]###END OF REPORT### Performing Organization Address City/State/Zipcode Ph one Number [facility] [address] [place], [place] [address] [address] documented in this encounter Visit Diagnoses Diagnosis Well woman exam Routine general medical examination at a health care facility Abnormal uterine bleeding Unspecified disorder of menstruation an d other abnormal bleeding from female genital tract documented in this encounter
--- OUTSIDE RECORDS SUMMARY | 2020-03-18 12:36 | XMS REPORT | Encounter Summary ---
Author Author [facility] Organization [facility] Address Unknown Phone Unavailable Care Team Providers Care Plastic Mixer Name Role Phone Flaquita Quiles PCP Reason for Visit * Reason Comments Pre-visit chart prep Encounter Details Care Team Description Date [place] [address] [place] [address] [phone] Pre-visit chart prep 11/02/2018 Documentation [facility] [address] [place] [id number] Social History Date Tobacco Use Types Packs/Day [...] Description Date [place] [address] [place] [address] [phone] 05/01/2020 Video Visit Neurology Arlene Aguayo, CARLO [address] [place], [place] [id number] 05/15/2020 Office Visit Endocrinology Mina James MD [address] [facility] [address] [place] [address] [phone] 12/24/2020 Office Visit Medical Oncology documented as of this encounter Visit Diagnoses Not on filedocumented in this encounter
--- OUTSIDE RECORDS SUMMARY | 2020-03-18 12:36 | XMS REPORT | Encounter Summary ---
Author Author [facility] Organization [facility] Address Unknown Phone Unavailable Care Team Providers Care Microsoft Dynamics Manager Architect Name Role Phone Flaquita Quiles PCP Encounter Details Care Team Description Date Type Department Cami Frederick RN Sjogren's syndrome with keratoconjunctiv itis sicca (HCC) (Primary Dx) 07/29/2018 Orders Only [facility] [address] [facility] [address] [place], [place] [id number] Social History Date Tobacco Use Types Packs/Day [...] Team Description Date Type Specialty Anna Zavala, MONUMENT ERECTOR [address] [facility] [address] [place] [address] [phone] 05/01/2020 Video Visit Neurology Arlene Aguayo APRN [address] [place] [address] [phone] 05/15/2020 Office Visit Endocrinology Mina James MD [address] [facility] [address] [place], [place] [id number] 12/24/2020 Office Visit Medical Oncology Order Schedule Name Type Priority Associated Diag noses 1 Occurrences starting 07/29/2018 until 07/29/2019 B12/Folate Lab Routine Sjogren's syndr ome with keratoconjunctivitis sicca (HCC) documented as of this encounter Visit Diagnoses Diagnosis Sjogren's syndrome with keratoconjuncti vitis sicca (HCC) documented in this encounter
--- OUTSIDE RECORDS SUMMARY | 2020-03-18 12:36 | XMS REPORT | Encounter Summary ---
Author Author [facility] Organization [facility] Address Unknown Phone Unavailable Care Team Providers Care Patient Service Associate Name Role Phone Flaquita Quiles PCP Reason for Referral * Diagnostic Imaging (Routine) Referred By Contact Referred To Contact Status Reason Specialty Diagnoses / [place] [address] [place] [address] [facility] Cv Nuc Med [address] [place] [address] Closed Cardiology Diagnoses Preoperative clearance P rocedures CV MPI 2 Day SPECT Study * Diagnostic Imaging (Routine) Referred By Contact Referred To Contact Status Reason Specialty Diagnoses / [place] [address] [address] [facility] [address] [place] [address] Closed Diagnoses Preoperative clearance P rocedures Electrocardiogram (ECG) Reason for Visit * Reason Comments Pre-op cardiac risk assessment * Consultation (Routine) Referred By Contact Referred To Contact Status Reason Specialty Diagnoses / Procedures Alfonso Paez MD [address] [place] [address] [facility] [address] [facility] [address] [place] [address] Closed Specialty Services Cardiology Diagnoses Required Preoperative clearance Encounter Details Care Team Description Date Type Department Alfonso Paez MD [address] [place] [address] [place] [address] [place], [place] [address] Morbid obesity with BMI of 50.0-59.9, ad ult (HCC) (Primary Dx); Preoperative clearance; DYKES (dyspnea on exertion) 11/15/2018 Initial consult [facility] [address] [facility] [address] [place], [place] [address] Social History Date Tobacco Use Types Packs/Day [...] Signs Reading Time Taken Comments Vital Sign 132/101 11/15/2018 10:50 AM TANKMAN Blood Pressure 87 11/15/2018 10:50 AM TANKMAN Pulse - - Temperature - - Respiratory Rate - - Oxygen Saturation - - Inhaled Oxygen Concentration 130.2 kg (287 lb) 11/15/2018 10:50 AM TANKMAN Weight 152.4 cm (5') 11/15/2018 10:50 AM TANKMAN Height 56.05 11/15/2018 10:50 AM TANKMAN Body Mass Index documented in this encounter Patient Instructions * Patient Instructions* Lisa Wilson RN - 11/15/2018 10:40 AM TANKMAN Your doctor has ordered the following test(s): 2-day Nuclear stress test to be scheduled at [facility]. They will call you to schedule this. It will be a 2 day test. A nurse will contact you with the results and your doctor's r ecommendations approximately 7-10 business days after the test has been complete d. Next time you have blood drawn, ask them to check your fasting cholesterol level s. Follow up with MD Dr. Markell Garcia Please call the Nurse Line at [phone] ([facility] Nurse Team). with any questions or concerns. For medication refill needs, please first contact your pharmacy. For any [facility] scheduling questions, please adwoa castellon . At [facility], high quality patient care is our top priority. To ensure our cardiovascular standards are continuously met, you may receive a survey via ernie [place] or text message, and we ask that you please take the time to fill it out. We strive to ensure you are very satisfied with every visit. Thank you in advance for taking the time to fill this out. It was a pleasure to meet you. MAN documented in this encounter Progress Notes * Markell Garcia MD - 11/15/2018 10:40 AM TANKMAN [facility] Appointment Date: 11/15/2018 Flaquita Quiles MD [address] [place] [id number] RE: Deysi Cisse : 1980 Visit provider: Markell Garcia MD Dear Flaquita Quiles MD: I had the pleasure of seeing Deysi Cisse in the office today. She is a(n) 38 y .o. female and presents with the following chief complaint(s): Pre-op cardiac ri sk assessment HPI: Thank you for this consultation. The patient is accompanied by her [id number] daughter. She is planning an operation of hysterectomy. She has menorrhagia, receiving warfarin therapy. Warfarin is administered for prevention of DVT and PE. 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 She is on lifelong warfarin therapy. There is underlying factor V Leiden mutation, thrombophilia. The patient has no personal history of syncope or chest pain. Yet, she is excee dingly sedentary. Her BMI is 56, she is not able to exercise. She has low back pain and knee pain. She cannot walk more than one flight of stairs without sto pping. She has been diagnosed with diabetes. Although there is no history of hypertens ion her blood pressure is elevated today. Her lipid profile is not known to me. There is a family history of premature, possibly sudden cardiac in her s ister. Mother of the patient at age 43 from an accident. Patient Active Problem List Diagnosis SNOMED CT(R) Fibromyalgia FIBROMYALGIA Sjogren's syndrome with keratoconjunctivitis sicca (HCC) KERATOCONJUNCTIVITI S SICCA, IN SJGREN'S SYNDROME Diabetes mellitus without complication (HCC) DIABETES MELLITUS WITHOUT COMPL ICATION Factor 5 Leiden mutation, heterozygous (HCC) HETEROZYGOUS FACTOR V LEIDEN MU TATION History of DVT (deep vein thrombosis) H/O: DEEP VEIN THROMBOSIS Morbid obesity with BMI of 50.0-59.9, adult (HCC) BODY MASS INDEX 40+ - TAINA RELY OBESE Patient is Moravian HAS HOAHAOISM BELIEF Sacroiliac joint dysfunction of both sides SACROILIAC DISORDER SS-A antibody positive ANTIBODY STUDIES ABNORMAL halfway current use of anticoagulant LONG-TERM CURRENT USE OF ANTICOAGULAN T Past Medical History: Diagnosis Date Abnormal uterine bleeding (AUB) 10/14/2015 Arthritis Constipation Depression Diabetes (HCC) Diabetes mellitus without complication (HCC) Factor 5 Leiden mutation, heterozygous (HCC) Fibromyalgia HELLP (hemolytic anemia/elev liver enzymes/low platelets in ) 07/02 17 History of DVT (deep vein thrombosis) 03/26/2016 Intertrigo 10/29/2015 Overview: Nystatin powder Irregular menses halfway current use of anticoagulant 11/09/2018 Lupus Morbid obesity with BMI of 50.0-59.9, adult (HCC) Patient is Moravian 04/06/2017 Pre-eclampsia in third trimester 04/21/2017 Sacroiliac joint dysfunction of both sides 12/31/2015 Sjogren's disease (HCC) Sjogren's syndrome with keratoconjunctivitis sicca (HCC) 12/28/2016 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 Past Surgical History: Procedure Laterality Date ANTERIOR CRUCIATE LIGAMENT REPAIR Left CHOLECYSTECTOMY 09/2017 KNEE SURGERY Left TONSILLECTOMY Final Medications: Current Outpatient Prescriptions Medication Sig Dispense Refill cyanocobalamin, vitamin B-12, 1,000 mcg Subl Dissolve 1,000 mcg under the to ngue daily. 30 each 6 DULoxetine (CYMBALTA) 30 mg capsule Take 30 mg by mouth daily. ferrous sulfate 325 (65 FE) MG EC tablet Take 1 tablet (325 mg total) by shefali th daily. 30 tablet 6 gabapentin (NEURONTIN) 100 MG capsule Take 100 [...] current facility-administered medications for this visit. Allergies Allergen Reactions Aspirin Hives Family History Problem Relation Age of Onset Diabetes Mother Hypertension Mother Diabetes Father COPD Father Diabetes Sister Hypertension Sister Social History: Social History Substance Use Topics Smoking status: Never Smoker Smokeless tobacco: Never Used Alcohol use No Review of Systems Constitution: Positive for malaise/fatigue and night sweats. Negative for fever. HENT: Negative for nosebleeds. Cardiovascular: Positive for claudication, dyspnea on exertion and leg swelling. Negative for chest pain, cyanosis, irregular heartbeat, near-syncope, orthopnea and palpitations. Respiratory: Positive for snoring. Negative for cough, hemoptysis, shortness of breath, sleep disturbances due to breathing and wheezing. Endocrine: Negative for cold intolerance and polydipsia. Hematologic/Lymphatic: Bruises/bleeds easily. Skin: Negative for rash. Musculoskeletal: Positive for joint pain and myalgias. Gastrointestinal: Negative for dysphagia, hematochezia, nausea and vomiting. Genitourinary: Negative for hematuria. Neurological: Positive for excessive daytime sleepiness. Negative for brief para lysis, disturbances in coordination, dizziness, focal weakness, light-headedness , loss of balance, numbness and paresthesias. All other systems reviewed and are negative. Vital Signs 11/15/18 1050 BP: (!) 132/101 Pulse: 87 Weight: 130.2 kg (287 lb) Height: 1.524 m (5') BMI: Body mass index is 56.05 kg/m. Physical Exam Constitutional: She is oriented to person, place, and time. She appears well-dev eloped and well-nourished. She is cooperative. HENT: Head: Normocephalic and atraumatic. Nose: Nose normal. Eyes: Pupils are equal, round, and reactive to light. Conjunctivae and EOM are n ormal. Neck: Normal range of motion. No JVD present. No thyromegaly present. Cardiovascular: Normal rate, regular rhythm, S1 normal, S2 normal, normal heart sounds, intact distal pulses and normal pulses. PMI is not displaced. Exam rev eals no S3, no S4 and no friction rub. No murmur heard. Pulmonary/Chest: Effort normal. No respiratory distress. She has no wheezes. She has no rales. She exhibits no tenderness. Abdominal: Normal appearance. She exhibits no mass. Musculoskeletal: Normal range of motion. She exhibits no edema. Lymphadenopathy: She has no cervical adenopathy. She has no axillary adenopathy. Neurological: She is alert and oriented to person, place, and time. She exhibits normal muscle tone. Coordination normal. Skin: Skin is warm and dry. No rash noted. No erythema. Psychiatric: She has a normal mood and affect. Judgment normal. EKG: Normal Sinus Rhythm Encounter Diagnoses Name Primary? Preoperative clearance Morbid obesity with BMI of 50.0-59.9, adult (HCC) Yes DYKES (dyspnea on exertion) Impression and Plan: This is a 38-year-old woman with thrombophilia on chronic anticoagulation with w arfarin who is planning an operation of hysterectomy. At this time her preopera tive cardiovascular risk is intermediate. Her functional status is poor, lipid profile is not known, she has diabetes and exertional breathlessness. 1. Morbid obesity, exertional breathlessness, preoperative risk. I recommend n uclear myocardial perfusion imaging study using 2-day protocol to rule out signi ficant myocardial dysfunction and ischemia. 2. Morbid obesity. She is potentially a candidate for bariatric surgery. We d iscussed it. She knows how to seek consultation if she desires. 3. Diabetes, risk of atherosclerosis. She prefers to have lipid profile checke d with her primary care physician during an upcoming appointment. 4. Also, her blood pressure today is elevated. There is no formal diagnosis of hypertension. I do recommend blood pressure diary. If her blood pressure is c onsistently above 130/80 mmHg, she might benefit from additional evaluation and medication. Treatment goals, progress and next steps, as above, were discussed and mutually agreed upon with the patient/family. Thank you for allowing me to participate in Deysi Cisse's care. If I can be o f any further assistance, please do not hesitate to contact me. Sincerely, Markell Garcia MD /narciso MAN documented in this encounter Plan of Treatment Care Team Description Date Type Specialty Anna Zavala, FINANCIAL ACCOUNTANT [address] [place], [place] [address] 05/01/2020 Video Visit Neurology Arlene Aguayo APRN [address] [place] [address] 05/15/2020 Office Visit Endocrinology Mina James MD [address] [facility] [address] [place], [place] [id number] 12/24/2020 Office Visit Medical Oncology documented as of this encounter Procedures Comments Procedure Name Priority Date/Time Associated Diag nosis ECG Routine 11/15/2018 Preoperative cl earance 10:45 AM TANKMAN documented in this encounter Results * CV MPI 2 Day SPECT Study (12/08/2018 1:45 PM CDT) Ejection 86 % [facility] Fraction Calcium Score 1.6 [facility] Specimen Narrative Performed At [facility] NAME: DEYSI CISSE : [id number] AGE: 38 GENDER: F ACCOUNT NUM: [id number] TEST: 2-DAY REST/STRESS REGADENOSON S ESTAMIBI SPECT [...] was injected intravenously with 31.6 mCi of Nc-44d-etshqNMTT. Ap proximately 1 hour later, 180 degree arc gated tomographic imaging was performed in the supine position. Approximately 24 hours later, a t otal of 0.4mg regadenoson was injected intravenously over 10 seconds at a dosa ge of 0.08mg/ml immediately followed by a 5ml normal saline flush. Within 20 seconds, 32.1 mCi of Vn-50l-optxzILVK was injected intravenously. One hour later, 180 [...] for comparis on. Yuval Smith MD [address] [facility], [address] [place] [address] DICTATED DATE: 2018-12-09 08:01:00.0 SPECIAL EDUCATION TUTOR DATETIME: 2018-12-09 12:0 9:30.0 ACTUAL TEST TIME: PROVIDER APPROVAL DATETIME: 2018-12-09 13:22:12.0 Procedure Note Interface, External Ris In - 12/09/2018 2:18 PM CDT NAME: DEYSI CISSE : [id number] AGE: 38 GENDER: F ACCOUNT NUM: [id number] TEST: 2-DAY REST/STRESS REGADENOSON SESTAMIBI SPECT SCINTIGRAPHIC REPORT WITH CALCIUM SCORING TEST DATE: TEST LOCATION: REFERRING PHYSICIAN: Markell Garcia MD SUPERVISING PHYSICIAN: [...] was injected intravenously with 31.6 mCi of Ss-49x-gwdshZNOO. Approximately 1 hour later, 180 degree arc gated tomographic imaging was performed in the supine position. Approximately 24 hours later, a total of 0.4mg regadenoson was injected intravenously over 10 seconds at a dosage of 0.08mg/ml immediately followed by a 5ml normal saline flush. Within 20 seconds, 32.1 mCi of Jo-64e-nywmhOJWZ was injected intravenously. One hour later, 180 [...] available for comparison. Yuval Smith MD [address] [place] [address] DICTATED DATE: 2018-12-09 08:01:00.0 SPECIAL EDUCATION TUTOR DATETIME: 2018-12-09 12:09:30.0 ACTUAL TEST TIME: PROVIDER APPROVAL DATETIME: 2018-12-09 13:22:12.0 Performing Organization Address City/State/Zipcode Ph one Number [facility] * Electrocardiogram (ECG) (11/15/2018 10:45 AM TANKMAN) QRSd 80 [facility] QT 380 [facility] QTC 452 [facility] ECGHR 85 [facility] ECGPR 152 [facility] Specimen Narrative Performed At [facility] [place] Test Date: 2018-11-15 Pat Name: DEYSI DEUCE Department: [facility] Room: Gender: Female Math Tutor: [id number] : 1980 Requested By: MARKELL GARCIA Order Number: [id number] Reading MD: Markell Garcia Measurements Intervals [place] Rate: 85 P: 6 AK: 152 QRS: 35 QRSD: 80 T: 27 QT: 380 QTc: 452 Interpretive Statements SINUS RHYTHM Electronically Signed On 11-18-2018 9:54: 04 TANKMAN by Markell Garcia Procedure Note Interface, External Ris In - 11/18/2018 9:54 AM TANKMAN [facility] Test Date: 2018-11-15 Pat Name: DEYSI DEUCE Department: [facility] Room: Gender: Female Math Tutor: [id number] : 1980 Requested By: MARKELL GARCIA Order Number: [id number] Reading MD: Markell Garcia Measurements Intervals [place] Rate: 85 P: 6 AK: 152 QRS: 35 QRSD: 80 T: 27 QT: 380 QTc: 452 Interpretive Statements SINUS RHYTHM Electronically Signed On 11-18-2018 9:54:04 TANKMAN by Markell Garcia Performing Organization Address City/State/Zipcode Ph one Number [facility] documented in this encounter Visit Diagnoses Diagnosis Preoperative clearance Unspecified pre-operative examination Morbid obesity with BMI of 50.0-59.9, a dult (HCC) DYKES (dyspnea on exertion) Other dyspnea and respiratory abnormali ty documented in this encounter
--- OUTSIDE RECORDS SUMMARY | 2020-03-18 12:36 | XMS REPORT | Encounter Summary ---
Author Author [facility] Organization [facility] Address Unknown Phone Unavailable Care Team Providers Care Studio Technician Video Operator Name Role Phone Flaquita Quiles PCP Encounter Details Care Team Description Date Type Department Carina Rashid, DO [address] [place] [address] [phone] 08/24/2018 Telephone [facility] [address] [place] [address] Social History Date Tobacco Use Types Packs/Day Years Used Never Smoker Smokeless Tobacco: Never Used Drinks/Week oz/Week Comments Alcohol Use No Sex Assigned at Date Recorded Female Industry Job Start Date Occupation Not on file Not on file Not on file Travel End Travel History Travel Start No recent travel history available. documented as of this encounter Miscellaneous Notes * Telephone Encounter - Teetee Linton - 08/24/2018 10:31 AM RN SECURITY Patient asked about future scheduling of surgery and is at home phone [phone] SECURITY documented in this encounter Plan of Treatment Care Team Description Date Type Specialty Anna Zavala, HOBBER [address] [place], [place] [id number] 05/01/2020 Video Visit Neurology Arlene Aguayo APRN [address] [place] [address] [phone] 05/15/2020 Office Visit Endocrinology Mina James MD [address] [address] [phone] 12/24/2020 Office Visit Medical Oncology documented as of this encounter Visit Diagnoses Not on filedocumented in this encounter
--- OUTSIDE RECORDS SUMMARY | 2020-03-18 12:36 | XMS REPORT | Encounter Summary ---
Author Author [facility] Organization [facility] Address Unknown Phone Unavailable Care Team Providers Care Biomechanical Engineer Name Role Phone Flaquita Quiles PCP Encounter Details Care Team Description Date [place] [address] [address] [facility] [address] [place] [address] [phone] 12/08/2018 [facility] Encounter [address] [place] [address] Social History Date Tobacco Use Types Packs/Day [...] Consult Notes * Sherri Mckinney RN - 12/08/2018 11:33 AM CDT Associated Order(s): CONSULT - VASCULAR ACCESS TEAM USG-PIV to right forearm. documented in this encounter Plan of Treatment Care Team Description [place] [address] [facility] [address] [place] [address] 05/01/2020 Video Visit Neurology Arlene Aguayo APRN [address] [place] [address] 05/15/2020 Office Visit Endocrinology Mina James MD [address] [place] [address] [address] [place] [address] [phone] 12/24/2020 Office Visit Medical Oncology documented as of this encounter Procedures Comments Procedure Name Priority Date/Time Associated Diag nosis CV MPI 2 DAY SPECT Routine 12/08/2018 Preoperativ e clearance PHARMOCOLOGIC REST THEN 1:45 PM CDT STRESS WITH CALCIUM SCORE documented in this encounter Visit Diagnoses Not on filedocumented in this encounter Administered Medications Action Date Dose Rate Site Medication Order MAR Action 12/08/2018 11:30 AM CDT 0.4 mg regadenoson (LEXISCAN) syringe 0.4 mg Given 0.4 mg, Intravenous, Once, Jayde 12/08/18 at 1215, For 1 dose, Imaging, Administe r of 10 seconds, followed by 5 mL normal saline flush, documented in this encounter
--- OUTSIDE RECORDS SUMMARY | 2020-03-18 12:36 | XMS REPORT | Encounter Summary ---
Author Author [facility] Organization [facility] Address Unknown Phone Unavailable Care Team Providers Care Spiral Tube Winder Helper Name Role Phone Flaquita Quiles PCP Encounter Details Care Team Description Date Type Department Cami Frederick RN 01/26/2019 Telephone [facility] [address] [facility] [address] [place], [place] [id number] Social History Date Tobacco Use Types Packs/Day [...] Telephone Encounter - Cami Frederick RN - 01/26/2019 11:48 AM CDT RN called and spoke with patient to reschedule her OV with JEANETTE Astudillo. Patient requested an appointment on next . RN offered her a time of 9:45a. Patty villalobos verbalized understanding and was agreeable to date and time. RN encouraged makr johnson to call with any other questions or concerns. documented in this encounter Plan of Treatment Care Team Description [place] [address] [address] [place], [place] [address] 05/01/2020 Video Visit Neurology Arlene Aguayo APRN [address] [place] [address] 05/15/2020 Office Visit Endocrinology Mina James MD [address] [address] [phone] 12/24/2020 Office Visit Medical Oncology documented as of this encounter Visit Diagnoses Not on filedocumented in this encounter
--- OUTSIDE RECORDS SUMMARY | 2020-03-18 12:36 | XMS REPORT | Encounter Summary ---
Author Author [facility] Organization [facility] Address Unknown Phone Unavailable Care Team Providers Care Boatswains Mate Name Role Phone Flaquita Quiles PCP Reason for Visit * Reason Comments Cardiology test results stress test Encounter Details Care Team Description Date Type Department Cristina Montgomery RN Cardiology test results (stress test) 12/12/2018 Telephone [facility] [address] [place] [address] Social History Date Tobacco Use Types Packs/Day Years Used Never Smoker Smokeless Tobacco: Never Used Drinks/Week oz/Week Comments Alcohol Use No Sex Assigned at Date Recorded Female Industry Job Start Date Occupation Not on file Not on file Not on file Travel End Travel History Travel Start No recent travel history available. documented as of this encounter Miscellaneous Notes * Telephone Encounter - Zayda Bryant RN - 12/16/2018 8:41 AM CDT LMOM with results and recs. Sent letter to PCP. * Telephone Encounter - Cristina Montgomery RN - 12/12/2018 2:32 PM CDT ----- Message from Markell Garcia MD sent at 12/09/2018 4:21 PM CDT ----- Recent cardiovascular evaluation did not show high risk findings. No further lalo ting is recommended prior to elective surgery. documented in this encounter Plan of Treatment Care Team Description Date Type Specialty Anna Zavala, DINKEY OPERATOR SLAG [address] [place] [address] [phone] 05/01/2020 Video Visit Neurology Arlene Aguayo, CARLO [address] [facility] [address] [place] [address] [phone] 05/15/2020 Office Visit Endocrinology Mina James MD [address] [facility] [address] [address] [phone] 12/24/2020 Office Visit Medical Oncology documented as of this encounter Visit Diagnoses Not on filedocumented in this encounter
--- OUTSIDE RECORDS SUMMARY | 2020-03-18 12:36 | XMS REPORT | Encounter Summary ---
Author Author [facility] Organization [facility] Address Unknown Phone Unavailable Care Team Providers Care Field Artillery Operations Specialist Name Role Phone Flaquita Quiles PCP Encounter Details Care Team Description Date Type Department Cami Frederick RN 10/25/2018 Telephone [facility] [address] [facility] [address] [place], [place] [id number] Social History Date Tobacco Use Types Packs/Day [...] Telephone Encounter - Cami Frederick RN - 10/25/2018 11:19 AM BROADBAND ENGINEER Patient called RN to discuss an OV patient had with a ASTRO TECHNICIAN yesterday to discuss t he possibility of having a hysterectomy. Patient was expressing she felt that sh e really needed a hysterectomy. Patient reported that the surgeon she spoke with yesterday was not going to do the surgery with the lovenox recommendations that were in Dr. James's not. RN verbalized understanding. RN informed patient that s he would speak with Dr. James about his recommendations and call the patient. Piper spear is planning to have surgery around December but patient does not know where sh e will have surgery done at. RN encouraged patient to call with any other questi ons or concerns. DBAND ENGINEER documented in this encounter Plan of Treatment Care Team Description Date Type Specialty Anna Zavala, JEANETTE [address] [facility] [address] [place] [address] [phone] 05/01/2020 Video Visit Neurology Arlene Aguayo, SEWING TEACHER [address] [facility] [address] [place] [address] [phone] 05/15/2020 Office Visit Endocrinology Mina James MD [address] [facility] [address] [place] [address] [phone] 12/24/2020 Office Visit Medical Oncology documented as of this encounter Visit Diagnoses Not on filedocumented in this encounter
--- OUTSIDE RECORDS SUMMARY | 2020-03-18 12:36 | XMS REPORT | Encounter Summary ---
Author Author [facility] Organization [facility] Address Unknown Phone Unavailable Care Team Providers Care Overhead Crane Truck Loader Name Role Phone Flaquita Quiles PCP Reason for Visit * Diagnostic Imaging (Routine) Referred By Contact Referred To Contact Status Reason Specialty Diagnoses / Procedures Codie Rowley DO [address] [facility] [place] [address] [address] Closed Radiology Diagnoses Abnormal uterine bleeding (AUB) P rocedures US Pelvis transabd complete and transvaginal P US Pelvis transabd complete and transvaginal ok if needed Encounter Details Care Team Description Date Type Department Codie Rowley DO [address] [facility] [place] [address] [phone] Abnormal uterine bleeding (AUB) 08/08/2018 Imaging Medical [facility], [address] [address] Social History Date Tobacco Use Types Packs/Day [...] Team Description Date Type Specialty Anna Zavala, PROCESS DESIGNER [address] [address] [phone] 05/01/2020 Video Visit Neurology Arlene Aguayo, CADMIUM BURNER [address] [place] [address] [phone] 05/15/2020 Office Visit Endocrinology Mina James MD [address] [facility] [address] [place] [address] [phone] 12/24/2020 Office Visit Medical Oncology documented as of this encounter Procedures Comments Procedure Name Priority Date/Time Associated Diag nosis US PELVIS TRANSABD Routine 08/08/2018 Abnormal ut erine bleeding COMPLETE AND TRANSVAGINAL 2:10 PM CABINET FINISHER (AUB) P documented in this encounter Results * US Pelvis transabd complete and transvaginal P (08/08/2018 2:10 PM CABINET FINISHER) Specimen Impressions Performed At Impression: [facility] Indistinct endometrial margins, limitin g evaluation. There appears to be focal endometrial thickening near the u terine fundus. Further evaluation with sonohysterogram may be helpful for further evaluation of possible focal endometrial pathology READING SITE: [facility] Imaging Narrative Performed At Patient: ZOLTAN CISSE ORQUIDEACRYSTAL Sex#: F # [id number] Lin#: [id number] Location: [facility] US Procedure Requested: [id number] US PELVI S TRANSABD COMPLETE AND TRANSVAGINAL P Reason for Exam: Abnormal uterine ble eding (AUB) Exam Ordered: 08/08/2018 1 332 Exam Date/Time: 08/08/2018 14 10 Begin exam date/time: 08/08/2018 13 32 US PELVIS TRANSABD COMPLETE AND TRANSVA GINAL P History: Abnormal uterine bleeding (AUB ) Comparison: None Technique: Multiple grayscale images of the pelvis utilizing transabdominal and transvaginal technPortero ue. Color Doppler and pulsed wave duplex imaging was utilized as landy ropriate. Findings: The uterus measures aproximately 11 x 4 x 5 cm. The endometrium appears to be focally thickened at the uterine fundus with ill-defined margins, measuring up to 11 mm Physiologic bilateral ovaries No suspicious adnexal mass No free fluid Procedure Note Interface, Rad Results In - 08/08/2018 2:47 PM CABINET FINISHER Patient: ZOLTAN CISSE Sex#: F # [id number] Lin#: [id number] Location: [facility] US Procedure Requested: [id number] US PELVIS TRANSABD COMPLETE AND TRANSVAGINAL P Reason for Exam: Abnormal uterine bleeding (AUB) Exam Ordered: 08/08/2018 1332 Exam Date/Time: 08/08/2018 1410 Begin exam date/time: 08/08/2018 1332 US PELVIS TRANSABD COMPLETE AND TRANSVAGINAL P History: Abnormal uterine bleeding (AUB) Comparison: None Technique: Multiple grayscale images of the pelvis utilizing transabdominal and transvaginal technique. Color Doppler and pulsed wave duplex imaging was utilized as appropriate. Findings: The uterus measures aproximately 11 x 4 x 5 cm. The endometrium appears to be focally thickened at the uterine fundus with ill-defined margins, measuring up to 11 mm Physiologic bilateral ovaries No suspicious adnexal mass No free fluid IMPRESSION Impression: Indistinct endometrial margins, limiting evaluation. There appears to be focal endometrial thickening near the uterine fundus. Further evaluation with sonohysterogram may be helpful for further evaluation of possible focal endometrial pathology READING SITE: [facility] Imaging Performing Organization Address City/State/Zipcode Ph one Number SHAYE documented in this encounter Visit Diagnoses Diagnosis Abnormal uterine bleeding (AUB) documented in this encounter
--- OUTSIDE RECORDS SUMMARY | 2020-03-18 12:36 | XMS REPORT | Encounter Summary ---
Author Author [facility] Organization [facility] Address Unknown Phone Unavailable Care Team Providers Care Straightedge Worker Name Role Phone Flaquita Quiles PCP Reason for Referral * Consultation (Routine) Referred By Contact Referred To Contact Status Reason Specialty Diagnoses / Procedures Alfonso Paez MD [address] [place] [address] [facility] [address] [place] [address] Closed Specialty Services Cardiology Diagnoses Required Preoperative clearance Reason for Visit * Reason Comments Abnormal Uterine Bleeding Encounter Details Care Team Description Date Type Department Provider, Not In System Marvin Ruiz MD [facility] [facility] [place], [place] [id number] Preoperative clearance (Primary Dx) 10/24/2018 Office Visit [facility] [address] Medical [place], [place] [id number] Social History Date Tobacco Use Types Packs/Day [...] Signs Reading Time Taken Comments Vital Sign 132/90 10/24/2018 2:10 PM CRYSTALLOGRAPHY TEACHER Blood Pressure 93 10/24/2018 2:10 PM CRYSTALLOGRAPHY TEACHER Pulse - - Temperature - - Respiratory Rate - - Oxygen Saturation - - Inhaled Oxygen Concentration 128.4 kg (283 lb) 10/24/2018 2:10 PM CRYSTALLOGRAPHY TEACHER Weight 152.4 cm (5') 10/24/2018 2:10 PM CRYSTALLOGRAPHY TEACHER Height 55.27 10/24/2018 2:10 PM CRYSTALLOGRAPHY TEACHER Body Mass Index documented in this encounter Progress Notes * Alfonso Paez MD - 10/24/2018 2:00 PM CRYSTALLOGRAPHY TEACHER NAME: Deysi Cisse AGE: 38 y.o. : 1980 CHIEF COMPLAINT Chief Complaint Patient presents with Preoperative Evaluation HISTORY OF PRESENT ILLNESS History of Present Illness 38 yo female who presents today for preoperative evaluation for AUB. Piper spear has a several year h/o AUB. Reports menses last 5-7 days every 1-2 weeks. 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 She was seen in Gynecology clinic who discussed a hysterectomy but gi nicole the patient's risk factors, body habitus, and anticipated benefit from Robot ic-assisted surgery she was referred to Urogynecology. She continues to desire d efinitive surgical management. She denies any h/o cardiac or pulmonary disease. PROBLEM LIST Patient Active Problem List Diagnosis [...] CHOLECYSTECTOMY 2018 KNEE SURGERY Left TONSILLECTOMY MEDICATIONS EncounterMedications Outpatient Encounter Prescriptions as of 08/18/2018 Medication Sig Dispense Refill cyanocobalamin, vitamin B-12, 1,000 mcg Subl Dissolve 1,000 mcg under the to ngue daily. 30 each 6 DULoxetine (CYMBALTA) 60 mg capsule Take 1 capsule (60 mg total) by mouth da breann. 30 capsule 11 ferrous sulfate 325 (65 FE) MG EC tablet Take 1 tablet (325 mg total) by daily. 30 tablet 6 gabapentin (NEURONTIN) 100 [...] Father Diabetes Sister Hypertension Sister SOCIAL HISTORY SocialHistory Social History Social History Marital status: Spouse [...] 12.8 oz Height: 5' EXAM Physical Exam BP (!) 132/90 | Pulse 93 | Ht 5' | Wt 283 lb | LMP 10/22/2018 (Exact Date) | BMI 55.27 kg/m Constitutional: She is oriented to person, place, [...] and affect. Her behavior is normal. Pelvic Exam performed by Dr. Ruiz: External Genitalia: normal appearing vulva with no masses, tenderness or lesions Vagina: no abnormal discharge or lesions Cervix: no lesions or cervical motion tenderness Poor candidate for vaginal hysterectomy. ASSESSMENT AND PLAN 38yo : Assessment: 1. Abnormal uterine bleeding 2. Morbid obesity (BMI 55) 3. History of DVT/PE, heterozygous Factor V Leiden mutation, on lifelong anticoa gulation 4. Bahai--patient brought in forms detailing blood product preferenc es (scanned into chart), summarized below - will accept: albumin, immunoglobulins, blood-derived clotting fact ors, hemin, blood derived interferons, - won't accept: hemodilution, plasmapheresis, labeling or tagging, b lood - will possibly accept: hemoglobin, cell-salvage, heart-lung machine , dialysis, epidural blood patch, autologous platelet gel Plan: - Patient has received care at , with reported multiple attempts at ablation - Patient cannot take systemic medications due to history of VTEs, previously tr ied Mirena IUD however seems was improperly placed as caused severe pain. - Patient strongly desires definitive surgical management. Discussed that she is at high risk for complications during surgery and recovery period due to her mo rbid obesity and limited acceptance of blood products. Discussed increased risks for DVT/PE due to hypercoagulability. Discussed increased risk for operative and postoperative bleeding due to her chronic anticoagulation. Patient reports und erstanding and acceptance of these risks. Patient verbalized in clinic today dhiraj t she understands and is accepting that she runs the risk of in the event of heavy bleeding due to her limited acceptance of blood products. - Labs 07/28/18: Hgb 13.9, A1c 7.1, T4 1.2, EPO wnl, iron studies WNL - Pelvic US 08/08/18: Uterus measuring 11 x 4 x 5cm, EM 11mm with possible foc al thickening near uterine fundus - Pap NIL/-HRHPV, GC/CT neg (08/01/2018) - s/p Hematology consultation on 07/25/18. Perioperative management of anticoagu lation recommendations made: d/c warfarin 5 days prior to surgery and switch to lovenox (rx provided by heme/onc physician). Target INR prior to surgery 1.3 or less. Hold lovenox on day prior to surgery. Once hemostasis achieved post op, r estart anticoagulation with therapeutic Lovenox 1.5 mg/kg once daily or IV hepar in and bridge with warfarin. Discussed that our preference would be for Lovenox 40 mg subcutaneously qDaily in the immediately and short term post-operative cou rse because of her increased risk with bleeding given the limited blood products available and the extent of the anticipated surgery. Discussed increased risk of DVT/PE/CVA during that timeframe but feel that the risk reduction of hemorrhage outweighs the risks of DVT/PE/CVA. Recommended that the patient discuss these recommendations with her Heme/Onc doctor prior to scheduling surgery. - Given h/o preeclampsia, class III obesity, and T2DM we recommend cardiology cl earance prior to surgery. Order placed. - Discussed methods of hysterectomy with patient today. Discussed that the antic ipated approach would be a RA-TLH. - Patinet to f/u in clinic for preoperative evaluation following Cardiology lizzette karimi. Staff: Dr. Joseph Paez MD, OBGYN, PGY4 Associated attestation - Marvin Ruiz MD - 01/09/2019 2:21 PM CDT Attending Note: I have personally interviewed and examined the patient. complicated by her antic oagulation chronic. Recommendations on her chart put her at unreasonable risk f or post operative bleeding. These recommendations will have to be modified if w e are to operate. * Nathalia Kerr, ZAK - 10/24/2018 2:00 PM CRYSTALLOGRAPHY TEACHER Pt states here for hyster eval. Periods have been every 2 weeks and heavy. Prese nt for pelvic exam. documented in this encounter Plan of Treatment Care Team Description Date Type Specialty Anna Zavala, NUTRITIONISTS [address] [facility] [address] [place] [address] [phone] 05/01/2020 Video Visit Neurology Arlene Aguayo, KETTLEMAN [address] [place], [place] [id number] 05/15/2020 Office Visit Endocrinology Mina James MD [address] [facility] [address] [place] [address] [phone] 12/24/2020 Office Visit Medical Oncology Order Schedule Name Type Priority Associated Diag noses Expected: 11/07/2018, Expires: 9 Ambulatory referral to Outpatient Routine Preoper ative clearance Cardiology Referral documented as of this encounter Visit Diagnoses Diagnosis Preoperative clearance Unspecified pre-operative examination documented in this encounter"
--- OUTSIDE RECORDS SUMMARY | 2020-03-18 12:36 | XMS REPORT | Encounter Summary ---
Author Author [facility] Organization [facility] Address Unknown Phone Unavailable Care Team Providers Care Scalp Treatment Specialist Name Role Phone Flaquita Quiles PCP Encounter Details Care Team Description Date Type Department Carina Rashid DO [address] [place] [address] [phone] 08/03/2018 Telephone [facility] [address], [address] [place] [address] Social History Date Tobacco Use Types Packs/Day Years Used Never Smoker Smokeless Tobacco: Never Used Drinks/Week oz/Week Comments Alcohol Use No Sex Assigned at Date Recorded Female Industry Job Start Date Occupation Not on file Not on file Not on file Travel End Travel History Travel Start No recent travel history available. documented as of this encounter Miscellaneous Notes * Telephone Encounter - Codie Rowley DO - 08/03/2018 2:02 PM FIRE MARSHAL REFINERY Called patient in regards to below messages. Patient states she was told by US s he could not schedule US visit prior to 08/11 and is working and does not have [employer]. Discussed that no date limitation was noted and will call Radiology m yself. Spoke with Radiology scheduling and accomodations able to be made. Pelvic US res cheduled to Wednesday 08/08 @ 1300. Called patient back and relayed new date/time. Will follow up at clinic visit with results and plan of care. Codie Rowley DO, PGY-4 MARSHAL REFINERY * Telephone Encounter - Kayley Bush RN - 08/03/2018 11:28 AM FIRE MARSHAL REFINERY Dr's see note below. MARSHAL REFINERY * Telephone Encounter - Kayley Bush RN - 08/03/2018 11:28 AM FIRE MARSHAL REFINERY Currently has appointment for US on 08/12/18 @ 1:45 MARSHAL REFINERY * Telephone Encounter - Kayley Bush RN - 08/03/2018 11:25 AM FIRE MARSHAL REFINERY Returned call to pt she states " she was told by the Ultrasound schedulers that she needs an approval for her US". Per Phylicia pt does not need approval for US. Discussed that with pt. Pt states " she wants to know why the Dr ordered it to be done on or after 08/11/18 she would like that date to be changed she [place] 2 [place] and does not have a jewel hole rough opener". MARSHAL REFINERY * Telephone Encounter - Loreto Mendoza - 08/03/2018 10:25 AM FIRE MARSHAL REFINERY Patient want's RN to call, about OBUS MARSHAL REFINERY documented in this encounter Plan of Treatment Care Team Description Date Type Specialty Anna Zavala, LITHOGRAPH OPERATOR [address] [facility] [address] [place] [address] [phone] 05/01/2020 Video Visit Neurology Arlene Aguayo, CARLO [address] [facility] [address] [place] [address] [phone] 05/15/2020 Office Visit Endocrinology Mina James MD [address] [facility] [address] [place] [address] [phone] 12/24/2020 Office Visit Medical Oncology documented as of this encounter Visit Diagnoses Not on filedocumented in this encounter
--- OUTSIDE RECORDS SUMMARY | 2020-03-18 12:36 | XMS REPORT | Encounter Summary ---
Author Author [facility] Organization [facility] Address Unknown Phone Unavailable Care Team Providers Care Talent Acquisition Specialist Name Role Phone Flaquita Quiles PCP Encounter Details Care Team Description Date Type Department Romina Gordon MD [address] [facility], [address] [place] [address] [phone] 08/24/2018 Telephone [facility] [address] [place] [address], [address] [place] [address] Social History Date Tobacco Use Types Packs/Day [...] Telephone Encounter - Romina Gordon MD - 08/24/2018 1:48 PM OUTCOMES ANALYST I attempted calling home phone again x 2 and received a busy signal. Will try ag ain later today. OMES ANALYST documented in this encounter Plan of Treatment Care Team Description [place] [address] [address] [place] [address] 05/01/2020 Video Visit Neurology Arlene Aguayo APRN [address] [place] [address] 05/15/2020 Office Visit Endocrinology Mina James MD [address] [address] [phone] 12/24/2020 Office Visit Medical Oncology documented as of this encounter Visit Diagnoses Not on filedocumented in this encounter
--- OUTSIDE RECORDS SUMMARY | 2020-03-18 12:36 | XMS REPORT | Encounter Summary ---
Author Author [facility] Organization [facility] Address Unknown Phone Unavailable Care Team Providers Care Stitch Cleaner Name Role Phone Flaquita Quiles PCP Encounter Details Care Team Description Date Type Department Romina Gordon MD [address] [facility], [address] [place] [address] [phone] 08/29/2018 Telephone [facility] [address] [place] [address], [address] [place] [address] Social History Date Tobacco Use Types Packs/Day [...] Telephone Encounter - Romina Gordon MD - 08/29/2018 4:[address] Called Mrs Cisse and recommended evaluation for surgery with Dr Ruiz in Urogyneco logy given his ability to perform robotic and more difficult vaginal hysterectom ies. Pt is appreciative and will see him. She does request a female be present f or exams. ATTENDANT documented in this encounter Plan of Treatment Care Team Description Date Type Specialty Anna Zavala, FUSION JUNCTURE GRINDER [address] [place] [address] 05/01/2020 Video Visit Neurology Arlene Aguayo, HEAVY EQUIPMENT RENTAL ASSOCIATE [address] [place] [address] [phone] 05/15/2020 Office Visit Endocrinology Mina James MD [address] [facility] [address] [place] [address] [phone] 12/24/2020 Office Visit Medical Oncology documented as of this encounter Visit Diagnoses Not on filedocumented in this encounter
--- OUTSIDE RECORDS SUMMARY | 2020-03-18 12:37 | XMS REPORT | Encounter Summary ---
Author Author [facility] Organization [facility] Address Unknown Phone Unavailable Care Team Providers Care Chassis Mechanic Name Role Phone PCP Unavailable Encounter Details Care Team Description Date Type Department Shobha Christine MD NO FORWARDING INFORMATION 02/28/2016 [facility] Visit [facility] Social History Date Tobacco Use Types Packs/Day Years Used Never Assessed Sex Assigned at Date Recorded Female Industry Job Start Date Occupation Not on file Not on file Not on file Travel End Travel History Travel Start No recent travel history available. documented as of this encounter Miscellaneous Notes * Clinic Note - Shobha Christine MD - 02/28/2016 1:[address], [address] [place] [address] [phone] NAME: DEUCE Gilliam MED REC #: [id number] DATE: 02/28/16 CLINIC VISIT Page 2 of 2 RHEUMATOLOGY CLINIC REFERRING PHYSICIAN: DREW ALMONTE MD [address] [place] [address] Almonte: I saw Deysi Cisse for check up of her Sjogren's and fibromyalgia. She had had bad back pain and ultimately got an MRI done. The radiologist read it as normal imaging of the lumbar spine however the patient went to a pain clinic and they reviewed it and thought she had some disk disease. She has subsequently had SI j oint injections she said which have helped tremendously. She said it would be a bout a month ago. She was also tried on some gabapentin which she said helps. Ot herwise, she is taking tizanidine and gabapentin. She is sleeping better at [facility]. REVIEW OF SYSTEMS: No chest pain or shortness of breath. Constitutionally, she still has some fatigue and some pain particularly in the low back that is still there but much improved. No neurologic symptoms. She has dry eyes and dry shefali th. PHYSICAL EXAMINATION: VITAL SIGNS: Her weight is 231 pounds, blood pressure is 129/75, pulse 90, resp iratory rate 20. GENERAL: She is a 35-year-old female in no acute distress. Mood and affect are appropriate. HEENT: No facial rashes. Dry oral mucosa. NECK: Supple. CHEST: Clear to auscultation. CARDIAC: Regular rate and rhythm. ABDOMEN: Overweight. MUSCULOSKELETAL: No synovitis in PIPs, MCPs, wrists, knees, or MTPs. ASSESSMENTS: 1. Sjogren's syndrome. 2. Fibromyalgia syndrome. 3. Low back pain. PLAN: Is to refill her Plaquenil and maintain tizanidine. I prescribed her jaya pentin 300 mg b.i.d. We will see her back in six months. She needs annual ocular monitoring. Sincerely, Dictated by: SHOBHA CHRISTINE MD KML/TLC Job ID# [id number] documented in this encounter Plan of Treatment Care Team Description [place] [address] [facility] [address] [place] [address] [phone] 05/01/2020 Video Visit Neurology Arlene Aguayo, CARLO [address] [place] [address] [phone] 05/15/2020 Office Visit Endocrinology Mina James MD [address] [facility] [address] [place] [address] [phone] 12/24/2020 Office Visit Medical Oncology documented as of this encounter Visit Diagnoses Not on filedocumented in this encounter
--- OUTSIDE RECORDS SUMMARY | 2020-03-18 12:37 | XMS REPORT | Encounter Summary ---
Author Author [facility] Organization [facility] Address Unknown Phone Unavailable Care Team Providers Care Escrow Agent Name Role Phone Flaquita Quiles PCP Reason for Visit * Reason Comments Fibromyalgia 6 MONTH FOLLOW UP Encounter Details Care Team Description Date Type Department Mitch Vergara MD NO FORWARDING INFORMATION Sjogren's syndrome with keratoconjunctiv itis sicca (HCC) (Primary Dx); Fibromyalgia 12/17/2017 Office Visit [facility] [address], [place] [id number] Social History Date Tobacco Use Types Packs/Day [...] Signs Reading Time Taken Comments Vital Sign 134/66 12/17/2017 9:57 AM CDT Blood Pressure 82 12/17/2017 9:57 AM CDT Pulse 36.8 C (98.2 F) 12/17/2017 9:57 AM CDT Temperature 18 12/17/2017 9:57 AM CDT Respiratory Rate 96% 12/17/2017 9:57 AM CDT Oxygen Saturation - - Inhaled Oxygen Concentration 127.1 kg (280 lb 3.2 oz) 12/17/2017 9:57 AM CDT Weight 152.4 cm (5') 12/17/2017 9:57 AM CDT Height 54.72 12/17/2017 9:57 AM CDT Body Mass Index documented in this encounter Patient Instructions * Patient Instructions* Mitch Vergara MD - 12/17/2017 10:18 AM CDT Understanding Fibromyalgia People with fibromyalgia tend to have at least 11 of the 18 tender points shown above. Fibromyalgia is a condition that causespain at specific pointson the body, stiffness, and fatigue. What are the symptoms of fibromyalgia? In most cases, you will have tender points on your body. These points are very s ore, especially when touched. Finding several of these points helps your healthc are provider diagnose fibromyalgia. Along with the tender points, you may have some or all of the following symptoms : Constant tiredness (fatigue), even after a full nights sleep (non-restorat ashkan sleep) A burning or throbbing pain in many parts of the body (this pain may vary dur ing the day) Stiffness or aching all over your body Numbness or tingling in your arms and legs Trouble sleeping Bowel problems (bloating, diarrhea, constipation) Headaches Depression How is fibromyalgia diagnosed? There is no lab test to diagnosefibromyalgia. Instead, your healthcare provide r will take your health history and examine your joints and muscles. Certain cri teria are used when diagnosing fibromyalgia. Symptoms need to be present for at least 3 months. Tests may be done to rule out other conditions with similar symp toms.Then, together you can design a plan to help you manage your symptoms. How is fibromyalgia treated? Several medications are approved to treat fibromyalgia. Two were originally made to treat depression. They are duloxetine, andmilnacipran.A third, called pr egaballin, was developed to treat nerve pain. Certain medicines used to treat de pression have been helpfulwith fibromyalgia. Other medications include pain re lievers such as acetaminophen or stronger narcotics. These may be prescribed jonnie rt term. NSAIDs (nonsteroidal anti-inflammatory drugs) including aspirin, ibuprofen, and naproxen are used to relieve pain. Getting enough sleep, regular exercise, and eating a healthy diet can help manag e symptoms. Cognitive behavioral therapy (a form of psychotherapy) can be helpfu l for fibromyalgia. Some people find alternative treatments such as massage, chi ropractic treatments, biofeedback, or acupuncture also help with symptoms. Date Last Reviewed: 10/27/201519990380-6165 [employer]. [address] [place] [address], [place], [place] [address]. All rights reserved. This information is not intended as a substitute for pro fessional medical care. Always follow your healthcare professional's instruction s. documented in this encounter Progress Notes * Mitch Vergara MD - 12/17/2017 9:15 AM CDT Patient ID: Deysi Cisse is a 37 y.o. female. Subjective: Patient presents with Fibromyalgia (6 MONTH FOLLOW UP ) Seeing patient back for follow-up of her chronic fibromyalgia syndrome and Sjogr en's syndrome. She is continuing to nurse her baby who is 8 months old. Being off her medications her pain levels have been significantly elevated over the wi nter months. She rates them as high. She has significant fatigue and dysthymic symptoms. She is ready to stop nursing so she can resume her medications. She has an appointment with continuous miner next month and she will discuss these opti ons. Review of Systems Constitutional: Positive for malaise/fatigue. HENT: Negative. Eyes: Negative. Respiratory: Negative. Cardiovascular: Negative. Gastrointestinal: Negative. Genitourinary: Negative. Musculoskeletal: Positive for back pain and neck pain. Skin: Negative. Neurological: Negative. Endo/Heme/Allergies: Negative. Psychiatric/Behavioral: Negative. All other systems reviewed and are negative. Allergies: Allergies Allergen Reactions Aspirin Hives Medications: Outpatient Prescriptions Marked as Taking for the 12/17/17 encounter (Office Visit ) with Mitch Vergara MD Medication Sig Dispense Refill warfarin (COUMADIN) 2.5 MG tablet Take 2.5 mg by mouth every evening. warfarin (COUMADIN) 5 MG tablet Take 5 mg by mouth 4 (four) times a week. Current Facility-Administered Medications for the 12/17/17 encounter (Office Visit ) with Mitch Vergraa MD Medication Dose Route Frequency Provider Last Rate Last Dose ketorolac (TORADOL) injection 30 mg 30 mg Intramuscular Once Mitch Vergara MD methylPREDNISolone acetate (DEPO-MEDROL) 40 mg/mL injection 40 mg 40 mg Int ramuscular Once Mitch Vergara MD History: Past Medical History: Diagnosis Date Fibromyalgia Sjogren's disease (HCC) Past Surgical History: Procedure Laterality Date ANTERIOR CRUCIATE LIGAMENT REPAIR Left KNEE SURGERY Left TONSILLECTOMY Family History Problem Relation Age of Onset Diabetes Mother Hypertension Mother Diabetes Father COPD Father Diabetes Sister Hypertension Sister Vitals: BP 134/66 | Pulse 82 | Temp 36.8 C (98.2 F) (Oral) | Resp 18 | Ht 1.524 m (5') | Wt 127.1 kg (280 lb 3.2 oz) | SpO2 96% | BMI 54.72 kg/m Objective: Physical Exam: Physical Exam Constitutional: She appears well-developed and well-nourished. HENT: Head: Normocephalic and atraumatic. Nose: Nose normal. Dry oral mucosa Eyes: Conjunctivae and EOM are normal. Pupils are equal, round, and reactive to light. Neck: Normal range of motion. Neck supple. Cardiovascular: Normal rate, regular rhythm and normal heart sounds. Pulmonary/Chest: Effort normal and breath sounds normal. Abdominal: Soft. Overweight Musculoskeletal: No synovitis in PIPs, MCPs, wrists. Her back is very sensitive and fibromyalgia tender point locations Neurological: She is alert. Skin: Skin is warm and dry. Psychiatric: She has a normal mood and affect. Her behavior is normal. Nursing note and vitals reviewed. Data: No results found. No visits with results within 90 Day(s) from this visit. Latest known visit with results is: Hospital Outpatient Visit on 04/19/2006 Component Date Value Ref Range Status UCG Urine 04/19/2006 NEGATIVE NEGATIVE Final Assesment and Plan: Encounter Diagnoses Name Primary? Sjogren's syndrome with keratoconjunctivitis sicca (HCC) Yes Fibromyalgia 1. Fibromyalgia syndrome. 2. Sjogren's syndrome, off Plaquenil. 3. High risk medication counseling. Plan today is to give her an IM Medrol shot of 40 mg and Toradol 30 mg to help w ith her fibromyalgia symptoms. I am also going to suggest she restart her Plaqu enil at 400 mg daily. She will discuss with her primary care doctor the safety of resuming Cymbalta at 30 mg daily. I put a prescription through for this. I will see her back in 6 months Orders Placed This Encounter hydroxychloroquine (PLAQUENIL) 200 mg tablet Sig: Take 2 tablets (400 mg total) by mouth daily. Dispense: 60 tablet Refill: 11 methylPREDNISolone acetate (DEPO-MEDROL) 40 mg/mL injection 40 mg ketorolac (TORADOL) injection 30 mg DULoxetine (CYMBALTA) 30 mg capsule Sig: Take 1 capsule (30 mg total) by mouth daily. Dispense: 30 capsule Refill: 11 Parts of this note were comprised using [employer] voice recognition software and ma y account for transcriptional errors. documented in this encounter Plan of Treatment Care Team Description Date Type Specialty Anna Zavala, PM HEAD COOK [address] [place] [address] [phone] 05/01/2020 Video Visit Neurology Arlene Aguayo, PRODUCTION COUNTER [address] [place], [place] [id number] 05/15/2020 Office Visit Endocrinology Mina James MD [address] [facility] [address] [place] [address] [phone] 12/24/2020 Office Visit Medical Oncology documented as of this encounter Visit Diagnoses Diagnosis Sjogren's syndrome with keratoconjuncti vitis sicca (HCC) Fibromyalgia Unspecified myalgia and myositis documented in this encounter Administered Medications Action Date Dose Rate Site Medication Order MAR Action 12/17/2017 10:24 AM CDT 30 mg Left Del toid ketorolac (TORADOL) injection 30 mg Given 30 mg, Intramuscular, Once, Wed12/17/17 at 1045, For 1 dose 12/17/2017 10:26 AM CDT 40 mg Right De ltoid methylPREDNISolone acetate (DEPO-MEDROL) Given 40 mg/mL injection 40 mg 40 mg, Intramuscular, Once, Wed12/17/17 at 1045, For 1 dose documented in this encounter"
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
--- OUTSIDE RECORDS SUMMARY | 2020-03-18 12:37 | XMS REPORT | Encounter Summary ---
Author Author [facility] Organization [facility] Address Unknown Phone Unavailable Care Team Providers Care Food Dehydrator Operator Name Role Phone Flaquita Quiles PCP Encounter Details Care Team Description Date Type Department Mitch Vergara MD NO FORWARDING INFORMATION 01/07/2018 Orders Only [facility] [address] [place], [place] [address] Social History Date Tobacco Use Types Packs/Day [...] Team Description Date Type Specialty Anna Zavala, ELECTRICIAN AIRCRAFT [address] [facility] [address] [place] [address] [phone] 05/01/2020 Video Visit Neurology Arlene Aguayo, CARLO [address] [place] [address] [phone] 05/15/2020 Office Visit Endocrinology Mina James MD [address] [facility] [address] [place] [address] [phone] 12/24/2020 Office Visit Medical Oncology documented as of this encounter Visit Diagnoses Not on filedocumented in this encounter
--- OUTSIDE RECORDS SUMMARY | 2020-03-18 12:37 | XMS REPORT | Encounter Summary ---
Author Author [facility] Organization [facility] Address Unknown Phone Unavailable Care Team Providers Care Lawn Care Specialist Name Role Phone Flaquita Quiles PCP Encounter Details Care Team Description Date Type Department Mina James MD [address] [facility] [address] [place], [place] [id number] Heterozygous factor V Leiden mutation (H CC) 07[facility]28/2018 [facility] [address] [place], [place] [id number] Social History Date Tobacco Use Types Packs/Day Years Used Never Smoker Smokeless Tobacco: Never Used Drinks/Week oz/Week Comments Alcohol Use No Sex Assigned at Date Recorded Female Industry Job Start Date Occupation Not on file Not on file Not on file Travel End Travel History Travel Start No recent travel history available. documented as of this encounter Progress Notes * Yue Fritz MA - 07/28/2018 4:50 PM BUDGET TECHNICIAN LVM regarding this message ET TECHNICIAN documented in this encounter Plan of Treatment Care Team Description [place] [address] [place], [place] [address] 05/01/2020 Video Visit Neurology Arlene Aguayo APRN [address] [place] [address] 05/15/2020 Office Visit Endocrinology Mina James MD [address] [facility] [address] [place] [address] [phone] 12/24/2020 Office Visit Medical Oncology documented as of this encounter Procedures Comments Procedure Name Priority Date/Time Associated Diag nosis ERYTHROPOIETIN (EPO) Routine 07/28/2018 Heterozyg ous factor V 4:50 PM BUDGET TECHNICIAN Leiden mutation (HCC) IRON/TRANSFERRIN Routine 07/28/2018 Heterozygous factor V 4:50 PM BUDGET TECHNICIAN Leiden mutation (HCC) FERRITIN Routine 07/28/2018 Heterozygous fa ctor V 4:50 PM BUDGET TECHNICIAN Leiden mutation (HCC) CBC AND DIFF (MANUAL DIFF Routine 07/28/2018 IF NECESSARY) 4:50 PM BUDGET TECHNICIAN B12/FOLATE Routine 07/28/2018 Heterozygous fa ctor V 4:50 PM BUDGET TECHNICIAN Leiden mutation (HCC) documented in this encounter Results * CBC and Diff (manual diff if necessary) (07/28/2018 4:50 PM BUDGET TECHNICIAN) WBC 7.04 4.00 - 11.00 TH/uL [facility] RBC 5.14 (H) 4.00 - 5.00 MIL/uL [facility] Hemoglobin 13.9 12.0 - 15.0 g/dL [facility] Hematocrit 42 36 - 45 % [facility] MCV 82 80 - 99 fL [facility] MCH 27 27 - 34 pg [facility] MCHC 33 32 - 36 % [facility] RDW 13.3 9.0 - 14.5 % [facility] Platelet Count 251 140 - 400 TH/uL [facility] MPV 9.8 9.4 - 12.3 fL [facility] Nucleated RBCs 0 0 - 0 /100 [facility] % Neutrophils 67 45 - 78 % [facility] %Lymphocytes 25 15 - 47 % [facility] %Monocytes 5 0 - 12 % [facility] %Eosinophils 1 0 - 7 % [facility] %Basophils 0 0 - 2 % [facility] % Imm Grans 0 0 - 1 % [facility] # Granulocytes 4.74 1.70 - 6.80 TH/uL [facility] # Lymphocytes 1.79 1.00 - 3.30 TH/uL [facility] # Monocytes 0.38 0.20 - 0.90 TH/uL [facility] # Eosinophils 0.10 0.00 - 0.40 TH/uL [facility] # Basophils 0.03 0.00 - 0.10 TH/uL [facility] Specimen Blood Performing Organization Address [facility] one Number [facility] [address] [place] [address] LABORATORIES * Erythropoietin (EPO) (07/28/2018 4:50 PM BUDGET TECHNICIAN) Pathologist [facility] Erythropoietin 14.2 2.6 - 18.5 mIU/mL [facility] (EPO) Comment: [employer] DxI 800 Immunoassay System Performed at: [facility] [address] [id number] Respiratory Tech: Eri Grande MD, Phone: [phone] Specimen Blood Performing Organization Address [facility] one Number RL [address] [place], [place] [address] * B12/Folate (07/28/2018 4:50 PM BUDGET TECHNICIAN) [facility] VITAMIN B12 229 (L) 239 - 931 pg/mL [facility] Folate >20.0 (H) 3.4 - 20.0 ng/mL [facility] Specimen Blood Performing Organization Address [facility] one Number [facility] [address] [place] [address] LABORATORIES * Iron/Transferrin (07/28/2018 4:50 PM BUDGET TECHNICIAN) Pathologist [facility] Iron 72 50 - 180 ug/dL [facility] Transferrin 303 206 - 381 mg/dL [facility] Total 364 204 - 408 ug/dL [facility] Iron-Binding [facility] LABORATORIES Iron/Transferri 20 15 - 50 % [facility] n % Saturation [facility] Specimen Blood Performing Organization Address [facility] one Number [address] [address] LABORATORIES * Ferritin (07/28/2018 4:50 PM BUDGET TECHNICIAN) Ferritin 21 20 - 200 ng/mL [facility] Specimen Blood Performing Organization Address City/[facility] one Number [address] [address] LABORATORIES documented in this encounter Visit Diagnoses Diagnosis Heterozygous factor V Leiden mutation ( HCC) Primary hypercoagulable state documented in this encounter
--- OUTSIDE RECORDS SUMMARY | 2020-03-18 12:37 | XMS REPORT | Encounter Summary ---
Author Author [facility] Organization [facility] Address Unknown Phone Unavailable Care Team Providers Care Intelligence Research Specialist Name Role Phone Flaquita Quiles PCP Encounter Details Care Team Description Date Type Department Codie Rowley DO [address] [facility] Ed Dept [place], [place] [id number] Abnormal uterine bleeding (AUB) 07/28/2018 Lab [facility] [address] [facility] [address] [place] [address] Social History Date Tobacco Use Types Packs/Day [...] Description Date [place] [address] [facility] [address] [place] [address] [phone] 05/01/2020 Video Visit Neurology Arlene Aguayo, CARLO [address] [place], [place] [id number] 05/15/2020 Office Visit Endocrinology Mina James MD [address] [facility] [address] [place], [place] [phone] 12/24/2020 Office Visit Medical Oncology documented as of this encounter Procedures Comments Procedure Name Priority Date/Time Associated Diag nosis THYROID STIMULATING Routine 07/28/2018 Ab[address]ine bleeding HORMONE 4:50 PM BICYCLE II ASSEMBLER (AUB) T4 FREE Routine 07/28/2018 Abnormal uterin e bleeding 4:50 PM BICYCLE II ASSEMBLER (AUB) HEMOGLOBIN A1C Routine 07/28/2018 Abnormal uterin e bleeding 4:50 PM BICYCLE II ASSEMBLER (AUB) COMPREHENSIVE METABOLIC Routine 07/28/2018 Abnorm al uterine bleeding PANEL 4:50 PM BICYCLE II ASSEMBLER (AUB) CBC AND DIFF (MANUAL DIFF Routine 07/28/2018 Abno rmal uterine bleeding IF NECESSARY) 4:50 PM BICYCLE II ASSEMBLER (AUB) documented in this encounter Results * Comprehensive Metabolic Panel (07/28/2018 4:50 PM BICYCLE II ASSEMBLER) Sodium 136 133 - 147 MEQ/L [facility] Potassium 4.0 3.5 - 5.3 MEQ/L [facility] Chloride 103 96 - 112 MEQ/L [facility] Carbon Dioxide 23 20 - 32 MEQ/L [facility] Anion Gap 11 5 - 17 [facility] Calcium 9.1 8.4 - 10.5 mg/dL [facility] Glucose 149 (H) 70 - 100 mg/dL [facility] Protein Total 7.5 6.0 - 8.2 g/dL [facility] Serum [facility] LABORATORIES Albumin 4.1 3.5 - 5.0 g/dL [facility] Alkaline 63 42 - 140 IU/L [facility] Phosphatase [facility] Alanine 20Comment: ALT reference range 0 - 34 IU/L [facility] Aminotransferas changed on 03-22-2018 [facility] e LABORATORIES Aspartate 23 15 - 46 IU/L [facility] Aminotransferas [facility] e LABORATORIES Bilirubin Total 0.7 0.2 - 1.3 mg/dL [facility] Blood Urea 14 7 - 26 mg/dL [facility] Nitrogen [facility] Creatinine 0.9 0.4 - 1.1 mg/dL [facility] eGFR Female AA 84 60 - 200 [facility] Comment: REGIONAL Chronic Kidney Disease less LABORATORIES than 60 mL/min/1.73 sq.m Kidney failure less than 15 mL/min/1.73 sq.m eGFR Female 70 60 - 200 [facility] Non-AA Comment: REGIONAL Chronic Kidney Disease less LABORATORIES than 60 mL/min/1.73 sq.m Kidney failure less than 15 mL/min/1.73 sq.m Specimen Blood Performing Organization Address [facility] one Number [address] [address] LABORATORIES * Hemoglobin A1C (07/28/2018 4:50 PM BICYCLE II ASSEMBLER) Hemoglobin A1C 7.1 (H) 4.0 - 5.6 % [facility] Comment: REGIONAL Non-diabetic 4.0 - LABORATORIES 5.6 % Prediabetes 5.7 - 6.4 % Diabetes >= 6.5 % Specimen Blood Performing Organization Address [facility] one Number [address] [address] LABORATORIES * T4 Free (07/28/2018 4:50 PM BICYCLE II ASSEMBLER) T4 Free 1.2 0.8 - 2.2 ng/dL [facility] Specimen Blood Performing Organization Address [facility] one Number [address] [address] LABORATORIES * Thyroid Stimulating Hormone (07/28/2018 4:50 PM BICYCLE II ASSEMBLER) Thyroid 3.75 0.47 - 4.68 uIU/mL [facility] Stimulating [facility] Hormone LABORATORIES Specimen Blood Performing Organization Address [facility] one Number [address] [address] LABORATORIES * CBC and Diff (manual diff if necessary) (07/28/2018 4:50 PM BICYCLE II ASSEMBLER) WBC 7.04 4.00 - 11.00 TH/uL [facility] RBC 5.14 (H) 4.00 - 5.00 MIL/uL [facility] Hemoglobin 13.9 12.0 - 15.0 g/dL [facility] Hematocrit 42 36 - 45 % [facility] MCV 82 80 - 99 fL [facility] MCH 27 27 - 34 pg [facility] MCHC 33 32 - 36 % [facility] RDW 13.3 9.0 - 14.5 % [facility] Platelet Count 251 140 - 400 TH/uL [facility] MPV 9.8 9.4 - 12.3 fL [facility] Nucleated RBCs 0 0 - 0 /100 [facility] % Neutrophils 67 45 - 78 % [facility] %Lymphocytes 25 15 - 47 % [facility] %Monocytes 5 0 - 12 % [facility] %Eosinophils 1 0 - 7 % [facility] %Basophils 0 0 - 2 % [facility] % Imm Grans 0 0 - 1 % [facility] # Granulocytes 4.74 1.70 - 6.80 TH/uL [facility] LABORATORIES # Lymphocytes 1.79 1.00 - 3.30 TH/uL [facility] # Monocytes 0.38 0.20 - 0.90 TH/uL [facility] LABORATORIES # Eosinophils 0.10 0.00 - 0.40 TH/uL [facility] # Basophils 0.03 0.00 - 0.10 TH/uL [facility] Specimen Blood Performing Organization Address City/State/Zipcode Ph one Number [address] [address] LABORATORIES documented in this encounter Visit Diagnoses Diagnosis Abnormal uterine bleeding (AUB) documented in this encounter
--- OUTSIDE RECORDS SUMMARY | 2020-03-18 12:37 | XMS REPORT | Encounter Summary ---
Author Author [facility] Organization [facility] Address Unknown Phone Unavailable Care Team Providers Care General Cargo Clerk Name Role Phone Flaquita Quiles PCP Reason for Visit * Reason Comments sjogren Fibromyalgia Encounter Details Care Team Description Date Type Department Mitch Vergara MD NO FORWARDING INFORMATION Sjogren's syndrome with keratoconjunctiv itis sicca (HCC) (Primary Dx); Fibromyalgia 06/17/2018 Office Visit [facility] [address] [place], [place] [id number] Social History Date Tobacco Use Types Packs/Day [...] Signs Reading Time Taken Comments Vital Sign 126/72 06/17/2018 1:22 PM CDT Blood Pressure 78 06/17/2018 1:22 PM CDT Pulse 36.9 C (98.4 F) 06/17/2018 1:22 PM CDT Temperature - - Respiratory Rate 97% 06/17/2018 1:22 PM CDT Oxygen Saturation - - Inhaled Oxygen Concentration 134 kg (295 lb 6.4 oz) 06/17/2018 1:22 PM CDT Weight 152.4 cm (5') 06/17/2018 1:22 PM CDT Height 57.69 06/17/2018 1:22 PM CDT Body Mass Index documented in this encounter Progress Notes * Mitch Vergara MD - 06/17/2018 1:00 PM CDT Patient ID: Deysi Cisse is a 38 y.o. female. Subjective: Patient presents with sjogren and Fibromyalgia 38-year-old female with chronic Sjogren's syndrome and overlapping fibromyalgia. She weaned her baby from nursing. She is taking duloxetine at 30 mg daily and gabapentin 300 mg at night. Plaquenil is back at 400 mg daily. She uses [facility] nura. She saw pain clinic at and they have plans for localized injections for bulging disc. The patient's pain level is increased up to 10 out of 10 she is fatigued and dysthymic Review of Systems Constitutional: Positive for malaise/fatigue. HENT: Negative. Eyes: Negative. Respiratory: Negative. Negative for sputum production. Cardiovascular: Negative. Negative for chest pain. Gastrointestinal: Positive for abdominal pain. Genitourinary: Negative. Musculoskeletal: Positive for back pain, joint pain, myalgias and neck pain. Skin: Negative. Negative for rash. Neurological: Positive for headaches. Endo/Heme/Allergies: Negative. Psychiatric/Behavioral: Positive for depression. All other systems reviewed and are negative. Allergies: Allergies Allergen Reactions Aspirin Hives Medications: Outpatient Prescriptions Marked as Taking for the 06/17/18 encounter (Office Visi t) with Mitch Vergara MD Medication Sig Dispense Refill DULoxetine (CYMBALTA) 60 mg capsule Take 1 capsule (60 mg total) by mouth da breann. 30 capsule 11 gabapentin (NEURONTIN) 100 MG capsule Take 1 capsule (100 mg total) by mouth 5 (five) times a day. 1 CAP BID AND 3 AT HS 150 capsule 5 HYDROcodone-acetaminophen (NORCO) 5-325 mg per tablet Take 1 tablet by mouth every 6 (six) hours as needed for pain. hydroxychloroquine (PLAQUENIL) 200 mg tablet Take 2 [...] mouth 4 (four) times a week. [DISCONTINUED] DULoxetine (CYMBALTA) 30 mg capsule Take 1 capsule (30 mg tot al) by mouth daily. 30 capsule 11 [DISCONTINUED] gabapentin (NEURONTIN) 300 MG capsule Take 300 mg by mouth da breann. 3 [DISCONTINUED] traMADol (ULTRAM) 50 mg tablet Take 50 mg by mouth daily. History: Past Medical History: Diagnosis Date Fibromyalgia Sjogren's disease (HCC) Past Surgical History: Procedure Laterality Date ANTERIOR CRUCIATE LIGAMENT REPAIR Left CHOLECYSTECTOMY 09/2017 KNEE SURGERY Left TONSILLECTOMY Family History Problem Relation Age of Onset Diabetes Mother Hypertension Mother Diabetes Father COPD Father Diabetes Sister Hypertension Sister Vitals: BP 126/72 | Pulse 78 | Temp 36.9 C (98.4 F) (Oral) | Ht 1.524 m (5') | W t 134 kg (295 lb 6.4 oz) | SpO2 97% | BMI 57.69 kg/m Objective: Physical Exam: Physical Exam Constitutional: She appears well-developed and well-nourished. HENT: Head: Normocephalic and atraumatic. Nose: Nose normal. Dry mouth, no oral ulcers Eyes: Pupils are equal, round, and reactive to light. EOM are normal. Neck: Normal range of motion. Neck supple. Cardiovascular: Normal rate, regular rhythm and normal heart sounds. Pulmonary/Chest: Effort normal and breath sounds normal. Abdominal: Soft. Musculoskeletal: Diffuse fibromyalgia tender points Neurological: She is alert. [...] Status UCG Urine 04/19/2006 NEGATIVE NEGATIVE Final Assessment and Plan: Encounter Diagnoses Name Primary? Sjogren's syndrome with keratoconjunctivitis sicca (HCC) Yes Fibromyalgia 1. Chronic Sjogren's syndrome. 2. Fibromyalgia syndrome, worsening. 3. High risk medication monitoring. Recommend continuing current hydroxychloroquine getting eye exam annually for sa fety. We are going to adjust her gabapentin to 100 mg twice daily and 300 mg at night. We will add tramadol as needed as an analgesic. We discussed risks and benefits she is willing to try this again. She will do pain injection clinic i n a few weeks. As such were not can give her a Medrol Toradol injection today. I did spend time filling out her disability questionnaire as the patient is liz g to apply for disability due to the potential pain and fatigue that limits her from working Orders Placed This Encounter DULoxetine (CYMBALTA) 60 mg capsule Sig: Take 1 capsule (60 mg total) by mouth daily. Dispense: 30 capsule Refill: 11 gabapentin (NEURONTIN) 100 MG capsule Sig: Take 1 capsule (100 mg total) by mouth 5 (five) times a day. 1 CAP BID AN D 3 AT HS Dispense: 150 capsule Refill: 5 traMADol (ULTRAM) 50 mg tablet Sig: Take 1-2 tablets (50-100 mg total) by mouth 3 (three) times a day as need ed for pain. Max Daily Dose: 300 mg Dispense: 120 tablet Refill: 5 Parts of this note were comprised using [employer] voice recognition software and ma y account for transcriptional errors. documented in this encounter Plan of Treatment Care Team Description [place] [address] [place] [address] [phone] 05/01/2020 Video Visit Neurology Arlene Aguayo APRN [address] [place], [place] [id number] 05/15/2020 Office Visit Endocrinology Mina James MD [address] [facility] [address] [place] [address] [phone] 12/24/2020 Office Visit Medical Oncology documented as of this encounter Visit Diagnoses Diagnosis Sjogren's syndrome with keratoconjuncti vitis sicca (HCC) Fibromyalgia Unspecified myalgia and myositis documented in this encounter"
--- OUTSIDE RECORDS SUMMARY | 2020-03-18 12:37 | XMS REPORT | Encounter Summary ---
Author Author [facility] Organization [facility] Address Unknown Phone Unavailable Care Team Providers Care Measurement Superintendent Name Role Phone Flaquita Quiles PCP Reason for Visit * Reason Comments Medication Refill Encounter Details Care Team Description Date Type Department Mitch Vergara MD NO FORWARDING INFORMATION Medication Refill 02/25/2018 Refill [facility] [address] [place] [address] Social History Date Tobacco Use [...] Telephone Encounter - Francie Bailey RN - 02/25/2018 4:54 PM CDT Patient notified. * Telephone Encounter - Francie Bailey RN - 02/25/2018 11:22 AM CDT Patient called and reports is changing pharmacy. Reports previous pharmacy has "deleted her refills and can't forward them" to the new pharmacy. documented in this encounter Plan of Treatment Care Team Description Date Type Specialty Anna Zavala, BILL PEDDLER [address] [place], [place] [address] 05/01/2020 Video Visit Neurology Arlene Aguayo, ANILINE PRESS WORKER [address] [place] [address] 05/15/2020 Office Visit Endocrinology Mina James MD [facility] [address] [address] [phone] 12/24/2020 Office Visit Medical Oncology documented as of this encounter Visit Diagnoses Not on filedocumented in this encounter
--- OUTSIDE RECORDS SUMMARY | 2020-03-18 12:37 | XMS REPORT | Encounter Summary ---
Author Author [facility] Organization [facility] Address Unknown Phone Unavailable Care Team Providers Care Polymerization Engineer Name Role Phone PCP Unavailable Encounter Details Care Team Description Date Type Department Shobha Christine MD NO FORWARDING INFORMATION 11/13/2016 [facility] Visit [facility] [address] [place], [place] [id number] Social History Date Tobacco Use Types Packs/Day Years Used Never Assessed Sex Assigned at Date Recorded Female Industry Job Start Date Occupation Not on file Not on file Not on file Travel End Travel History Travel Start No recent travel history available. documented as of this encounter Miscellaneous Notes * Clinic Note - Shobha Christine MD - 11/13/2016 10:31 AM [place] [address], [address] [place], [place] [id number] [phone] NAME: DEUCE Gilliam MED REC #: [id number] DATE OF : 1980 DATE: 11/13/16 CLINIC VISIT Page 2 of 2 RHEUMATOLOGY CLINIC REFERRING PHYSICIAN: Dr. Sherri Almonte [address] [place] [address] Almonte, I saw Deysi Cisse for checkup of her chronic Sjogrens and fibromyalgia. The p atient informs me that she is a few months . She found out in September a nd is due in April. She did have all of her oral medications discontinued afte r finding out she was including her warfarin, analgesics, muscle relaxe r, Plaquenil and gabapentin. She is currently taking vitamin, iron and Lovenox injections. She does have a history of DVTs and when I first saw her s everal years ago, we did a workup for antiphospholipid syndrome which was entire ly negative. She did have a positive BILLY and SSA antibodies, so she is at risk for lupus. Currently she is having low back pain and fatigue. She has been having some recent spotting. She is going back in to get this checked out. She has not yet had a high-risk OB check, but has an appointment planned at [facility]. REVIEW OF SYSTEMS: No chest pain or shortness of breath. She is fatigued. No fevers, chills or ni ght sweats. She is having some edema and low back pain. No significant rashes. PHYSICAL EXAMINATION: VITAL SIGNS: Her weight is at 281, up from 231, blood pressure is 142/83, pulse 92, respiratory rate 18. This is a 36-year-old female in no acute distress, but emotionally upset today. No facial rashes, no oral ulcers. NECK: Supple. C HEST: Clear to auscultation. CARDIAC: Regular rate and rhythm. ABDOMEN: Obe se, but nontender. She has trace lower extremity edema in both ankles. No rash es. No gross neurologic deficits. MUSCULOSKELETAL: No synovitis in PIPs, MCPs , wrists, knees, or MTPs. Tenderness in the low back. LABORATORY DATA: I did review her old laboratories: DRVVT, hexagonal lupus anticoagulant, antica rdiolipin antibodies and anti-beta 2 glycoprotein antibodies were all negative. Her BILLY was positive at a titer of 1:160 with a positive SSA antibody. I have given her a copy of all these laboratories because these will be pertinent to he r high-risk OB appointment. ASSESSMENT: 1. Chronic Sjogren's syndrome. 2. Fibromyalgia syndrome. 3. high risk with SSA antibodies. PLAN: The patient should continue to hold her medicines. Defer to high-risk OB about safety of medicines in particular, both for and nursing. She does nee d to get high-risk OB cardiac monitoring as SSA antibodies have been shown to be linked with lupus. This should be standard for high-risk OB clinic. Again, I have provided the patient all of the previous laboratories. I will libra n on seeing her back in late May after her expected delivery date. I spent greater than 25 minutes with the patient of which greater than half of t he time was spent counseling her on the risks of lupus, past antibodies and the rationale for holding her current medications. While Plaquenil is com monly continued throughout and lupus patients, holding it is very reas onable in this patient. It does have a very long half-life, but the risk of josh toxicity is low. Sincerely, Dictated by: SHOBHA CHRISTINE MD KML/BJJamal Job ID# [id number] documented in this encounter Plan of Treatment Care Team Description [place] [address] [facility] [address] [place], [place] [id number] 05/01/2020 Video Visit Neurology Arlene Aguayo APRN [address] [place], [place] [id number] 05/15/2020 Office Visit Endocrinology Mina James MD [address] [facility] [address] [place] [address] [phone] 12/24/2020 Office Visit Medical Oncology documented as of this encounter Visit Diagnoses Not on filedocumented in this encounter
--- OUTSIDE RECORDS SUMMARY | 2020-03-18 12:37 | XMS REPORT | Encounter Summary ---
Author Author [facility] Organization [facility] Address Unknown Phone Unavailable Care Team Providers Care Bridge Expert Name Role Phone Flaquita Quiles PCP Reason for Visit * Reason Comments Gynecologic Exam Encounter Details Care Team Description Date Type Department Provider, Not In System Codie Rowley DO [address] [place] [address] [phone] Abnormal uterine bleeding (AUB) (Primary Dx); Screening examination for STD (sexually transmitted disease) 07/28/2018 Office Visit [facility] [address], [address] [place] [address] Social History Date Tobacco Use Types Packs/Day [...] Signs Reading Time Taken Comments Vital Sign 146/89 07/28/2018 3:23 PM EDGING SUPERVISOR Blood Pressure 83 07/28/2018 3:23 PM EDGING SUPERVISOR Pulse - - Temperature - - Respiratory Rate - - Oxygen Saturation - - Inhaled Oxygen Concentration 135.6 kg (299 lb) 07/28/2018 3:23 PM EDGING SUPERVISOR Weight 152.4 cm (5') 07/28/2018 3:23 PM EDGING SUPERVISOR Height 58.39 07/28/2018 3:23 PM EDGING SUPERVISOR Body Mass Index documented in this encounter Progress Notes * Sugar Sanford RN - 07/28/2018 3:00 PM EDGING SUPERVISOR Pt here for evaluation of irregular bleeding. Present at bedside at [address] Rowley and Dr Gordon for speculum exam and col lection of cultures and pap smear. Pt tolerated well. NG SUPERVISOR * Codie Rowley, DO - 07/28/2018 3:00 PM EDGING SUPERVISOR NAME: Deysi Cisse AGE: 38 y.o. : 1980 CHIEF COMPLAINT Chief Complaint Patient presents with Gynecologic Exam HISTORY OF PRESENT ILLNESS History of Present Illness Deysi Cisse is a 38 y.o. who presents for new Gynecology visit. She is here for hysterectomy consultation visit. She mentions in 2013 she was having menstrual cycle q2wks. Had Paragard IUD plac ed in 2010 for contraception, which was subsequently removed in 2014. Talked to an puffer tender in [place] who said she needed a hysterectomy as she was not safe for . She mentions previously when she was 19yo that she was t old she could not have children because of fibroids. 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 At initial therapy attempted was endometrial ablation , which was attempted twice however unsuccessful due to "could not get instrumen t into cervix". After this, a D&C was completed and Mirena IUD was placed however 2 days later removed due to severe pelvic pain (could not sit, walk, etc). After this, another attempt at ablation made (3rd time) which was unsuccessful. She was then planned for a hysterectomy (~end of 2015) however became . That ended in vaginal delivery at 36 weeks at on 04/18/17. She was told to return 6 months following delivery for hysterectomy planning aga in, however states could not agree on the "no blood" therefore gave up there and presented here to [facility] for further options. LMP 11/, lasting 5-6 days. Prior to that had intermittent days of spotting. See [employer] history below. She has a list of products she is willing to accept (Epo is the only one she can currently remember), she will bring at next visit. Has been through various therapy attempts for AUB management therefore really desiring h ysterectomy at this time. PROBLEM LIST Patient Active Problem List Diagnosis [...] TONSILLECTOMY MEDICATIONS Outpatient Encounter Prescriptions as of 07/28/2018 Medication Sig Dispense Refill DULoxetine (CYMBALTA) 60 [...] facility-administered encounter medications on file as of 07/28/2018. ALLERGIES Aspirin PAST GYNECOLOGIC HISTORY GYNECOLOGICAL HISTORY Gynecological History 07/28/2018 07/28/2018 Date of Last Pap if Known (No Data) 09/13/2014 History of Abnormal Paps Yes Yes Menarche Age [age] Period Duration (Days) 5 5 Period Pattern Irregular Irregular Menstrual Flow Heavy Heavy Menstrual Control - Maxi pad Dysmenorrhea None Severe Dysmenorrhea Symptoms - Cramping;Nausea STI's No No PAST OBSTETRIC HISTORY No obstetric history on file. Unknown OB History Para Term AB Living [...] file REVIEW OF SYSTEMS Review of Systems As per HPI VITALS Vitals: 07/28/18 1523 BP: (!) 146/89 Pulse: 83 Weight: 299 lb Height: 5' EXAM Physical Exam General: NAD, sitting on exam table Heart: RRR Lungs: CTAB, no wheezing Abdomen: Soft, obese, non-TTP Extremities: No edema or TTP, right leg in support casting Pelvic Exam: Perineum and external genitalia without apparent herpetic lesions or masses, int roitus normal, no foul odor or abnormal discharge, vaginal glez pink and moist, ruggae visualized, without lesions, erythema, or trauma, cervix visually closed and without polyps or cystic lesions, not friable, no cervical motion tendernes s, uterus non-TTP, difficult to discern size given body habitus however some mob ility of uterus noted, some hypertonicity of bilateral pelvic musculature ASSESSMENT AND PLAN 38yo : Assessment: 1. Abnormal uterine bleeding 2. Morbid obesity (BMI 58) 3. History of DVT/PE, on lifelong anticoagulation Plan: - See HPI for history of patient therapy; Care Everywhere with some history of K U workup as well [x] PAP with co-testing and Gc/Chl collected today [x] Pelvic US ordered [x] CBC, CMP, TSH, fT4, and Hgb A1c ordered - Discussed with patient this is likely secondary to body habitus however irregu lar bleeding does need to be worked up - Patient cannot take systemic medications due to history of VTEs, previously tr ied Mirena IUD however seems was improperly placed as caused severe pain, yeni russell patient was educated that this would be a safe option [ ] Plan for EMB at next visit, unable to get pre-certification today; will need to question contraception and LMP at that time to know if safe - Briefly discussed with patient that repeat Mirena IUD attempt could be attempt ed as well as endometrial ablation after deciphering if uterine/cervical abnorma lity; also discussed various methods of hysterectomy: TVH vs LAVH vs TLH vs RA-T LH vs PAMELA, of which the prior 3 options would be the most beneficial to patient - Attempted to review types of blood products that patient would be amenable to accepting, patient will bring list with her at next visit so copy can be made - s/p Hematology consultation on 07/25/18 at which time plan of care if surgery is considered was directed, see note [ ] Will need to re-credit counselor patient that even if all safety measures and precaut ions are taken, she is still at very high risk for repeat DVT/PE and , as w ell as for unexpected bleeding with risk of if still refusing blood transf usion, patient verbalized understanding RTC in 3 weeks Staff: Dr. Evan Rowley, , PGY-4 STAFF: Patient seen and discussed with Dr Rowley. Chart reviewed. I agree with the outlined plan of care. Romina Gordon MD NG SUPERVISOR documented in this encounter Plan of Treatment Care Team Description Date Type Specialty Anna Zavala, STAFF AUDITOR [address] [facility] [address] [place] [address] [phone] 05/01/2020 Video Visit Neurology Arlene Aguayo, FNP [address] [place], [place] [id number] 05/15/2020 Office Visit Endocrinology Mina James MD [address] [facility] [address] [place] [address] [phone] 12/24/2020 Office Visit Medical Oncology documented as of this encounter Procedures Comments Procedure Name Priority Date/Time Associated Diag nosis THINPREP PAP + HIGH RISK Routine 07/28/2018 Abnor mal uterine bleeding HPV (POSITIVE HIGH RISK 4:33 PM EDGING SUPERVISOR (AUB) HPV'S WILL REFLEX TO HPV GENOTYPING 16, 18/45) documented in this encounter Results * Comprehensive Metabolic Panel (07/28/2018 4:50 PM EDGING SUPERVISOR) Sodium 136 133 - 147 MEQ/L [facility] Potassium 4.0 3.5 - 5.3 MEQ/L [facility] Chloride 103 96 - 112 MEQ/L [facility] Carbon Dioxide 23 20 - 32 MEQ/L [facility] Anion Gap 11 5 - 17 [facility] Calcium 9.1 8.4 - 10.5 mg/dL [facility] Glucose 149 (H) 70 - 100 mg/dL [facility] Protein Total 7.5 6.0 - 8.2 g/dL [facility] Serum [facility] Albumin 4.1 3.5 - 5.0 g/dL [facility] Alkaline 63 42 - 140 IU/L [facility] Phosphatase [facility] Alanine 20Comment: ALT reference range 0 - 34 IU/L [facility] Aminotransferas changed on 03-22-2018 REGIONAL e LABORATORIES Aspartate 23 15 - 46 IU/L [facility] Aminotransferas [facility] e LABORATORIES Bilirubin Total 0.7 0.2 - 1.3 mg/dL [facility] Blood Urea 14 7 - 26 mg/dL [facility] Nitrogen [facility] Creatinine 0.9 0.4 - 1.1 mg/dL [facility] eGFR Female AA 84 60 - 200 [facility] Comment: REGIONAL Chronic Kidney Disease less LABORATORIES than 60 mL/min/1.73 sq.m Kidney failure less than 15 mL/min/1.73 sq.m eGFR Female 70 60 - 200 [facility] Non-AA Comment: REGIONAL Chronic Kidney Disease less LABORATORIES than 60 mL/min/1.73 sq.m Kidney failure less than 15 mL/min/1.73 sq.m Specimen Blood Performing Organization Address City/State/Zipcode Ph one Number [address] [address] LABORATORIES * Hemoglobin A1C (07/28/2018 4:50 PM EDGING SUPERVISOR) Pathologist [facility] Hemoglobin A1C 7.1 (H) 4.0 - 5.6 % [facility] Comment: REGIONAL Non-diabetic 4.0 - LABORATORIES 5.6 % Prediabetes 5.7 - 6.4 % Diabetes >= 6.5 % Specimen Blood Performing Organization Address [facility] one Number [address] [id number] LABORATORIES * T4 Free (07/28/2018 4:50 PM EDGING SUPERVISOR) Pathologist [facility] T4 Free 1.2 0.8 - 2.2 ng/dL [facility] Specimen Blood Performing Organization Address [facility] one Number [address] [address] LABORATORIES * Thyroid Stimulating Hormone (07/28/2018 4:50 PM EDGING SUPERVISOR) Pathologist [facility] Thyroid 3.75 0.47 - 4.68 uIU/mL [facility] Hormone LABORATORIES Specimen Blood Performing Organization Address [facility] one Number [address] [address] LABORATORIES * CBC and Diff (manual diff if necessary) (07/28/2018 4:50 PM EDGING SUPERVISOR) [facility] WBC 7.04 4.00 - 11.00 TH/uL [facility] RBC 5.14 (H) 4.00 - 5.00 MIL/uL [facility] Hemoglobin 13.9 12.0 - 15.0 g/dL [facility] Hematocrit 42 36 - 45 % [facility] MCV 82 80 - 99 fL [facility] MCH 27 27 - 34 pg [facility] MCHC 33 32 - 36 % [facility] RDW 13.3 9.0 - 14.5 % [facility] Platelet Count 251 140 - 400 TH/uL [facility] MPV 9.8 9.4 - 12.3 fL [facility] Nucleated RBCs 0 0 - 0 /100 [facility] % Neutrophils 67 45 - 78 % [facility] %Lymphocytes 25 15 - 47 % [facility] %Monocytes 5 0 - 12 % [facility] %Eosinophils 1 0 - 7 % [facility] %Basophils 0 0 - 2 % [facility] % Imm Grans 0 0 - 1 % [facility] # Granulocytes 4.74 1.70 - 6.80 TH/uL [facility] # Lymphocytes 1.79 1.00 - 3.30 TH/uL [facility] # Monocytes 0.38 0.20 - 0.90 TH/uL [facility] # Eosinophils 0.10 0.00 - 0.40 TH/uL [facility] # Basophils 0.03 0.00 - 0.10 TH/uL [facility] Specimen Blood Performing Organization Address City/State/Zipcode [place] [address] LABORATORIES * THINPREP PAP + HIGH RISK HPV (POSITIVE HIGH RISK HPV'S WILL REFLEX TO HPV GENOTYPING 16, 18/45) (07/28/2018 4:33 PM EDGING SUPERVISOR) Specimen Brushing - Cervix Narrative Performed At [facility] PATHOLOGY GROUP [facility] CYTOLOGY REPORT PATIENT: DEYSI CISSE /AGE/SEX: 1980 (Age: 38) / F ID #: [id number] SUBMITTING PHYSICIAN: Romina Gordon MD CLIENT: [facility] [address] COLLECTED: 07/28/2018 REPORTED: 08/03/2018 SPECIMEN #: [id number] ##################CYTOPATHOLOGY FINDING S###################### NEGATIVE FOR INTRAEPITHELIAL LESI ON OR MALIGNANCY. HPV High Risk type testing [facility]. (see results below) SPECIMEN ADEQUACY: SATISFACTORY FOR INTERPRETATION. ENDOCERVICAL/TRANSFORMATION ZONE COMPON ENT PRESENT. This specimen has been analyzed by the ThinPrep Imaging System, an automated imaging and review system. Following automated imaging, selected eagle from every slide are reviewed by a [employer] ologist and/or Pathologist. Report Electronically Signed Out By NANDO Mendoza (ASCP) dlg/08/03/2018 LINDA DLG #######################TESTING RESULT## ################### High Risk HPV DNA Testing Date Ordered: 08/01/2018 Status: Signed Out Date Finalized: 08/02/2018 HIGH RISK HPV TESTING High Risk HPV NOT DETECTED (Ref: Not Detected) The Arslan HPV test is approved by the [facility] on the ThinPrep(R) and SurePath(tm) collection systems for the detection of 14 high-risk oncogenic genotypes of HPV (16, 18, 31, 33, 35, 39, 45, 51, 52, 56 , 58, 59, 66, 68). As with all laboratory tests, false positive and false negative results can occur. Therefore, it is recommended that HPV testing be interpreted in a complet e clinical context and used to direct care according to algorithms developed by ASCCP, ACOG, and the NCI. Performed by: [facility] Pathology [facility], [address] [address] [facility]:08/02/2018 [facility] Report Electronically Signed Out ####################################### ########################### CLINICAL HISTORY/IMPRESSION: DATE MENSTRUAL PERIOD: NOT STATED OTHER CLINICAL CONDITIONS: Bleeding, abnormal PREVIOUS ABNORMAL PAPS SPECIMEN RECEIVED: Rec'd 1 ThinPrep Vial labeled with Savanah ent's name. *Pap smear testing is subject to both f alse negative and false positive results as evidenced by published data. Your pa elizabeth's pap test results should be interpreted in conjunction with the his tory and clinical findings. Reported using [place] [facility] terminology.* +++++Technical and Professional Compone nt performed by [facility] at [address] [place] [address]+++++ Performing Organization Address City/[facility] Ph one Number [facility] [address] [place], [place] [address] [address] * Chlamydia and Neisseria gonorrhoeae PCR (07/28/2018 4:30 PM EDGING SUPERVISOR) Chlamydia Not Detected Not Detected [facility] Neisseria Not Detected Not Detected [facility] gon[facility] Source [facility] Comment: REGION[facility] This test was developed and LABORATORIES its performance characteristics determined by [facility]. It has not been cleared or approved by the US Food and Drug Administration (FDA). This test is used for clinical purposes. It should not be regarded as investigational or for research. The laboratory is regulated under CLIA as qualified to perform high-complexity testing and accredited by the [employer] (CAP). Specimen Cervix Performing Organization Address City/[facility] Ph one Number [address] [address] LABORATORIES documented in this encounter Visit Diagnoses Diagnosis Abnormal uterine bleeding (AUB) Screening examination for STD (sexually transmitted disease) documented in this encounter
--- OUTSIDE RECORDS SUMMARY | 2020-03-18 12:37 | XMS REPORT | Encounter Summary ---
Author Author [facility] Organization [facility] Address Unknown Phone Unavailable Care Team Providers Care Concrete Tile Machine Operator Name Role Phone Flaquita Quiles PCP Encounter Details Care Team Description [place] [address] [place] [address] [phone] 06/29/2018 Documentation [facility] [address] [facility] [address] [place], [place] [id number] Social History Date Tobacco Use Types Packs/Day [...] Description [place] [address] [place] [address] [phone] 05/01/2020 Video Visit Neurology Arlene Aguayo, CAPTION WRITER [address] [place], [place] [id number] 05/15/2020 Office Visit Endocrinology Mina James MD [address] [facility] [address] [place], [place] [id number] 12/24/2020 Office Visit Medical Oncology documented as of this encounter Visit Diagnoses Not on filedocumented in this encounter
--- OUTSIDE RECORDS SUMMARY | 2020-03-18 12:37 | XMS REPORT | Encounter Summary ---
Author Author [facility] Organization [facility] Address Unknown Phone Unavailable Care Team Providers Care Hot Press Operator Name Role Phone Flaquita Quiles PCP Encounter Details Care Team Description Date Type Department Carina Rashid, DO [address] [place] [address] [phone] 05/31/2018 Telephone [facility] [address], [address] [place] [address] Social History Date Tobacco Use Types Packs/Day [...] * Telephone Encounter - Teetee Linton - 05/31/2018 4:04 PM CDT Pt called to schedule new LEAF CONDITIONER HELPER and needs a hysterectomy. She has a hinduism ramona ef against taking blood products. I asked Héctor Love about it and she said they r espect hinduism beliefs against blood products and that no one would make her t chuy blood. They may recommend it, but that would be her decision. Héctor also said the patient's medical conditions would be the determining factor as to whether she would need blood etc. documented in this encounter Plan of Treatment Care Team Description Date Type Specialty Anna Zavala, LOADING MACHINE OPERATOR HELPER [address] [facility] [address] [place] [address] [phone] 05/01/2020 Video Visit Neurology Arlene Aguayo, MANAGER EDUCATION [address] [facility] [address] [place] [address] [phone] 05/15/2020 Office Visit Endocrinology Mina James MD [address] [facility] [address] [place] [address] [phone] 12/24/2020 Office Visit Medical Oncology documented as of this encounter Visit Diagnoses Not on filedocumented in this encounter
--- OUTSIDE RECORDS SUMMARY | 2020-03-18 12:37 | XMS REPORT | Encounter Summary ---
Author Author [facility] Organization [facility] Address Unknown Phone Unavailable Care Team Providers Care Bindery Machine Feeder Offbearer Name Role Phone Flaquita Quiles PCP Encounter Details Care Team Description Date Type Department Romina Gordon MD [address] [facility], [address] [place] [address] Screening examination for STD (sexually transmitted disease) [facility] [address] [place], [place] [id number] Social History Date Tobacco Use Types Packs/Day [...] Date End Date Medication Sig Dispensed Refills tiZANidine (ZANAFLEX) 4 Take 4 mg by 0 MG tablet mouth every 6 (six) hours as needed. warfarin (COUMADIN) 5 MG Take 5 mg by 0 tablet mouth 3 (three) times a week. Wednesday, Wednesday, Wednesday as directed by INR 06/17/2018 11/15/2018 DULoxetine (CYMBALTA) 60 Take 1 30 capsule 11 mg capsuleIndications: capsule (60 fibromyalgia mg total) by mouth daily. 06/17/2018 11/15/2018 gabapentin (NEURONTIN) Take 1 150 capsule 5 100 MG capsule capsule (100 mg total) by mouth 5 (five) times a day. 1 CAP BID AND 3 AT HS 06/07/2018 02/13/2020 HYDROcodone-acetaminophen Take 1-2 0 (NORCO) 5-325 mg per tablets by tablet mouth as needed. 02/25/2018 03/31/2019 hydroxychloroquine Take 2 60 tablet 12 (PLAQUENIL) 200 mg tablets (400 tabletIndications: mg total) by systemic lupus mouth daily. erythematosus 06/17/2018 12/16/2018 traMADol (ULTRAM) 50 mg Take 1-2 120 tablet 5 tablet tablets (50-100 mg total) by mouth 3 (three) times a day as needed for pain. Max Daily Dose: 300 mg 06/16/2019 warfarin (COUMADIN) 2.5 Take 2.5 mg 0 MG tablet by mouth 4 (four) times a week. Wednesday, , Wednesday, Wednesday as directed by INR documented as of this encounter Plan of Treatment Care Team Description [place] [address] [address] [place] [address] [phone] 05/01/2020 Video Visit Neurology Arlene Aguayo APRN [address] [place], [place] [id number] 05/15/2020 Office Visit Endocrinology Mina James MD [address] [facility] [address] [place] [address] [phone] 12/24/2020 Office Visit Medical Oncology documented as of this encounter Procedures Comments Procedure Name Priority Date/Time Associated Diag nosis CHLAMYDIA AND NEISSERIA Routine 07/28/2018 Screen ing examination for GONORRHOEAE PCR 4:30 PM ECOLOGY PROFESSOR STD (sexually trans mitted disease) documented in this encounter Results * Chlamydia and Neisseria gonorrhoeae PCR (07/28/2018 4:30 PM ECOLOGY PROFESSOR) Chlamydia Not Detected Not Detected [facility] trachomat[facility] Neisseria Not Detected Not Detected [facility] gonorrhoe[facility] Source [facility] Comment: REG[facility] This test was developed and LABORATORIES its performance characteristics determined by [facility]. It has not been cleared or approved by the US Food and Drug Administration (FDA). This test is used for clinical purposes. It should not be regarded as investigational or for research. The laboratory is regulated under CLIA as qualified to perform high-complexity testing and accredited by the [employer] (CAP). Specimen [facility] Performing Organization Address City/[facility] Ph one Number [address] [address] LABORATORIES documented in this encounter Visit Diagnoses Diagnosis Screening examination for STD (sexually transmitted disease) documented in this encounter
--- OUTSIDE RECORDS SUMMARY | 2020-03-18 12:37 | XMS REPORT | Encounter Summary ---
Author Author [facility] Organization [facility] Address Unknown Phone Unavailable Care Team Providers Care Brush Loader And Handle Attacher Name Role Phone Flaquita Quiles PCP Encounter Details Care Team Description Date Type Department Cami Frederick RN Sjogren's syndrome with keratoconjunctiv itis sicca (HCC) (Primary Dx) 07/29/2018 Orders Only [facility] [address] [facility] [address] [place], [place] [id number] Social History Date Tobacco Use Types Packs/Day [...] Team Description Date Type Specialty Anna Zavala, COST CONTROL SPECIALIST [address] [place] [address] [phone] 05/01/2020 Video Visit Neurology Arlene Aguayo, CARLO [address] [place] [address] [phone] 05/15/2020 Office Visit Endocrinology Mina James MD [address] [facility] [address] [place], [place] [id number] 12/24/2020 Office Visit Medical Oncology Order Schedule Name Type Priority Associated Diag noses Expected: 11/26/2018, Expires: 9 CBC and Diff (manual diff Lab Routine Sjog kameron's syndrome with if necessary) keratoconjunctivitis sicca (HCC) Expected: 11/26/2018 (Approximate), Expi res: 07/29/2019 Iron/Transferrin Lab Routine Sjogren's syn drome with keratoconjunctivitis sicca (HCC) Expected: 11/26/2018 (Approximate), Expi res: 07/29/2019 Ferritin Lab Routine Sjogren's syndr ome with keratoconjunctivitis sicca (HCC) documented as of this encounter Visit Diagnoses Diagnosis Sjogren's syndrome with keratoconjuncti vitis sicca (HCC) documented in this encounter
--- OUTSIDE RECORDS SUMMARY | 2020-03-18 12:37 | XMS REPORT | Encounter Summary ---
Author Author [facility] Organization [facility] Address Unknown Phone Unavailable Care Team Providers Care Oyster Washer Name Role Phone PCP Unavailable Encounter Details Care Team Description Date Type Department Mitch Vergara MD NO FORWARDING INFORMATION 11/15/2015 [facility] Visit [facility] [address] [place] [address] Social History Date Tobacco Use Types Packs/Day Years Used Never Assessed Sex Assigned at Date Recorded Female Industry Job Start Date Occupation Not on file Not on file Not on file Travel End Travel History Travel Start No recent travel history available. documented as of this encounter Plan of Treatment Care Team Description [place] [address] [place] [address] [phone] 05/01/2020 Video Visit Neurology Arlene Aguayo APRN [address] [place] [address] [phone] 05/15/2020 Office Visit Endocrinology Mina James MD [address] [facility] [address] [place] [address] [phone] 12/24/2020 Office Visit Medical Oncology documented as of this encounter Visit Diagnoses Not on filedocumented in this encounter
--- OUTSIDE RECORDS SUMMARY | 2020-03-18 12:37 | XMS REPORT | Encounter Summary ---
Author Author [facility] Organization [facility] Address Unknown Phone Unavailable Care Team Providers Care Paying Teller Name Role Phone Flaquita Quiles PCP Encounter Details Care Team Description Date Type Department Mitch Vergara MD NO FORWARDING INFORMATION 06/17/2017 Documentation [facility] [address] [place], [place] [id number] Social History Date Tobacco Use Types Packs/Day Years Used Never Assessed Sex Assigned at Date Recorded Female Industry Job Start Date Occupation Not on file Not on file Not on file Travel End Travel History Travel Start No recent travel history available. documented as of this encounter Progress Notes * Maddi Bush CNA - 06/17/2017 2:29 PM CDT Updating med list documented in this encounter Plan of Treatment Care Team Description [place] [address] [facility] [address] [place] [address] [phone] 05/01/2020 Video Visit Neurology Arlene Aguayo, CARLO [address] [place] [address] [phone] 05/15/2020 Office Visit Endocrinology Mina James MD [address] [facility] [address] [place] [address] [phone] 12/24/2020 Office Visit Medical Oncology documented as of this encounter Visit Diagnoses Not on filedocumented in this encounter
--- OUTSIDE RECORDS SUMMARY | 2020-03-18 12:37 | XMS REPORT | Encounter Summary ---
Author Author [facility] Organization [facility] Address Unknown Phone Unavailable Care Team Providers Care Electrical Equipment Technician Name Role Phone Flaquita Quiles PCP Reason for Visit * Reason Comments Lupus 6 month follow up visit Encounter Details Care Team Description Date Type Department Mitch Vergara MD NO FORWARDING INFORMATION Sjogren's syndrome with keratoconjunctiv itis sicca (HCC) (Primary Dx); Fibromyalgia 06/18/2017 Office Visit [facility] [address] [facility] [place], [place] [id number] Social History Date Tobacco Use Types Packs/Day [...] Signs Reading Time Taken Comments Vital Sign 142/64 06/18/2017 1:52 PM CDT Blood Pressure 84 06/18/2017 1:52 PM CDT Pulse 36.6 C (97.9 F) 06/18/2017 1:52 PM CDT Temperature 18 06/18/2017 1:52 PM CDT Respiratory Rate 97% 06/18/2017 1:52 PM CDT Oxygen Saturation - - Inhaled Oxygen Concentration 127.9 kg (282 lb) 06/18/2017 1:52 PM CDT Weight 152.4 cm (5') 06/18/2017 1:52 PM CDT Height 55.07 06/18/2017 1:52 PM CDT Body Mass Index documented in this encounter Patient Instructions * Patient Instructions* Mitch Vergara MD - 06/18/2017 2:26 PM CDT Fibromyalgia Fibromyalgia is a chronic condition.It causes pain and tenderness in connectiv e tissues.This causes muscle pain. Often, there are also many tender areas thr oughout the body.Symptoms may also include stiffness and feelings of numbness and tingling. Symptoms may be worse upon waking up. They may increase with poor sleep, heavy activity, cold or damp weather, anxiety, or stress. People with fibromyalgia often feel tired. They may have trouble sleeping. Other symptoms include morning stiffness, headaches, and painful menstrual periods. S ome people have problems with thinking clearly and changes in memory. The cause of fibromyalgia is not known.Symptoms are similar to that of other d iseases.These include rheumatoid arthritis, low thyroid, chronic fatigue syndr ome, and Lyme disease.In some cases, these diseases may occur together. Fibromyalgia is often treated with medicines. You and your healthcare provider c an discuss the medication plan that may work best for you.You may have to try more than one medicine or combination of medicines before you find what works fo r you. Home care If yourhealthcare providerhas prescribed or recommended medicines, take t hem as directed. Rest as needed. Try to get enough sleep. If you have trouble sleeping, discus s this with your healthcare provider. Be active. Regular exercise can help manage symptoms. Some options include wa lking, swimming, and biking. Strengthening exercises may also be helpful. Start an exercise program gradually. Talk to your healthcare provider about the best w ays to be active. Follow a healthy diet. Limit caffeine and alcohol. If you smoke, ask yourhe althcare provider for help to stop. Notice how your body reacts to stress. Learn to listen to your body signals. This will help you take action before the stress becomes severe. Learn relaxation techniques. Also consider joining a stress reduction program or class. Talk to your healthcare provider about trying complementary treatments. These include acupuncture, hypnosis, and biofeedback. Yoga and tenzin chi may be helpful. Ask your healthcare provider about cognitive behavioral therapy (CBT). This t ype of counseling canhelp people with fibromyalgia cope better with their illn ess. Follow-up care Follow up with your healthcare provider or as advised by our staff. In many case s, fibromyalgia is best treated with a team approach. This may involve your [facility] care provider, a trimmer machine, a physical therapist, brenna mental healt h professional. For more information:National [place] of Arthritis and Musculoskeletal and S kin Diseases (NIAMS)www.niams.nih.gov 567-053-3660 When to seek medical advice Contact your healthcare provider if any of the following occurs: Symptoms getting worse or new symptoms developing You feel hopeless, helpless, or lose interest in day-to-day life [id number] [employer]. [address] [place] [address] 8828 7. All rights reserved. This information is not intended as a substitute for pro fessional medical care. Always follow your healthcare professional's instruction s. Common Questions About Here are answers to some questions new mothers often ask. Is my baby getting enough milk? When it comes to feeding your baby, what goes in must come out. You can tell how much milk your baby is getting by keeping track of the babys diapers: By the first 24 hours after : The baby should have 1 to 2 wet diapers an d 1 to 2 soiled (poopy) diapers. The poop will be dark and tar-like (meconium.) The second and third day after : The baby should have 3 to 4 wet diapers and 2 to 3 soiled diapers. The poop will be greenish brown (transitional stool). After the first 4 or 5 days: The baby should have at least 5 to 6 wet diapers and at least3 to 4 soiled diapers a day.The poop will be yellow and loose. How can I tell when my babys hungry? Dont wait until your baby cries to feed her. Newborns should be nursed as remi n as they show any hunger signs. These include: Increased alertness or activity Rooting reflex (nuzzling against your breast) Smacking her lips or opening and closing her mouth Sucking on her hand or fingers Crying (late sign) How often should I feed my baby? Feed your baby as often and as long as she wants. Make sure youre nursingat least8 to 12 times per day. Some of these feedings might be close together (c luster feeding), and then your baby might rest for several hours. Let your baby nurse as long as she would like; when she is done, she will stop swallowing, rel ax her hands and fall asleep. If your baby hasn't nursed in 4 hours, you may nee d to wake your baby and offer her your milk. Newborns tend to be very sleepy and sometimes will not wake to eat. If your baby doesn't seem interested in nursing, place her in just her diaper against your bare skin (skin to skin) and continue to offer her your milk. And, if your baby fusses when feeding, don't worry. Some babies get distracted easily. To calm your baby, choose a quiet place for fee ding. It may also help if you breastfeed in the same place in your home each mary e. If your baby is crying,it may bedifficult for her to latch on. Gently libra ce your finger in her mouth tohelpher feel calm, and then offer her your mil k again. Will I spoil my baby? Newborns can't be spoiled. When your baby needs comfort, food, or holding, she'l l cry to let you know. When you respond to your baby's needs, you help her learn to trust you. This is a time to shower your baby with love and attend to her ne eds. Why is my baby so hungry? Babies eat a lot. Their stomachs are very small when they are born, and mother's milk is easily and quickly digested. This is even truer during a growth spurt. Growth spurts usually happen around 2 and 6 weeks of age. They happen again at 3 and 6 months. During these times, your baby will breastfeed more often. Dont be alarmed. Your baby will not need formula or supplements. You will make all t he milk that your baby needs because milk production is a "supply and demand" si tuation (baby's demand will increase mom's supply). Date Last Reviewed: 05/20/201519999574-4[address] [employer] [place] [address] 2616 7. All rights reserved. This information is not intended as a substitute for pro fessional medical care. Always follow your healthcare professional's instruction s. documented in this encounter Progress Notes * Mitch Vergara MD - 06/18/2017 1:45 PM CDT Patient ID: Deysi Cisse is a 37 y.o. female. Subjective: Patient presents with Lupus (6 month follow up visit) 11/2016 I saw Deysi Cisse for checkup of [...] check, but has an appointment planned at [facility]. 06/18/17 Saw Deysi cueto for follow-up of her Sjogren's syndrome and fibromyalgia. Sin ce I saw her last she did deliver her baby. During her visits at [facility] high risk there is concerns with the fact that I stopped her Plaque nil. The high risk doctors wanted her stay on Plaquenil although she did not arias ve a diagnosis of lupus. The patient did fine off of her Plaquenil and the baby was fine. Patient did have an issue towards the end of her where her liver functions elevated and her creatinine elevated but she delivered and ever ything seems to have normalized. She does seem to have more dry mouth being off the Plaquenil and more muscle aches consistent with fibromyalgia. Cymbalta and Plaquenil were a good combination for her and she is eager to go back on. She is nursing her baby who is 2 months old and would like to try to nurse her for a full year if possible. The patient would rather stay off medications if she co ntinues to be a well-tolerated Objective: Review of Systems HENT: Dry mouth Musculoskeletal: Positive for joint pain, myalgias and neck pain. All other systems reviewed and are negative. Allergies Allergies Allergen Reactions Aspirin Hives Medications Outpatient Prescriptions Marked as Taking for the 06/18/17 encounter (Office Visi t) with Mitch Vergara MD Medication Sig Dispense Refill multivitamin with minerals () 27 mg iron- 800 mcg tablet Ta ke 1 tablet by mouth daily. warfarin (COUMADIN) 2.5 MG tablet Take 2.5 mg by mouth every evening. warfarin (COUMADIN) 5 MG tablet Take 5 mg by mouth 4 (four) times a week. History Past Medical History: Diagnosis Date Fibromyalgia Sjogren's disease (HCC) Past Surgical History: Procedure Laterality Date ANTERIOR CRUCIATE LIGAMENT REPAIR Left KNEE SURGERY Left TONSILLECTOMY Family History Problem Relation Age of Onset Diabetes Mother Hypertension Mother Diabetes Father COPD Father Diabetes Sister Hypertension Sister Vitals BP 142/64 | Pulse 84 | Temp 36.6 C (97.9 F) (Oral) | Resp 18 | Ht 1.524 m (5') | Wt 127.9 kg (282 lb) | SpO2 97% | BMI 55.07 kg/m Physical Exam Physical Exam Constitutional: She appears well-developed and well-nourished. HENT: Head: Normocephalic. Dry mouth, no ulcer Eyes: Conjunctivae are normal. Pupils are equal, round, and reactive to light. Neck: Normal range of motion. Cardiovascular: Normal rate. Pulmonary/Chest: Effort normal and breath sounds normal. Abdominal: Soft. Bowel sounds are normal. Musculoskeletal: Normal range of motion. Tender points in neck and back Psychiatric: She has a normal mood and affect. Nursing note and vitals reviewed. Data No visits with results within 1 Year(s) from this visit. Latest known visit with results is: Hospital Outpatient Visit on 04/19/2006 Component Date Value Ref Range Status UCG Urine 04/19/2006 NEGATIVE NEGATIVE Final Assesment and Plan Encounter Diagnoses Name Primary? Fibromyalgia Sjogren's syndrome with keratoconjunctivitis sicca (HCC) Yes 1. Fibromyalgia syndrome, chronic inactive. We will continue to monitor off me dicine 2. Sjogren's syndrome. Chronic and active. We will continue to keep her off P laquenil for now at her request to we could add it back safely at any time. I am going to request her labs from last month. I will see her back in 6 months for follow-up. I have asked her to contact me if she has any increase in sympt oms and would request to go back on medications. I have refilled both her Plaqu enil and her Cymbalta. Her goal is to restart these as soon as she is done nurs ing Orders Placed This Encounter hydroxychloroquine (PLAQUENIL) 200 mg tablet Sig: Take 2 tablets (400 mg total) by mouth daily. Dispense: 60 tablet Refill: 11 DULoxetine (CYMBALTA) 60 mg capsule Sig: Take 1 capsule (60 mg total) by mouth daily. Dispense: 30 capsule Refill: 11 documented in this encounter Plan of Treatment Care Team Description [place] [address] [address] [place], [place] [address] 05/01/2020 Video Visit Neurology Arlene Aguayo APRN [address] [place], [place] [id number] 05/15/2020 Office Visit Endocrinology Mina James MD [address] [facility] [address] [place] [address] [phone] 12/24/2020 Office Visit Medical Oncology documented as of this encounter Visit Diagnoses Diagnosis Fibromyalgia Unspecified myalgia and myositis Sjogren's syndrome with keratoconjuncti vitis sicca (HCC) documented in this encounter
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
--- OUTSIDE RECORDS SUMMARY | 2020-03-18 12:38 | XMS REPORT | Encounter Summary ---
Author Author [facility] Organization [facility] Address Unknown Phone Unavailable Care Team Providers Care Relay Checker Name Role Phone PCP Unavailable Encounter Details Care Team Description Date Type Department Marvin Leung MD [address] [facility] [address] [place], [place] [id number] 04/13/2006 [facility] al Encounter [address] [place], [place] [id number] Social History Date Tobacco Use Types Packs/Day Years Used Never Assessed Sex Assigned at Date Recorded Female Industry Job Start Date Occupation Not on file Not on file Not on file Travel End Travel History Travel Start No recent travel history available. documented as of this encounter Plan of Treatment Care Team Description Date Type Specialty Anna Zavala, SENIOR PRODUCT ENGINEER [address] [facility] [address] [place], [place] [address] 05/01/2020 Video Visit Neurology Arlene Aguayo, CARLO [address] [place], [place] [phone] 05/15/2020 Office Visit Endocrinology Mina James MD 4[address] [facility] [address] [place], [place] [id number] 12/24/2020 Office Visit Medical Oncology documented as of this encounter Procedures Comments Procedure Name Priority Date/Time Associated Diag nosis COMPLETE BLOOD COUNT Routine 04/13/2006 4:27 PM CDT documented in this encounter Results * Complete Blood Count (04/13/2006 4:27 PM CDT) WBC 6.9 4.0 - 11.0 TH/UL [facility] RBC 5.16 (H) 4.00 - 5.00 MIL/UL [facility] Hemoglobin 14.2 12.0 - 15.0 G/DL [facility] Hematocrit 42 36 - 45 % [facility] MCV 81 80 - 99 FL [facility] MCH 28 27 - 34 PG [facility] MCHC 34 32 - 36 % [facility] RDW 13.4 <14.5 % [facility] Platelet Count 288 140 - 400 TH/UL SUNQUEST Specimen Performing Organization Address City/State/Zipcode Ph one Number [facility] [address] [place], [place] [address] [place] documented in this encounter Visit Diagnoses Not on filedocumented in this encounter
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
--- OUTSIDE RECORDS SUMMARY | 2020-03-18 12:38 | XMS REPORT ---
Author Author Deysi GONZALEZ Organization [employer] Address Unknown Phone Unavailable Care Team Providers Care Tung Nut Grower Name Role Phone CAROLIN GONZALEZ CP Unavailable Allergies No Known Allergies Problems Problem Type Condition Code Onset Dates Condition Statu s Problem Factor V Leiden D68.51 Active Problem Clotting disorder D68.9 Active Problem Sjoegren syndrome M35.00 Active Problem Lumbago with sciatica, unspecified side M54.40 Active Problem Anxiety F41.9 Active Problem Type 2 diabetes mellitus wit hout complication, without long-term current use of insulin E11.9 Active Problem Fibromyalgia M79.7 Active Medications No Known Medications Results No Known Results Summary Purpose [employer] Submission
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
--- OUTSIDE RECORDS SUMMARY | 2020-03-18 12:38 | XMS REPORT ---
Author Author Deysi GONZALEZ Organization [employer] Address Unknown Phone Unavailable Care Team Providers Care Marine Machinist Name Role Phone CAROLIN GONZALEZ CP Unavailable [...]
--- OUTSIDE RECORDS SUMMARY | 2020-03-18 12:38 | XMS REPORT | Encounter Summary ---
Author Author [facility] Organization [facility] Address Unknown Phone Unavailable Care Team Providers Care Plasma Center Nurse Name Role Phone PCP Unavailable Encounter Details Care Team Description Date Type Department Shobha Christine MD NO FORWARDING INFORMATION 03/08/2015 [facility] Visit [facility] NON Social History Date Tobacco Use Types Packs/Day Years Used Never Assessed Sex Assigned at Date Recorded Female Industry Job Start Date Occupation Not on file Not on file Not on file Travel End Travel History Travel Start No recent travel history available. documented as of this encounter Miscellaneous Notes * Clinic Note - Shobha Christine MD - 03/08/2015 9:[address], [address] [place] [address] [phone] NAME: DEUCE Gilliam MED REC #: [id number] DATE: 03/08/15 CLINIC VISIT Page 2 of 2 RHEUMATOLOGY CLINIC REFERRING PHYSICIAN: Sherri Almonte MD [address] [place] [address] Dr. Almonte, I saw Deysi Cisse back to discuss her lab tests. W when I saw her in January she h ad a positive BILLY and clinically pain syndrome associated with fibromyalgia. Sh lisa had also recently had DVTs and pulmonary emboli and is on blood thinners. She is known to have factor V Leiden deficiency as her risk factor for blood clotti ng. We went over her lab tests today. Her double stranded DNA, Jin, CLINICAL RESEARCH MANAGER and SSB antibodies were all negative. Beta 2 glycoprotein-1, anticardiolipin and bandar pus anticoagulant tests are also importantly, all normal. She did have a positi ve SSA antibody suggesting that her clinical syndrome with positive BILLY is actua lly Sjogren's syndrome. Interestingly, Sjogren's syndrome has about a 30% comor bidity and overlap with fibromyalgia. The patient was actually complaining of l eg pain today and she is worried about recurrent DVT. She was in to see her vipul tologist last week and they repeated an ultrasound which was normal, but she say s her symptoms have persisted. REVIEW OF SYSTEMS: No chest pain, shortness of breath. Constitutionally, she has chronic pain. PHYSICAL EXAMINATION: Limited physical exam: Weight is 284, blood pressure 126/86, pulse 68, respirat ory rate 16. No peripheral rashes. She ambulates without difficulty. ASSESSMENT: 1. Sjogren's syndrome, chronic. 2. Fibromyalgia syndrome, chronic. PLAN: The plan at this point, is to initiate her on Plaquenil 400 mg a day. Discussed side effects of the Plaquenil, long-term safety risks, need for annual ocular m onitoring. I have given her a handout on Sjogren's syndrome and Plaquenil and w ill see her back in 6 months for clinical followup. I did highly recommend that she get in to see her primary care or urgent care today to reevaluate leg pain make sure we are not dealing with further blood clots. She did not want to stay here to get these tests done, she wanted to go back to [place]. I spent greater than 15 minutes with the patient in which greater than half the time was spent in counseling regarding diagnosis of Sjogren syndrome and hydroxy chloroquine use. Sincerely, Dictated by: SHOBHA CHRISTINE MD KMNeal/SAMANTHA Job ID# [id number] documented in this encounter Plan of Treatment Care Team Description [place] [address] [place] [place] [address] 05/01/2020 Video Visit Neurology Arlene Aguayo APRN [address] [place] [address] 05/15/2020 Office Visit Endocrinology Mina James MD [facility] [address] [address] [phone] 12/24/2020 Office Visit Medical Oncology documented as of this encounter Visit Diagnoses Not on filedocumented in this encounter
--- OUTSIDE RECORDS SUMMARY | 2020-03-18 12:38 | XMS REPORT | Encounter Summary ---
Author [facility] Address Unknown Phone Unavailable Care Team Providers Care Master Dyer Name Role Phone PCP Unavailable Encounter Details Care Team Description Date Type Department Shobha Christine MD NO FORWARDING INFORMATION 08/30/2015 [facility] Visit [facility] NON Social History Date Tobacco Use Types Packs/Day Years Used Never Assessed Sex Assigned at Date Recorded Female Industry Job Start Date Occupation Not on file Not on file Not on file Travel End Travel History Travel Start No recent travel history available. documented as of this encounter Miscellaneous Notes * Clinic Note - Shobha Christine MD - 08/30/2015 4:[address], [address] [place] [address] [phone] NAME: DEUCE Gilliam MED REC #: [id number] DATE: 08/30/15 CLINIC VISIT Page 2 of 2 RHEUMATOLOGY CLINIC REFERRING PHYSICIAN: DREW ALMONTE MD [address] [place] [id number] Amlonte: I saw Deysi Cisse in follow up of her Sjogren's syndrome and fibromyalgia synd raven. She was doing fine on Plaquenil and then her eye doctor wanted her to sto p it for a few months which she did. She said her Sjogren's syndrome worsened wi th worsening dry mouth. She saw another eye doctor who said her eyes were fine a nd she went back on Plaquenil and things are better. From a fibromyalgia standpo int she has increased arthralgias and myalgias through the winter months. She i s on a stable dose of Plaquenil, tizanidine and then gets duloxetine and she lis ts hydrocodone p.r.n. REVIEW OF SYSTEMS: No active chest pain or shortness of breath. Constitutional ly, she has fatigue, dry mouth and dry eyes. She said she was diagnosed with sidney e neuropathy in her feet of unknown etiology. PHYSICAL EXAMINATION: VITAL SIGNS: Her weight is at 274 pounds, blood pressure is 128/78, pulse 92, r espiratory rate 20. GENERAL: Alert and oriented, in no acute distress. Mood and affect are appropri ate. HEENT: No facial rashes. Dry oral mucosa. NECK: Supple. CHEST: Clear to auscultation. CARDIAC: Regular rate and rhythm. ABDOMEN: Overweight, nontender. EXTREMITIES: No peripheral edema. MUSCULOSKELETAL: No synovitis in PIPs, MCPs, wrists, knees or MTPs. She has fib romyalgia tender points throughout. ASSESSMENTS: 1. Fibromyalgia syndrome, chronic and active. 2. Sjogren's syndrome, chronic and active. 3. High risk medication monitoring counseling. PLAN: Is to maintain Plaquenil. She needs to get an annual ocular examination. Continue tizanidine p.r.n. We are going to give her a low-dose Medrol and Torad ol injection today and I will see her back in six months. Sincerely, Dictated by: SHOBHA CHRISTINE MD [facility] Job ID# [id number] documented in this encounter Plan of Treatment Care Team Description [place] [address] [facility] [address] [place] [address] [phone] 05/01/2020 Video Visit Neurology Arlene Aguayo APRN [address] [place], [place] [phone] 05/15/2020 Office Visit Endocrinology Mina James MD [address] [facility] [address] [place] [address] [phone] 12/24/2020 Office Visit Medical Oncology documented as of this encounter Visit Diagnoses Not on filedocumented in this encounter
--- OUTSIDE RECORDS SUMMARY | 2020-03-18 12:38 | XMS REPORT ---
Author Author Deysi MEDINA KATEY Organization [facility] Address [address] [place] [address] Care Team Providers Care Quantitative Equity Head Name Role Phone KATEY MEDINA Unavailable PROBLEMS Type Condition ICD9-CM Code [id number] Code Onset Dates Condition S tatus SNOMED Code Problem Sciatica associated with disorder of lumbar spine M53.86 Aug, Active 607587693 Problem Vitamin B12 deficiency (non anemic) E53.8 30 N 2014 Active 75081982 Problem Gastroesophageal reflux disease K21.9 28 Jun, 2010 Active 913231443 Problem Type 2 diabetes mellitus wit h diabetic neuropathy, without long-term current use of insulin E11.40 Jul, Active 17440 84428308 Problem Anticoagulant long-term use Z79.01 09 May, 2015 Active 673028373 Problem Menometrorrhagia N92.1 30 Jul, 2015 Active 141247522 Problem Morbid obesity with BMI of 50.0-59.9, adult E66 .01 30 Jul, 2015 Active 244184551 Problem DVT (deep venous thrombosis) I82.409 06 Nov, 201 5 Active 725165136 Problem Clotting disorder D68.9 Active 64 196697 Problem Anxiety F41.9 Active 42645535 Problem Fibromyalgia M79.7 Active 7931411 05 Problem Migraine without aura and without status migrain osus, not intractable G43.009 Active 410247580 Problem Type 2 diabetes mellitus wit hout complication, without long-term current use of insulin E11.9 Active 171749120 Problem Refusal of blood transfusions as patient is Delvis gil Z53.1 Nov, Active Problem Hypertension I10 Active 2947100 3 Problem Pulmonary embolism I26.99 Nov, Active 59235911 Problem Sjogrens syndrome M35.00 11 Feb, 2015 Active 61602437 Problem Lumbago with sciatica, unspecified side M54.40 Active 849527544 Problem Factor V Leiden D68.51 Active 3070 08451 Problem Sjoegren syndrome M35.00 Active 83 139631 Problem Missed menses N92.6 Active 201413 00 ALLERGIES No Information ENCOUNTERS Encounter Location Date [facility] [address] [address] January, [facility] [address] [address] Dec, [address] [address] Nov, Hypertension I10 ; Morbid obesity E66.01 ; Migraine without aura and without status migrainosus, not intractable G43.009 and Scalp pain R51 [facility] [address] [place] [address] Nov, Hypertension I10 [address] [address] Nov, [address] [address] Oct, [facility] [address] [facility] [id number] [address] [place] [phone] Oct, [address] [address] Oct, Vitamin B 12 deficiency E53.8 and Missed menses N92.[address] [address] Oct, Vitamin B 12 deficiency E53.8 and Missed menses N92.6 [facility] [address] [facility] [id number] [address] [place] [phone] Sep, [facility] [address] [facility] [id number] [address] [place] [phone] Sep, [facility] [address] [facility] [id number] [address] [place] [phone] Sep, [facility] [address] [facility] [id number] [address] [place] [phone] Aug, [facility] [address] [place] [id number] [address] [place] [phone] Aug, [facility] [address] [facility] [id number] [address] [place] [phone] Jul, [facility] [address] [facility] [id number] [address] [place] [phone] Apr, [facility] [address] [place] [id number] [place] [phone] Sep, [facility] [address] [place] [id number] [place] [phone] Apr, Screening for deficiency ane malinda Z13.0 [place] [address] [place] [id number] [place] [phone] Jun, [place] [address] [place] [id number] [place] [phone] Jun, [place] [address] [address] Jun, [place] [address] [place] [id number] [place] [phone] Jun, Factor V Leiden D68.51 ; Bernadine tting disorder D68.9 ; Type 2 diabetes mellitus without complication, without long-term current use of insulin E11.9 ; Fibromyalgia M79.7 ; Lumbago with sciatica, unspecified side M54.40 ; Anxiety F41.9 ; Sjoegren syndrome M35.00 and Impacted cerumen of right ear H61.21 [place] [address] [place] [id number] [place] [phone] May, [place] [address] [place] [id number] [place] [phone] May, Factor V Leiden D68.51 [place] [address] [place] [id number] [place] [phone] May, Factor V Leiden D68.51 ; Bernadine tting disorder D68.9 ; Type 2 diabetes mellitus without complication, without long-term current use of insulin E11.9 ; Fibromyalgia M79.7 ; Lumbago with sciatica, unspecified side M54.40 ; Anxiety F41.9 and Chronic pain syndrome G89.4 IMMUNIZATIONS No Known Immunizations SOCIAL HISTORY Never Assessed REASON FOR VISIT Request return call PLAN OF CARE VITAL SIGNS MEDICATIONS Medication Instructions Dosage Frequency Start Date End Date Duration S yohannes Lisinopril 20 MG Orally Once a day 1 tablet 24h Nov, 30 day(s) Active RESULTS No Results PROCEDURES No Known procedures INSTRUCTIONS MEDICATIONS ADMINISTERED No Known Medications MEDICAL (GENERAL) HISTORY Type Description Date Medical History type II diabetes Medical History fibromyalgia - Dr Marie Monet, [place] Medical History Factor V- Clotting disorder Medical History sjogren syndrome- Dr Marie Monet , [place] Medical History Anxiety disorder Medical History PTSD Medical History dysfunctional uterine bleeding- Periods Twice Monthly Medical History NO BLOOD PRODUCTS-LUTHERAN Medical History SI Joint injections from spine [address] [place] [address] Surgical History dilatation and curettage- Dr Abel [...] for a week and then back to [facility] in [place] for three weeks with blood clot 2003 Hospitalization History Blood Clot- Left Leg 10/2014 Hospitalization History Blood Clot- Bilateral Lungs 11/2014 Hospitalization History Child Brith 02/2011
--- OUTSIDE RECORDS SUMMARY | 2020-03-18 12:38 | XMS REPORT | Encounter Summary ---
Author Author [facility] Address Unknown Phone Unavailable Care Team Providers Care Chief Development Officer Name Role Phone PCP Unavailable Encounter Details Care Team Description Date Type Department Trae Aguilera MD [address] [place], [place] [address] 01/18/2006 [facility] al Encounter [address] [place], [place] [phone] Social History Date Tobacco Use Types Packs/Day Years Used Never Assessed Sex Assigned at Date Recorded Female Industry Job Start Date Occupation Not on file Not on file Not on file Travel End Travel History Travel Start No recent travel history available. documented as of this encounter Plan of Treatment Care Team Description Date Type Specialty Anna Zavala, [employer] [address] [facility] [address] [place] [address] [phone] 05/01/2020 Video Visit Neurology Arlene Aguayo, CARLO [address] [place], [place] [phone] 05/15/2020 Office Visit Endocrinology Mina James MD [address] [facility] [address] [place], [place] [phone] 12/24/2020 Office Visit Medical Oncology documented as of this encounter Procedures Comments Procedure Name Priority Date/Time Associated Diag nosis COMPLETE BLOOD COUNT Routine 01/18/2006 10:52 AM CDT BASIC METABOLIC PANEL Routine 01/18/2006 10:52 AM CDT documented in this encounter Results * Complete Blood Count (01/18/2006 10:52 AM CDT) WBC 5.5 4.0 - 11.0 TH/UL [facility] RBC 5.17 (H) 4.00 - 5.00 MIL/UL [facility] Hemoglobin 13.9 12.0 - 15.0 G/DL [facility] Hematocrit 42 36 - 45 % [facility] MCV 81 80 - 99 FL [facility] MCH 27 27 - 34 PG [facility] MCHC 33 32 - 36 % [facility] RDW 13.3 <14.5 % [facility] Platelet Count 273 140 - 400 TH/UL [facility] Specimen Performing Organization Address [facility] Ph one Number [facility] [address] [place], [place] [address] SUN[facility] * Basic Metabolic Panel (01/18/2006 10:52 AM CDT) Sodium 143 134 - 144 MEQ/L [facility] Potassium 4.0 3.6 - 5.0 MEQ/L [facility] Chloride 105 98 - 107 MEQ/L [facility] Carbon Dioxide 28 23 - 32 MEQ/L [facility] Anion Gap 10 3 - 15 [facility] Creatinine 1.0 0.5 - 1.5 MG/DL [facility] Blood Urea 17 5 - 20 MG/DL [facility] Nitrogen Glucose 83 65 - 100 MG/DL [facility] Calcium 9.1 8.8 - 10.5 MG/DL [facility] Specimen Performing Organization Address [facility] Ph one Number [facility] [address] [place], [place] [address] [facility] documented in this encounter Visit Diagnoses Not on filedocumented in this encounter
--- OUTSIDE RECORDS SUMMARY | 2020-03-18 12:38 | XMS REPORT ---
Author Deysi Edmonds [facility] [employer] Address Unknown Phone Unavailable Care Team Providers Care Specialist Field Engineer Name Role Phone CAROLIN GONZALEZ CP Unavailable Allergies, Adverse Reactions, Alerts Substance Reaction Event Type Aspirin hives Drug Allergy Problems Problem Type Condition Code Onset Dates Condition Statu s Assessment Type 2 diabetes mellitus wit hout complication, without long-term current use of insulin E11.9 Active Assessment Factor V Leiden D68.51 Active Assessment Clotting disorder D68.9 Active Problem Factor V Leiden D68.51 Active Problem Clotting disorder D68.9 Active Problem Sjoegren syndrome M35.00 Active Problem Lumbago with sciatica, unspecified side M54.40 Active Problem Anxiety F41.9 Active Problem Type 2 diabetes mellitus wit hout complication, without long-term current use of insulin E11.9 Active Problem Fibromyalgia M79.7 Active Assessment Sjoegren syndrome M35.00 Active Assessment Anxiety F41.9 Active Assessment Lumbago with sciatica, unspecified side M54.40 Active Assessment Impacted cerumen of right ear H61.21 Active Assessment Fibromyalgia M79.7 Active Medications Medication Code System Code Instructions Start Date End Date Status Dosage Contour Blood Glucose System NDC 0 Once a day not defined Duloxetine HCl [facility] [address]-11 30 MG Orally Once a day [address] [facility] [address]-09 2.5 MG Orally Wednesday, Wednesday and y [address] [facility] [address]-94 5 mg Orally , , Wednesday and Sun 1 tablet Metformin HCl [facility] [address]-37 500 MG Orally Once a day 1 tablet with meals Potassium Chloride [facility] [address]-69 20 MEQ Orally Once a day 1 packet with food Gabapentin [facility] [address]-02 300 MG Orally 2 times a day [address] [facility] [address]-86 200 mg Orally twice a day 1 tablet with food or milk Tizanidine HCl [facility] [address]-05 4 MG Orally 2 times a day prn 1 tablet as needed Nystatin [facility] [address]-71 050979 UNIT/GM Externally 3 times a day 1 null to affected area Percocet [facility] [address]-49 10-325 MG Orally every 6 hrs prn pain 1 tablet as needed Procedures Procedure Coding System Code Date Office Visit, Est Pt., Level 4 CPT-[address] 2015 PROTHROMBIN TIME CPT-4 40931 Jun 16, 2016 Vital Signs Date/Time: Jun 16, 2016 Cardiac Monitoring Heart Rate 74 bpm Weight 277.2 lbs Height 60.0 in BMI 54.13 Index Blood Pressure Diastolic 82 mmHg Blood Pressure Systolic 131 mmHg Results Name Result Date Reference Range Unit Abnormali ty Flag INR (IN HOUSE) ----INR 2.6 [id number] 1.10 - 3.30 ----PREVIOUS INR 1.8 [id number] ----Lot # [id number] ----Exp date [id number] Summary Purpose eClinicalWorks Submission
--- OUTSIDE RECORDS SUMMARY | 2020-03-18 12:38 | XMS REPORT ---
Author Author Deysi GONZALEZ Organization [facility] Address [address] [place] [address] Care Team Providers Care Clinical Trial Coordinator Name Role Phone CAROLIN GONZALEZ Unavailable PROBLEMS Type Condition ICD9-CM Code [id number] Code Onset Dates Condition S tatus SNOMED Code Assessment Factor V Leiden D68.51 May, Active 656803144 Assessment Chronic pain syndrome G89.4 May, Acti ve 370785491 Problem Factor V Leiden D68.51 Active 3070 93491 Problem Clotting disorder D68.9 Active 64 164341 Problem Lumbago with sciatica, unspecified side M54.40 Active 116937969 Problem Anxiety F41.9 Active 55184216 Problem Type 2 diabetes mellitus wit hout complication, without long-term current use of insulin E11.9 Active 071198090 Problem Fibromyalgia M79.7 Active 8645447 05 ALLERGIES Substance Reaction Event Type Date Status Aspirin hives Drug Allergy May, Active SOCIAL HISTORY No smoking Hx information available PLAN OF CARE VITAL SIGNS Height 60.0 in 2016-05-27 Weight 279.9 lbs 2016-05-27 Heart Rate 72 bpm 2016-05-27 Respiratory Rate 16 2016-05-27 BMI 54.66 kg/m2 2016-05-27 Blood pressure systolic 134 mmHg 2016-05-27 Blood pressure diastolic 70 mmHg 2016-05-27 MEDICATIONS Medication Instructions Dosage Frequency Start Date End Date Duration S tatus Percocet 10-325 MG Orally every 6 hrs prn pain 1 tablet as needed Active Potassium Chloride 20 MEQ Orally Once a day 1 packet with food 24h Active Tizanidine HCl 4 MG Orally 2 times a day prn 1 tablet as needed Active Coumadin 5 mg Orally , , Wednesday and Sun 1 tablet Active Nystatin 236211 UNIT/GM Externally 3 times a day 1 null to affected ar ea 8h Active Contour Blood Glucose System 24h Active Duloxetine HCl 30 MG Orally Once a day 1 capsule 24h Active Metformin HCl 500 MG Orally Once a day 1 tablet with meals 24h Active Plaquenil 200 mg Orally twice a day 1 tablet with food or milk 12h Active Coumadin 2.5 MG Orally Wednesday, Wednesday and Wednesday 1 tablet Active Gabapentin 300 MG Orally 2 times a day 1 capsule 12h Active RESULTS Name Result Date Reference Range A1C 2016-05-27 Hemoglobin A1c 6.4 4.8-5.6 CBC 2016-05-27 WBC 4.9 3.4-10.8 RBC 5.01 3.77-5.28 Hemoglobin 11.9 11.1-15.9 Hematocrit 38.5 34.0-46.6 MCV 77 79-97 MCH 23.8 26.6-33.0 MCHC 30.9 31.5-35.7 RDW 15.8 12.3-15.4 Platelets 240 150-379 Neutrophils 63 Lymphs 30 Monocytes 5 Eos 2 Basos 0 Neutrophils (Absolute) 3.0 1.4-7.0 Lymphs (Absolute) 1.4 0.7-3.1 Monocytes(Absolute) 0.3 0.1-0.9 Eos (Absolute) 0.1 0.0-0.4 Baso (Absolute) 0.0 0.0-0.2 Immature Granulocytes 0 Immature Grans (Abs) 0.0 0.0-0.1 PT/INR 2016-05-27 INR 1.8 0.8-1.2 Prothrombin Time 18.7 9.1-12.0 CMP 2016-05-27 Glucose, Serum 98 65-99 BUN 13 6-20 Creatinine, Serum 1.07 0.57-1.00 eGFR If NonAfricn Am 67 >59 eGFR If Africn Am 77 >59 BUN/Creatinine Ratio 12 8-20 Sodium, Serum 139 134-144 Potassium, Serum 4.4 3.5-5.2 Chloride, Serum 100 97-108 Carbon Dioxide, Total 22 18-29 Calcium, Serum 9.2 8.7-10.2 Protein, Total, Serum 6.9 6.0-8.5 Albumin, Serum 4.4 3.5-5.5 Globulin, Total 2.5 1.5-4.5 A/G Ratio 1.8 1.1-2.5 Bilirubin, Total 0.8 0.0-1.2 Alkaline Phosphatase, S 59 39-117 AST (SGOT) 12 0-40 ALT (SGPT) 12 0-32 MICROALBUMIN, URINE (IN HOUSE) 2016-05-27 MICROALBUMIN Lot # Exp date Clarity clear Color yellow ALB 30 mg/L CRE 200 mg/dL A:C (IN HOUSE) <30 mg/g Control Control Lot # Exp date [employer] 2016-05-27 PROCEDURES Procedure Date Ordered Related Diagnosis Body Site ROUTINE VENIPUNCTURE 2016-05-27 N/A PROTHROMBIN TIME May 27, 2016 Office Visit, New Pt., Level 4 May 27, 2016 No Charge May 27, 2016 VENIPUNCT, ROUTINE* May 27, 2016 COMPREHEN METABOLIC PANEL May 27, 2016 GLYCATED HEMOGLOBIN TEST May 27, 2016 MICROALBUMIN, SEMIQUANT May 27, 2016 COMPLETE CBC W/AUTO DIFF WBC May 27, 2016 IMMUNIZATIONS No Known Immunizations
--- OUTSIDE RECORDS SUMMARY | 2020-03-18 12:38 | XMS REPORT ---
Author Author Deysi GONZALEZ [facility] Address [address] [place] [address] Care Team Providers Care Spotlight Operator Name Role Phone CAROLIN GONZALEZ Unavailable PROBLEMS Type Condition ICD9-CM Code MHW08-QH Code Onset Dates Condition S tatus SNOMED Code Problem Anxiety F41.9 Active 00221490 Assessment Factor V Leiden D68.51 May, Active 192417364 Problem Sjoegren syndrome M35.00 Active 83 267543 Problem Factor V Leiden D68.51 Active 3070 15496 Problem Fibromyalgia M79.7 Active 4613278 05 Problem Lumbago with sciatica, unspecified side M54.40 Active 087944296 Problem Clotting disorder D68.9 Active 64 644208 Problem Type 2 diabetes mellitus wit hout complication, without long-term current use of insulin E11.9 Active 966666657 ALLERGIES Unknown Allergies SOCIAL HISTORY No smoking Hx information available PLAN OF CARE VITAL SIGNS MEDICATIONS Unknown Medications RESULTS No Results PROCEDURES No Known procedures IMMUNIZATIONS No Known Immunizations
--- OUTSIDE RECORDS SUMMARY | 2020-03-18 12:38 | XMS REPORT | Encounter Summary ---
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 documented as of this encounter Discharge Summaries * Marvin Fallon - 11/11/2013 2:13 PM RIBBER REPORT Name: DEYSI LUIS MRN/Unit #: [id number] Attending Physician: MARVIN DINERO. VASYL LANDEROS Date of : 1980 DATE OF ADMISSION: 04/19/2006 DATE OF DISCHARGE: 04/20/2006 DISCHARGE DIAGNOSIS: Status post left knee posterior cruciate ligament reconstruction. PROCEDURE PERFORMED: Left knee posterior cruciate ligament reconstruction with allograft by Dr. Fallon on 04/19/2006. HOSPITAL COURSE: The patient is a 25-year-old female who underwent left knee posterior cruciate ligament reconstruction with allograft. The patient was taken to the operating room on 04/19/2006. On postoperative day #1 the patient's pain was well controlled with p.o. pain antibiotics and was comfortable ambulating with her knee brace in place. The patient is discharged from the hospital and is tolerating a p.o. diet. DISCHARGE INSTRUCTIONS: The patient is to weightbearing as tolerated on the left lower extremity. She is to keep her knee brace on at all times about the left knee. No flexion of the left knee. The patient was given crutches for comfort. The patient will follow up with Dr. Fallon in two weeks in the clinic. Marvin Fallon MD Dictated By: Mathew Rob M.D. cc: ER documented in this encounter Miscellaneous Notes * Operative Note - Marvin Fallon - 11/11/2013 2:17 PM RIBBER REPORT Name: DEYSI LUIS MRN/Unit #: [id number] Attending Physician: MARVIN FALLON MD Date of : 1980 DATE OF OPERATION: 04/19/2006. PREOPERATIVE DIAGNOSIS: Torn posterior cruciate ligament. POSTOPERATIVE DIAGNOSIS: Torn posterior cruciate ligament. PROCEDURE: Arthroscopic posterior cruciate ligament reconstruction using Achilles tendon allograft on the left knee. SURGEON: Marvin Fallon MD. MEDICAL COLLECTIONS: Deandre. ESTIMATED BLOOD LOSS: Less than 100 ml. TOURNIQUET TIME: No tourniquet time was used. INDICATION FOR OPERATION: The patient is a very pleasant 25-year-old female who is complaining of instability of her left knee. She has had, I believe, three previous arthroscopies which revealed a torn posterior cruciate ligament. She wishes to have her posterior cruciate ligament reconstructed using an Achilles tendon allograft. DESCRIPTION OF PROCEDURE: The patient was brought to the operating room suite. She was identified, intubated, and prepped and draped in the usual sterile fashion. Her right leg had been placed in a well-leg alan. The table was dropped on the left leg. A tourniquet had been placed around the left thigh but was not inflated. We began arthroscopy by using the two previous incision sites. They had healed. One was medial and one was lateral to the patellar tendon. Both were above the joint line. We made a small stab incision with an 11 blade in these areas. We placed our trocar and cannula into the knee joint. We insufflated the knee joint with water and examined the patella and suprapatellar pouch, not finding any loose bodies or any chondromalacia. We examined the medial and lateral menisci. These were intact. We examined the medial and lateral femoral condyles, and these were intact. No evidence of chondromalacia was found on the tibial plateaus either. There was an intact anterior cruciate ligament. We examined the anterior drawer. We probed it with our probe and found it to be intact. There was no demonstrable posterior cruciate ligament. At this point, we brought in fluoroscopy. We had set our tibial tunnel reaming guide to 60. We attempted to engage the posterior medial portal with a needle. We identified the medial meniscus above the medial horn but we were just not able to do that due to the patient's size. We had made a small stab incision and tried to feel with our finger back against the posterior wall as we were drilling our tibial guidepin. We used fluoroscopy as well. We cleaned off the back wall of the tibia with a curette. Under fluoroscopy guidance, we passed a guidepin up through the tibia while the Arthrex guidepin angled guidepin system was set at 60. We used a backstop so the guidepin would not penetrate through into the posterior vessels. We set the reamer on the backstop. We did ream under fluoroscopic guidance up to about [address] the tibial tunnel. We then replaced the automatic assembly hand with a manual assembly hand and gently, under fluoroscopic guidance and live fluoroscopy, were able to breach the posterior cortex of the tibia. Once we had done that, we used a small incision midway between the patella and the medial epicondyle. We dissected down with blunt dissection to the tibial epicondyle area. We placed a femoral Arthrex aiming device set at 60 8 mm off the articular surface at the 11 o'clock position on the lateral wall of the medial femoral condyle. We drilled a guidepin through this area. We then reamed this to a size 9. We then used a [place]-Deandre graft. This was passed up through the tibial tunnel and out through the anteromedial portal. We smoothed out the killer turn of the tibia with several passes. We then used a luc hook to pass a suture up through the tibial tunnel and then up the femoral tunnel. Once we had done that, we had already fashioned a graft on the back table of the Achilles tendon and had burred down the calcaneal portion down to a size 9 mm bone plug x 25. We made sure it could go through a size 9 drill hole. We used several 0 Vicryls to fashion it to more of a cylinder shape, and we used a whipstitch with a fiber wire on each end. We then passed the soft tissue portion ends of the Achilles tendon allograft from the femoral to the tibial side using a previously passed suture. After we had passed the suture of the Achilles tendon allograft, we were able to pass the graft around the killer turn through the femur and into the tibia. Once we had done that, we on the graft while a size 8 absorbable screw was placed in the femoral portion. We then performed an anterior drawer, and the Arthrex interference screw was then used to secure the tibial fixation site. The patient then had all wounds washed out. Again, we placed our arthroscope inside the joint and checked for any loose bodies or any graft impingement. There was none. We then washed out all wounds and closed with 0 Vicryl, 2-0 Vicryl and vasyl. The patient tolerated the procedure well. She was placed in a brace. She was discharged to home. Marvin Fallon MD Dictated By: cc: ER documented in this encounter Plan of Treatment Care Team Description Date Type Specialty Anna Zavala, JEANETTE [address] [facility] [address] [place] [address] [phone] 05/01/2020 Video Visit Neurology Arlene Aguayo, MEDICAL TERMINOLOGIST [address] [facility] [address] [place], [place] [id number] 05/15/2020 Office Visit Endocrinology Mina James MD [address] [address] [phone] 12/24/2020 Office Visit Medical Oncology documented as of this encounter Procedures Comments Procedure Name Priority Date/Time Associated Diag nosis XR KNEE 1 OR 2 VIEWS LEFT Routine 04/19/2006 8:30 PM CDT XR KNEE 1 OR 2 VIEWS LEFT Routine 04/19/2006 2:00 PM CDT URINE TEST Routine 04/19/2006 12:10 PM CDT documented in this encounter Results * XR Knee 1 or 2 views left (04/19/2006 8:30 PM CDT) Only the most recent of 2 results within the time period is included. Specimen Narrative Performed At [facility] Name: DEYSI LUIS K Date of Aldo h: 1980 Sex: F Check-in #: [id number] Lin#/Jacket#: [id number] Room/Bed/Location: [facility] Rec ord #: [id number] Attending Physician: [id number] VASYL DINERO Admitting Diagnosis: POST OP Procedure Requested: [id number] DX KNEE 1 OR 2 VIEWS LEFT L Reason For Exam: POST OP Requested By: VASYL Berry Exam Ordered: 04/19/20062033 Exam Date/Time: 04/19/20062034 argelia-in Date/Time: 04/19/20062030 These images and this report have been reviewed and edited by the Staff Radiologist. Reason for exam: POST OP DX KNEE 1 OR 2 VIEWS LEFT Apr 19 8:31:00 PM Findings: AP and lateral views are obta ined. There are multiple skin vasyl present. The knee otherwise loo ks unremarkable. [place] Operator- NICK HENLEY M.D. , Staff Radiologist Dictated By- NICK HENLEY M.D., Sta ff Radiologist Staff Physician- NICK HENLEY M.D., Staff Radiologist Authenticated By- NICK HENLEY M.D. , Staff Radiologist Released Date Time- 04/20/06730 Procedure Note Interface, Rad Conversion - 11/13/2013 2:18 AM RIBBER REPORT Name: DEYSI LUIS K Date of : 1980 Sex: F Check-in #: [id number] Lin#/Jacket#: [id number] Room/Bed/Location: Attending Physician: [id number] VASYL DINERO Admitting Diagnosis: POST OP Procedure Requested: [id number] DX KNEE 1 OR 2 VIEWS LEFT L Reason For Exam: POST OP Requested By: VASYL DINERO MD Exam Ordered: 04/19/20062033 Exam Date/Time: 04/19/20062034 Check-in Date/Time: 04/19/20062030 These images and this report have been reviewed and edited by the Staff Radiologist. Reason for exam: POST OP DX KNEE 1 OR 2 VIEWS LEFT Apr 19, 2006 8:31:00 PM Findings: AP and lateral views are obtained. There are multiple skin vasyl present. The knee otherwise looks unremarkable. [place] Operator- NICK HENLEY M.D., Staff Radiologist Dictated By- NICK HENLEY M.D., Staff Radiologist Staff Physician- NICK HENLEY M.D., Staff Radiologist Authenticated By- NICK HENLEY M.D., Staff Radiologist Released Date Time- 04/20/06730 Performing Organization Address City/State/Zipcode Ph one Number [facility] * Urine Test (04/19/2006 12:10 PM CDT) UCG Urine NEGATIVE NEGATIVE [place] Specimen Performing Organization Address City/State/Zipcode Ph one Number [facility] [address] [place], [place] [address] [place] documented in this encounter Visit Diagnoses Diagnosis Old disruption of posterior cruciate li gament documented in this encounter
--- OUTSIDE RECORDS SUMMARY | 2020-03-18 12:38 | XMS REPORT ---
Author Author Deysi GONZALEZ [facility] Address [address] [place] [address] Care Team Providers Care Lacing Presser Name Role Phone CAROLIN GONZALEZ Unavailable PROBLEMS Type Condition ICD9-CM Code RGK89-IC Code Onset Dates Condition S tatus SNOMED Code Problem Anxiety F41.9 Active 28733350 Problem Sjoegren syndrome M35.00 Active 83 186216 Problem Factor V Leiden D68.51 Active 3070 78943 Problem Fibromyalgia M79.7 Active 6416870 05 Problem Lumbago with sciatica, unspecified side M54.40 Active 611766016 Problem Clotting disorder D68.9 Active 64 596505 Problem Type 2 diabetes mellitus wit hout complication, without long-term current use of insulin E11.9 Active 877697004 ALLERGIES Unknown Allergies SOCIAL HISTORY No smoking Hx information available PLAN OF CARE VITAL SIGNS MEDICATIONS Medication Instructions Dosage Frequency Start Date End Date Duration S tatus Tizanidine HCl 4 MG Orally 2 times a day prn 1 tablet as needed Active RESULTS No Results PROCEDURES No Known procedures IMMUNIZATIONS No Known Immunizations
--- OUTSIDE RECORDS SUMMARY | 2020-03-18 12:39 | XMS REPORT | Continuity of Care Document ---
Author Organization Unknown Address Unknown Phone Unavailable Allergies Active Description Code Type Severity Reaction Onset Reported/Identified Relationship to Patient Clinical Status Yes Non-Asprin Drug N/A N/A Yes ASPIRIN 21117 DRUG INGREDI Med Hives 10/29/2015 Yes aspirin [id number] Drug Allergy Unknown N/A 03/15/2020 Yes No Known Drug Allergies [id number] Drug Allergy Unknown N/A 03/15/2020 Medications There is no data. Problems Date Dx Coded Attending Type Code Diagnosis Diagnosed By 03/19/2015 NIMA LANDEROS, INES Ot 729. 5 03/19/2015 NIMA LANDEROS, INES Ot 729. 81 03/27/2015 JAZ LANDEROS, DREW C Ot 782.3 03/27/2015 JAZ LANDEROS, DREW C Ot V12.51 03/27/2015 JAZ LANDEROS, DREW C Ot V57.21 04/02/2015 NIMA LANDEROS, INES Ot 729. 5 04/02/2015 NIMA LANDEROS, INES Ot 729. 81 04/02/2015 JAZ LANDEROS, DREW C Ot 782.3 04/02/2015 JAZ LANDEROS, DREW C Ot V12.51 04/02/2015 JAZ LANDEROS, RDEW C Ot V57.21 04/02/2015 JAZ LANDEROS, DREW C Ot 782.3 04/02/2015 JAZ LANDEROS, DREW C Ot V12.51 04/02/2015 JAZ LANDEROS, DREW C Ot V57.21 04/08/2015 JAZ LANDEROS, DREW C Ot 782.3 04/08/2015 JAZ LANDEROS, DREW C Ot V12.51 04/08/2015 JAZ LANDEROS, DREW C Ot V57.21 04/09/2015 JAZ LANDEROS, DREW C Ot 782.3 04/09/2015 JAZ LANDEROS, DREW C Ot V12.51 04/09/2015 JAZ LANDEROS, DREW C Ot V57.21 04/24/2015 JAZ LANDEROS, DREW Bhandari Ot 782.3 EDEMA 04/24/2015 JAZ LANDEROS, DREW Bhandari Ot V12.51 HX-VENOUS THROMBOSIS EMBOLISM 04/24/2015 JAZ LANDEROS, DREW Bhandari Ot V57.21 ENCOUNTER FOR OCCUPATIONAL THERAPY 06/18/2017 SHOBHA CHRISTINE M79.7 Fibromyalgia 06/18/2017 M79.7 Fibr omyalgia 06/18/2017 M79.7 Fibr omyalgia 12/17/2017 SHOBHA CHRISTINE M35.01 Sicca syndrome with keratoconjunctivitis 12/17/2017 SHOBHA CHRISTINE M35.01 Sicca syndrome with keratoconjunctivitis 12/17/2017 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 12/17/2017 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 07/25/2018 TA CORREA D68.51 Activated protein C resistance 07/28/2018 50 Gynecol ogic Exam 07/28/2018 N93.9 Abno rmal uterine and vaginal bleeding, unspecified 07/28/2018 N93.9 Abno rmal uterine and vaginal bleeding, unspecified 07/28/2018 Z11.3 Enco unter for screening for infections with a predominantly sexual mode of transmission 07/28/2018 N93.9 Abno rmal uterine and vaginal bleeding, unspecified 07/28/2018 D68.51 Act ivated protein C resistance 07/28/2018 OCTAVIO CORONA Z11.3 Encounter for screening for infections with a predominantly sexual mode of transmission 08/08/2018 N93.9 Abno rmal uterine and vaginal bleeding, unspecified 08/18/2018 [id number] Fol low-up 08/18/2018 [id number] Fol low-up 08/18/2018 N93.9 Abno rmal uterine and vaginal bleeding, unspecified 08/18/2018 Z01.419 En counter for gynecological examination (general) (routine) without abnormal findings 10/24/2018 ADAL REDMOND 516 Abnormal Uterine Bleeding 10/24/2018 ADAL REDMOND 516 Abnormal Uterine Bleeding 10/24/2018 ADAL REDMOND Z01.818 Encounter for other preprocedural examination 11/09/2018 SHOBHA CHRISTINE M53.3 Sacrococcygeal disorders, not elsewhere classified 11/09/2018 E11.9 Type 2 diabetes mellitus without complications 11/09/2018 E11.9 Type 2 diabetes mellitus without complications 11/09/2018 E11.9 Type 2 diabetes mellitus without complications 11/09/2018 JERALD MOORE Z01.81 8 Encounter for other preprocedural examination 11/09/2018 E66.01 Mor bid (severe) obesity due to excess calories 11/09/2018 Z68.43 Bod y mass index (BMI) 50.0-59.9, adult 11/09/2018 E66.01 Mor bid (severe) obesity due to excess calories 11/09/2018 Z68.43 Bod y mass index (BMI) 50.0-59.9, adult 11/15/2018 JERALD MOORE Z01.81 8 Encounter for other preprocedural examination 11/15/2018 JERALD MOORE Z01.81 8 Encounter for other preprocedural examination 11/15/2018 JERALD MOORE E66.01 Morbid (severe) obesity due to excess calories 11/15/2018 VILMA MOOREI R06.09 Other forms of dyspnea 11/15/2018 JERALD MOORE Z68.43 Body mass index (BMI) 50-59.9, adult 11/15/2018 JERALD MOORE E66.01 Morbid (severe) obesity due to excess calories 11/15/2018 LYNDSEY MOOREITRI R06.09 Other forms of dyspnea 11/15/2018 JERALD MOORE Z68.43 Body mass index (BMI) 50-59.9, adult 12/07/2018 VILMA MOOREI Z01.81 8 Encounter for other preprocedural examination 12/07/2018 VILMA MOOREI Z01.81 8 Encounter for other preprocedural examination 12/08/2018 VILMA MOOREI Z01.81 8 Encounter for other preprocedural examination 12/16/2018 SHOBHA CHRISITNE 324 Fibromyalgia 02/02/2019 D68.51 Act ivated protein C resistance 02/02/2019 I82.409 Ac [place] embolism and thrombosis of unspecified deep veins of unspecified lower extremity 02/02/2019 D68.51 Act ivated protein C resistance 02/02/2019 I82.409 Ac [place] embolism and thrombosis of unspecified deep veins of unspecified lower extremity 02/02/2019 D68.51 Act ivated protein C resistance 02/02/2019 I82.409 Ac [place] embolism and thrombosis of unspecified deep veins of unspecified lower extremity 06/07/2019 TA CORREA D68.51 Activated protein C resistance 06/07/2019 TA CORREA I82.409 Acute embolism and thrombosis of unspecified deep veins of unspecified lower extremity 06/12/2019 TA CORREA D68.51 Activated protein C resistance 06/12/2019 TA CORREA I82.409 Acute embolism and thrombosis of unspecified deep veins of unspecified lower extremity 06/16/2019 SHOBHA CHRISTINE M32.9 Systemic lupus erythematosus, unspecified 06/16/2019 M32.9 Syst emic lupus erythematosus, unspecified 06/16/2019 M32.9 Syst emic lupus erythematosus, unspecified 06/16/2019 SHOBHA CHRISTINE M19.90 Unspecified osteoarthritis, unspecified site 12/12/2019 [id number] Initial Visit 12/12/2019 R29.818 Ot her symptoms and signs involving the nervous system 12/12/2019 Z13.29 Enc ounter for screening for other suspected endocrine disorder 12/12/2019 Z79.899 Ot her exterminator termite (current) drug therapy 12/14/2019 Z13.29 Enc ounter for screening for other suspected endocrine disorder 12/14/2019 Z79.899 Ot her exterminator termite (current) drug therapy 12/14/2019 INES HERRING MD Ot 729. 5 PAIN IN LIMB 12/14/2019 INES HERRING MD Ot 729. 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 5 PAIN IN LIMB 01/31/2020 INES HERRING MD Ot 729. 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 Ot M47.812 SPONDYLOSIS W/O MYELOPATHY OR RADICULOPA 02/13/2020 I10 Essent ial (primary) hypertension 02/29/2020 [id number] Fol low-up 02/29/2020 [id number] Tashi arben 02/29/2020 G43.019 Mi graine without aura, intractable, without status migrainosus 02/29/2020 G43.709 Ch ronic migraine without aura, not intractable, without status migrainosus Procedures Code Description Performed By Per formed On [id number] CH LAMYDIA AND NEISSERIA GONORRHOEAE PCR 07/28/2018 [id number] TH INPREP PAP + HIGH RISK HPV (POSITIVE HIGH RISK HPV'S WILL REFLEX TO HPV GENOTYPING 16, 18/45) 07/28/2018 [id number] CB C AND DIFF (MANUAL DIFF IF NECESSARY) 07/28/2018 [id number] CO MPREHENSIVE METABOLIC PANEL 07/28/2018 [id number] HE MOGLOBIN A1C 07/28/2018 ZVA2311 T4 FREE 07/28/2018 [id number] TH YROID STIMULATING HORMONE 07/28/2018 XSF5199 B1 2/FOLATE 07/28/2018 [id number] CB C AND DIFF (MANUAL DIFF IF NECESSARY) 07/28/2018 [id number] FE RRITIN 07/28/2018 [id number] IR ON/TRANSFERRIN 07/28/2018 QPP2451 ER YTHROPOIETIN (EPO) 07/28/2018 [id number] US PELVIS TRANSABD COMPLETE AND TRANSVAGINAL P 08/08/2018 [id number] TI SSUE PATHOLOGY OR BIOPSY 08/18/2018 REF12 AMB REFERRAL TO CARDIOLOGY 11/15/2018 CAR54 ECG 11/15/2018 [id number] CV MPI 2 DAY SPECT STUDY 12/07/2018 CON33 CONS ULT - VASCULAR ACCESS TEAM 12/07/2018 CON33 CONS ULT - VASCULAR ACCESS TEAM 12/08/2018 FTB4883 CB C AND DIFF (MANUAL DIFF IF NECESSARY) 06/07/2019 [id number] IR ON, TIBC AND FERRITIN PANEL 06/07/2019 POC4 POCT GLYCOSYLATED HEMOGLOBIN (HGB A1C) 12/12/2019 CSV4275 T3 FREE 12/12/2019 VVN1014 T4 FREE 12/12/2019 [id number] TH YROID PEROXIDASE ANTIBODY 12/12/2019 [id number] TH YROID STIMULATING HORMONE 12/12/2019 [id number] TAMIN D, 25-HYDROXY 12/12/2019 [id number] PR CROALBUMIN RANDOM 12/12/2019 REF46 AMB REFERRAL TO NEUROLOGY 12/22/2019 POC4 POCT GLYCOSYLATED HEMOGLOBIN (HGB A1C) 02/13/2020 Results Test Result Range CBC WITH DIFF - 12/18/14 15:59 WBC 6.2 10*3/uL 4.3-10.8 RBC 5.27 10*6/uL 4.20-5.40 HGB 13.3 g/dL 12.0-16.0 HCT 41.1 % 37-47 MCV 78 fL 81-99 MCH 25 pg 26-34 MCHC 32 g/dL 31-37 PLATELET COUNT 282 10*3/uL 150-400 RDWCV 13.4 % 11.5-14.5 DIFF TYPE AUTOMATED DIFF NEUTROPHIL % 60 % 36-66 LYMPHOCYTE % 31 % 24-44 MONOCYTE % 6 % 1-10 EOSINOPHIL % 2 % 0-6 BASOPHIL % 0 % 0-2 ABS. NEUTROPHILS 3.7 10*3/uL 1.55-7.13 ABS. LYMPHOCYTES 1.9 10*3/uL 1.0-4.8 ABS. MONOCYTES 0.4 10*3/uL 0.4-1.08 ABS. EOSINOPHILS 0.1 10*3/uL 0.0-0.65 ABS. BASOPHILS 0.0 10*3/uL 0.0-0.11 ABSOLUTE NUCLEATED RBC 0.00 10*3/uL PERCENT NUCLEATED RBC 0 BASIC METABOLIC PANEL - 12/18/14 15:59 POTASSIUM 4.0 mmol/L 3.5-5.1 CALCIUM 9.3 mg/dL 8.6-10.6 GLUCOSE 117 mg/dL 70-115 BUN 14 mg/dL 8-22 CREATININE 1.0 mg/dL 0.6-1.1 SODIUM 139 mmol/L 136-145 CHLORIDE 103 mmol/L 98-110 CO2 25 mmol/L 22-29 GFR ESTIMATED NOT AFR/AM >60 GFR ESTIMATED IF AFR/AM >60 ANION GAP 11 5-15 PT/INR - 12/18/14 15:59 PT 26.6 s 11.8-15.0 INR 2.4 PTT - 12/18/14 15:59 PTT 34.9 s 24.3-36.8 TROPONIN I - 12/18/14 15:59 TROPONIN I 0.03 ng/mL 0-0.1 HCG URINE - 12/18/14 16:24 PREG TEST, URINE NEGATIVE URINALYSIS AUTOMATED W MICROSCOPY - 03/27 16:24 SPECIMEN VOIDED URINE COLOR YELLOW APPEARANCE HAZY CLEAR SPECIFIC GRAVITY 1.020 1.005-1.030 PH, URINE 5.5 5.0-9.0 PROTEIN TRACE mg/dL NEGATIVE GLUC NEGATIVE mg/dL NEGATIVE KETONES NEGATIVE mg/dL NEGATIVE BILIRUBIN NEGATIVE NEGATIVE BLOOD SMALL NEGATIVE NITRITE NEGATIVE NEGATIVE UROBILINOGEN NORMAL mg/dL NORMAL LEUKOCYTE ESTERASE LARGE NEGATIVE WBC'S 30 [HPF] 0-4 RBC'S 7 [HPF] 0-1 MUCUS OCCASIONAL [LPF] SQUAMOUS EPITHELIAL CELLS 19 [LPF] 0-1 BACTERIA OCCASIONAL [HPF] URINE CULTURE - 12/18/14 17:36 SOURCE SOURCE: CLEAN CATCH URINE REQUISITION NOTE REQUISITION NOTE: NONE CULTURE RESULTS CULTURE RESULTS: NO FURTHER WORKUP REPORT STATUS REPORT STATUS: 12/20/2014 FINAL CBC With Differential/Platelet - 6 12:56 WBC 4.9 x10E3/uL 3.4-10.8 RBC 5.01 x10E6/uL 3.77-5.28 Hemoglobin 11.9 g/dL 11.1-15.9 Hematocrit 38.5 % 34.0-46.6 MCV 77 fL 79-97 MCH 23.8 pg 26.6-33.0 MCHC 30.9 g/dL 31.5-35.7 RDW 15.8 % 12.3-15.4 Platelets 240 x10E3/uL 150-379 Neutrophils 63 % Lymphs 30 % Monocytes 5 % Eos 2 % Basos 0 % Neutrophils (Absolute) 3.0 x10E3/uL 1.4- 7.0 Lymphs (Absolute) 1.4 x10E3/uL 0.7-3.1 Monocytes(Absolute) 0.3 x10E3/uL 0.1-0.9 Eos (Absolute) 0.1 x10E3/uL 0.0-0.4 Baso (Absolute) 0.0 x10E3/uL 0.0-0.2 Immature Granulocytes 0 % Immature Grans (Abs) 0.0 x10E3/uL 0.0-0. 1 Prothrombin Time (PT) - 05/27/16 12:56 INR 1.8 0.8-1.2 Prothrombin Time 18.7 sec 9.1-12.0 Hemoglobin A1c - 05/27/16 12:56 Hemoglobin A1c 6.4 % 4.8-5.6 Comp. Metabolic Panel (14) - 05/27/16 12 :56 Glucose, Serum 98 mg/dL 65-99 BUN 13 mg/dL 6-20 Creatinine, Serum 1.07 mg/dL 0.57-1.00 eGFR If NonAfricn Am 67 mL/min/1.73 >59 eGFR If Africn Am 77 mL/min/1.73 >59 BUN/Creatinine Ratio 12 8-20 Sodium, Serum 139 mmol/L 134-144 Potassium, Serum 4.4 mmol/L 3.5-5.2 Chloride, Serum 100 mmol/L 97-108 Carbon Dioxide, Total 22 mmol/L 18-29 Calcium, Serum 9.2 mg/dL 8.7-10.2 Protein, Total, Serum 6.9 g/dL 6.0-8.5 Albumin, Serum 4.4 g/dL 3.5-5.5 Globulin, Total 2.5 g/dL 1.5-4.5 A/G Ratio 1.8 1.1-2.5 Bilirubin, Total 0.8 mg/dL 0.0-1.2 Alkaline Phosphatase, S 59 IU/L 39-117 AST (SGOT) 12 IU/L 0-40 ALT (SGPT) 12 IU/L 0-32 CHLAMYDIA AND NEISSERIA GONORRHOEAE PCR - 07/28/18 16:30 Source CERVIX NRG CHLAMYDIA TRACHOMATIS PCR Not Detected Not Detected NEISSERIA GONORRHOEAE PCR Not Detected Not Detected CBC AND DIFF (MANUAL DIFF IF NECESSARY) - 07/28/18 16:50 WBC 7.04 4.00-11.00 Hematocrit 42 36-45 Hemoglobin 13.9 12.0-15.0 MCH 27 27-34 MCHC 33 32-36 MCV 82 80-99 MPV 9.8 9.4-12.3 Platelet Count 251 140-400 RBC 5.14 4.00-5.00 RDW 13.3 9.0-14.5 NUCLEATED RBCS 0 0-0 % NEUTROPHILS 67 45-78 %LYMPHOCYTES 25 15-47 %MONOCYTES 5 0-12 %EOSINOPHILS 1 0-7 %BASOPHILS 0 0-2 % IMM GRANS 0 0-1 # GRANULOCYTES 4.74 1.70-6.80 # LYMPHOCYTES 1.79 1.00-3.30 # MONOCYTES 0.38 0.20-0.90 # EOSINOPHILS 0.10 0.00-0.40 # BASOPHILS 0.03 0.00-0.10 CBC AND DIFF (MANUAL DIFF IF NECESSARY) - 07/28/18 16:50 WBC 7.04 4.00-11.00 Hematocrit 42 36-45 Hemoglobin 13.9 12.0-15.0 MCH 27 27-34 MCHC 33 32-36 MCV 82 80-99 MPV 9.8 9.4-12.3 Platelet Count 251 140-400 RBC 5.14 4.00-5.00 RDW 13.3 9.0-14.5 NUCLEATED RBCS 0 0-0 % NEUTROPHILS 67 45-78 %LYMPHOCYTES 25 15-47 %MONOCYTES 5 0-12 %EOSINOPHILS 1 0-7 %BASOPHILS 0 0-2 % IMM GRANS 0 0-1 # GRANULOCYTES 4.74 1.70-6.80 # LYMPHOCYTES 1.79 1.00-3.30 # MONOCYTES 0.38 0.20-0.90 # EOSINOPHILS 0.10 0.00-0.40 # BASOPHILS 0.03 0.00-0.10 THYROID STIMULATING HORMONE - 07/28/18 1 6:50 Thyroid Stimulating Hormone 3.75 0. 47-4.68 COMPREHENSIVE METABOLIC PANEL - 07/28/18 16:50 Alanine Aminotransferase 20 0-34 Albumin 4.1 3.5-5.0 Alkaline Phosphatase 63 42-140 Aspartate Aminotransferase 23 15- 46 Blood Urea Nitrogen 14 7-26 Chloride 103 96-112 Carbon Dioxide 23 20-32 Creatinine 0.9 0.4-1.1 Glucose 149 70-100 Potassium 4.0 3.5-5.3 Sodium 136 133-147 Calcium 9.1 8.4-10.5 Anion Gap 11 TX 5-17 Protein Total Serum 7.5 6.0-8.2 BILIRUBIN TOTAL 0.7 0.2-1.3 GFR FEMALE AA 84 TX 60-200 GFR FEMALE NON-AA 70 TX 60-200 T4 FREE - 07/28/18 16:50 T4 FREE 1.2 0.8-2.2 HEMOGLOBIN A1C - 07/28/18 16:50 Hemoglobin A1C 7.1 4.0-5.6 IRON/TRANSFERRIN - 07/28/18 16:50 Iron 72 50-180 Total Iron-Binding Capacity 364 20 4-408 Transferrin 303 206-381 IRON/TRANSFERRIN % SATURATION 20 15-50 FERRITIN - 07/28/18 16:50 Ferritin 21 20-200 B12/FOLATE - 07/28/18 16:50 Vitamin B12 229 239-931 Folate >20.0 3.4-20.0 ERYTHROPOIETIN (EPO) - 07/28/18 16:50 Erythropoietin (EPO) 14.2 2.6-18.5 CBC AND DIFF (MANUAL DIFF IF NECESSARY) - 02/02/19 10:15 WBC 5.9 4.0-11.0 Hematocrit 43 36-45 Hemoglobin 14.4 12.0-15.0 MCH 29 27-34 MCHC 33 32-36 MCV 86 80-99 MPV 8.8 9.4-12.3 Platelet Count 235 140-400 RBC 4.99 4.00-5.00 RDW 12.9 11.5-14.5 % NEUTROPHILS 68 45-78 %LYMPHOCYTES 26 15-47 %MONOCYTES 6 0-12 # GRANULOCYTES 4.1 1.7-6.8 # LYMPHOCYTES 1.5 1.0-3.3 # MONOCYTES 0.3 0.2-0.9 FERRITIN - 02/02/19 10:15 Ferritin 54 20-200 IRON/TRANSFERRIN - 02/02/19 10:15 Iron 107 50-180 Total Iron-Binding Capacity 328 20 4-408 Transferrin 273 206-381 IRON/TRANSFERRIN % SATURATION 33 15-50 FOLATE - 02/02/19 10:15 Folate >20.0 3.4-20.0 VITAMIN B12 - 02/02/19 10:15 Vitamin B12 853 239-931 A1C - 06/06/19 16:59 HEMOGLOBIN A1c 6.0 % of total Hgb <5.7 VITAMIN B12/FOLATE, SERUM PANEL - 10:03 VITAMIN B12 325 pg/mL 200-1100 FOLATE, SERUM 10.4 ng/mL NRG A1C - 10/30/19 11:20 HEMOGLOBIN A1c 6.6 % of total Hgb <5.7 T4 FREE - 12/12/19 14:48 T4 FREE 1.1 0.8-2.2 VITAMIN D, 25-HYDROXY - 12/12/19 14:48 VITAMIN D 25-HYDROXY 18 25-80 THYROID PEROXIDASE ANTIBODY - 12/12/19 1 4:48 Thyroid Peroxidase Antibody 3.8 0. 0-5.5 THYROID STIMULATING HORMONE - 12/12/19 1 4:48 Thyroid Stimulating Hormone 1.50 0. 47-4.68 MICROALBUMIN RANDOM - 12/12/19 14:48 Creatinine Urine 180.7 NRG MICROALBUMIN MG/DL 0.70 NRG MICROALBUMIN/CREATININE RATIO 3.87 0.00-30.00 T3 FREE - 12/12/19 14:48 T3 FREE 3.3 1.7-3.7 CULTURE, URINE - 12/14/19 16:32 CULTURE, URINE, ROUTINE SEE NOTE NRG PT/INR - 01/31/20 13:30 INR 2.3 NRG PT 23.3 sec 9.0-11.5 VITAMIN D, 25-H - 01/31/20 13:30 VITAMIN D,25-OH,TOTAL,IA 26 ng/mL 30-10 0 Complete blood count (CBC) with automate d white blood cell (WBC) differential - 03/15/20 01:06 Blood leukocytes automated count (number/volume) 12.5 10*3/uL 4.3-11.0 Blood erythrocytes automated count (number/volume) 4.66 10*6/uL 4.35-5.85 Venous blood hemoglobin measurement (mass/volume) 13.4 g/dL 11.5-16.0 Blood hematocrit (volume fraction) 43 % 35-52 Automated erythrocyte mean corpuscular volume 93 [ foz_us] 80-99 Automated erythrocyte mean corpuscular h emoglobin (mass per erythrocyte) 29 pg 25-34 Automated erythrocyte mean corpuscular h emoglobin concentration measurement (mass/volume) 31 g/dL 32-36 Automated erythrocyte distribution width ratio 13. 5 % 10.0- 14.5 Automated blood platelet count (count/volume) 184 10*3/uL 130-400 Automated blood platelet mean volume measurement 9.4 [foz_us] 7.4-10.4 Automated blood neutrophils/100 leukocytes 90 % 42-75 Automated blood lymphocytes/100 leukocytes 6 % 12-44 Blood monocytes/100 leukocytes 4 % 0-12 Automated blood eosinophils/100 leukocytes 0 % 0-10 Automated blood basophils/100 leukocytes 0 % 0-10 Blood neutrophils automated count (number/volume) 11.2 10*3 1.8-7.8 Blood lymphocytes automated count (number/volume) 0.7 10*3 1.0-4.0 Blood monocytes automated count (number/volume) 0. 5 10*3 0.0-1.0 Automated eosinophil count 0.0 10*3/uL 0 .0-0.3 Automated blood basophil count (count/volume) 0.0 10*3/uL 0.0-0.1 Manual absolute plasma cell count - 11/30 01:06 Blood monocytes/100 leukocytes 2 % NRG Manual blood segmented neutrophils/100 leukocytes 95 % NRG Manual blood lymphocytes/100 leukocytes 3 % NRG Blood toxic granules detection by light microscopy 3+ [facility] Comprehensive metabolic panel - 03/16/20 01:06 Serum or plasma sodium measurement (moles/volume) 134 mmol/L 135-145 Serum or plasma potassium measurement (moles/volume) 4.3 mmol/L 3.6-5.0 Serum or plasma chloride measurement (moles/volume) 101 mmol/L 98-107 Carbon dioxide 18 mmol/L 21-32 Serum or plasma anion gap determination (moles/volume) 15 mmol/L 5-14 Serum or plasma urea nitrogen measurement (mass/volume ) 13 mg/dL 7-18 Serum or plasma creatinine measurement (mass/volume) 0.96 mg/dL 0.60-1.30 Serum or plasma urea nitrogen/creatinine mass ratio 14 NRG Serum or plasma creatinine measurement w ith calculation of estimated glomerular filtration rate > NRG Serum or plasma glucose measurement (mass/volume) 131 mg/dL 70-105 Serum or plasma calcium measurement (mass/volume) 8.4 mg/dL 8.5-10.1 Serum or plasma total bilirubin measurement (mass/volu me) 0.5 mg/dL 0.1-1.0 Serum or plasma alkaline phosphatase aracely surement (enzymatic activity/volume) 54 U/L 40-136 Serum or plasma aspartate aminotransfera se measurement (enzymatic activity/volume) 15 U/L 5-34 Serum or plasma alanine aminotransferase measurement (enzymatic activity/volume) 13 U/L 0-55 Serum or plasma protein measurement (mass/volume) 6.6 g/dL 6.4-8.2 Serum or plasma albumin measurement (mass/volume) 3.8 g/dL 3.2-4.5 CALCIUM CORRECTED 8.6 mg/dL 8.5-10.1 Lipase - 03/16/20 01:06 Lipase 18 U/L 8-78 TROPONIN I FS - 03/16/20 01:06 TROPONIN I FS < 0.30 <0.30 Lipase - 03/16/20 01:06 Lipase 18 U/L 8-78 Complete blood count (CBC) with automate d white blood cell (WBC) differential - 03/17/20 17:16 Blood leukocytes automated count (number/volume) 4.3 10*3/uL 4.3-11.0 Blood erythrocytes automated count (number/volume) 5.03 10*6/uL 4.35-5.85 Venous blood hemoglobin measurement (mass/volume) 14.3 g/dL 11.5-16.0 Blood hematocrit (volume fraction) 42 % 35-52 Automated erythrocyte mean corpuscular volume 84 [ foz_us] 80-99 Automated erythrocyte mean corpuscular h emoglobin (mass per erythrocyte) 28 pg 25-34 Automated erythrocyte mean corpuscular h emoglobin concentration measurement (mass/volume) 34 g/dL 32-36 Automated erythrocyte distribution width ratio 13. 7 % 10.0- 14.5 Automated blood platelet count (count/volume) 198 10*3/uL 130-400 Automated blood platelet mean volume measurement 9.7 [foz_us] 7.4-10.4 Automated blood neutrophils/100 leukocytes 84 % 42-75 Automated blood lymphocytes/100 leukocytes 9 % 12-44 Blood monocytes/100 leukocytes 7 % 0-12 Automated blood eosinophils/100 leukocytes 0 % 0-10 Automated blood basophils/100 leukocytes 0 % 0-10 Blood neutrophils automated count (number/volume) 3.6 10*3 1.8-7.8 Blood lymphocytes automated count (number/volume) 0.4 10*3 1.0-4.0 Blood monocytes automated count (number/volume) 0. 3 10*3 0.0-1.0 Automated eosinophil count 0.0 10*3/uL 0 .0-0.3 Automated blood basophil count (count/volume) 0.0 10*3/uL 0.0-0.1 Serum or plasma choriogonadotropin (preg nura test) detection - 03/17/20 17:16 Serum or plasma choriogonadotropin ( test) de tection NEGATIVE NEGATIVE PT panel in platelet poor plasma by coag ulation assay - 03/17/20 17:16 Prothrombin time (PT) in platelet poor plasma by coagu lation assay 22.3 s 12.2-14.7 INR in platelet poor plasma or blood by coagulation as say 1.9 0.8-1.4 Comprehensive metabolic panel - 03/17/20 17:16 Serum or plasma sodium measurement (moles/volume) 133 mmol/L 135-145 Serum or plasma potassium measurement (moles/volume) 3.1 mmol/L 3.6-5.0 Serum or plasma chloride measurement (moles/volume) 98 mmol/L 98-107 Carbon dioxide 20 mmol/L 21-32 Serum or plasma anion gap determination (moles/volume) 15 mmol/L 5-14 Serum or plasma urea nitrogen measurement (mass/volume ) 11 mg/dL 7-18 Serum or plasma creatinine measurement (mass/volume) 1.14 mg/dL 0.60-1.30 Serum or plasma urea nitrogen/creatinine mass ratio 10 NRG Serum or plasma creatinine measurement w ith calculation of estimated glomerular filtration rate 53 NRG Serum or plasma glucose measurement (mass/volume) 125 mg/dL 70-105 Serum or plasma calcium measurement (mass/volume) 9.1 mg/dL 8.5-10.1 Serum or plasma total bilirubin measurement (mass/volu me) 1.9 mg/dL 0.1-1.0 Serum or plasma alkaline phosphatase aracely surement (enzymatic activity/volume) 61 U/L 40-136 Serum or plasma aspartate aminotransfera se measurement (enzymatic activity/volume) 18 U/L 5-34 Serum or plasma alanine aminotransferase measurement (enzymatic activity/volume) 16 U/L 0-55 Serum or plasma protein measurement (mass/volume) 7.6 g/dL 6.4-8.2 Serum or plasma albumin measurement (mass/volume) 4.2 g/dL 3.2-4.5 CALCIUM CORRECTED 8.9 mg/dL 8.5-10.1 Encounters ACCT No. Visit Date/Time Discharge Status Pt. Type Provider Facility Loc./Unit Complaint [id number] 02/29/2020 15:16:42 23:59:59 CLS Outpatient [facility] [place] [facility] Migraine [id number] 02/13/2020 10:18:15 23:59:59 CLS Outpatient END Type 2 diabetes mellitus without complications [id number] 12/26/2019 14:08:40 23:59:59 CLS Outpatient TA CORREA [facility] 400 CL Excessive and frequent menstruation with regular cycle [id number] 12/22/2019 10:08:54 23:59:59 CLS Outpatient [facility] Migraine without aura, intractable, with out status migrainosus [id number] 12/12/2019 14:44:23 23:59:59 CLS Outpatient [facility] Encounter for screening for other suspec mariana endocrine disorder [id number] 12/12/2019 13:12:36 23:59:59 CLS Outpatient END Initial Visit [id number] 06/16/2019 13:27:36 23:59:59 CLS Outpatient SHOBHA CHRISTINE RHEUM Sjorgen's [id number] 06/07/2019 14:59:57 23:59:59 CLS Outpatient TA CORREA [facility] 400 CL Acute embolism and thrombosis of unspeci fied deep veins of unspecified lower extremity [id number] 02/02/2019 10:41:35 23:59:59 CLS Outpatient [facility] SL RL Activated protein C resistance [id number] 02/02/2019 09:25:56 23:59:59 CLS Outpatient [facility] 40 0 CL Acute embolism and thrombosis of unspeci fied deep veins of unspecified lower extremity [id number] 12/16/2018 13:11:06 23:59:59 CLS Outpatient SHOBHA CHRISTINE RHEUM Fibromyalgia [id number] 12/08/2018 10:41:37 23:59:00 DIS Outpatient JERALD MOORE [facility] [place] [id number] 12/07/2018 09:40:31 23:59:00 DIS Outpatient TERESA JERALD [facility] CV [place] Encounter for other preprocedural examin ation [id number] 11/15/2018 10:10:42 23:59:59 CLS Outpatient JERALD MOORE [facility] Pre-op cardiac risk assessment [id number] 10/24/2018 13:56:13 23:59:59 CLS Outpatient [facility] [facility] [place] [facility] Abnormal Uterine Bleeding [id number] 08/18/2018 14:58:02 23:59:59 CLS Outpatient [facility] [place] Follow-up [id number] 08/08/2018 13:32:01 23:59:59 CLS Outpatient MPI US Abnormal uterine and vaginal bleeding, unspecified [id number] 07/28/2018 16:35:07 23:59:59 CLS Outpatient [facility] MP Activated protein C resistance [id number] 07/28/2018 16:34:39 018 23:59:59 CLS Outpatient [facility] MP Abnormal uterine and vaginal bleeding, unspecified [id number] 07/28/2018 14:58:31 018 23:59:59 CLS Outpatient [facility] [place] Gynecologic Exam [id number] 07/28/2018 18:45:55 018 23:59:00 DIS Outpatient OCTAVIO CORONA [facility] [place] Encounter for screening for infections w ith a predominantly sexual mode of transmission [id number] 07/25/2018 14:44:50 23:59:59 CLS Outpatient TA CORREA [facility] [place] 400 CL Activated protein C resistance [id number] 12/23/2019 09:24:45 Document Registration [id number] 12/11/2019 09:07:03 Document Registration [id number] 05/30/2019 11:02:19 Document Registration [id number] 08/29/2018 16:36:45 Document Registration [id number] 08/24/2018 13:49:26 Document Registration [id number] 08/23/2018 14:36:22 Document Registration [id number] 08/03/2018 14:04:07 Document Registration [id number] 03/15/2020 11:00:00 ACT Outpatient MAAME WHYTE [facility] [id number] 01/31/2020 12:15:00 Document Registration [id number] 12/14/2019 16:30:00 Document Registration [id number] 10/30/2019 10:00:00 Document Registration [id number] 06/06/2019 15:30:00 Document Registration [id number] 05/28/2016 13:06:00 Document Registration [id number] 05/28/2016 08:07:00 Document Registration [id number] 03/15/2020 21:42:00 02:22:00 DIS Emergency GIBRAN LANDEROS, KRISTA W [facility] ER FS VOMITING [id number] 01/31/2020 12:43:00 23:59:59 CLS Outpatient MAAME WHYTE [employer] [facility] RAD FS CERVICAL PAIN NECK [id number] 12/14/2019 16:35:00 23:59:59 CLS Outpatient MAAME WHYTE [employer] [facility] RAD FS SKULL DEFORMITY [id number] 11/06/2019 08:45:00 23:59:59 CLS Preadmit LYNDSAY LANDEROS, ARMAND Schwartz [facility] RAD TORN TRIANGULAR FIBROCARTILAGE,LT WRIST [id number] 04/17/2015 16:16:00 015 15:57:00 DIS Outpatient JAZ LANDEROS, DREW Bhandari [facility] REHAB CUSTOM COMPRESSION HOSE ; BILAT LE EDEMA [id number] 02/28/2015 12:08:00 015 23:59:59 CLS Outpatient NIMA LANDEROS, INES [facility] RAD PAIN AND SWELLING [id number] 03/17/2020 17:46:00 Document Registration [id number] 11/01/2019 00:00:00 11/01/2019 23:59 :00 DIS Outpatient NOY CARPIO [id number] 10/27/2019 10:08:00 10/27/2019 23:59 :00 DIS Outpatient NOY CARPIO [id number] 08/21/2015 09:50:00 5 23:59:59 CLS Outpatient [facility] AYUSH [id number] 08/05/2015 07:52:00 5 23:59:59 CLS Outpatient [facility] [id number] 08/01/2015 10:41:09 5 23:59:59 CLS Outpatient [facility] [id number] 07/25/2015 16:02:00 5 23:59:59 CLS Outpatient [facility]USH [id number] 07/23/2015 08:16:07 5 23:59:59 CLS Outpatient [facility] A[facility]USH abnornal EMG [id number] 12/18/2014 12:04:00 12/18/2014 18: 46:00 DIS Emergency JOHANNE RAMIREZ [facility] Gloria FED
[2020-03-18 13:07] LABS: NEUTROPHILS % (MANUAL) 48 %
[2020-03-18 13:08] LABS: BAND NEUTROPHILS 32 %; BASOPHILS % (MANUAL) 1 %; EOSINOPHILS % (MANUAL) 1 %; LYMPHOCYTES % (MANUAL) 5 %; METAMYELOCYTES % 1 %; MONOCYTES % (MANUAL) 11 %; MYELOCYTES % 1 %
[2020-03-18 13:15] LABS: BUN/CREATININE RATIO 11; CARBON DIOXIDE 20 MMOL/L (21-32); CREATININE SERUM 0.99 MG/DL (0.60-1.30); GFR ESTIMATED > 60; GLUCOSE 126 MG/DL (70-105)
[2020-03-18 13:16] LABS: ALANINE AMINOTRANSFERASE 20 U/L (0-55); ALBUMIN 3.8 GM/DL (3.2-4.5); ALKALINE PHOSPHATASE 58 U/L (40-136); AMYLASE 8 U/L (25-125); BILIRUBIN,TOTAL 1.2 MG/DL (0.1-1.0); CALCIUM 8.4 MG/DL (8.5-10.1); LIPASE 16 U/L (8-78); TOTAL PROTEIN 6.8 GM/DL (6.4-8.2)
--- NOTE | 2020-03-18 14:30 | NUR ---
Denied po liquid per Dr as pending for CT and pt persistant report of nausea without emesis viewed during ED stay.
--- NOTE | 2020-03-18 14:59 | NUR ---
Continue to pend the electrolytes.
[2020-03-18 15:04] LABS: CHLORIDE 99 MMOL/L (98-107); POTASSIUM 3.4 MMOL/L (3.6-5.0); SODIUM 130 MMOL/L (135-145)
[2020-03-18] MEDS ORDERED: KCL 20 MEQ TAB (K-DUR) PO ONE (15:30)
--- NOTE | 2020-03-18 15:30 | NUR ---
Pending CT study to perform, emergent neuro CT exams ahead of this patient.
--- NOTE | 2020-03-18 16:40 | NUR ---
Pt is refusing to take p.o. KCL. Pt reports it will make her "throw up".
--- NOTE | 2020-03-18 16:45 | NUR ---
Pt is accepted to [facility] provider for admit as OBS at [facility]. Pt is pending transfer. Emergent transfer ahead of patient.
--- NOTE | 2020-03-18 16:45 | NUR ---
Notified Dr Cuenca that pt will not take her potassium oral as still "nauseated". Pt has been lying on cart in room with eyes closed without using her call light for requests or complaints. Pt has only asked for drink earlier when pending still for CT
[2020-03-18] MEDS ORDERED: CATHETER FLUSH 10 ML SYR IV PRN (17:00)
[2020-03-18] MEDS ORDERED: IOHEXOL 350 MG/ML 100 ML (OMNIPAQUE 350) VIAL IV ONE (17:00)
[2020-03-18] MEDS ORDERED: NS 100 ML (IVPB) BAG IV ONE (17:00)
[2020-03-18] MEDS ORDERED: HOLD METFORMIN - RECEIVED CONTRAST 20 ML VIAL IV SCH (17:00)
--- NOTE | 2020-03-18 17:05 | NUR ---
Verbal consent to transfer obtained. Pt is a PUI in [facility] PUI isolation.
--- NOTE | 2020-03-18 17:24 | NUR ---
Pt to CT for studies ordered. Numerous emergent neuro studies done prior to this pt's exam as triaged per Dr Cuenca as what order to take patients.
--- NOTE | 2020-03-18 18:02 | Diagnostic Imaging Report ---
PROCEDURE: CT abdomen and pelvis without contrast. TECHNIQUE: Multiple contiguous axial images were obtained through the abdomen and pelvis without the use of intravenous contrast. Auto Exposure Controls were utilized during the CT exam to meet ALARA standards for radiation dose reduction. INDICATION: Vomiting, fever COMPARISON: 03/16/2020 FINDINGS: Sub-4 mm pulmonary nodules are again noted within the lung bases, particularly on the right. These appear stable from the prior exam. No new focal pulmonary consolidation. Cholecystectomy. The liver demonstrates diffusely decreased density throughout, consistent with fatty infiltration of the liver. The liver is otherwise unremarkable. The unenhanced spleen is unremarkable. The adrenal glands are unremarkable. The pancreas is unremarkable. The bilateral kidneys and ureters are unremarkable. No aneurysmal dilatation of the abdominal aorta. The appendix is unremarkable. The colon is fluid-filled. No bowel obstruction or pneumatosis. The uterus and adnexal structures are unremarkable for age. Lymph nodes which are increased in number are identified involving the retroperitoneum, periaortic region, and along the bilateral iliac chains. This appears similar to the prior examination. Additional prominent lymph nodes are identified within the central mesentery, appearing stable. This includes a mildly enlarged 1.1 cm lymph node within the aortocaval region, axial image 44. No free fluid or free air. No acute osseous abnormality. IMPRESSION: 1. Fluid-filled nondilated colon. This likely relates to an underlying diarrheal state and enteritis. No evidence of bowel obstruction. 2. Prominent lymph nodes relatively diffusely as described above, appearing stable from the prior examination 2 days prior. Again, this is a nonspecific finding and may relate to reactive changes and underlying adenitis. Infiltrative process including lymphoma not totally excluded. Comparison to more remote prior imaging would be beneficial. If no prior imaging is available, then recommend a follow-up CT scan 2-3 months after resolution of this acute event to reevaluate. 3. Fatty infiltration of the liver. 4. Cholecystectomy. 5. Stable sub-6 mm bibasilar pulmonary nodule. If patient is at high risk for lung cancer, a follow-up CT of the chest would be indicated in one year. If patient is at low risk for lung cancer, no definitive follow-up of these pulmonary nodules is necessary. Dictated by: Dictated on workstation # [id number]
--- NOTE | 2020-03-18 18:30 | NUR ---
Report called to Dontrell CRESPO.
--- NOTE | 2020-03-18 18:35 | NUR ---
Pt departing [place] [facility] at this time. Pt is saline locked.
[2020-03-18 19:20] VITALS: BP 121/65
--- NOTE | 2020-03-18 19:20 | NUR ---
ZOLTAN TRIPATHI admitted to room 422-1, with an admitting diagnosis of N/V , on 03/18/20 from [facility] via EMS, accompanied by STAFF. ZOLTAN TRIPATHI introduced to surroundings, call light, bed controls, phone, TV, temperature control, lights, meal times, smoking policy, visitor policy, side rail policy, bathrooms and showers. Patient Rights given to patient in the handbook.ZOLTAN TRIPATHI verbalizes understanding that [facility] is not responsible for the loss or damage to any personal effects or valuables that are kept in the patients posession during their hospitalization.
[2020-03-18 19:21] VITALS: BP 121/65
[2020-03-18] MEDS ORDERED: NS IV 1000 ML 1,000 ML ONE (19:41)
[2020-03-18] MEDS: ONDANSETRON 4 MG/2 ML (SDV) Z0FRAN IV PRN (19:59)
[2020-03-18] MEDS: NS IV 1000 ML 1,000 ML IV SCH (20:00)
[2020-03-18 21:04] LABS: CLARITY,URINE SL CLOUDY; COLOR,URINE YELLOW; GLUCOSE, URINE (UA) NEGATIVE (NEGATIVE); KETONES,URINE 1+ (NEGATIVE); LEUKOCYTE ESTERASE ,URINE NEGATIVE (NEGATIVE); NITRITE,URINE NEGATIVE (NEGATIVE); PROTEIN,URINE 2+ (NEGATIVE)
[2020-03-18 21:15] LABS: BACTERIA,URINE MODERATE /HPF; BILIRUBIN,URINE 1+ (NEGATIVE); RBC,URINE 0-2 /HPF; WBC,URINE 0-2 /HPF
[2020-03-18] MEDS ORDERED: ENOXAPARIN 40 MG/0.4 ML (LOVENOX) SYR SQ SCH (21:15)
[2020-03-18] MEDS ORDERED: ACETAMINOPHEN 500 MG TAB (TYLENOL) PO PRN (21:15)
[2020-03-18 23:21] VITALS: BP 116/60
[2020-03-19] MEDS: NS IV 1000 ML 1,000 ML IV SCH ×3 (02:33→15:20)
[2020-03-19 03:14] VITALS: BP 106/56
[2020-03-19 07:54] VITALS: BP 112/59
[2020-03-19] MEDS: ENOXAPARIN 60 MG/0.6 ML (LOVENOX) SYR SC SCH ×2 (09:16→20:14)
[2020-03-19] MEDS: ONDANSETRON 4 MG/2 ML (SDV) Z0FRAN IV PRN ×2 (12:15→23:10)
[2020-03-19 12:16] VITALS: BP 109/72
[2020-03-19] MEDS ORDERED: LISI-552 PO (13:46)
[2020-03-19] MEDS ORDERED: MONT10TA26 PO (13:46)
[2020-03-19] MEDS ORDERED: FLUO20DR4 EACH EAR (13:46)
[2020-03-19] MEDS ORDERED: HYDR200T46 PO (13:46)
[2020-03-19] MEDS ORDERED: GABA300C PO (13:46)
[2020-03-19] MEDS ORDERED: FLUT16SP22 NSEACH (13:46)
[2020-03-19] MEDS ORDERED: SEMA1PEN SC (13:46)
[2020-03-19] MEDS ORDERED: ERGO50006 PO (13:46)
[2020-03-19] MEDS ORDERED: DULO40CA2 PO (13:46)
[2020-03-19] MEDS ORDERED: WARF-48 PO (13:46)
[2020-03-19] MEDS ORDERED: NORT25CA PO (13:46)
[2020-03-19] MEDS ORDERED: TRAM50TA3 PO (13:46)
[2020-03-19] MEDS ORDERED: LORA10TA76 PO (13:46)
--- NOTE | 2020-03-19 13:50 | NUR ---
SPOKE WITH THE PT ( I CALLED HER ROOM PHONE) AND WENT THRU THE EXT MED HISTORY TO COMPLETE THE MED REC ALL MEDICATIONS THAT THE PT SAYS SHE TAKES ARE LISTED ON THE EXT MED HISTORY METFORMIN IS LISTED ON THE EXT MED HISTORY HOWEVER THE PT SAYS SHE ISNT TAKING THIS CURRENTLY OTC MEDS: VEENA
[2020-03-19 16:04] VITALS: BP 118/65
[2020-03-19 20:14] VITALS: BP 136/78
[2020-03-19] MEDS ORDERED: warFARin 5 MG (COUMADIN) TAB PO SCH (21:00)
[2020-03-19] MEDS ORDERED: DULOXETINE HCL 40 MG PO SCH (21:00)
--- NOTE | 2020-03-19 21:11 | History & Physical ---
HPI History of Present Illness: 39 yo F that presents with worsening nausea and vomiting with diarrhea. She has been to ER several times and has had [address] scans. States that she is not even able to tolerate any PO foods and only sometimes tolerating fluids. She has had abdominal pain that comes and goes. Never had anything like this in the pas t. She has had bariatric surgery. Source: patient Exam Limitations: no limitations Date seen by provider: Mar 19, 2020 Time Seen by Provider: 17:30 Attending Physician Nuno Townsend MD PCP [facility] Consult Date of Admission Mar 18, 2020 at 19:20 Home Medications Home Medications Reviewed patient Home Medication Reconciliation performed by pharmacy medication reconciliations police crime scene technician and/or nursing. Patients Allergies have been reviewed. Allergies Coded Allergies: aspirin (Verified Allergy, Unknown, 03/15/20) Iodine and Iodide Containing Produc (Unverified Adverse Reaction, Intermediate, hives and syncope, 03/18/20) QQU-Blyppa-Libfys Hx Patient Social History Alcohol Use: Denies Use Recreational Drug Use: No Smoking Status: Never a Smoker 2nd Hand Smoke Exposure: Yes Recent Foreign Travel: No Contact w/other who traveled: No Recent Hopitalizations: No Recent Infectious Disease Expo: No Past Medical History s/p Bariatric surgery DVT Family Medical History Significant Family History: No Pertinent Family Hx Family History: Blood clots G8 SISTER Diabetes mellitus 19 MOTHER FH: congestive heart failure 19 FATHER Hypertension 19 MOTHER Review of Systems (CHC) Constitutional: fever, malaise, weakness EENTM: no symptoms reported; No mouth pain, No nose congestion, No throat pain Respiratory: no symptoms reported; No cough, No dyspnea on exertion, No short of breath Cardiovascular: no symptoms reported; No chest pain, No edema, No palpitations Gastrointestinal: abdominal pain, diarrhea, loss of appetite, nausea, vomiting Genitourinary: no symptoms reported; No dysuria, No frequency, No hematuria : No Musculoskeletal: no symptoms reported; No back pain, No joint pain, No muscle pain Skin: no symptoms reported; No lesions, No rash Psychiatric/Neurological: No Symptoms Reported Reviewed Test Results Reviewed Test Results Lab Laboratory Tests Test 03/18/20 12:00 03/18/20 12:35 03/18/20 19:50 Range/Units White Blood Count 3.9 L 4.3-11.0 10^3/uL Red Blood Count 4.67 4.35-5.85 10^6/uL Hemoglobin 13.3 11.5-16.0 G/DL Hematocrit 39 35-52 % Mean Corpuscular Volume 84 80-99 FL Mean Corpuscular Hemoglobin 28 25-34 PG Mean Corpuscular Hemoglobin Concent 34 32-36 G/DL Red Cell Distribution Width 13.2 10.0-14.5 % Platelet Count 159 130-400 10^3/uL Mean Platelet Volume 9.7 7.4-10.4 FL Neutrophils (%) (Auto) 78 H 42-75 % Lymphocytes (%) (Auto) 10 L 12-44 % Monocytes (%) (Auto) 11 0-12 % Eosinophils (%) (Auto) 0 0-10 % Basophils (%) (Auto) 0 0-10 % Neutrophils # (Auto) 3.0 1.8-7.8 X 10^3 Lymphocytes # (Auto) 0.4 L 1.0-4.0 X 10^3 Monocytes # (Auto) 0.4 0.0-1.0 X 10^3 Eosinophils # (Auto) 0.0 0.0-0.3 10^3/uL Basophils # (Auto) 0.0 0.0-0.1 10^3/uL Neutrophils % (Manual) 48 % Lymphocytes % (Manual) 5 % Monocytes % (Manual) 11 % Eosinophils % (Manual) 1 % Basophils % (Manual) 1 % Metamyelocytes % 1 % Myelocytes % 1 % Band Neutrophils 32 % Sodium Level 130 L 135-145 MMOL/L Potassium Level 3.4 L 3.6-5.0 MMOL/L Chloride Level 99 98-107 MMOL/L Carbon Dioxide Level 20 L 21-32 MMOL/L Anion Gap 11 5-14 MMOL/L Blood Urea Nitrogen 11 7-18 MG/DL Creatinine 0.99 0.60-1.30 MG/DL Estimat Glomerular Filtration Rate > 60 BUN/Creatinine Ratio 11 Glucose Level 126 H 70-105 MG/DL Calcium Level 8.4 L 8.5-10.1 MG/DL Corrected Calcium 8.6 8.5-10.1 MG/DL Total Bilirubin 1.2 H 0.1-1.0 MG/DL Aspartate Amino Transf (AST/SGOT) 24 5-34 U/L Alanine Aminotransferase (ALT/SGPT) 20 0-55 U/L Alkaline Phosphatase 58 40-136 U/L Total Protein 6.8 6.4-8.2 GM/DL Albumin 3.8 3.2-4.5 GM/DL Amylase Level 8 L 25-125 U/L Lipase 16 8-78 U/L Urine Color YELLOW Urine Clarity SL CLOUDY Urine pH 6.0 5-9 Urine Specific Tobias >=1.030 1.016-1.022 Urine Protein 2+ H NEGATIVE Urine Glucose (UA) NEGATIVE NEGATIVE Urine Ketones 1+ H NEGATIVE Urine Nitrite NEGATIVE NEGATIVE Urine Bilirubin 1+ H NEGATIVE Urine Urobilinogen 0.2 < = 1.0 MG/DL Urine Leukocyte Esterase NEGATIVE NEGATIVE Urine RBC (Auto) TRACE-I NEGATIVE Urine RBC 0-2 /HPF Urine WBC 0-2 /HPF Urine Squamous Epithelial Cells 10-25 H /HPF Urine Crystals NONE /LPF Urine Bacteria MODERATE H /HPF Urine Casts NONE /LPF Urine Mucus SMALL H /LPF Urine Culture Indicated NO Physical Exam-(CHC) Physical Exam Vital Signs VS - Last 72 Hours, by Label 03/18/20 03/18/20 03/18/20 03/18/20 11:45 18:35 19:20 19:20 Temp 37.8 37.0 37.9 Pulse 117 95 100 Resp 18 18 16 B/P (MAP) 126/65 (85) 118/61 (85) 121/65 Pulse Ox 97 96 94 95 O2 Delivery Room Air Room Air Room Air 03/18/20 03/18/20 03/19/20 03/19/20 19:21 23:21 03:14 07:54 Temp 37.9 37.6 37.5 37.2 Pulse 100 93 87 84 Resp 16 16 16 16 B/P (MAP) 121/65 (83) 116/60 (78) 106/56 (73) 112/59 (76) Pulse Ox 95 94 91 94 O2 Delivery Room Air Room Air Room Air Room Air 03/19/20 03/19/20 03/19/20 03/19/20 07:58 12:16 16:04 20:14 Temp 36.6 36.5 37.3 Pulse 89 88 88 Resp 18 18 18 B/P (MAP) 109/72 (84) 118/65 (82) 136/78 (97) Pulse Ox 94 99 95 98 O2 Delivery Room Air Room Air Room Air Room Air Capillary Refill : Less Than 3 Seconds General Appearance: WD/WN, no apparent distress, obese HEENT: PERRL/EOMI Neck: non-tender, full range of motion, supple Respiratory: chest non-tender, lungs clear, normal breath sounds, no respiratory distress, no accessory muscle use Cardiovascular: normal peripheral pulses, regular rate, rhythm, no edema, no murmur Gastrointestinal: normal bowel sounds, soft; No guarding, No rebound; tenderness (diffuse) Back: normal inspection, no CVA tenderness, no vertebral tenderness Extremities: normal range of motion, no pedal edema, no calf tenderness, normal capillary refill Neurologic/Psychiatric: door liner helper II-XII nml as tested, no motor/sensory deficits, alert, normal mood/affect, oriented x 3 Skin: normal color, warm/dry Lymphatic: no adenopathy Assessment/Plan Assessment/Plan Admission Status: Observation (1) Enteritis Status: Acute Assessment & Plan: - CT scan showed enteritis (2) Diarrhea Status: Acute Assessment & Plan: - Stool culture + Aeromaonas Hydrophilia, started on Bactrim and probiotics today, C. Diff pending Qualifiers: Qualified Codes: R19.7 - Diarrhea, unspecified (3) Nausea & vomiting Status: Acute Assessment & Plan: - Zofran PRN, CLD Qualifiers: Qualified Codes: R11.2 - Nausea with vomiting, unspecified (4) DVT prophylaxis Status: Acute Assessment & Plan: - Restarted Warfarin Clinical Quality Measures DVT/VTE Risk/Contraindication: Risk Factor Score Per Nursin RFS Level Per Nursing on Admit: 4+=Very High NUNO TOWNSEND MD Mar 19, 2020 21:11
[2020-03-19] MEDS: NORTRIPTYLINE 25 MG (PAMELOR) CAP PO SCH (21:46)
[2020-03-19] MEDS: NS W/KCL 40 MEQ/L 1,000 ML IV SCH (21:46)
[2020-03-19] MEDS: TRIM/SULFAMETH 160/800 (SEPTRA DS) TAB PO SCH (21:46)
[2020-03-19 23:04] VITALS: BP 129/75
[2020-03-20 04:50] VITALS: BP 109/64
[2020-03-20 05:07] LABS: BASOPHILS % (AUTO) 0 % (0-10); EOSINOPHILS % (AUTO) 1 % (0-10); HEMATOCRIT 32 % (35-52); HEMOGLOBIN 11.2 G/DL (11.5-16.0); LYMPHOCYTES # (AUTO) 0.9 X 10^3 (1.0-4.0); LYMPHOCYTES % (AUTO) 31 % (12-44); MEAN CORPUSCULAR HEMOGLOBIN 29 PG (25-34); MEAN CORPUSCULAR HGB CONC 35 G/DL (32-36); MEAN CORPUSCULAR VOLUME 84 FL (80-99); MEAN PLATELET VOLUME 9.8 FL (7.4-10.4); MONOCYTES # (AUTO) 0.4 X 10^3 (0.0-1.0); MONOCYTES % (AUTO) 12 % (0-12); NEUTROPHILS # (AUTO) 1.6 X 10^3 (1.8-7.8); NEUTROPHILS % (AUTO) 55 % (42-75); PLATELET COUNT 144 10^3/uL (130-400); RED CELL DISTRIBUTION WIDTH 13.8 % (10.0-14.5); WHITE BLOOD COUNT 2.8 10^3/uL (4.3-11.0)
[2020-03-20 05:29] LABS: CHLORIDE 109 MMOL/L (98-107); INR 1.3 (0.8-1.4); POTASSIUM 3.2 MMOL/L (3.6-5.0); PROTHROMBIN TIME PATIENT 16.1 SEC (12.2-14.7); SODIUM 137 MMOL/L (135-145)
[2020-03-20 05:31] LABS: CALCIUM 7.5 MG/DL (8.5-10.1); GLUCOSE 78 MG/DL (70-105)
[2020-03-20 05:32] LABS: CARBON DIOXIDE 19 MMOL/L (21-32)
[2020-03-20 05:35] LABS: GFR ESTIMATED > 60
[2020-03-20 05:36] LABS: BUN/CREATININE RATIO 8
[2020-03-20] MEDS: NS W/KCL 40 MEQ/L 1,000 ML IV SCH (06:45)
[2020-03-20] MEDS: ONDANSETRON 4 MG/2 ML (SDV) Z0FRAN IV PRN (06:52)
[2020-03-20] MEDS: TRIM/SULFAMETH 160/800 (SEPTRA DS) TAB PO SCH ×2 (07:35→18:01)
[2020-03-20] MEDS: LACTOBACILLUS ACIDOPHILUS (PROBIOTIC) CAPSULE PO SCH ×3 (07:35→18:01)
[2020-03-20] MEDS: ENOXAPARIN 60 MG/0.6 ML (LOVENOX) SYR SC SCH ×2 (07:35→21:22)
[2020-03-20 08:00] VITALS: BP 113/74
--- NOTE | 2020-03-20 10:17 | NUR ---
THIS RN PULLED AND CHARTED ALL A.M. MEDICATIONS FOR PRIMARY RN Leonardo LANDRUM. THIS RN WILL BE THE RUNNER FOR THIS PATIENT THROUGHOUT THE DAY.
[2020-03-20 10:27] VITALS: BP 122/66
[2020-03-20 12:00] VITALS: BP 122/66
[2020-03-20 17:55] VITALS: BP 118/72
--- NOTE | 2020-03-20 18:20 | Progress Note ---
Subjective Subjective/Events-last exam Patient states that she still can not eat. Anything she tries to eat goes thru her. She is no longer vomiting. Review of Systems Pulmonary: No Dyspnea, No Cough Cardiovascular: No: Chest Pain, Palpitations, Edema Gastrointestinal: Abdominal Pain, Diarrhea; No: Nausea, Vomiting Neurological: Weakness Objective Exam Last Set of Vital Signs Vital Signs Date Time Temp Pulse Resp B/P (MAP) Pulse Ox O2 Delivery O2 Flow Rate FiO2 03/20/20 10:27 35.7 78 122/66 (84) 99 Room Air 03/20/20 04:50 18 Capillary Refill : Less Than 3 Seconds I&O Intake and Output 03/20/20 00:00 Intake Total 3440 ml Output Total 1300 ml Balance 2140 ml Intake Oral 1440 ml IV Total 2000 ml Output Urine Total 800 ml Urine/Stool Mix 500 ml # Voids 2 # Bowel Movements 9 General: Alert, Oriented X3, Cooperative, No Acute Distress HEENT: Mucous Memb Moist/Titanic Lungs: Clear to Auscultation, Normal Air Movement Heart: Regular Rate, No Murmurs Abdomen: Normal Bowel Sounds, Soft, No Tenderness, No Masses Extremities: No Edema, No Tenderness/Swelling Skin: No Rashes, No Breakdown Neuro: Normal Speech, Strength at 5/5 X4 Ext, Sensation Intact, Cranial Nerves 3-12 NL Results/Procedures Lab Laboratory Tests 03/20/20 04:57: White Blood Count 2.8L, Red Blood Count 3.87L, Hemoglobin 11.2L, Hematocrit 32L, Mean Corpuscular Volume 84, Mean Corpuscular Hemoglobin 29, Mean Corpuscular Hemoglobin Concent 35, Red Cell Distribution Width 13.8, Platelet Count 144, Mean Platelet Volume 9.8, Neutrophils (%) (Auto) 55, Lymphocytes (%) (Auto) 31, Monocytes (%) (Auto) 12, Eosinophils (%) (Auto) 1, Basophils (%) (Auto) 0, Neutrophils # (Auto) 1.6L, Lymphocytes # (Auto) 0.9L, Monocytes # (Auto) 0.4, Eosinophils # (Auto) 0.0, Basophils # (Auto) 0.0, Prothrombin Time 16.1H, INR Comment 1.3, Sodium Level 137, Potassium Level 3.2L, Chloride Level 109H, Carbon Dioxide Level 19L, Anion Gap 9, Blood Urea Nitrogen 6L, Creatinine 0.80, Estimat Glomerular Filtration Rate > 60, BUN/Creatinine Ratio 8, Glucose Level 78, Calcium Level 7.5L Microbiology 03/19/20 C. difficile GDH Antigen & Toxins - Final, Complete Assessment/Plan Assessment/Plan (1) Enteritis Status: Acute Assessment & Plan: - CT scan showed enteritis (2) Diarrhea Status: Acute Assessment & Plan: - Stool culture + Aeromaonas Hydrophilia, started on Bactrim and probiotics today, C. Diff pending 03/20: C diff neg, continue antibiotics, will d/c IVFs and has patient PO hydrate Qualifiers: Qualified Codes: R19.7 - Diarrhea, unspecified (3) Nausea & vomiting Status: Acute Assessment & Plan: - Zofran PRN, CLD Qualifiers: Qualified Codes: R11.2 - Nausea with vomiting, unspecified (4) DVT prophylaxis Status: Acute Assessment & Plan: - Restarted Warfarin Clinical Quality Measures DVT/VTE Risk/Contraindication: Risk Factor Score Per Nursin RFS Level Per Nursing on Admit: 4+=Very High NUNO GUERRERO MD Mar 20, 2020 18:19
[2020-03-20 20:30] VITALS: BP 113/66
[2020-03-20] MEDS ORDERED: DULoxetine 20 MG (CYMBALTA) CAP PO SCH (21:00)
[2020-03-20] MEDS: NORTRIPTYLINE 25 MG (PAMELOR) CAP PO SCH (21:22)
[2020-03-21 00:38] VITALS: BP 122/70
[2020-03-21] MEDS: ONDANSETRON 4 MG/2 ML (SDV) Z0FRAN IV PRN ×2 (00:54→09:03)
[2020-03-21 04:00] VITALS: BP 107/71
[2020-03-21 05:53] LABS: BASOPHILS % (AUTO) 0 % (0-10); EOSINOPHILS % (AUTO) 1 % (0-10); HEMATOCRIT 34 % (35-52); HEMOGLOBIN 11.6 G/DL (11.5-16.0); LYMPHOCYTES % (AUTO) 36 % (12-44); MEAN CORPUSCULAR HEMOGLOBIN 28 PG (25-34); MEAN CORPUSCULAR HGB CONC 34 G/DL (32-36); MEAN CORPUSCULAR VOLUME 82 FL (80-99); MEAN PLATELET VOLUME 9.5 FL (7.4-10.4); MONOCYTES # (AUTO) 0.2 X 10^3 (0.0-1.0); MONOCYTES % (AUTO) 8 % (0-12); NEUTROPHILS # (AUTO) 1.5 X 10^3 (1.8-7.8); NEUTROPHILS % (AUTO) 54 % (42-75); PLATELET COUNT 166 10^3/uL (130-400); RED CELL DISTRIBUTION WIDTH 13.7 % (10.0-14.5); WHITE BLOOD COUNT 2.8 10^3/uL (4.3-11.0)
[2020-03-21 06:10] LABS: ALANINE AMINOTRANSFERASE 23 U/L (0-55); ALBUMIN 3.2 GM/DL (3.2-4.5); ALKALINE PHOSPHATASE 43 U/L (40-136); BILIRUBIN,TOTAL 0.4 MG/DL (0.1-1.0); BUN/CREATININE RATIO 7; CARBON DIOXIDE 17 MMOL/L (21-32); CHLORIDE 108 MMOL/L (98-107); CREATININE SERUM 0.74 MG/DL (0.60-1.30); GFR ESTIMATED > 60; GLUCOSE 83 MG/DL (70-105); POTASSIUM 3.1 MMOL/L (3.6-5.0); SODIUM 137 MMOL/L (135-145); TOTAL PROTEIN 5.8 GM/DL (6.4-8.2)
[2020-03-21 08:00] VITALS: BP 104/68
[2020-03-21] MEDS: ENOXAPARIN 60 MG/0.6 ML (LOVENOX) SYR SC SCH (08:53)
[2020-03-21] MEDS: LACTOBACILLUS ACIDOPHILUS (PROBIOTIC) CAPSULE PO SCH ×2 (08:53→13:31)
[2020-03-21] MEDS: TRIM/SULFAMETH 160/800 (SEPTRA DS) TAB PO SCH (08:53)
--- NOTE | 2020-03-21 11:07 | Discharge Summary ---
Diagnosis/Chief Complaint Date of Admission Mar 18, 2020 at 19:20 Date of Discharge 03/21/20 Admission Diagnosis Admission Diagnosis See problem list Discharge Diagnosis See Below Problems/Diagnosis: (1) Enteritis Assessment & Plan: - CT scan showed enteritis Status: Acute (2) Diarrhea Assessment & Plan: - Stool culture + Aeromaonas Hydrophilia, started on Bactrim and probiotics today, C. Diff pending 03/20: C diff neg, continue antibiotics, will d/c IVFs and has patient PO hydrate 03/21: Salmonella on stool culture as well, supportive care Qualifiers: Qualified Codes: R19.7 - Diarrhea, unspecified Status: Acute (3) Nausea & vomiting Assessment & Plan: - Zofran PRN, CLD Qualifiers: Qualified Codes: R11.2 - Nausea with vomiting, unspecified Status: Acute (4) DVT prophylaxis Assessment & Plan: - Restarted Warfarin Status: Acute Chief Complaint/HPI Chief Complaint/HPI 39 yo F that presents with worsening nausea and vomiting with diarrhea. She has been to ER several times and has had [address] scans. States that she is not even able to tolerate any PO foods and only sometimes tolerating fluids. She has had abdominal pain that comes and goes. Never had anything like this in the past. She has had bariatric surgery. Discharge Summary-Simple/Stand Consultations Discharge Physical Examination Allergies: Coded Allergies: aspirin (Verified Allergy, Unknown, 03/15/20) Iodine and Iodide Containing Produc (Unverified Adverse Reaction, Intermediate, hives and syncope, 03/18/20) Vitals & I&Os Vital Sign - Last 12Hours Date Time Temp Pulse Resp B/P (MAP) Pulse Ox O2 Delivery O2 Flow Rate FiO2 03/21/20 08:00 36.0 70 16 104/68 (80) 99 Room Air Intake and Output 03/21/20 00:00 Intake Total 2608 ml Output Total 2725 ml Balance -117 ml General Appearance: Alert, Oriented X3, Cooperative, No Acute Distress HEENT: Mucous Memb Moist/[place] Respiratory: Clear to Auscultation, Normal Air Movement Cardiovascular: Regular Rate, No Murmurs Abdominal: Normal Bowel Sounds, Other (diffuse abdominal ttp, no rebound or gaurding) Extremities: No Edema, No Tenderness/Swelling Skin: No Rashes, No Breakdown Neuro: Strength at 5/5 X4 Ext, Sensation Intact, Cranial Nerves 3-12 NL Psych/Mental Status: Mental Status NL, Mood NL Hospital Course Was the Problem List Reviewed?: Yes See final discharge diagnosis. Discussion & Recommendations 39 yo F that presented with N/V and diarrhea. Supportive care did not improve pain and symptoms. Stool culture + for Salmonella. Started on Bactrim 1 day prior to d/c and patient was improving slightly. D/c on bland diet. Will have close f.u. Discharge Condition at discharge stable Instructions to patient/family Please see electronic discharge instructions given to patient. Discharge Medications Reviewed and agree with Discharge Medication list on patient's Discharge Instruction sheet Clinical Quality Measures DVT/VTE Risk/Contraindication: Risk Factor Score Per Nursin RFS Level Per Nursing on Admit: 4+=Very High NUNO GUERRERO MD Mar 21, 2020 11:07
[2020-03-21] MEDS ORDERED: Trimethoprim/Sulfamethoxazole PO (11:11)
[2020-03-21] MEDS ORDERED: LACT1CAP7 PO (11:11)
[2020-03-21] MEDS ORDERED: ONDA8TAB13 PO (11:11)
[2020-03-21] MEDS ORDERED: LISI-552 PO (11:11)
--- NOTE | 2020-03-21 11:12 | Discharge Summary ---
Discharge [facility] Reconcile Patient Problems Problems Reviewed?: Yes Discharge Medications New, Converted or Re-Newed RX: Transmitted to Pharmacy New Medications: Ondansetron (Ondansetron Odt) 8 Mg Tab.rapdis 8 MG PO BID PRN for NAUSEA-1ST LINE, #60 TAB Lactobacillus Acidophilus/Pect (Acidophilus-Pectin Capsule) 1 Each Capsule 1 EACH PO TIDWM, #90 CAP [Trimethoprim/Sulfamethoxazole] () 1 EA TAB 1 EA PO BID WITH MEALS, #10 TAB Changed Medications: Lisinopril (Lisinopril) 20 Mg Tablet 20 MG PO HS, #30 TAB (Medication details modified) DO NOT TAKE medication until seen by Ida Butler Continued Medications: Duloxetine HCl (Duloxetine HCl) 40 Mg Capsule.dr 40 MG PO HS, CAP Ergocalciferol (Vitamin D2) (Vitamin D2) 1,250 Mcg Capsule 1250 MCG PO WEDNESDAY, CAP Fluocinolone Acetonide Oil (Fluocinolone Acetonide Oil) 20 Ml Drops 3 DROPS EACH EAR DAILY, DROPS APPLY DROPS TO Q-TIP AND SWAB THE INSIDE OF EACH EAR Fluticasone Propionate (Fluticasone Propionate) 16 Gm [place].susp 2 SPRAY NSEACH BID, EA Gabapentin (Neurontin) 300 Mg Capsule 600 MG PO HS, CAP TAKES 2 (300MG) CAPS Hydroxychloroquine Sulfate (Hydroxychloroquine Sulfate) 200 Mg Tablet 400 MG PO HS, TAB TAKES 2 (200MG) TABS AT BEDTIME Loratadine (Claritin) 10 Mg Tablet 10 MG PO DAILY PRN for ALLERGY SYMPTOMS, TAB Montelukast Sodium (Montelukast Sodium) 10 Mg Tablet 10 MG PO HS, TAB Nortriptyline HCl (Nortriptyline HCl) 25 Mg Capsule 50 MG PO HS, CAP TAKES 2 (25MG) CAPS Semaglutide (Ozempic) 1 Mg/0.75 Ml Pen.injctr 1 MG SC WEDNESDAY, EA Tramadol HCl (Tramadol HCl) 50 Mg Tablet 50-100 MG PO Q6H PRN for PAIN-MODERATE (5-7), TAB Warfarin Sodium (Warfarin Sodium) 5 Mg Tablet 5 MG PO HS, TAB Patient Instructions Goal/Follow Up Appt: Fminnie with Ida Butler on Monday 04/02 @ 11 AM Patient Instructions: - Make sure to complete your antibiotics - Eat bland and easy to digest meals Activity & Diet Discharge Diet: Eat Small Frequent Meals Activity as Tolerated: Yes Orders-Post D/C & Referrals Pneu Vac Indicated: Yes NUNO GUERRERO MD Mar 21, 2020 11:12
--- NOTE | 2020-03-21 11:13 | NUR ---
"RD ASSESSMENT PMHx: GERD; DM; fibromyalgia PT INTERACTION: Pt was awake and pleasant during nutrition assessment. Pt states current appetite is poor, and has been this way since 03/13. Note avg PO intake <25% x2d, per chart review. Pt states following a regular diet at home, and has no issues with chewing/swallowing food. Pt states recent issues with nausea, vomiting, and diarrhea, all beginning around 03/13. Note last BM was 03/18, and pt not currently on bowel regimen per chart review. Pt states recent 14# wt loss x1week, d/t poor appetite. Note unable to determine recent wt hx, per chart review. ABNORMAL NUTRITION-RELATED LAB VALUES LOW: K 3.1; BUN 5; Ca 8.0; Pro 5.8 HIGH: Cl 108 Est. kcal needs: 1150 kcal | 25 kcal/kg IBW, based on IBW of 45.5 kg (100#) Est. Pro needs: 55 g Pro | 1.2 g Pro/kg IBW, based on IBW of 45.5 kg (100#) PES STATEMENT: Inadequate oral intake (NI-2.1) related to loss of appetite | nausea | vomiting | diarrhea as evidenced by pt interview | avg PO intake <25% x2d INTERVENTION: Continue with current diet order of Regular diet. Pt may benefit from consistent CHO restriction if blood glucose levels become elevated. Add Glucerna (vary) to meals TID, for increased kcal intake. Provides 220 kcal and 10 g Pro per serving. Discussed and provided diet education on DM management. Pt states maintaining glucose levels by diet through portion control. Discussed portion sizes of various foods in pt's diet and reinforced education on importance of portion control. Pt verbalized understanding. Will continue to follow and reassess as pt needs, intake, and status change. MONITOR/EVALUATE: PO Intake; Plan of Care; Hydration Status; Weight Status; Lab Values Gina Wilcox, MS, RD, LD"
[2020-03-21 12:00] VITALS: BP 110/77
== END 2020-03-21 11:07 | disposition home or self-care (01) ==
LOC: EDUNIT# 11:35 → ER FS 11:36 → 4TH 19:20
PROVIDERS: ADMIT Family Medicine; ATTEND Family Medicine
DX: K52.9 Noninfective gastroenteritis and colitis, unspecified (principal); E87.1 Hypo-osmolality and hyponatremia; E86.0 Dehydration; K21.9 Gastro-esophageal reflux disease without esophagitis; E11.9 Type 2 diabetes mellitus without complications; I26.99 Other pulmonary embolism without acute cor pulmonale; F32.9 Major depressive disorder, single episode, unspecified; M51.86 Other intervertebral disc disorders, lumbar region; E66.9 Obesity, unspecified; Z68.43 Body mass index [BMI] 50.0-59.9, adult; Z79.899 Other long term (current) drug therapy; Z88.5 Allergy status to narcotic agent; Z91.041 Radiographic dye allergy status; Z90.49 Acquired absence of other specified parts of digestive tract; Z90.710 Acquired absence of both cervix and uterus; Z20.828 Contact with and (suspected) exposure to other viral communicable diseases; Z82.49 Family history of ischemic heart disease and other diseases of the circulatory system
CPT/HCPCS: 36415; 74176; 80048; 80053 ×2; 81000; 82150; 83690; 85007; 85025 ×2; 85027; 85610; 87015; 87045; 87046; 87077; 87181; 87324; 87328; 87449; 87899; 89055; 99284; U0002; 87635; G0378

== ENCOUNTER 2020-04-03 11:58 | Emergency (ER) | payer MEDICAID ==
[~2020-04-03] VITALS: Ht 152 cm; Wt 140.0 kg
[~2020-04-03 11:58] MED LIST changes: -PROM25SU44 RC
[2020-04-03] MEDS ORDERED: ONDANSETRON 4 MG/2 ML (SDV) Z0FRAN IVP ONE (12:30)
[2020-04-03] MEDS ORDERED: NS IV 1000 ML 1,000 ML IV SCH (12:30)
--- NOTE | 2020-04-03 12:39 | ED GI ---
General Stated Complaint: DEHYDRATION Source of Information: Patient Exam Limitations: No Limitations History of Present Illness Date Seen by Provider: Apr 03, 2020 Time Seen by Provider: 12:15 Initial Comments The patient is a morbidly obese 39-year-old female who presents for evaluation of concern for dehydration. She was seen in the emergency department on March 15 for nausea and vomiting and then on March 17 for diarrhea. She was ultimately admitted to [facility] with enteritis between March 18 and March 21. She had a stool culture performed which showed a salmonella species and she was placed on Bactrim. She states that she completed her antibiotic last . She reports one episode of nausea and vomiting today. She has a very mild abdominal discomfort but denies any severe pain. She reports a history of cholecystectomy. Additionally she has history of factor V Leiden, fibromyalgia, and lupus. Because of the Factor V she is currently anticoagulated with warfarin. Timing/Duration: 1-2 Days Severity/Quality: Moderate Location: Epigastric (mild epigastric discomfort) Radiation: No Radiation Associated Symptoms: No Fever/Chills; Nausea/Vomiting Allergies and Home Medications Allergies Coded Allergies: aspirin (Verified Allergy, Unknown, 03/15/20) Iodine and Iodide Containing Produc (Unverified Adverse Reaction, In termediate, hives and syncope, 03/18/20) Home Medications Duloxetine HCl 40 Mg Capsule.dr, 40 MG PO HS, (Reported) Ergocalciferol (Vitamin D2) 1,250 Mcg Capsule, 1,250 MCG PO WEDNESDAY, (Reported) Fluocinolone Acetonide Oil 20 Ml Drops, 3 DROPS EACH EAR DAILY, (Reported) APPLY DROPS TO Q-TIP AND SWAB THE INSIDE OF EACH EAR Fluticasone Propionate 16 Gm [place].susp, 2 SPRAY NSEACH BID, (Reported) Gabapentin 300 Mg Capsule, 600 MG PO HS, (Reported) TAKES 2 (300MG) CAPS Hydroxychloroquine Sulfate 200 Mg Tablet, 400 MG PO HS, (Reported) TAKES 2 (200MG) TABS AT BEDTIME Lactobacillus Acidophilus/Pect 1 Each Capsule, 1 EACH PO TIDWM Prescribed by: NUNO GUERRERO on 03/21/20 1111 Lisinopril 20 Mg Tablet, 20 MG PO HS DO NOT TAKE medication until seen by Maame Whyte Prescribed by: NUNO GUERRERO on 03/21/20 1111 Loratadine 10 Mg Tablet, 10 MG PO DAILY PRN for ALLERGY SYMPTOMS, (Reported) Montelukast Sodium 10 Mg Tablet, 10 MG PO HS, (Reported) Nortriptyline HCl 25 Mg Capsule, 50 MG PO HS, (Reported) TAKES 2 (25MG) CAPS Ondansetron 8 Mg Tab.rapdis, 8 MG PO BID PRN for NAUSEA-1ST LINE Prescribed by: NUNO GUERRERO on 03/21/20 1111 Semaglutide 1 Mg/0.75 Ml Pen.injctr, 1 MG SC WEDNESDAY, (Reported) Tramadol HCl 50 Mg Tablet, 50-100 MG PO Q6H PRN for PAIN-MODERATE (5-7), (Reported) Warfarin Sodium 5 Mg Tablet, 5 MG PO HS, (Reported) [Trimethoprim/Sulfamethoxazole] 1 EA TAB, 1 EA PO BID WITH MEALS Prescribed by: NUNO GUERRERO on 03/21/20 1111 Patient Home Medication List Home Medication List Reviewed: Yes Review of Systems Review of Systems Constitutional: no symptoms reported EENTM: No Symptoms Reported Respiratory: No Symptoms Reported Cardiovascular: No Symptoms Reported Gastrointestinal: Abdominal Pain (epigastric, mild), Diarrhea, Nausea, Vomiting Genitourinary: No Symptoms Reported Musculoskeletal: no symptoms reported Skin: no symptoms reported Psychiatric/Neurological: No Symptoms Reported Endocrine: No Symptoms Reported Hematologic/Lymphatic: No Symptoms Reported All Other Systems Reviewed Negative Unless Noted: Yes Past Qohbpqr-Jzhajr-Afkgvh Hx Past Med/Social Hx: Reviewed Nursing Past Med/Soc Hx Patient Social History 2nd Hand Smoke Exposure: Yes Recent Foreign Travel: No Contact w/Someone Who Travel: No Recent Hopitalizations: No Seasonal Allergies Seasonal Allergies: No Past Medical History Surgeries: Yes (d&c, lap cholecystectomy, knee left, multi tooth extractions) Gallbladder, Hysterectomy Respiratory: Yes Pulmonary Embolism Cardiac: No Neurological: No Genitourinary: No Gastrointestinal: Yes Gastroesophageal Reflux Musculoskeletal: Yes (sciatica associated with disorder of lumbar spine) Fibromyalgia Endocrine: Yes Diabetes, Non-Insulin dep HEENT: No Cancer: No Psychosocial: Yes Depression Integumentary: No Blood Disorders: Yes (Factor V deficiency) Family Medical History Blood clots G8 SISTER Diabetes mellitus 19 MOTHER FH: congestive heart failure 19 FATHER Hypertension 19 MOTHER No Pertinent Family Hx Physical Exam Vital Signs Vital Signs - First Documented 04/03/20 13:09 Temp 36.3 Pulse 84 Resp 16 B/P (MAP) 109/76 (87) Pulse Ox 100 O2 Delivery Room Air Capillary Refill : Height/Weight/BMI Height: '" Weight: lbs. oz. kg; 54.70 BMI Method: General Appearance: WD/WN, no apparent distress, obese HEENT: PERRL/EOMI, normal ENT inspection Neck: non-tender, full range of motion Respiratory: lungs clear, normal breath sounds, no respiratory distress, no accessory muscle use Cardiovascular: regular rate, rhythm, no edema, no JVD Gastrointestinal: normal bowel sounds, soft, tenderness (very mild epigastric discomfort, otherwise benign abdominal examination) Extremities: non-tender, normal inspection, no pedal edema, no calf tenderness Back: normal inspection, no CVA tenderness, no vertebral tenderness Neurologic/Psychiatric: no motor/sensory deficits, alert, normal mood/affect, oriented x 3 Skin: normal color, warm/dry Progress/Results/Core Measures Results/Orders My Orders Orders - JOSE MCGILL DO Ns Iv 1000 Ml (Sodium Chloride 0.9%) (04/03/20 12:30) Ua Culture If Indicated (04/03/20 12:25) Urine Bedside (04/03/20 12:25) Prochlorperazine Injection (Compazine In (04/03/20 13:15) Encourage Po Fluids (04/03/20 13:03) Vital Signs/I&O 04/03/20 13:09 Temp 36.3 Pulse 84 Resp 16 B/P (MAP) 109/76 (87) Pulse Ox 100 O2 Delivery Room Air Progress Progress Note : Progress Note @1444 - the patient has not vomited since arrival and her vital signs are within normal limits. She would like to go home and try some rectal suppositories for her nausea control. Advised the patient to continue drinking as much water she is able to tolerate and to return to the emergency department for new or worsening symptoms. Advised the patient to follow up with her PCP in the next 1- 2 days. The patient expresses verbal understanding and agreement with the plan and is stable for discharge. Departure Impression Primary Impression: Mild dehydration Additional Impression: Nausea Disposition: HOME, SELF-CARE Condition: Stable Departure-Patient Inst. Decision time for Depature: 13:48 Referrals: [facility] (PCP) Primary Care Physician MAAME WHYTE APRN (Family) Primary Care Physician Patient Instructions: Nausea and Vomiting, Adult Add. Discharge Instructions: Follow-up with your doctor in the next 1-2 days. Take the prescribed medicine instructed. Return to the emergency Department immediately for new or worsening symptoms. Scripts Promethazine HCl (Promethazine Suppository) 25 Mg Supp.rect 25 MG RC Q4H for 5 Days, #20 SUPP.RECT Prov: JOSE MCGILL DO 04/03/20 JOSE MCGILL DO Apr 03, 2020 12:38
[2020-04-03] MEDS ORDERED: PROCHLORPERAZINE 10 MG/2ML INJ (COMPAZINE) IM ONE (13:15)
[2020-04-03] MEDS ORDERED: PROM25SU44 RC (13:48)
[2020-04-03 14:04] VITALS: BP 132/68
== END 2020-04-03 14:00 | disposition home or self-care (01) ==
LOC: EDUNIT# 11:58 → ER FS 12:00
DX: E86.0 Dehydration (principal); R11.2 Nausea with vomiting, unspecified; F32.9 Major depressive disorder, single episode, unspecified; E11.9 Type 2 diabetes mellitus without complications; E66.01 Morbid (severe) obesity due to excess calories; Z68.43 Body mass index [BMI] 50.0-59.9, adult; Z88.8 Allergy status to other drugs, medicaments and biological substances; Z82.49 Family history of ischemic heart disease and other diseases of the circulatory system; Z77.22 Contact with and (suspected) exposure to environmental tobacco smoke (acute) (chronic); Z79.01 Long term (current) use of anticoagulants
CPT/HCPCS: 99284

== ENCOUNTER → 2020-04-03 | Outpatient (CLI) | payer MEDICAID ==
[~2020-04-03] MED LIST changes: +DULO40CA2 PO; +ERGO50006 PO; +FLUO20DR4 EACH EAR; +FLUT16SP22 NSEACH; +GABA300C PO; +HYDR200T46 PO; +LACT1CAP7 PO; +LISI-552 PO; +LORA10TA76 PO; +MONT10TA26 PO; +NORT25CA PO; +ONDA8TAB13 PO; +PROM25SU44 RC; +SEMA1PEN SC; +TRAM50TA3 PO; +Trimethoprim/Sulfamethoxazole PO; +WARF-48 PO
== END ==
LOC: LAB FS 11:14
PROVIDERS: ATTEND Family Medicine
DX: R10.12 Left upper quadrant pain (principal)

== ENCOUNTER → 2020-10-11 | Outpatient (CLI) | payer MEDICARE, MEDICAID ==
[~2020-10-11] MED LIST changes: -MONT10TA26 PO; +MONT10TA97 PO; +PROM25SU44 RC
--- NOTE | 2020-10-11 14:08 | Diagnostic Imaging Report ---
PROCEDURE: CT head without contrast. TECHNIQUE: Multiple contiguous axial images were obtained through the brain without the use of intravenous contrast. Auto Exposure Controls were utilized during the CT exam to meet ALARA standards for radiation dose reduction. INDICATION: Chronic recurring headaches. No prior studies are available for comparison. The ventricles and sulci are within normal limits. No sulcal effacement or midline shift is identified. No acute intra-axial or extra-axial hemorrhage is detected. Cisterns are patent. Visualized paranasal sinuses are clear. IMPRESSION: No acute intracranial process is detected. Dictated by: Dictated on workstation # [id number]
== END ==
LOC: RAD FS 13:31
PROVIDERS: ATTEND Nurse Practitioner Family
DX: G43.909 Migraine, unspecified, not intractable, without status migrainosus (principal)
CPT/HCPCS: 70450

== ENCOUNTER 2021-01-09 05:42 | Outpatient (CLI) | payer MEDICARE, MEDICAID ==
[~2021-01-09] VITALS: Ht 165 cm; Wt 130.0 kg
[~2021-01-09 05:42] MED LIST changes: -LISI-552 PO; +LISI20TA26 PO; +MONT10TA32 PO; -MONT10TA97 PO
[2021-01-09] MEDS ORDERED: TRM50T PO (13:59)
[2021-01-09] MEDS ORDERED: TOPI50TA37 PO (13:59)
[2021-01-09] MEDS ORDERED: BUPR300T43 PO (13:59)
[2021-01-09] MEDS ORDERED: NF-VITD400 PO (14:01)
[2021-01-09] MEDS ORDERED: ASCO100024 PO (14:01)
[2021-01-09] MEDS ORDERED: ZINC50TA11 PO (14:01)
== END 2021-01-09 14:07 | disposition home or self-care (01) ==
LOC: PREOP 05:42
PROVIDERS: ATTEND Orthopaedic Surgery
DX: Z01.818 Encounter for other preprocedural examination (principal)

== ENCOUNTER → 2021-04-09 | Outpatient (CLI) | payer MEDICARE, MEDICAID ==
[~2021-04-09] MED LIST changes: +ASCO100024 PO; +BUPR300T43 PO; +ERGO1250 PO; -ERGO50006 PO; +NF-VITD400 PO; +TOPI50TA37 PO; +TRM50T PO; +ZINC50TA11 PO
== END ==
LOC: CARD 14:30
DX: I11.9 Hypertensive heart disease without heart failure (principal)
CPT/HCPCS: 93306

== ENCOUNTER 2021-11-23 12:33 | Emergency (ER) | payer MEDICARE, MEDICAID ==
[~2021-11-23 12:33] MED LIST changes: +MONT-40 PO; -MONT10TA32 PO
[2021-11-23 12:55] LABS: BASOPHILS % (AUTO) 0 % (0-10); EOSINOPHILS # (AUTO) 0.2 10^3/uL (0.0-0.3); EOSINOPHILS % (AUTO) 2 % (0-10); HEMATOCRIT 45 % (35-52); LYMPHOCYTES # (AUTO) 1.4 10^3/uL (1.0-4.0); LYMPHOCYTES % (AUTO) 20 % (12-44); MEAN CORPUSCULAR HEMOGLOBIN 30 pg (25-34); MEAN CORPUSCULAR HGB CONC 34 g/dL (32-36); MEAN CORPUSCULAR VOLUME 88 fL (80-99); MEAN PLATELET VOLUME 9.3 fL (9.0-12.2); MONOCYTES # (AUTO) 0.4 10^3/uL (0.0-1.0); MONOCYTES % (AUTO) 6 % (0-12); NEUTROPHILS # (AUTO) 4.9 10^3/uL (1.8-7.8); NEUTROPHILS % (AUTO) 71 % (42-75); PLATELET COUNT 233 10^3/uL (130-400); WHITE BLOOD COUNT 6.8 10^3/uL (4.3-11.0)
--- NOTE | 2021-11-23 13:04 | ED Lower Extremity ---
General Chief Complaint: Lower Extremity Stated Complaint: RIGHT LEG PAIN/SWELLING Nursing Triage Note: RIGHT CALF PAIN AFTER TRAVELING 5 HOURS IN A CAR YESTERDAY. HX OF DVT. PT HAS BEEN OFF HER COUMADIN SINCE SEPTEMBER. Source: patient History of Present Illness Date Seen by Provider: Nov 23, 2021 Time Seen by Provider: 12:38 Initial Comments 41-year-old female presenting with complaint of pain in her right calf. She states that she has been off Coumadin since September when she had to stop it for injections in her neck. She had to take a car ride for 5 hours to car pick up driver a puppy. She states that it was running late so they did not make stops or get out to walk and move around during the trip. When she got out at the destination to get the puppy she immediately noticed pain in her right calf within 2 steps from the car. She states he did try and take breaks on the trip back as they have a puppy in the car as well. However by then she was already having pain issues. She started taking the Coumadin at 10 mg a day on Wednesday as she was concerned that she had a blood clot. She had tried calling the clinic and they told her to call her silver wrapper. When she called her silver wrapper they told her she needed to work with her primary care provider. She was concerned that she might need Lovenox shots until the Coumadin was therapeutic. She wanted to be evaluated for possible DVT in her right leg as she has a history of DVTs and factor V Leiden disorder. She has no redness or increased warmth to the right leg. Pain/Injury Location: right leg (Calf) Method of Injury: other (79 cough for 5 hours) Modifying Factors: Worse With Movement Allergies and Home Medications Allergies Coded Allergies: aspirin (Verified Allergy, Unknown, 03/15/20) Iodine and Iodide Containing Produc (Unverified Adverse Reaction, Intermediate, hives and syncope, 03/18/20) Patient Home Medication List Home Medication List Reviewed: Yes Ascorbic Acid (Vitamin C) 1,000 Mg Tablet, 1,000 MG PO DAILY, (Reported) Entered as Reported by: AURA MARIN on 01/09/21 1401 Bupropion HCl (Wellbutrin Xl) 300 Mg Tab.er.24h, 300 MG PO DAILY, (Reported) Entered as Reported by: AURA MARIN on 01/09/21 1359 Duloxetine HCl (Duloxetine HCl) 40 Mg Capsule.dr, 40 MG PO HS, (Reported) Entered as Reported by: TRINA JUAN on 03/19/20 134 Fluocinolone Acetonide Oil (Fluocinolone Acetonide Oil) 20 Ml Drops, 3 DROPS EACH EAR DAILY, (Reported) Entered as Reported by: TRINA JUAN on 03/19/20 1346 Fluticasone Propionate (Fluticasone Propionate) 16 Gm [place].susp, 2 SPRAY NSEACH BID, (Reported) Entered as Reported by: TRINA JUAN on 03/19/20 1346 Gabapentin (Neurontin) 300 Mg Capsule, 600 MG PO HS, (Reported) Entered as Reported by: TRINA JUAN on 03/19/20 134 Hydroxychloroquine Sulfate (Hydroxychloroquine Sulfate) 200 Mg Tablet, 400 MG PO HS, (Reported) Entered as Reported by: TRINA JUAN on 03/19/20 1346 Lisinopril (Lisinopril) 20 Mg Tablet, 20 MG PO HS Prescribed by: NUNO GUERRERO on 03/21/20 1111 Loratadine (Claritin) 10 Mg Tablet, 10 MG PO DAILY PRN for ALLERGY SYMPTOMS, (Reported) Entered as Reported by: TRINA JUAN on 03/19/20 134 Topiramate (Topamax) 50 Mg Tablet, 50 MG PO BID, (Reported) Entered as Reported by: AURA MARIN on 01/09/21 1359 Tramadol HCl (Tramadol HCl) 50 Mg Tablet, 50 MG PO TID, (Reported) Entered as Reported by: AURA MARIN on 01/09/21 1359 Vitamin D (Vitamin D3) 10 Mcg Tablet, 400 MCG PO DAILY, (Reported) Entered as Reported by: AURA MARIN on 01/09/21 1401 Warfarin Sodium (Warfarin Sodium) 5 Mg Tablet, 5 MG PO HS, (Reported) Entered as Reported by: TRINA JUAN on 03/19/20 1346 Zinc Gluconate (Zinc) 50 Mg Tablet, 50 MG PO DAILY, (Reported) Entered as Reported by: AURA MARIN on 01/09/21 1401 Review of Systems Constitutional: No chills, No fever EENTM: no symptoms reported Respiratory: no symptoms reported Cardiovascular: no symptoms reported Gastrointestinal: no symptoms reported Genitourinary: no symptoms reported Musculoskeletal: see HPI, muscle pain (Right calf) Skin: No change in color Psychiatric/Neurological: Anxiety Past Yxrfnmu-Hslgwz-Fwcune Hx Patient Social History Tobacco Use?: No Use of E-Cig and/or Vaping dev: No Substance use?: No Alcohol Use?: No Pt feels they are or have been: No Seasonal Allergies Seasonal Allergies: No Past Medical History Surgery/Hospitalization HX: Factor V Leiden, recurrent DVTs, migraines, obesity Surgeries: Yes (d&c, lap cholecystectomy, knee left, multi tooth extractions) Gallbladder, Tonsillectomy Respiratory: Yes Pulmonary Embolism Currently Using CPAP: No Cardiac: No Neurological: Yes Headaches /Migraines Genitourinary: No Gastrointestinal: Yes Gastroesophageal Reflux, Gall Bladder Disease Musculoskeletal: Yes (sciatica associated with disorder of lumbar spine) Arthritis, Fibromyalgia, Chronic Back Pain Endocrine: No (BORDERLINE DIABETIC, DOES NOT CHECK BLOOD SUGARS) Diabetes, Non-Insulin dep HEENT: No Loss of Vision: Bilateral Hearing Impairment: Denies Cancer: No Psychosocial: Yes Anxiety, Depression Integumentary: No (LEGS, HANDS, AND FOREARMS) Eczema Blood Disorders: Yes (Factor V deficiency) Family Medical History Blood clots G8 SISTER Diabetes mellitus 19 MOTHER FH: congestive heart failure 19 FATHER Hypertension 19 MOTHER No Pertinent Family Hx Physical Exam Vital Signs Vital Signs - First Documented 11/23/21 12:35 Temp 36.4 Pulse 83 Resp 16 B/P (MAP) 139/102 (114) Pulse Ox 98 O2 Delivery Room Air Capillary Refill : Less Than 3 Seconds Height, Weight, BMI Height: '" Weight: lbs. oz. kg; 47.75 BMI Method: General Appearance: mild distress, obese Cardiovascular: normal peripheral pulses, regular rate, rhythm Respiratory: chest non-tender, lungs clear, normal breath sounds, no respiratory distress, no accessory muscle use Legs: right leg pain, right leg soft tissue tenderness (Right calf) Neurologic/Psychiatric: alert, oriented x 3 Skin: normal color, warm/dry Progress/Results/Core Measures Results/Orders Lab Results Laboratory Tests Test 11/23/21 12:50 Range/Units White Blood Count 6.8 4.3-11.0 10^3/uL Red Blood Count 5.08 3.80-5.11 10^6/uL Hemoglobin 15.0 11.5-16.0 g/dL Hematocrit 45 35-52 % Mean Corpuscular Volume 88 80-99 fL Mean Corpuscular Hemoglobin 30 25-34 pg Mean Corpuscular Hemoglobin Concent 34 32-36 g/dL Red Cell Distribution Width 12.6 10.0-14.5 % Platelet Count 233 130-400 10^3/uL Mean Platelet Volume 9.3 9.0-12.2 fL Immature Granulocyte % (Auto) 0 % Neutrophils (%) (Auto) 71 42-75 % Lymphocytes (%) (Auto) 20 12-44 % Monocytes (%) (Auto) 6 0-12 % Eosinophils (%) (Auto) 2 0-10 % Basophils (%) (Auto) 0 0-10 % Neutrophils # (Auto) 4.9 1.8-7.8 10^3/uL Lymphocytes # (Auto) 1.4 1.0-4.0 10^3/uL Monocytes # (Auto) 0.4 0.0-1.0 10^3/uL Eosinophils # (Auto) 0.2 0.0-0.3 10^3/uL Basophils # (Auto) 0.0 0.0-0.1 10^3/uL Immature Granulocyte # (Auto) 0.0 0.0-0.1 10^3/uL Prothrombin Time 47.6 *H 12.2-14.7 SEC INR Comment 5.1 *H 0.8-1.4 Activated Partial Thromboplast Time 55 H 24-35 SEC D-Dimer 0.57 H 0.00-0.49 UG/ML Sodium Level 137 135-145 MMOL/L Potassium Level 4.3 3.6-5.0 MMOL/L Chloride Level 105 98-107 MMOL/L Carbon Dioxide Level 21 21-32 MMOL/L Anion Gap 11 5-14 MMOL/L Blood Urea Nitrogen 16 7-18 MG/DL Creatinine 0.95 0.60-1.30 MG/DL Estimat Glomerular Filtration Rate 77 BUN/Creatinine Ratio 17 Glucose Level 104 70-105 MG/DL Calcium Level 9.1 8.5-10.1 MG/DL Corrected Calcium 8.9 8.5-10.1 MG/DL Total Bilirubin 0.4 0.1-1.0 MG/DL Aspartate Amino Transf (AST/SGOT) 21 5-34 U/L Alanine Aminotransferase (ALT/SGPT) 19 0-55 U/L Alkaline Phosphatase 71 40-136 U/L Total Protein 7.4 6.4-8.2 GM/DL Albumin 4.2 3.2-4.5 GM/DL My Orders Orders - NARCISA BOLIVAR MD Cbc With Automated Diff (11/23/21 12:48) Protime With Inr (11/23/21 12:48) Partial Thromboplastin Time (11/23/21 12:48) Comprehensive Metabolic Panel (11/23/21 12:48) Fibrin Degradation Products (11/23/21 12:48) Vital Signs/I&O 11/23/21 11/23/21 12:35 13:43 Temp 36.4 36.4 Pulse 83 83 Resp 16 16 B/P (MAP) 139/102 (114) 139/102 Pulse Ox 98 98 O2 Delivery Room Air Room Air Blood Pressure Mean: 114 Progress Progress Note #1: Progress Note Advised patient that I did not have ultrasound over the weekend. Will check her labs to see what her electrolytes and blood count look like before ordering any Lovenox. INR was also ordered since she was having Coumadin at the higher dose. She has been taking increased dose of Coumadin 10 mg since Wednesday so will see what the labs show prior to administering Lovenox. Can order outpatient order for venous doppler of RLE Progress Note #2: Progress Note Labs show stable CBC and chemistry. Her D-dimer was borderline elevation of 0.57. Her INR was greatly elevated to 5.1. Counseled patient to decrease her Coumadin to 5 mg a day and check back through the clinic to have this rechecked and see when it lowered to normal. In the meantime an outpatient order for ultrasound of the right lower extremity venous Doppler was ordered and and patient was given the paper order to take with her. Given the numbers to call so that she could check with [facility] and with [facility] in the morning about having the test done Departure Impression Primary Impression: Right calf pain Additional Impressions: Factor V Leiden carrier History of DVT (deep vein thrombosis) Elevated INR (international normalized ratio) due to prior anticoagulant medication ingestion Disposition: 01 HOME, SELF-CARE Condition: Stable Departure-Patient Inst. Decision time for Depature: 13:35 Referrals: [facility] (PCP) Primary Care Physician MAAME WHYTE APRN (Family) Primary Care Physician Patient Instructions: Muscle and Bone Pain (DC), Prothrombin Time (PT) Test and International Normalized Ratio (INR) Add. Discharge Instructions: Your INR was 5.1 today so you should decrease your dose of Warfarin (Coumadin) to 5 mg. The clinic will need to recheck and monitor to see that the level is coming down. Call [facility] clinic at [phone] after 8 am to see if they can get you in with Ryann to have an ultrasound done on your right leg. You may alternatively call Radiology Scheduling with [facility] in [place] at [phone]. You may call them after 7 or 730 am and they can see about scheduling you for an appointment to have ultrasound done in [place] All discharge instructions reviewed with patient and/or family. Voiced understanding. NARCISA BOLIVAR MD Nov 23, 2021 13:04
[2021-11-23 13:08] LABS: INR 5.1 (0.8-1.4)
[2021-11-23 13:09] LABS: PROTHROMBIN TIME PATIENT 47.6 SEC (12.2-14.7)
[2021-11-23 13:13] LABS: FIBRIN DEGRADATION PRODUCTS 0.57 UG/ML (0.00-0.49)
[2021-11-23 13:14] LABS: ALBUMIN 4.2 GM/DL (3.2-4.5); BILIRUBIN,TOTAL 0.4 MG/DL (0.1-1.0); CALCIUM 9.1 MG/DL (8.5-10.1); CREATININE SERUM 0.95 MG/DL (0.60-1.30); POTASSIUM 4.3 MMOL/L (3.6-5.0); TOTAL PROTEIN 7.4 GM/DL (6.4-8.2)
[2021-11-23 13:43] VITALS: BP 139/102
== END 2021-11-23 13:44 | disposition home or self-care (01) ==
LOC: EDUNIT# 12:33 → ER FS 12:34
DX: M79.661 Pain in right lower leg (principal); D68.51 Activated protein C resistance; D68.32 Hemorrhagic disorder due to extrinsic circulating anticoagulants; E66.9 Obesity, unspecified; Z86.718 Personal history of other venous thrombosis and embolism; Z68.42 Body mass index [BMI] 45.0-49.9, adult
CPT/HCPCS: 36415; 80053; 85025; 85379; 85610; 85730